=== PATIENT | male | born 1955 | race Caucasian/White ===

== ENCOUNTER → 2023-10-20 10:21 | Outpatient (REF) | payer MEDICARE, SELFPAY | LOC: SDSPAT 10:21 | PROVIDERS: ATTENDING PHYSICIAN Internal Medicine Cardiovascular Disease; FAMILY PHYSICIAN Student in an Organized Health Care Education/Training Program | DX: Z01.818 Encounter for other preprocedural examination (principal); I35.0 Nonrheumatic aortic (valve) stenosis; R06.02 Shortness of breath | CPT/HCPCS: 93005 ==

== ENCOUNTER 2023-10-23 07:01 | Day surgery (SDC) | payer MEDICARE, SELFPAY ==
[2023-10-20 10:45] VITALS: BMI 26.3
[2023-10-23] VITALS (18 sets, daily range): BP systolic 102–155; BP diastolic 59–101
[2023-10-23 08:00] LABS: Glucose - Point of Care 140 mg/dl (70-99)
[2023-10-23] MEDS: LOW STRENGTH ASPIRIN 81 MG PO (08:15)
[2023-10-23] MEDS: NSS 279 ML IV (08:16)
--- NOTE | 2023-10-23 09:54 | ITS.CL.CATH ---
Test Fixture Assembler - Catheterization
Cardiac Catheterization
Procedure Report:
CARDIAC CATHETERIZATION REPORT
Date of Procedure: 10/23/2023
Referring: Monique Daly MD
Indication: Symptomatic severe aortic stenosis
HEMODYNAMIC DATA
AO: 128/70
LV: 188/19
There is a mean gradient of 51 mmHg across the aortic valve
LEFT VENTRICULOGRAPHY: Normal left ventricular wall motion with EF 67%. There is trace mitral regurgitation
CORONARY ANGIOGRAPHY
Dominance: Right
Left Main: There is calcification of the left main without clear angiographic evidence of stenosis; however, there is ventricularization of the arterial waveform on engagement of the left main coronary artery suggestive of significant disease
LAD: 30% ostial stenosis with 60% mid stenosis distal to the takeoff of the first diagonal branch. There is some endomyocardial bridge component with 80% stenosis during systole; however, there is clearly some fixed stenosis as well
Circumflex: The circumflex gives rise to a twig like OM1 and a medium caliber large distribution OM 2 before continuing in the AV groove to supply collaterals to the RCA. There is 80% ostial OM2 stenosis
RCA: 30% ostial stenosis with 20-30% stenosis at the crux. The PDA has 60% mid stenosis. The AV groove branch gives rise to a small RPL 1 and a medium to large RPL 2. There are tandem 80% stenoses in the AV groove branch the first of which is
immediately distal to the takeoff of the RPL 1 and the second proximal to the takeoff of the terminal RPL 2
Closure Device: None-the procedure was performed via the right radial artery. The Demetri's test was normal prior to the procedure.
Radiation (mGy): 408
DAP (cm2.Gy): 39.9
Fluoroscopy time: 3.4 minutes
CONCLUSIONS
1: Severe aortic stenosis with mean gradient 51 mmHg
2: Normal left ventricular function with EF 67%
3. Severe multivessel CAD as described
4. Recommend AVR/CABG-full revascularization may be challenging but would include grafts to the LAD, OM2, RPDA, and distal RPL
5. The patient will be counseled to avoid any exercise/strenuous activity until treatment of his CAD has been accomplished
Copy to: Monique Daly MD, Reji Rodríguez MD
Reji Rodríguez MD, FACC, [facility]
== END 2023-10-23 13:27 | disposition home or self-care (01) ==
LOC: CATH 07:01
PROVIDERS: ATTENDING PHYSICIAN Internal Medicine Cardiovascular Disease; CONSULT PHYSICIAN Thoracic Surgery (Cardiothoracic Vascular Surgery); FAMILY PHYSICIAN Student in an Organized Health Care Education/Training Program
DX: I35.0 Nonrheumatic aortic (valve) stenosis (principal); I25.10 Atherosclerotic heart disease of native coronary artery without angina pectoris; I10 Essential (primary) hypertension; E78.5 Hyperlipidemia, unspecified; E11.9 Type 2 diabetes mellitus without complications; Z87.891 Personal history of nicotine dependence; Z86.73 Personal history of transient ischemic attack (TIA), and cerebral infarction without residual deficits; Z79.02 Long term (current) use of antithrombotics/antiplatelets; Z79.82 Long term (current) use of aspirin
CPT/HCPCS: 82962; 93458; C1894; Q9967

== ENCOUNTER → 2023-10-28 15:56 | Outpatient (REF) | payer MEDICARE, SELFPAY ==
[2023-10-31 16:33] LABS: FIT-Fecal Occult Blood Interp Negative
== END ==
LOC: REG 15:56
PROVIDERS: ATTENDING PHYSICIAN Student in an Organized Health Care Education/Training Program
DX: Z00.00 Encounter for general adult medical examination without abnormal findings (principal); Z12.11 Encounter for screening for malignant neoplasm of colon
CPT/HCPCS: 83520

== ENCOUNTER 2023-11-25 05:07 | Inpatient (IN) | payer MEDICARE, SELFPAY ==
[2023-11-03 08:20] VITALS: BMI 26.2
[2023-11-03 09:02] LABS: % Basophils 0.4 % (0-2); % Eosinophils 2.1 % (0-6); % Immature Granulocytes 0.2 % (0-0.5); % Lymphocytes 28.4 % (20.5-51.1); % Monocytes 11.2 % (1.7-9.3); % Neutrophils 57.7 % (42.2-75.2); Absolute Eosinophils 0.1 10^3/uL (0-0.7); Absolute Lymphocytes 1.5 10^3/uL (1.2-3.4); Absolute Monocytes 0.6 10^3/uL (0.1-0.6); Absolute Neutrophils 3.1 10^3/uL (1.4-6.5); Hematocrit 46.3 % (39.0-52.0); Hemoglobin 15.3 g/dL (13.0-18.0); Mean Corpuscular Hgb 29.8 pg (27.0-31.0); Mean Corpuscular Volume 90.3 fL (80.0-94.0); Mean Platelet Volume 10.8 fL (7.4-10.4); Nucleated Red Blood Cells % 0 % (-); Platelet Count 159 10^3/uL (130-400); Red Blood Cell Count 5.13 10^6/uL (4.70-6.10); Red Cell Dist. Width 13.2 % (11.5-14.5); White Blood Cell Count 5.3 10^3/uL (4.8-10.8)
[2023-11-03 09:05] LABS: INR 1.01; PT 13.1 Sec (11.4-14.6)
[2023-11-03 09:06] LABS: APTT 27.8 Sec (23.4-35.0)
[2023-11-03 09:39] LABS: ALT (SGPT) 38 U/L (0-50); AST (SGOT) 27 U/L (17-59); Albumin 4.6 g/dl (3.5-5.0); Alkaline Phosphatase 56 U/L (38-126); Blood Urea Nitrogen 15 mg/dl (9-20); Calcium 10.1 mg/dl (8.4-10.2); Carbon Dioxide 32 mmol/L (22-30); Chloride 99 mmol/L (98-107); Estimated Creatinine Clearance 100 ml/min; Glucose 135 mg/dl (70-99); Potassium 4.3 mmol/L (3.5-5.1); Sodium 138 mmol/L (135-145); Total Bilirubin 0.9 mg/dl (0.2-1.3); Total Protein 7.2 g/dl (6.3-8.2); eGFR > 60.00
--- NOTE | 2023-11-03 11:07 | CM ---
Met with Mr. Farris in [facility] He states prior to admission he resides alone in a two story townhouse without any steps to enter. He states he has a full flight of steps to get to bedroom/full bathroom. He states he has a powder room on the
first floor. He states prior to admission he was independent with ambulation and adls. He states he does not have any DME in the home. He states he does not have a prescription plan and uses [facility]. He states his ex-spouse maybe able to
check on him. He states his son will be here on the surgery day. The discharge plan is to return home with a home visit by the Cardiothoracic Transitional Care Nurse when medically stable.
We reviewed pre-op and post-op routines. We reviewed the shower instructions. He has the soap, written instructions and the Cardiothoracic Surgery Educational Booklet. We also reviewed restrictions including sternal precautions and driving
restrictions. We discussed a home visit by the Cardiothoracic Transitional Care Nurse. He is agreeable to home visit. The plan is for AVR/CABG on Wednesday, November 22.
[2023-11-03 12:43] LABS: Urine Albumin Negative (Neg - Trace); Urine Bilirubin Negative (Negative); Urine Character Clear (Clear); Urine Color Yellow; Urine Glucose Negative (Negative); Urine Ketone Negative (Negative); Urine Leukocyte Trace (Negative); Urine Nitrite Negative (Negative); Urine Occult Blood Negative (Negative); Urine Specific Gravity 1.005 (<1.030); Urine Urobilinogen Negative (Neg - 1+)
[2023-11-03 12:51] LABS: Urine Bacteria Few (Negative); Urine Red Blood Cell 0-2 /HPF (0-2); Urine Squamous Cell 0-2 /LPF (Few)
[2023-11-25] VITALS (22 sets, daily range): BP systolic 65–153; BP diastolic 47–86; BMI 25.9
[2023-11-25] MEDS: PROTONIX 40 MG PO (05:39)
[2023-11-25] MEDS: MAGNESIUM OXIDE 500 MG PO (05:39)
[2023-11-25] MEDS: LOPRESSOR 25 MG PO (05:39)
[2023-11-25] MEDS: BACTROBAN 2% OINTMENT 1 APPLIC NASAL ×2 (05:39→20:07)
--- NOTE | 2023-11-25 05:40 | DOWNTIME ---
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 Downtime documentation of patient's care, including medication administrations, has been reconciled in the electronic record per guidelines. Refer to the
patient's paper chart under the miscellaneous tab to see printed paper medication records and downtime forms.
[2023-11-25 07:30] LABS: ACT+ - POC 90 Seconds (82-134)
[2023-11-25 07:39] LABS: B.E. - POC -1.3 mmol/L; Glucose - POC 124 mg/dl (65-99); HCO3 - POC 25 mmol/L (21-29); Hematocrit - POC 38 % PCV (42-52); Hemodilution- POC No; Hemoglobin Calculated - POC 12.9; Ionized Calcium - POC 1.19 mmol/L (1.12-1.27); PCO2 - POC 44 mmHg (35-45); PO2 - POC 496 mmHg (80-100); Potassium - POC 3.9 mmol/L (3.6-5.0); Sodium - POC 143 mmol/L (135-145); pH - POC 7.35 (7.35-7.45)
[2023-11-25 07:56] LABS: Urine Albumin Negative (Neg - Trace); Urine Bilirubin Negative (Negative); Urine Character Clear (Clear); Urine Color Yellow; Urine Glucose Negative (Negative); Urine Ketone Negative (Negative); Urine Leukocyte Negative (Negative); Urine Nitrite Negative (Negative); Urine Occult Blood 2+ (Negative); Urine Specific Gravity 1.015 (<1.030); Urine Urobilinogen Negative (Neg - 1+)
[2023-11-25 08:27] LABS: Urine Mucus Moderate
[2023-11-25 08:30] LABS: Urine White Cell 0-2 /HPF (0-5)
[2023-11-25 08:33] LABS: Urine Hyaline Cast 0-2 /LPF (0-2)
[2023-11-25 09:55] LABS: ACT+ - POC 777 Seconds (82-134)
[2023-11-25 10:18] LABS: ACT+ - POC 508 Seconds (82-134)
[2023-11-25 10:50] LABS: Glucose - POC 158 mg/dl (65-99); HCO3 - POC 27 mmol/L (21-29); Hematocrit - POC 31 % PCV (42-52); Hemodilution- POC Yes; Hemoglobin Calculated - POC 10.5; Ionized Calcium - POC 1.05 mmol/L (1.12-1.27); PCO2 - POC 45 mmHg (35-45); PO2 - POC 436 mmHg (80-100); Sodium - POC 137 mmol/L (135-145)
[2023-11-25 10:51] LABS: ACT+ - POC 536 Seconds (82-134)
[2023-11-25 11:20] LABS: B.E. - POC 2.1 mmol/L; Glucose - POC 175 mg/dl (65-99); HCO3 - POC 27 mmol/L (21-29); Hematocrit - POC 31 % PCV (42-52); Hemodilution- POC Yes; Hemoglobin Calculated - POC 10.6; O2 Saturation %Calculated-POC 99.9 5 (92-96); PCO2 - POC 42 mmHg (35-45); PO2 - POC 278 mmHg (80-100); Potassium - POC 5.5 mmol/L (3.6-5.0); Sodium - POC 140 mmol/L (135-145); pH - POC 7.41 (7.35-7.45)
[2023-11-25 11:27] LABS: ACT+ - POC 469 Seconds (82-134)
[2023-11-25 12:13] LABS: B.E. - POC 2.4 mmol/L; Glucose - POC 189 mg/dl (65-99); HCO3 - POC 27 mmol/L (21-29); Hematocrit - POC 26 % PCV (42-52); Hemodilution- POC Yes; Hemoglobin Calculated - POC 8.9; Ionized Calcium - POC 1.08 mmol/L (1.12-1.27); O2 Saturation %Calculated-POC 99.9 5 (92-96); PCO2 - POC 38 mmHg (35-45); PO2 - POC 266 mmHg (80-100); Potassium - POC 4.9 mmol/L (3.6-5.0); Sodium - POC 139 mmol/L (135-145); pH - POC 7.45 (7.35-7.45)
[2023-11-25] MEDS: ANCEF 10 IV ×2 (12:17)
[2023-11-25 12:19] LABS: ACT+ - POC 651 Seconds (82-134)
--- NOTE | 2023-11-25 12:41 | CON.INTV ---
Consultation
Consultation Request
Date/Time Consultation Requested: 11-25-23
Date/Time Consultation Performed: 11-25-23
Requesting Provider: Dr Moyer
Performing Provider: Dr Hollis
Reason for Consultation: s/p CABG/AVR MV
Medical History
-
Chief Complaint: s/p CABG
History of Present Illness:
Mr Niall Farris is a 68/M adm 11-24 for scheduled CABG/AVR.
Known to Dr Moyer, seen at office for evaluation of MVD and severe , prepared for surgery
S/p CABGx3 and AVR 11-25-23
Postop L chest wall vein bleeding, proximal graft to OM bleeding: hemostasis achieved
Seen at CVICU, sedated, on SIMV
Past Medical History
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
Social History
Tobacco: Former Smoker
Alcohol: None
Drug: None
Employment: Retired
Family History
Family History: Reviewed & Not Pertinent
Allergies / Home Medications
Allergies
Allergy/AdvReac Type Severity Reaction Status Date / Time
bee pollen [Bee Pollen] Allergy Anaphylaxis Verified 10/29/23 09:37
Home Medications
�Medication �Instructions �Recorded �Confirmed �Last Taken �Type
atorvastatin 80 mg tablet 80 mg PO QPM 10/14/23 11/25/23 11/24/23 History
2100
clopidogrel 75 mg tablet 75 mg PO QPM 10/14/23 11/25/23 11/20/23 21:00 History
labetalol 100 mg tablet 200 mg PO BID 10/14/23 11/25/23 11/24/23 21:00 History
aspirin 81 mg tablet,delayed 81 mg PO DAILY #1 tab 10/23/23 11/25/23 11/24/23 21:00 Rx
release
epinephrine 0.3 mg/0.3 mL 0.3 mg IM PRN PRN bee stings 10/29/23 11/25/23 11/08/22 History
injection, auto-injector
ibuprofen 200 mg tablet 200 mg PO Q6H PRN pain 10/29/23 11/25/23 10/09/23 History
Review of Systems
-
Unable to Obtain full review of systems at this time due to: Patient Intubation
Vitals / Labs / Diagnostic Testing
Vital Signs
Temp Resp BP Pulse Ox
98.2 F 16 144/86 96
11/25/23 05:38 11/25/23 05:38 11/25/23 05:14 11/25/23 05:38
Lab Data
11/03/23 08:31
11/03/23 08:31
Diagnostic Testing:
Physical Exam
-
HEENT: Normocephalic and Moist Mucous Membranes
Cardiovascular: Regular Rhythm and Peripheral Edema (n)
Respiratory: Clear and Non-Labored Respirations
GI: Soft and Non Distended
Neurology: Other (sedated)
Skin: Warm
General: Respiratory Distress (n)
Assessment
-
Assessment:
Mr Niall Farris is a 68/M adm 11-24 for scheduled CABG/AVR. Known to Dr Moyer, seen at office for evaluation of MVD and severe , prepared for surgery
Impression:
S/p CABGx3 and AVR 11-25-23
Postop L chest wall vein bleeding, proximal graft to OM bleeding: hemostasis achieved
Conditions CORN POPPER:
HTN
HLD
Stroke, residual R hand neuropathy RLE paresia
CAD
MR
T2DM
L thumb amputation
BCC skin excision
Former smoker
Negative LDCT chest October 2022 and October 2023
Plan:
Ventilator settings reviewed: [id number] (POx 99%)
FiO2 will be weaned
Minute ventilation will be adjusted
Arterial blood gases will be monitored
Spontaneous breathing trial will be attempted with hopeful extubation after anesthesia/sedation wear off
Preop spirometry October 2023 normal
Postop CXR: portable, no gross infiltrates. ET. [facility] [place]. Sternotomy wiring. Chest/med tubes
Pulmonary artery catheter parameters will be followed
Pressors/antihypertensive/inotropes/diuretics will be provided as needed
Monitor chest tube output
Monitor hemoglobin
Monitor platelet count and coags
Transfuse blood product if needed
CT surgery following chest tubes
Monitor blood sugar
Insulin drip per protocol
Aspiration precautions
VAP prevention protocol
DVT prophylaxis
Early nutrition
Early mobilization
Critical care time: 35 min
[2023-11-25 12:52] LABS: B.E. - POC -2.3 mmol/L; Glucose - POC 132 mg/dl (65-99); HCO3 - POC 23 mmol/L (21-29); Hematocrit - POC 26 % PCV (42-52); Hemodilution- POC Yes; Ionized Calcium - POC 1.08 mmol/L (1.12-1.27); O2 Saturation %Calculated-POC 99.7 5 (92-96); PCO2 - POC 39 mmHg (35-45); PO2 - POC 199 mmHg (80-100); Potassium - POC 3.4 mmol/L (3.6-5.0); Sodium - POC 146 mmol/L (135-145); pH - POC 7.38 (7.35-7.45)
[2023-11-25 13:01] LABS: ACT+ - POC 920 Seconds (82-134)
[2023-11-25 13:56] LABS: ACT+ - POC 104 Seconds (82-134)
[2023-11-25] MEDS: NEURONTIN PO ×3 (14:00→20:07)
[2023-11-25] MEDS: NOVOLOG FLEXPEN SC ×2 (14:00→15:30)
[2023-11-25 14:01] LABS: Glucose - POC 79 mg/dl (65-99); HCO3 - POC 23 mmol/L (21-29); Hematocrit - POC 28 % PCV (42-52); Hemodilution- POC Yes; Hemoglobin Calculated - POC 9.6; Ionized Calcium - POC 1.33 mmol/L (1.12-1.27); O2 Saturation %Calculated-POC 99.4 5 (92-96); PCO2 - POC 48 mmHg (35-45); PO2 - POC 182 mmHg (80-100); Potassium - POC 3.2 mmol/L (3.6-5.0); Sodium - POC 146 mmol/L (135-145); pH - POC 7.28 (7.35-7.45)
[2023-11-25] MEDS: TYLENOL PO ×2 (14:01→22:43)
--- NOTE | 2023-11-25 14:05 | W.CVOR.SURPR ---
CVOR Surgeon Immed Pre Op
-
I have examined this patient prior to performance of the scheduled procedure.
The patient's condition is unchanged from the time of the dictated/written History and
Physical and the patient is able to undergo the scheduled procedure.
--- NOTE | 2023-11-25 14:05 | W.IMMPOSTOP ---
Addendum entered and electronically signed by João Mandel MD 11/25/23 17:29:
Initial intraoperative CT output was higher than expected. TEG obtained. Pt. transfused 1pk PLTs per TEG guidance. No significant decrease in CT output w/ dark/venous output. I therefore opted to reopen his incision. There was LEFT chest wall
vein that was bleeding which was easily addressed w/ electrocautery and topical agents. In addition, during our systematic assessment of surgical sights, the proximal graft to the OM, while not bleeding at rest, had a spot that bleed w/
manipulation. I therefore placed 1 additional 6-0 prolene suture at this site w/ good result. The sternum was closed w/ 7 interrupted sternal wires, a sternal 'X' plate w/ 8 - 16mm screws, and a sternal 'square' plate w/ 4 - 12mm screws. His
fascial, deep dermal, and sub-Q tissues were closed w/ absorbable suture.
Pt. tolerated this additional portion of the procedure well.
Addendum entered and electronically signed by João Mandel MD 11/25/23 15:19:
[id number]
Original Note:
Surgical Immed Post Op Note
-
CARDIAC SURGERY OPERATIVE NOTE:
Preoperative Dx:
Severe aortic stenosis (P/M: 75/43)
[id number] AI
Vvfq-[id number]-[id number] MR
Mdoq-fh-cpjtkphy TR
Multivessel CAD w/ extensive coronary calcifications
Mild elevation of L hemidiaphragm
Postoperative Dx:
Same
Procedures:
1) Median sternotomy
2) Takedown of MATY (narrow pedicle)
3) Endoscopic harvest/prep of RLE GSV
4) CABG x 3 (MATY to LAD, GSV to OM, GSV to PDA)
5) AVR (#25 Inspiris Resilia)
Surgeon:
João Mandel M.D.
Assistants:
Mary Hoffman P.A.-C.; endoscopic harvest/prep of RLE GSV, first crusher throughout, chest closure
Miguel Horton P.A.-C.; closure of RLE GSV incisions, chest closure
Anesthesia:
Brent Moralez M.D.
Arielle Pitts C.R.N.A. and Mary Schreiber C.R.N.AGiuliana
Perfusion:
Rupal Vázquez C.C.P.; XC: 160min, CPB: 180min
Findings:
The MATY was a beautiful conduit w/ extremely brisk blood flow. ELD 3.00mm.
The GSV was good conduit w/ slightly thin ruleas. ELD 3.50mm
The LAD was visible on the epicardial surface. Moderately dense, scattered calcifications. ELD 2.75mm at midpoint anastomosis.
The OM was visible on the epicardial surface as it exited the AV groove and then it took a shallow intramyocardial course. There were proximal calcifications, but the intramyocardial segment was free of calcifications. It was quite thin walled
and a fairly small target w/ ELD 1.25mm
The PDA was visible on the epicardial surface. Moderately dense, scattered calcifications. ELD 2.75mm at midpoint anastomosis
The R PLB was cleared, but was at the most a 1.00mm vessel; bypass was not performed
The AV was trileaflet w/ extensively calcified, fixed leaflets w/ annular extension of calcifications circumferentially.
Post GARCIA: LVEF 70% w/o RWMA, Normal RV. Mild MR. Mild TR. Well-seated AVR w/o PVL/AI, mean gradient 6mmHg
Implants:
[employer], INSPIRIS RESILIA, 25mm Model 90205E, SN [id number]
Epicardial V-wires x 2
CT x 4 (B/L pleural, inferior mediastinal, superior mediastinal)
Sternal wires
Specimens:
AV
Transfusions:
None
Complications:
None
Condition:
59 sinus w/ isoelectrics STs. 107/65. 53/33. CVP: 24. CO/CI: 4.7/2.16
GTTS: levophed 6, precedex 0.5
Stable/guarded to CVICU
[2023-11-25] MEDS: PACERONE PO (15:30)
--- NOTE | 2023-11-25 15:35 | CM ---
Patient in OR today for planned CT Surgery.
Reviewed initial assessment. Pt. resides alone in a 2 story town home without any LIBBY. Patient is functionally indep. w/ ADLs, mobility.
Anticipated DC plan is for home w/ CT Transitional Care RN.
CM to follow.
--- NOTE | 2023-11-25 15:35 | W.PN.CD ---
Today's Communication / Plan
-
Currently being re-explored/repaired.
Appears to be due to positional SVG to OM leak at the level of the aortotomy.
Anticipate routine post operative management.
Impression / Plan
-
Impression/Plan: 68 y/o male with HTN, HLD, hx of CVA, NIDDM and CAD with severe /moderate AI admitted for elective CABG/SAVR.
#CAD
-S/P 3V CABG (CORREA to LAD, SVG to OM, SVG to RPDA) by Dr. Mandel, 11/25/2023.
-Currently in re-exploration for bleeding - appears to be due to positional anastamotic leak from the SVG to OM.
-Anticipate routine postoperative management.
#Severe /Moderate AI
-S/P #25 Perry Inspiris Resilia SAVR by Dr. Mandel, 11/25/2023.
-Anticipate routine post operative management.
#HTN
-Chronic.
-Home meds on hold in the perioperative setting.
-Restart as indicated.
#HLD
-Chronic.
-Resume atorvastatin 80 mg daily when taking PO.
Critical Care Time = 32 minutes.
Subjective/Interval History:
The patient underwent surgery today.
Prior to leaving the OR, the patient was found to have excessive blood loss through the chest tubes.
The patient was re-opened and explored. This appeared to show leak around the proximal anastamosis to the OM graft. Dr. Mandel intends to repair this anastamosis.
DATA:
GARCIA, 11/25/2023:
CONCLUSIONS
Severe aortic stenosis, mild aortic regurgitation, valve annulus 25 mm.
Normal left ventricular size and systolic function, mild LVH, stage I diastolic
dysfunction.
The aorta has atheroma less than 5 mm and moderate calcifications in the arch.
Mild MR. Mild TR.
Dilated coronary sinus.
POST OPERATIVE FINDINGS
Status post aortic valve replacement with 25 mm bioprosthetic aortic valve, the
valve is well-seated, no perivalvular leak, leaflets are functioning well, mean
gradient is 6 mmHg.
Status post CABG x 3, the left ventricle is vigorously eva, EF 70 to
75%. No regional wall motion abnormalities seen.
Normal right ventricular size and function.
In the initial post pump separation phase there was a moderate MR, it resolved
to mild MR at the end of the case.
Mild TR.
The rest of the study is unchanged.
Cardiac Catheterization, 10/23/2023:
CORONARY ANGIOGRAPHY
Dominance: Right
Left Main: There is calcification of the left main without clear angiographic evidence of stenosis; however, there is ventricularization of the arterial waveform on engagement of the left main coronary artery suggestive of significant disease
LAD: 30% ostial stenosis with 60% mid stenosis distal to the takeoff of the first diagonal branch. There is some endomyocardial bridge component with 80% stenosis during systole; however, there is clearly some fixed stenosis as well
Circumflex: The circumflex gives rise to a twig like OM1 and a medium caliber large distribution OM 2 before continuing in the AV groove to supply collaterals to the RCA. There is 80% ostial OM2 stenosis
RCA: 30% ostial stenosis with 20-30% stenosis at the crux. The PDA has 60% mid stenosis. The AV groove branch gives rise to a small RPL 1 and a medium to large RPL 2. There are tandem 80% stenoses in the AV groove branch the first of which is
immediately distal to the takeoff of the RPL 1 and the second proximal to the takeoff of the terminal RPL 2
CONCLUSIONS
1: Severe aortic stenosis with mean gradient 51 mmHg
2: Normal left ventricular function with EF 67%
3. Severe multivessel CAD as described
4. Recommend AVR/CABG-full revascularization may be challenging but would include grafts to the LAD, OM2, RPDA, and distal RPL
5. The patient will be counseled to avoid any exercise/strenuous activity until treatment of his CAD has been accomplished
Physical Exam
Vital Signs/Labs
Vital Signs
Temp Resp BP Pulse Ox
36.8 C 16 144/86 96
11/25/23 05:38 11/25/23 05:38 11/25/23 05:14 11/25/23 05:38
11/24/23 11/25/23 11/26/23
11:59 11:59 11:59
Actual Weight 91.5 kg
PT 13.1 Sec (11.4-14.6) 11/03/23 08:31
INR 1.01 11/03/23 08:31
APTT 27.8 Sec (23.4-35.0) 11/03/23 08:31
Physical Exam
Patient seen in surgery/re-exploration and during discovery of positional leak of the Ao/SVG to OM anastomosis.
Exam deferred.
Data Reviewed
-
Date of Service: November 25, 2023
Medical Decision Making: Reviewed Test Results and Independent Historian Assessment
EKG: Tracing Personally Visualized and interpreted and Report Reviewed by me
Echo: Report Reviewed by me
X-Ray/CT/US/MRI/NUC/PET: Image Personally Visualized and interpreted and Report Reviewed by me
Medical Tests (PFT, Pathology etc): Report Reviewed by me
Labs: Labs Reviewed by me
Old Records: Reviewed
[2023-11-25 16:15] LABS: Hematocrit 25.9 % (39.0-52.0); Hemoglobin 8.5 g/dL (13.0-18.0); Mean Corp Hgb Conc. 32.8 g/dL (33.0-37.0); Mean Corpuscular Hgb 29.7 pg (27.0-31.0); Mean Corpuscular Volume 90.6 fL (80.0-94.0); Mean Platelet Volume 10.7 fL (7.4-10.4); Platelet Count 112 10^3/uL (130-400); Red Blood Cell Count 2.86 10^6/uL (4.70-6.10); Red Cell Dist. Width 13.1 % (11.5-14.5)
[2023-11-25 16:24] LABS: ACT+ - POC 112 Seconds (82-134)
[2023-11-25 16:26] LABS: Glucose - POC 133 mg/dl (65-99); HCO3 - POC 24 mmol/L (21-29); Hematocrit - POC 25 % PCV (42-52); Hemodilution- POC Yes; Hemoglobin Calculated - POC 8.6; Ionized Calcium - POC 1.16 mmol/L (1.12-1.27); O2 Saturation %Calculated-POC 99.2 5 (92-96); PCO2 - POC 44 mmHg (35-45); PO2 - POC 153 mmHg (80-100); Potassium - POC 4.4 mmol/L (3.6-5.0); Sodium - POC 143 mmol/L (135-145); pH - POC 7.34 (7.35-7.45)
[2023-11-25 16:29] LABS: INR 1.56; PT 18.8 Sec (11.4-14.6)
[2023-11-25 16:30] LABS: APTT 35.5 Sec (23.4-35.0)
[2023-11-25 17:51] LABS: Glucose - Point of Care 174 mg/dl (70-99)
[2023-11-25 17:54] LABS: B.E. 0 mmol/L; HCO3 25.4 mmol/L (21-28); Ionized Calcium 1.11 mMOL/L (1.15-1.33); PCO2 44 mmHg (35-48); PO2 85 mmHg (83-108); Potassium 4.6 mMOL/L (3.5-5.1); Sodium 141 mMOL/L (136-145); pH 7.37 (7.35-7.45)
[2023-11-25 17:55] LABS: Hematocrit 23.9 % (39.0-52.0); Hemoglobin 8.3 g/dL (13.0-18.0); Platelet Count 90 10^3/uL (130-400)
--- NOTE | 2023-11-25 17:55 | W.PN.UPDATE ---
Update Note
Progress Note Update
68-year-old male electively admitted 11/25/2023 for AVR and CABG with Dr. Mandel
IV fluids: 1550
U.O.:� 800
Blood:� 1 plt, 1PRBC, 2FFP
Wires:� 2 V-wires
Inotropes:� Dobutamine @ 2
Pressors:� none
Vasodilators: Cardene @ 5
Sedatives:� Precedex
VS: T 98.5F; HR 72; BP 101/47
�
NEURO: sedated on Precedex, pupils +2mm B/L
RESP: #8OT @24cm> 550/40%/23/12. Lungs clear B/L. 2 mediastinal (60cc on arrival) and R/L pleural (65cc on arrival) chest tubes to -20cm suction. Sanguineous drainage
CV: RRR +S1, S2, no S3, no�rub, no murmur. Dermabond to median sternotomy. RIJ w/Clinton locked @ 48cm. PA 36/; CVP 10; C.O 4.65/CI 2.13
ABD: round, soft, no BS
EXT: no edema, +2/4 DP pulses B/L, no femoral bruit, B/L LE FINN wrap intact; left radial A-line intact
: Vides with clear yellow urine
�
A/P: POD #0 s/p AVR # 25mm Inspiris, CABG x 3 CORREA-LAD; SVG-OM; SVG-PDA. Reopened in OR for hemostasis
GARCIA: EF�70-75%. AV mean 6mmHg, mild MR/TR
- wean and extubate
- will need instruction regarding antibiotic prophylaxis for dental and invasive procedures
- wean Cardene
# CAD
- will require ASA/Plavix, Beta-shannon and high intensity statin POD#1 when extubated, off inotropic support and plt>80k
�
# acute surgical blood loss anemia
- Hb 8.3>transfuse 1 PRBC
- trend CBC
# Acute post op Thrombocytopenia
- platelet count 90K
- coags stable
- trend CBC
�
# T2DM (A1C 6.7)
- insulin infusion x 48h, then transition to corrective SSI
- diabetes PRINCIPAL JAVA DEVELOPER consult for management as no prior meds
�
# Hx CVA 2020(<50% B/LICA stenosis)
- no residual
- monitor neuro status
[2023-11-25] MEDS: NSS 500 IV (18:00)
--- NOTE | 2023-11-25 18:00 | PTCARENOTE ---
Pt arrived to CVICU at 1740. Pt is sedated and intubated. Remains on 0.5mcg/kg/hr Precedex. Pt currently SR with HR 60's. BP 113/52 MAP 70, PA pressure 40/21, CVP 13, CO 4.65, CI 2.13. Initially on Cardene at 5mg/hr, now titrated off. MAPs remain
70's. Remains on Dobutamine at 2mcg/kg/min. Epicardial V wire in place to backup. Radial and pedal pulses easily palpable. #8 ET tube at 24cm right lip. Vent settings 50% FiO2, PEEP 5, RR 16, TV 550, pulse oximetry 99%. Mediastinal chest tubes x2
and left/right pleural chest tubes in place, draining red drainage, no sign of air leak or crepitus. Bowel sounds hypoactive. Remains on insulin gtt per glycemic protocol. Vides catheter in place draining yellow urine. Midsternal incision Aquacel
dressing CDI. Left leg with jason wrap overlay. Left groin puncture ADMINISTRATIVE LIBRARY ASSISTANT with surgical adhesive. Right IJ swan-malvin catheter at 45cm. Left radial Lottie intact. Post-op x-ray completed. Labs collected. Post-op EKG completed.
[2023-11-25 18:06] LABS: PT 16.2 Sec (11.4-14.6)
[2023-11-25 18:07] LABS: APTT 34.3 Sec (23.4-35.0)
[2023-11-25 18:11] LABS: Blood Urea Nitrogen 15 mg/dl (9-20); Estimated Creatinine Clearance 100 ml/min; Glucose 152 mg/dl (70-99); Magnesium 2.3 mg/dl (1.6-2.3)
[2023-11-25] MEDS: CALCIUM CHLORIDE 10% SYRINGE 50 MG IV (18:53)
[2023-11-25] MEDS: CALCIUM CHLORIDE 10% SYRINGE 50 ML IV (18:53)
--- NOTE | 2023-11-25 19:00 | PTCARENOTE ---
assumed care of patient @ 1900. recieved pt intubated, sedated on mechanical ventilation. Pupils equal and reactive. pt currently not responsive to verbal, will wean precedex. NSR on monitor with pvcs and 4 beat run of VT at shift chane, ctnp aware.
V wire set to backup 40, 5 , .8. PAPs 40s/20s, BP labile, Map between 60-80 currently. CI 1.94 ctnp aware. ET tube 24 @ R lip, 50 % fio2, 16 bpm, 550 TV with 5 peep. no spontaneious breaths yet. Belly hypoactive, soft. michaud with clear yellow
urine. Sternal aquacel CDI, L leg with jason wrap and R groin site CDI MARKETING SUPPORT COORDINATOR. RIJ cordis with swan at 45, PIV r hand and L arterial line, central lines flushed, zeroed. Recieved with insulin per protocol, dobut at 2 , precedex at .5, levo turned on to 2
at shift change. Pt recieved 1uprbc finished at shift change.
[2023-11-25 19:09] LABS: Glucose - Point of Care 147 mg/dl (70-99)
[2023-11-25] MEDS: LIPITOR PO (19:17)
--- NOTE | 2023-11-25 19:44 | PTCARENOTE ---
pt bradycardic with pacer box activating at 40 bpm, BP dropped maps 55 - BP stabilized once NSR resumed CTPA aware
[2023-11-25 20:00] LABS: Glucose - Point of Care 120 mg/dl (70-99)
[2023-11-25] MEDS: SENOKOT-S PO (20:06)
[2023-11-25 20:25] LABS: B.E. 0.5 mmol/L; HCO3 24.5 mmol/L (21-28); Ionized Calcium 1.26 mMOL/L (1.15-1.33); O2 Saturation % 99.7 % (94-98); PCO2 36 mmHg (35-48); PO2 139 mmHg (83-108); Potassium 4.1 mMOL/L (3.5-5.1); pH 7.44 (7.35-7.45)
[2023-11-25 20:26] LABS: Hematocrit 26.6 % (39.0-52.0); Hemoglobin 9.4 g/dL (13.0-18.0); Platelet Count 104 10^3/uL (130-400)
[2023-11-25 20:28] LABS: Mixed Venous O2 Saturation 99.9 %
[2023-11-25 20:35] LABS: INR 1.32; PT 16.4 Sec (11.4-14.6)
[2023-11-25 20:36] LABS: APTT 40.7 Sec (23.4-35.0)
[2023-11-25 20:58] LABS: Glucose - Point of Care 120 mg/dl (70-99)
[2023-11-25] MEDS: PRECEDEX 100 IV (21:14)
[2023-11-25 21:20] LABS: Mixed Venous O2 Saturation 41.4 %
[2023-11-25] MEDS: ALBUMIN 5% 250 IV (21:34)
--- NOTE | 2023-11-25 21:38 | PTCARENOTE ---
index and mv02 low ( 1.46 and 41). Dobut increased to 3 per CTPA . 1 albumin given
[2023-11-25 21:57] LABS: Glucose - Point of Care 111 mg/dl (70-99)
[2023-11-25] MEDS: ASPIRIN 300 MG RECTAL (22:33)
[2023-11-25] MEDS: VERSED 0.5 MG IV (22:34)
--- NOTE | 2023-11-25 22:38 | PTCARENOTE ---
Addendum entered by Milton Lunsford RN 11/25/23 22:41:
pt recovered with levo up to 6 mcg
Original Note:
pt awoke very agitated, thrashing, BP extremely high 220s/100s. Cardene up to 15 and Nitro up to 40 to bring SBP down. Afterwards, pt with vagal event - coughing with eyes rolling back- Pacer kicked on and pt hypotensive in the 60s/70s. Pacer
increased to 50 bpm afterwards. Midazolam given and Precedex put back to 0.5 during this event.
[2023-11-25 23:00] LABS: Glucose - Point of Care 135 mg/dl (70-99)
[2023-11-26] VITALS (64 sets, daily range): BP systolic 86–162; BP diastolic 45–798; PULSE 97; O2SAT 98; BMI 27.5
--- NOTE | 2023-11-26 00:20 | PTCARENOTE ---
pt continually trying to grab at ET tube - soft limb restraints ordered by CTPA
--- NOTE | 2023-11-26 00:35 | PTCARENOTE ---
pt awake, denies pain, seems very restless , CPAP trial initiated at 0035
[2023-11-26] MEDS: ANCEF 5 IV ×3 (00:59→16:44)
[2023-11-26 01:15] LABS: Mixed Venous O2 Saturation 50.3 %
[2023-11-26 01:17] LABS: B.E. 0.1 mmol/L; HCO3 24.7 mmol/L (21-28); Ionized Calcium 1.24 mMOL/L (1.15-1.33); O2 Saturation % 99.9 % (94-98); O2 Therapy CPAP; PCO2 39 mmHg (35-48); PO2 158 mmHg (83-108); Potassium 4.5 mMOL/L (3.5-5.1); pH 7.41 (7.35-7.45)
[2023-11-26 01:20] LABS: Glucose - Point of Care 123 mg/dl (70-99)
--- NOTE | 2023-11-26 01:20 | PTCARENOTE ---
pt agitated, got hold of A line and removed it. pressure held and dressing applied. CPAP gas good, extubated at 0125. pt AOX3, denies pain or discomfort. CTPA to try to put new A line in
[2023-11-26 01:30] LABS: Magnesium 2.3 mg/dl (1.6-2.3)
--- NOTE | 2023-11-26 02:00 | PTCARENOTE ---
new R radial arterial line placed by anesthesia
--- NOTE | 2023-11-26 03:00 | PTCARENOTE ---
labs drawn and sent, EKG completed, pt following commands however is still very restless, attempting to roll around in bed. denies pain or discomfort. IV tylenol given. Restraints taken off to assess readiness, pt very quickly attempted to remove
swan. restraints reapplied, education provided related to importance of IVs and chest tubes... pt verbalizes understanding.
[2023-11-26 03:18] LABS: Glucose - Point of Care 112 mg/dl (70-99)
[2023-11-26] MEDS: OFIRMEV 100 IV (03:31)
[2023-11-26 03:51] LABS: Hematocrit 24.1 % (39.0-52.0); Hemoglobin 8.5 g/dL (13.0-18.0); Mean Corp Hgb Conc. 35.3 g/dL (33.0-37.0); Mean Corpuscular Volume 85.2 fL (80.0-94.0); Mean Platelet Volume 11.7 fL (7.4-10.4); Platelet Count 103 10^3/uL (130-400); Red Blood Cell Count 2.83 10^6/uL (4.70-6.10); Red Cell Dist. Width 14.4 % (11.5-14.5); White Blood Cell Count 10.2 10^3/uL (4.8-10.8)
[2023-11-26 04:10] LABS: Glucose - Point of Care 104 mg/dl (70-99)
[2023-11-26 04:28] LABS: Blood Urea Nitrogen 20 mg/dl (9-20); Calcium 8.5 mg/dl (8.4-10.2); Carbon Dioxide 23 mmol/L (22-30); Chloride 110 mmol/L (98-107); Estimated Creatinine Clearance 100 ml/min; Glucose 101 mg/dl (70-99); Magnesium 2.3 mg/dl (1.6-2.3); Potassium 4.4 mmol/L (3.5-5.1); Sodium 142 mmol/L (135-145); eGFR > 60.00
[2023-11-26 05:15] LABS: Glucose - Point of Care 114 mg/dl (70-99)
[2023-11-26] MEDS: TYLENOL PO (05:47)
[2023-11-26 06:03] LABS: Glucose - Point of Care 109 mg/dl (70-99)
--- NOTE | 2023-11-26 06:27 | W.PN.CT ---
Today's Communication / Plan
-
-pod #1
-extubated without issues @ 1:25 am. A&O x3, moves all extremities, follows commands
-several vasovagal episodes while intubated with hypotension and bradycardia (paced @ 40)- recovered quickly with pacing and Levo
-impulsive, tried to pull out ETT, pulled out L a-line (replaced on R), picked at Cordis- restraints on and off, monitor. Currently, pt is calm, comfortable
-CI 2.21, CO 4.81. Drips: Dobut 2, Insulin, Levo was @2 and is currently off
-CT output: 2 meds 205/285, 2 pleur 255/375 in 12/24 hrs
-holding BB and Amio d/t abraham and Dobut
-holding Plavix d/t low platelets
-current meds (ASA, Lipitor, Protonix, Neurontin)
-maintain iv insulin
-consider continue Vides for critical I&O
-maintain pw (paced intermittently overnight)
-encourage IS, OOB
Assessment / Plan
-
- Severe /mv-CAD- s/p AVR (#25 Inspiris Sadiaa) and CABG x 3 (MATY to LAD, GSV to OM, GSV to PDA); reopen incision in OR with repair of L chest wall vein bleeding and 1 extra suture placement at prox graft to OM by Dr. Mandel on 11/25/23, pod #1
- Post GARCIA: LVEF 70% w/o RWMA, Normal RV. Mild MR. Mild TR. Well-seated AVR w/o PVL/AI, mean gradient 6mmHg
- Preop Severe /mild-mod AI, mild-mod MR, mild-mod TR
- HTN/HLD
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
- CVA in 2020 with no residual
- DM II
- Intracranial and carotid atherosclerosis
- PVCs
- Former smoker, quit 11 yrs ago
- Pulmonary HTN
- BCC
- ETOH - quit 3 yrs ago
- Acute postop blood loss anemia - s/p 2 pRBCs
- Acute postop thrombocytopenia/ coagulopathy - s/p 1 unit platelet and 2 FFPs
- Acute postop 3-5 beat PVCs
- Acute postop atelectasis
- Acute postop hypovolemia with subsequent hypervolemia
- Acute postop vasovagal rxn while intubated with hypotension 60s and bradycardia (paced intermittently VVI 40 bpm)- recovered quickly with Levo and pacing
Discussed patient care with: Nursing and Care Team
Subjective
Procedure
s/p AVR (#25 Inspiris Resilia) and CABG x 3 (MATY to LAD, GSV to OM, GSV to PDA); reopen incision in OR with repair of L chest wall vein bleeding and 1 extra suture placement at prox graft to OM by Dr. Mandel on 11/25/23
-
Date of Service: November 26, 2023
Objective Data
-
PT 16.4 Sec (11.4-14.6) H 11/25/23 20:18
INR 1.32 11/25/23 20:18
APTT 40.7 Sec (23.4-35.0) H 11/25/23 20:18
Vital Signs
Vital Signs
Temp Pulse Resp BP Pulse Ox
98.9 F 65 16 100/53 98
11/25/23 23:00 11/25/23 23:00 11/25/23 23:00 11/25/23 23:00 11/25/23 23:00
CT Intake/Output/Weight
11/25/23 11/25/23 11/26/23
06:59 18:59 06:59
Intake Total 40.9 / 514.3 473.4 / 514.3
Output Total 325 / 975 650 / 975
Balance -284.1 / -460.7 -176.6 / -460.7
SaO2: 98
Physical Exam
-
General: Awake
Cardiovascular: Regular rate & rhythm, No Murmurs and No Rub
Respiratory: Decreased Breath Sounds
Sternum: Stable
Incision: Clean, Dry and Dressing Intact
Extremities: No Edema (1+DP b/l)
Abdomen: soft, nondistended, nontender, very decreased bowel sounds
Data Reviewed
-
Lab Results: Results Reviewed
Medications: Active Meds Reviewed
Chest X-Ray: Report Reviewed and Image Reviewed
ECG: Report Reviewed and Image Reviewed
--- NOTE | 2023-11-26 07:12 | W.PN.INTV ---
Today's Communication / Plan
Recommendations
IS
Post CABG care
Reconsult prn
Assessment
-
Assessment:
Mr Niall Farris is a 68/M adm 11-24 for scheduled CABG/AVR. Known to Dr Moyer, seen at office for evaluation of MVD and severe , prepared for surgery
Impression:
S/p CABGx3 and AVR 11-25-23
Postop L chest wall vein bleeding, proximal graft to OM bleeding: hemostasis achieved
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
HTN
HLD
Stroke, residual R hand neuropathy RLE paresia
CAD
MR
T2DM
L thumb amputation
BCC skin excision
Former smoker
Negative LDCT chest October 2022 and October 2023
Plan:
Extubated earlier this morning
IS
Asp precs
Postop CXR: portable, no gross infiltrates. ET. [facility] [place]. Sternotomy wiring. Chest/med tubes
F/u CXR with interim extubation and no infitrates
Pulmonary artery catheter parameters will be followed
Pressors/antihypertensive/inotropes/diuretics will be provided as needed
Monitor chest tube output
Monitor hemoglobin
Monitor platelet count and coags
Transfuse blood product if needed
CT surgery following chest tubes
Monitor blood sugar
Insulin drip per protocol
DVT prophylaxis
Early nutrition
Early mobilization
Reconsult as needed
Subjective Dataa
Subjective Data
Date of Service:
Date of Service: November 26, 2023
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
Subjective:
Extubated with no issues earlier this morning
Vagal event reported earlier today, no consequences
Denies major complaints at time of visit
Review of Systems
General: Fever (n), Sweats (n) and Chills (n)
HEENT: Epistaxis (n) and Dysphagia (n)
Cardiopulmonary: Dyspnea (n), Cough (n) and Chest Pain (incisional)
GI: Abdominal Pain (n), Nausea (n) and Vomiting (n)
Neuro: Weakness
Objective Data
Data Reviewed
Vital Signs / I&O / Oxygen:
Vital Signs
Temp Pulse Resp BP Pulse Ox
98.9 F 91 18 133/61 98
11/26/23 07:00 11/26/23 07:05 11/26/23 07:05 11/26/23 02:22 11/26/23 07:05
Intake and Output
11/25/23 11/26/23 11/27/23
06:59 06:59 06:59
Intake Total 766.9 / 793.5 26.6 / 26.6
Output Total 1300 / 1345 45 / 45
Balance -533.1 / -551.5 -18.4 / -18.4
SaO2 [SIMV] 100
SaO2 98
Nasal Cannula flow liters per 4
minute
Physical Exam
General: Comfortable
HEENT: Normocephalic and Moist Mucous Membranes
Cardiovascular: Regular Rhythm and Peripheral Edema (n)
Respiratory: Clear, Non-Labored Respirations and Stridor (n)
GI: Soft, Non Distended and Non Tender
Neurology: Awake, AO x 3 and No Motor Deficits
Skin: Warm
Labs/Micro/Reports
Lab Data
11/26/23 03:17
11/26/23 03:17
Laboratory Results
11/25/23 11/25/23 11/25/23
15:45 17:49 20:18
PT 18.8 H 16.2 H 16.4 H
INR 1.56 1.30 1.32
APTT 35.5 H 34.3 40.7 H
pH 7.37 7.44
pCO2 44 36
pO2 85 139 H
HCO3 25.4 24.5
O2 Delivery Level
11/26/23
01:04
PT
INR
APTT
pH 7.41
pCO2 39
pO2 158 H
HCO3 24.7
O2 Delivery Level Cpap
[2023-11-26 07:18] LABS: Glucose - Point of Care 98 mg/dl (70-99)
[2023-11-26] MEDS: DILAUDID 0.25 MG IV (07:30)
--- NOTE | 2023-11-26 08:34 | PTCARENOTE ---
Assumed care of patient at 0700. Pt is awake, alert, calm and cooperative. Pt is oriented to person, place, and situation. Pt is forgetful and disoriented to time. Reviewed sternal precautions as well as being cautious not to accidently remove any
lines/tubes. Pt remains SR with HR 90's. BP 130/54 MAP 77, PA 48/18, CVP 12, CO 6.39, CI 2.93, SVR 726. V wire in place set to rate 50, output 5. Radial and pedal pulses easily palpable. Pulse oximetry 94% on 2L nasal cannula. Chest tubes x4 in
place no sign of air leak or crepitus, drainage serosanguineous. Bowel sounds hypoactive. Vides catheter in place draining yellow urine. Midsternal incision Aquacel dressing CDI. Left leg with jason wrap in place. Left groin puncture approximated,
ecchymotic, surgical adhesive in place. Right IJ swan-malvin catheter at 45cm. Right radial A line intact. Pt remains on insulin gtt per glycemic protocol. Pt remains on Dobutamine gtt at 2mcg/kg/min. Pt currently resting at this time with call mueller
within reach.
[2023-11-26] MEDS: NEURONTIN 100 MG PO ×3 (08:53→21:13)
[2023-11-26] MEDS: LIDOCAINE 4% PATCH 1 PATCH TOPICAL (08:54)
[2023-11-26] MEDS: SENOKOT-S 1 TABLET PO ×2 (08:54→21:12)
[2023-11-26] MEDS: PROTONIX 40 MG PO (08:54)
[2023-11-26] MEDS: MAGNESIUM OXIDE 500 MG PO ×2 (08:54→21:12)
[2023-11-26] MEDS: LOW STRENGTH ASPIRIN 81 MG PO (08:54)
[2023-11-26] MEDS: BACTROBAN 2% OINTMENT 1 APPLIC NASAL ×2 (08:55→21:14)
--- NOTE | 2023-11-26 08:58 | W.PN.CD ---
Today's Communication / Plan
-
Diurese.
Wean dobutamine.
Start metoprolol when off of dobutamine.
Incentive spirometry.
Ambulation when appropriate.
Chest tube/pain control per CT surgery.
Impression / Plan
-
Impression/Plan: 68 y/o male with HTN, HLD, hx of CVA, NIDDM and CAD with severe /moderate AI admitted for elective CABG/SAVR.
#CAD
-S/P 3V CABG (CORREA to LAD, SVG to OM, SVG to RPDA) by Dr. Mandel, 11/25/2023, complicated by positional anastamotic leak from the SVG to OM requiring re-exploration and repair (single stitch).
-Anticipate routine postoperative management.
-Continue aspirin.
-Wean dobutamine. Start metoprolol when off of dobutamine.
-Incentive spirometry, ambulation when appropriate.
-Chest tube/pain control per CT surgery.
-Start diuresis.
#Severe /Moderate AI
-S/P #25 Perry Inspiris Resilia SAVR by Dr. Mandel, 11/25/2023.
-Anticipate routine post operative management.
#HTN
-Chronic.
-Home meds on hold in the perioperative setting.
-Restart as indicated.
#HLD
-Chronic.
-Resume atorvastatin 80 mg daily when taking PO.
Critical Care Time = 33 minutes.
Subjective/Interval History:
Extubated very early this morning (01:25).
Weight is up 5.8 kg (97.2 <-- 91.5).
PA diastolic and RA pressures are rising.
CI 2.93 at 7:42 this morning.
SaO2 95% on 2LNC.
DATA:
GARCIA, 11/25/2023:
CONCLUSIONS
Severe aortic stenosis, mild aortic regurgitation, valve annulus 25 mm.
Normal left ventricular size and systolic function, mild LVH, stage I diastolic
dysfunction.
The aorta has atheroma less than 5 mm and moderate calcifications in the arch.
Mild MR. Mild TR.
Dilated coronary sinus.
POST OPERATIVE FINDINGS
Status post aortic valve replacement with 25 mm bioprosthetic aortic valve, the
valve is well-seated, no perivalvular leak, leaflets are functioning well, mean
gradient is 6 mmHg.
Status post CABG x 3, the left ventricle is vigorously eva, EF 70 to
75%. No regional wall motion abnormalities seen.
Normal right ventricular size and function.
In the initial post pump separation phase there was a moderate MR, it resolved
to mild MR at the end of the case.
Mild TR.
The rest of the study is unchanged.
Cardiac Catheterization, 10/23/2023:
CORONARY ANGIOGRAPHY
Dominance: Right
Left Main: There is calcification of the left main without clear angiographic evidence of stenosis; however, there is ventricularization of the arterial waveform on engagement of the left main coronary artery suggestive of significant disease
LAD: 30% ostial stenosis with 60% mid stenosis distal to the takeoff of the first diagonal branch. There is some endomyocardial bridge component with 80% stenosis during systole; however, there is clearly some fixed stenosis as well
Circumflex: The circumflex gives rise to a twig like OM1 and a medium caliber large distribution OM 2 before continuing in the AV groove to supply collaterals to the RCA. There is 80% ostial OM2 stenosis
RCA: 30% ostial stenosis with 20-30% stenosis at the crux. The PDA has 60% mid stenosis. The AV groove branch gives rise to a small RPL 1 and a medium to large RPL 2. There are tandem 80% stenoses in the AV groove branch the first of which is
immediately distal to the takeoff of the RPL 1 and the second proximal to the takeoff of the terminal RPL 2
CONCLUSIONS
1: Severe aortic stenosis with mean gradient 51 mmHg
2: Normal left ventricular function with EF 67%
3. Severe multivessel CAD as described
4. Recommend AVR/CABG-full revascularization may be challenging but would include grafts to the LAD, OM2, RPDA, and distal RPL
5. The patient will be counseled to avoid any exercise/strenuous activity until treatment of his CAD has been accomplished
Physical Exam
Vital Signs/Labs
Vital Signs
Temp Pulse Resp BP Pulse Ox
37.3 C 100 19 127/63 95
11/26/23 08:00 11/26/23 08:00 11/26/23 08:00 11/26/23 08:00 11/26/23 08:31
11/24/23 11/25/23 11/26/23
11:59 11:59 11:59
Actual Weight 91.5 kg 97.2 kg
11/26/23 03:17
11/26/23 03:17
PT 16.4 Sec (11.4-14.6) H 11/25/23 20:18
INR 1.32 11/25/23 20:18
APTT 40.7 Sec (23.4-35.0) H 11/25/23 20:18
Magnesium 2.3 mg/dl (1.6-2.3) 11/26/23 03:17
Physical Exam
Constitutional: No acute distress and Comfortable
EENT: Anicteric and Moist mucous membranes
Cardiovascular: Rhythm & rate is regular, Pedal edema is absent, JVD pressure is normal, S1S2 is normal and Murmur/rub/gallop absent
Respiratory: Respiratory effort normal and Other (Decreased throughout.)
GI: Soft, Distention absent, Flat, Non tender and Normal bowel sounds
Neuro/Psych: AO x 3
Data Reviewed
-
Date of Service: November 26, 2023
Medical Decision Making: Reviewed Test Results, Independent Historian Assessment and Test Interpretation
EKG: Tracing Personally Visualized and interpreted and Report Reviewed by me
Echo: Tracing Personally Visualized and interpreted and Report Reviewed by me
X-Ray/CT/US/MRI/NUC/PET: Image Personally Visualized and interpreted and Report Reviewed by me
Medical Tests (PFT, Pathology etc): Image Personally Visualized and interpreted and Report Reviewed by me
Labs: Labs Reviewed by me
[2023-11-26 09:00] LABS: Glucose - Point of Care 108 mg/dl (70-99)
--- NOTE | 2023-11-26 10:08 | W.PN.ANS.POP ---
Anesthesia Post Operative
- Anesthesia Post Op Note
Vital Signs Stable-See Nursing Note: Yes (remains on cardene gtts per orders. )
Airway Patent: Yes
Adequate Pain Control: Yes
Change in Mental Status: No
Current Postoperative Nausea & Vomiting: No
Anesthesia Complications: No
General Anesthetic Recall: No
Unplanned Admission: No
Post Op Hydration Adequate: Yes
--- NOTE | 2023-11-26 10:34 | PN.DE.MGMTRT ---
Insulin Management
- -
11/26/2023 Diabetes Management Consult
Patient admitted for OR 11/24, POD 1 s/p AVR, CABG x3. PMH HTN, HLD, CVA, aortic stenosis, intracranial arteriosclerosis,carotid atherosclerosis, type 2 diabetes. Prior to admission was taking no medication for diabetes. A1C on admission 6.7%, cr
.8, eGFR > 60.
Patient is in bed alert, oriented, able to discuss diabetes management. Patient states he has had diabetes approx 1 year and is followed by his primary doctor.
He is currently on the glycemic protocol requiring 1.1 to 4 units of insulin per hour, glucose range 98 to 123. Will continue glycemic protocol today and prepare to transition tomorrow. Discussed with patient benefit of SGLT 2, he is agreeable.
Will need glucose monitor, but he is quite drowsy during our conversation.
Spoke with nurse regarding plan for glycemic protocol
W
Diabetes History
- -
Type of Diabetes: 2
Pre-Admission Diabetes Regimen
11/25/23 11/26/23
17:49 03:17
Creatinine 0.8 0.8
Insulin Pump Settings
IP Diabetes Regimen
11/25/23 11/25/23 11/25/23
17:49 19:07 19:59
Glucose 152 H
POC Glucose 174 H 147 H 120 H
11/25/23 11/25/23 11/25/23
20:57 21:56 22:58
Glucose
POC Glucose 120 H 111 H 135 H
11/26/23 11/26/23 11/26/23
01:18 03:16 03:17
Glucose 101 H
POC Glucose 123 H 112 H
11/26/23 11/26/23 11/26/23
04:08 05:03 06:02
Glucose
POC Glucose 104 H 114 H 109 H
11/26/23 11/26/23
07:07 08:58
Glucose
POC Glucose 98 108 H
Patient Education
--- NOTE | 2023-11-26 11:20 | PTCARENOTE ---
Dobutamine weaned off per order. Briefly on Cardene, now titrated off. CO 5.79, CI 2.66, SVR 829. Pt de-lined per order. Cardiac rehab to bedside, assisted RN to assist pt to chair. BP while sitting on bed prior to ambulating 102/75 MAP 82. Pt
sitting in chair HR dropped and temporary pacing wire began pacing pt at a rate of 50. Pt with loss of consciousness. Diaphoretic. Legs elevated and head brought down. Pt regained consciousness. BP 150/61 MAP 79. After resting in chair and head
brought upright BP 103/56 MAP 70. Pt currently resting comfortably at this time in chair.
[2023-11-26 11:31] LABS: Glucose - Point of Care 119 mg/dl (70-99)
[2023-11-26] MEDS: NOVOLOG FLEXPEN 4 UNITS SC ×2 (12:16→14:20)
[2023-11-26 12:31] LABS: Hemoglobin 8.3 g/dL (13.0-18.0); Mean Corp Hgb Conc. 34.6 g/dL (33.0-37.0); Mean Corpuscular Hgb 30.1 pg (27.0-31.0); Mean Platelet Volume 11.8 fL (7.4-10.4); Platelet Count 103 10^3/uL (130-400); Red Blood Cell Count 2.76 10^6/uL (4.70-6.10); Red Cell Dist. Width 14.9 % (11.5-14.5); White Blood Cell Count 12.4 10^3/uL (4.8-10.8)
[2023-11-26] MEDS: ROXICODONE 5 MG PO (12:31)
[2023-11-26] MEDS: FLEXERIL 5 MG PO (12:31)
[2023-11-26] MEDS: NSS IV (12:53)
[2023-11-26 13:07] LABS: Glucose - Point of Care 83 mg/dl (70-99)
[2023-11-26] MEDS: TYLENOL 1000 MG PO ×2 (14:25→21:12)
--- NOTE | 2023-11-26 14:34 | CM ---
CM asked to assess cost of Farxiga and Jardiance.
Pt. has no prescription coverage.
TT to Diabetic VULCAN[employer]ER to update.
--- NOTE | 2023-11-26 14:36 | CM ---
CM following for DC planning needs.
Met w/ patient at bedside. He reports that he is feeling well.
Anticipated DC plan is for home w/ CT Transitional Care RN.
CM to follow.
--- NOTE | 2023-11-26 15:00 | PTCARENOTE ---
Noted tele monitor off. RN in to assess pt. Pt covered in blood. Pt pulled tubing off of Cordis line, which is unable to be reconnected. Cordis d/c'd. Pt remains oriented to person, place, and time. Pt washed and now moved closer to RN station into
room 2262.
[2023-11-26 15:10] LABS: Glucose - Point of Care 119 mg/dl (70-99)
[2023-11-26] MEDS: LASIX 20 MG IV (15:15)
--- NOTE | 2023-11-26 15:15 | PTCARENOTE ---
Pt received 1 unit PRBC per order. IV Lasix administered following.
[2023-11-26] MEDS: NOVOLIN R INSULIN INFUSION 100 IV (15:27)
[2023-11-26 17:11] LABS: Glucose - Point of Care 124 mg/dl (70-99)
[2023-11-26] MEDS: LIPITOR 80 MG PO (17:11)
[2023-11-26] MEDS: NOVOLOG FLEXPEN SC (17:11)
--- NOTE | 2023-11-26 19:00 | PTCARENOTE ---
assumed care of patient @ 1900. received pt laying in bed, AOX2 - disoriented to time, forgetful. Pt seems restless and fidgety, however denies pain or discomfort. Sinus tach HR 100-110 on monitor. V wire set to 50, 5, .8. + pulses, - edema. lungs
clear, diminished on room air satting low - mid 90s. IS around 1500. 4 chest tubes to wall suction, no air leak, tidaling or crepitus noted. Belly soft, hypoactive. Vides draining clear yellow urine. Sternal Aquacel , L groin, L leg sites CDI. R
wrist PIV with insulin per protocol. pt resting comfortably with call mueller within reach.
[2023-11-26 19:22] LABS: Glucose - Point of Care 105 mg/dl (70-99)
[2023-11-26 21:17] LABS: Glucose - Point of Care 94 mg/dl (70-99)
[2023-11-26] MEDS: NSS (PRESERVATIVE FREE) 0.25 ML IV (22:19)
[2023-11-26] MEDS: ATIVAN 0.5 MG IV (22:21)
--- NOTE | 2023-11-26 22:33 | PTCARENOTE ---
pt became agitated and pulled at chest tube dressing breaking V wire. pt AOX2, however very agitated, telling staff to get out. soft mitts applied, 0.5 ativan given. CTPA ordered dopamine and atropine for bedside as well as code cart outside of room
in case pacing needed. pt sleeping after ativan
[2023-11-27] VITALS (52 sets, daily range): BP systolic 86–160; BP diastolic 48–89; BMI 27.5
--- NOTE | 2023-11-27 | PTCARENOTE ---
pt awoke very agitated, quickly took off mits and trying to pull at michaud. CTPA ordered to remove michaud to prevent harm. Pt thrashing around in bed, grabbing at staff. pt still denying pain or discomfort. 0.5 ativan given per order and Precedex
started at 0.5. New IV placed in R hand # 22. labs drawn from it. Pt calm now, will try to titrate precedex down
[2023-11-27 00:30] LABS: Hematocrit 24.6 % (39.0-52.0); Hemoglobin 8.5 g/dL (13.0-18.0); Mean Corp Hgb Conc. 34.6 g/dL (33.0-37.0); Mean Corpuscular Hgb 29.7 pg (27.0-31.0); Red Blood Cell Count 2.86 10^6/uL (4.70-6.10); Red Cell Dist. Width 15.4 % (11.5-14.5); White Blood Cell Count 12.9 10^3/uL (4.8-10.8)
[2023-11-27] MEDS: ZOFRAN 4 MG IV (00:32)
[2023-11-27] MEDS: ATIVAN 0.5 MG IV (00:32)
[2023-11-27] MEDS: NSS (PRESERVATIVE FREE) 0.25 ML IV (00:33)
[2023-11-27 00:37] LABS: Glucose - Point of Care 102 mg/dl (70-99)
[2023-11-27 01:30] LABS: Mean Platelet Volume 12.2 fL (7.4-10.4); Platelet Count 68 10^3/uL (130-400)
[2023-11-27 03:05] LABS: Glucose - Point of Care 152 mg/dl (70-99)
[2023-11-27 03:42] LABS: Blood Urea Nitrogen 29 mg/dl (9-20); Calcium 8.7 mg/dl (8.4-10.2); Carbon Dioxide 29 mmol/L (22-30); Chloride 103 mmol/L (98-107); Estimated Creatinine Clearance 89 ml/min; Glucose 124 mg/dl (70-99); Magnesium 2.5 mg/dl (1.6-2.3); Potassium 4.6 mmol/L (3.5-5.1); Sodium 139 mmol/L (135-145); eGFR > 60.00
--- NOTE | 2023-11-27 04:00 | PTCARENOTE ---
pt went into afib hr 100-120 @ 0320 - new IV placed in R arm #22 and amio bolus and drip hung. full bed bath given, sheets changed, face washed and teeth swabbed. remains on precedex 0.1. calm currently
[2023-11-27] MEDS: CORDARONE 103 MG IV (04:45)
[2023-11-27] MEDS: CORDARONE 518 MG IV (05:09)
--- NOTE | 2023-11-27 05:42 | W.PN.CT ---
Addendum entered and electronically signed by João Mandel MD 11/27/23 06:35:
I saw and examined the patient.
The PA's note was reviewed and I agree with the note.
Comment:
POD#2 s/p AVR/CABG x 3
Minor initially self-limited agitation yesterday s/p narcotics; pt pulled cordis. Narcotics held. After this episode, patient became ACO x 4, pleasant, calm. Overnight pt. again became confused/anxious/agitated. Attempted to get OOB to 'go home'
Attempted to pull out his michaud and pulled/damaged pacing wire. Placed in restraints, given ativan x 2, precedex. Michaud removed secondary to concerns for trauma (UO good, creat normal). This AM pt. remains very sedate w/ limited responsiveness
to verbal stimuli, continues to [place] w/ equal strength, but presently is only ACO x 1 (person), unknown place, believes year to be 2021. Pt. also w/ AF in low 100s-120s at 3:20AM - given amiodarone protocol. Currently SBP in 90s. PLT also declined
from 103 to 68
- Check stat CT-H w/o contrast
- No narcotics (last yesterday afternoon)
- Closely follow neurologic exam
Pt. w/ Hx of EtOH - reportedly quit 3 years ago; also w/ Hx of prior CVAs (2009 & 2020) w/ intracranial and carotid atherosclerosis [<50% b/l w/ antegrade vert flow on U/S 11/03/23]
- Check echocardiogram
- Continue amiodarone protocol
- Hold ASA/plavix
- Restart levophed for SBP 120s, MAP > 70
- Bulb CTs
Original Note:
Today's Communication / Plan
-
-pod #2
-drips: Precedex 0.1, Amio 1, Insulin
-CT output: 2 meds 25/105, 2 pleur 25/245 in 12/24 hrs -consider d/c
-went into a-fib low 100s-120s @ 3:20am - placed new IV, tx with Amio bolus and drip
-pt was pleasant, A&O x4 initially last night, then got confused, anxious, wanted to get OOB to 'go home,' tried to pull out Michaud, damaged pacing wire- improved with Ativan x2 and Precedex. Dcd Michaud to avoid trauma
-avoid narcotics, continue Tylenol
-Atropine and Dopamine in the room in case gets bradycardic (postop was vagal with hypotension/bradycardia and required v-pacing)
-holding BB and po Amio- consider re-starting
-follow platelets - holding Plavix, on ASA
-s/p 1 pRBC with 20 mg Lasix on 11/25 (UO 1035)
-current meds (ASA, Lipitor, Protonix, Neurontin, Lidocaine patch)
-encourage IS, OOB
Assessment / Plan
-
- Severe /mv-CAD- s/p AVR (#25 Inspiris Resilia) and CABG x 3 (MATY to LAD, GSV to OM, GSV to PDA); reopen incision in OR with repair of L chest wall vein bleeding and 1 extra suture placement at prox graft to OM by Dr. Mandel on 11/25/23, pod #2
- Post GARCIA: LVEF 70% w/o RWMA, Normal RV. Mild MR. Mild TR. Well-seated AVR w/o PVL/AI, mean gradient 6mmHg
- Preop Severe /mild-mod AI, mild-mod MR, mild-mod TR
- HTN/HLD
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
- CVA in 2020 with no residual
- DM II
- Intracranial and carotid atherosclerosis
- PVCs
- Former smoker, quit 11 yrs ago
- Pulmonary HTN
- BCC
- ETOH - quit 3 yrs ago
- Acute postop blood loss anemia - s/p 3 pRBCs
- Acute postop thrombocytopenia/ coagulopathy - s/p 1 unit platelet and 2 FFPs
- Acute postop 3-5 beat PVCs
- Acute postop atelectasis
- Acute postop hypovolemia with subsequent hypervolemia
- Acute postop vasovagal rxn while intubated with hypotension 60s and bradycardia (paced intermittently VVI 40 bpm)- recovered quickly with Levo and pacing
- Acute postop confusion, agitation, pulling out lines- required restraints, Ativan and Precedex, avoiding narcotics
- Acute postop a-fib on 11/26 low 100-120s - tx with Amio bolus and drip
Discussed patient care with: Nursing and Care Team
Subjective
Procedure
s/p AVR (#25 Inspiris Resilia) and CABG x 3 (MATY to LAD, GSV to OM, GSV to PDA); reopen incision in OR with repair of L chest wall vein bleeding and 1 extra suture placement at prox graft to OM by Dr. Mandel on 11/25/23
-
Date of Service: November 27, 2023
Objective Data
-
Lab Results
11/27/23 00:26
PT 16.4 Sec (11.4-14.6) H 11/25/23 20:18
INR 1.32 11/25/23 20:18
APTT 40.7 Sec (23.4-35.0) H 11/25/23 20:18
Vital Signs
Vital Signs
Temp Pulse Resp BP Pulse Ox
98.1 F 96 16 110/55 98
11/26/23 19:00 11/27/23 00:37 11/27/23 00:00 11/27/23 00:37 11/27/23 00:03
CT Intake/Output/Weight
11/26/23 11/26/23 11/27/23
06:59 18:59 06:59
Intake Total 726.0 / 793.5 457.0 / 568.0 111.0 / 568.0
Output Total 975 / 1345 1335 / 1600 265 / 1600
Balance -249.0 / -551.5 -878.0 / -1032.0 -154.0 / -1032.0
SaO2: 98
Physical Exam
-
General: Awake and Other (was A&O x4 last night, then got confused)
Cardiovascular: Regular rate & rhythm, No Murmurs and Rub
Respiratory: Decreased Breath Sounds
Sternum: Stable
Incision: Clean, Dry and Dressing Intact
Extremities: No Edema
Abdomen: soft, nontender, nondistended, + bowel sounds
Data Reviewed
-
Lab Results: Results Reviewed
Medications: Active Meds Reviewed
Chest X-Ray: Report Reviewed and Image Reviewed
ECG: Report Reviewed and Image Reviewed
[2023-11-27 06:21] LABS: Glucose - Point of Care 102 mg/dl (70-99)
[2023-11-27] MEDS: LEVOPHED 250 IV (06:40)
--- NOTE | 2023-11-27 07:23 | PTCARENOTE ---
pt transported to and from CT w/o incident. Levo started to keep SBP >[address] Mandel. Report given to day shift RN
--- NOTE | 2023-11-27 07:30 | PTCARENOTE ---
RN assume care for outgoing RN for this patient, pt was transported to CT scan for scan of the head due to increased confusion. Pt in afib, not following commmands appropriately, bl mitts restraints, CT x4, 2Lnc, Levo for BP support SBP >120, DTV
michaud dced @ 0000, insulin gtt till 1800 this evening, no central lines.
0800, pt following commands appropriately, aaox4, slurred speech at baseline, ordered breakfast, will bulb all 4 CT, oob to chair with assistance, continue Levo for SBP>120 for vascular perfusion.
--- NOTE | 2023-11-27 07:36 | W.PN.CD ---
Today's Communication / Plan
-
Blood pressure support.
Start furosemide 40 mg IV while BP is supported.
Monitor for infection, GI symptoms.
Treat underlying delerium (follow up CT head, check UA).
Impression / Plan
-
Impression/Plan: 68 y/o male with HTN, HLD, hx of CVA, NIDDM and CAD with severe /moderate AI admitted for elective CABG/SAVR.
#CAD
-S/P 3V CABG (CORREA to LAD, SVG to OM, SVG to RPDA) by Dr. Mandel, 11/25/2023, complicated by positional anastamotic leak from the SVG to OM requiring re-exploration and repair (single stitch).
-Support BP as needed (norepinephrine).
-Continue aspirin.
-Incentive spirometry, ambulation when appropriate.
-Chest tube/pain control per CT surgery.
-Start furosemide 40 mg IV (with BP support).
#Severe /Moderate AI
-S/P #25 Perry Inspiris Resilia SAVR by Dr. Mandel, 11/25/2023.
-Post operative management as above.
#AMS/Delerium
-Acute.
-CT Head.
-Monitor for infection (UTI/PNA) or SBO.
#HTN
-Chronic.
-Home meds on hold in the perioperative setting.
-Restart as indicated.
#HLD
-Chronic.
-Resume atorvastatin 80 mg daily when taking PO.
Critical Care Time = 32 minutes.
Subjective/Interval History:
AMS/delerium overnight. Patient sedated. Feels better this morning.
CT head noncontrast ordered.
Transfused one unit PRBC's overnight with furosemide.
Patient lapsed into atrial fibrillation last night.
Borderline blood pressures.
Dilated loops of bowel on CXR this morning.
DATA:
GARCIA, 11/25/2023:
CONCLUSIONS
Severe aortic stenosis, mild aortic regurgitation, valve annulus 25 mm.
Normal left ventricular size and systolic function, mild LVH, stage I diastolic
dysfunction.
The aorta has atheroma less than 5 mm and moderate calcifications in the arch.
Mild MR. Mild TR.
Dilated coronary sinus.
POST OPERATIVE FINDINGS
Status post aortic valve replacement with 25 mm bioprosthetic aortic valve, the
valve is well-seated, no perivalvular leak, leaflets are functioning well, mean
gradient is 6 mmHg.
Status post CABG x 3, the left ventricle is vigorously eva, EF 70 to
75%. No regional wall motion abnormalities seen.
Normal right ventricular size and function.
In the initial post pump separation phase there was a moderate MR, it resolved
to mild MR at the end of the case.
Mild TR.
The rest of the study is unchanged.
Cardiac Catheterization, 10/23/2023:
CORONARY ANGIOGRAPHY
Dominance: Right
Left Main: There is calcification of the left main without clear angiographic evidence of stenosis; however, there is ventricularization of the arterial waveform on engagement of the left main coronary artery suggestive of significant disease
LAD: 30% ostial stenosis with 60% mid stenosis distal to the takeoff of the first diagonal branch. There is some endomyocardial bridge component with 80% stenosis during systole; however, there is clearly some fixed stenosis as well
Circumflex: The circumflex gives rise to a twig like OM1 and a medium caliber large distribution OM 2 before continuing in the AV groove to supply collaterals to the RCA. There is 80% ostial OM2 stenosis
RCA: 30% ostial stenosis with 20-30% stenosis at the crux. The PDA has 60% mid stenosis. The AV groove branch gives rise to a small RPL 1 and a medium to large RPL 2. There are tandem 80% stenoses in the AV groove branch the first of which is
immediately distal to the takeoff of the RPL 1 and the second proximal to the takeoff of the terminal RPL 2
CONCLUSIONS
1: Severe aortic stenosis with mean gradient 51 mmHg
2: Normal left ventricular function with EF 67%
3. Severe multivessel CAD as described
4. Recommend AVR/CABG-full revascularization may be challenging but would include grafts to the LAD, OM2, RPDA, and distal RPL
5. The patient will be counseled to avoid any exercise/strenuous activity until treatment of his CAD has been accomplished
Physical Exam
Vital Signs/Labs
Vital Signs
Temp Pulse Resp BP Pulse Ox
36.7 C 104 16 90/71 98
11/26/23 19:00 11/27/23 06:00 11/27/23 06:00 11/27/23 06:00 11/27/23 06:00
11/25/23 11/26/23 11/27/23
11:59 11:59 11:59
Actual Weight 91.5 kg 97.2 kg 97 kg
11/27/23 00:26
11/27/23 03:12
PT 16.4 Sec (11.4-14.6) H 11/25/23 20:18
INR 1.32 11/25/23 20:18
APTT 40.7 Sec (23.4-35.0) H 11/25/23 20:18
Magnesium 2.5 mg/dl (1.6-2.3) H 11/27/23 03:12
Physical Exam
Constitutional: No acute distress and Comfortable
EENT: Anicteric and Moist mucous membranes
Cardiovascular: Rhythm & rate is regular, Pedal edema is absent, JVD pressure is normal, S1S2 is normal and Murmur/rub/gallop absent
Respiratory: Respiratory effort normal, Lungs clear to auscul., Wheeze Absent, Crackles Absent and Rhonchi Absent
GI: Soft, Distention absent, Flat, Non tender and Normal bowel sounds
Neuro/Psych: AO x 3
Data Reviewed
-
Date of Service: November 27, 2023
Medical Decision Making: Reviewed Test Results, Independent Historian Assessment and Test Interpretation
EKG: Tracing Personally Visualized and interpreted and Report Reviewed by me
Echo: Report Reviewed by me
X-Ray/CT/US/MRI/NUC/PET: Image Personally Visualized and interpreted and Report Reviewed by me
Medical Tests (PFT, Pathology etc): Report Reviewed by me
Labs: Labs Reviewed by me
Old Records: Reviewed
--- NOTE | 2023-11-27 07:54 | PN.DE.MGMTRT ---
Insulin Management
- -
11/26/2023 Diabetes Management F/U:
Patient admitted for OR 11/24, POD #2 s/p AVR, CABG x3. PMH HTN, HLD, CVA, aortic stenosis, intracranial arteriosclerosis,carotid atherosclerosis, T2DM. Prior to admission was taking no medication for diabetes. A1C on admission 6.7%, Cr .8, eGFR >
60.
Patient seen this morning, Awake, alert, oriented, offers no complaints, able to discuss diabetes management.
He is currently on the glycemic protocol, was initiated on 11/24 @18:00 post-op. He is requiring 0.7 to 5 units of insulin per hour, glucose range 94 to 152.
Will continue glycemic protocol today and prepare to transition off at dinner time.
Will give 10 units Lantus @ 1700 and turn drip off at 1800.
Start Metformin 500mg BID and Jardiance 10mg daily, both 1st dose in AM.
Will need glucose monitor, but he is not quite ready to receive instructions at this time, will attempt again on Thursday.
Spoke with nurse regarding plan for glycemic protocol and orders to transition off later today.
Diabetes History
- -
Type of Diabetes: 2
Pre-Admission Diabetes Regimen
11/27/23 11/27/23
00:26 03:12
Creatinine Cancelled 0.9
Insulin Pump Settings
IP Diabetes Regimen
11/26/23 11/26/23 11/26/23
08:58 11:20 13:06
Glucose
POC Glucose 108 H 119 H 83
11/26/23 11/26/23 11/26/23
15:08 17:10 19:20
Glucose
POC Glucose 119 H 124 H 105 H
11/26/23 11/26/23 11/27/23
21:09 23:47 00:26
Glucose Cancelled
POC Glucose 94 102 H
11/27/23 11/27/23 11/27/23
03:04 03:12 06:07
Glucose 124 H
POC Glucose 152 H 102 H
Meal type: Dinner
Amount consumed: 0
Patient Education
[2023-11-27 07:58] LABS: Glucose - Point of Care 138 mg/dl (70-99)
[2023-11-27] MEDS: TYLENOL PO (07:58)
[2023-11-27] MEDS: NOVOLOG FLEXPEN SC ×3 (08:23→17:08)
[2023-11-27] MEDS: LIDOCAINE 4% PATCH TOPICAL (08:24)
[2023-11-27] MEDS: SENOKOT-S 1 TABLET PO ×2 (09:10→19:08)
[2023-11-27] MEDS: BACTROBAN 2% OINTMENT 1 APPLIC NASAL ×2 (09:10→19:08)
[2023-11-27] MEDS: PROTONIX 40 MG PO (09:10)
[2023-11-27] MEDS: NOVOLOG FLEXPEN 4 UNITS SC (09:12)
[2023-11-27 10:41] LABS: Glucose - Point of Care 117 mg/dl (70-99)
--- NOTE | 2023-11-27 10:43 | PTCARENOTE ---
all 4 CT to bulb.
--- NOTE | 2023-11-27 11:38 | PTCARENOTE ---
Pt bladder scanned, has not voided since michaud dced late last night. 0600 bs was 116, BS now @ 1130 was 196, COMPOSITION SIDING WORKER Ariadne notified.
--- NOTE | 2023-11-27 12:00 | PTCARENOTE ---
Pt reassessment remain unchanged, mental status remains clear, aaox4, following commands and appropriate. remain on levo, amio, insulin gtt, transfusing 1 unit PRBC.
[2023-11-27 13:07] LABS: Glucose - Point of Care 106 mg/dl (70-99)
[2023-11-27] MEDS: NSS IV (14:23)
--- NOTE | 2023-11-27 14:38 | CM ---
CM following for DC planning needs.
Met w/ patient at bedside. Patient sleepy, unable to engage in length conversation.
Per CONTRACT ADMINISTRATION MANAGER, patient may require rehab placement. Awaiting PT-OT evaluations.
Spoke w/ son, Sulaiman at bedside. Sulaiman confirms that patient resides alone. He has limited local support. We discussed SNF placement versus Acute Rehab. Reviewed options to include: [facility] @ ; SNF @ [facility], [facility], and [facility].
Referrals initiated to [facility] , [facility].
Requested PMR evaluations.
Awaiting PT-OT evaluations.
Will follow up on Thursday for appropriate discharge level of care.
Son will be in [place] and asked CM to keep him updated on plan.
Will cont. to follow.
Antic. SNF versus ARU.
No insurance authorization req'd.
[2023-11-27] MEDS: TYLENOL 1000 MG PO ×2 (14:50→21:02)
[2023-11-27 15:03] LABS: Glucose - Point of Care 95 mg/dl (70-99)
--- NOTE | 2023-11-27 15:11 | PTCARENOTE ---
pt reassessment unchanged from previous, remain oob in a chair, received 1 unit of PRBC, slowly weaning off levo to maintain SBP>120, 2Lnc, insulin gtt till 1800, no c/o pain, remains aaox4, following all commands, DTV continue to bladder scan.
--- NOTE | 2023-11-27 15:33 | PTCARENOTE ---
Kevin cut with Ariadne PEREZ
[2023-11-27 17:07] LABS: Glucose - Point of Care 130 mg/dl (70-99)
[2023-11-27] MEDS: LANTUS 0.100000000000000006 UNITS SC (17:08)
[2023-11-27] MEDS: LIPITOR 80 MG PO (17:23)
--- NOTE | 2023-11-27 17:58 | PTCARENOTE ---
lantus given as ordered. one hour later insulin gtt d/c'd. was inc of large amount of helen urine. washed up and oob into chair. continues with amio gtt @ 0.5mcg. converted to NSR. HR now 89
[2023-11-27] MEDS: MELATONIN 5 MG PO (21:02)
--- NOTE | 2023-11-27 21:13 | PTCARENOTE ---
Assumed care of patient at 1900. Patient found OOB in chair at time of assessment. Patient is AOx4, follows commands appropriately, moves all extremities. Noticeably confused and forgetful at times. Reported by previous RNs to be impulsive and
agitated overnight although not at this time. Assistx1-2 OOB. Lung sounds are diminished throughout, saO2 at 92% on RA, CTx4 to bulb: R mediastinal, L mediastinal, R pleural, L pleural with red sanguineous drainage. Heart sounds have a regular rate
and rhythm, patient is SR on the monitor, normal palpable pulses, and no edema noted. Active BS no post op BM reported. Patient reportedly incontinent prior to change of shift saturated bed with dark helen urine. Patient has a sternal incision with
aquacell dresssing that is CDI, a L groin puncture that is SECTION LEADER AND MACHINE SETTER, and LLE incision that is approx with surg adhesive SECTION LEADER AND MACHINE SETTER. Patient has a L hand PIV, L forearm PIV, and R arm PIV. Patient currently receiving amio gttat 0.5mcg via peripheral line will
discontinue per protocol following 24 hours. VSS. Patient has no complaints at this time.
[2023-11-27 22:51] LABS: Glucose - Point of Care 166 mg/dl (70-99)
[2023-11-28] VITALS (20 sets, daily range): BP systolic 116–160; BP diastolic 55–88; PULSE 73–93; O2SAT 94; BMI 27.4
--- NOTE | 2023-11-28 00:20 | PTCARENOTE ---
Patient reassessed. Nila SBP CT PA aware no new orders. Remains NSR on the monitor. Amio gtt maintained. Started on 1L O2 at HS for saO2 of 90%. Patient sleeping at this time. All other VSS.
[2023-11-28 03:38] LABS: Urine Albumin Trace (Neg - Trace); Urine Bilirubin Negative (Negative); Urine Character Slightly Cloudy (Clear); Urine Color Amber; Urine Glucose Negative (Negative); Urine Ketone 1+ (Negative); Urine Leukocyte 1+ (Negative); Urine Nitrite Negative (Negative); Urine Occult Blood 3+ (Negative); Urine Specific Gravity 1.025 (<1.030); Urine Urobilinogen Negative (Neg - 1+)
[2023-11-28 04:05] LABS: Urine Hyaline Cast >15 /LPF (0-2)
[2023-11-28 04:06] LABS: Urine Bacteria Moderate (Negative); Urine Mucus Moderate; Urine White Cell 30-40 /HPF (0-5)
[2023-11-28 04:07] LABS: Hematocrit 27.6 % (39.0-52.0); Hemoglobin 9.4 g/dL (13.0-18.0); Mean Corp Hgb Conc. 34.1 g/dL (33.0-37.0); Mean Corpuscular Hgb 29.8 pg (27.0-31.0); Mean Corpuscular Volume 87.6 fL (80.0-94.0); Platelet Count 101 10^3/uL (130-400); Red Blood Cell Count 3.15 10^6/uL (4.70-6.10); Red Cell Dist. Width 14.7 % (11.5-14.5); White Blood Cell Count 11.8 10^3/uL (4.8-10.8)
[2023-11-28 04:20] LABS: Ammonia < 9 umol/L (9-30)
[2023-11-28 04:41] LABS: Blood Urea Nitrogen 39 mg/dl (9-20); Calcium 8.7 mg/dl (8.4-10.2); Carbon Dioxide 25 mmol/L (22-30); Chloride 103 mmol/L (98-107); Estimated Creatinine Clearance 89 ml/min; Glucose 161 mg/dl (70-99); Magnesium 2.6 mg/dl (1.6-2.3); Potassium 4.6 mmol/L (3.5-5.1); Sodium 134 mmol/L (135-145); eGFR > 60.00
--- NOTE | 2023-11-28 05:09 | PTCARENOTE ---
Patient reassessed. VSS. Assisted patient to bathroom where they successfully voided dark cloudy helen urine. UA obtained. Patient assisted back to bed without incident. AM labs obtained. AM hygiene care provided. Patient remains NSR on the monitor.
Amio gtt discontinued per protocol. Patient is stable.
--- NOTE | 2023-11-28 05:45 | W.PN.CT ---
Addendum entered and electronically signed by João Mandel MD 11/28/23 09:04:
I saw and examined the patient.
The PA's note was reviewed and I agree with the note.
Comment:
POD#3 s/p AVR/CABG x 3
Improved mentation, remains confused to time, but significantly less impulsive. Converted to NSR at 6:30pm yesterday. AVSS. GTTS: none. CT: M(L): 05/29, M(R): , P(L): 40/63, P(R): 35/45. UO: spontaneous, adequate. Tolerating PO. Neuro:
as above, JOHNSTON. 11.8>9.4<101; 39/0.9. CXR: minor bibasilar atelectasis.
- Repeat UA
- D/C CTs
- OOB/IS/ambulate later
- ASA/plavix, BB, amio, statin
- PT
Original Note:
Today's Communication / Plan
-
-pod #3
-much better overnight - calm, more alert, cooperative, A&O x4
-head CT 11/26 without acute abnormality. Small chronic appearing lacunar infarcts bilaterally. Mild to moderate periventricular matter disease and mild cerebral atrophy.
-s/p Echo 11/26
-remained in NSR overnight on Amio drip, now off. Consider restarting po Amio and low-dose BB (? Toprol 12.5)
-pw dcd 11/26. Monitor for bradycardia (zoll pads on, Atropine at bedside)
-CT output: L med 05/29, R med , L pleur 40/60, R pleur 35/45 in 12/24 hrs
-s/p 1 pRBC 11/26 for hypotension. BP improved - was actually hypertensive overnight
-consider iv Lasix
-follow UA
-held ASA and Plavix for plat 68K- improving 101K today - resumed ASA
-current meds (ASA, Lipitor, Protonix, Jardiance, MFM, Melatonin)
-encourage IS, OOB
Assessment / Plan
-
- Severe /mv-CAD- s/p AVR (#25 Inspiris Resilia) and CABG x 3 (MATY to LAD, GSV to OM, GSV to PDA); reopen incision in OR with repair of L chest wall vein bleeding and 1 extra suture placement at prox graft to OM by Dr. Mandel on 11/25/23, pod #3
- Post GARCIA: LVEF 70% w/o RWMA, Normal RV. Mild MR. Mild TR. Well-seated AVR w/o PVL/AI, mean gradient 6mmHg
- Preop Severe /mild-mod AI, mild-mod MR, mild-mod TR
- HTN/HLD
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
- CVA in 2020 with no residual
- DM II
- Intracranial and carotid atherosclerosis
- PVCs
- Former smoker, quit 11 yrs ago
- Pulmonary HTN
- BCC
- ETOH - quit 3 yrs ago
- Acute postop blood loss anemia - s/p 4 pRBCs
- Acute postop thrombocytopenia/ coagulopathy - s/p 1 unit platelet and 2 FFPs
- Acute postop 3-5 beat PVCs
- Acute postop atelectasis
- Acute postop hypovolemia with subsequent hypervolemia
- Acute postop vasovagal rxn while intubated with hypotension 60s and bradycardia (paced intermittently VVI 40 bpm)- recovered quickly with Levo and pacing
- Acute postop confusion, agitation, pulling out lines- required restraints, Ativan and Precedex, avoiding narcotics
- Acute postop a-fib on 11/26 low 100-120s - tx with Amio bolus and drip
Discussed patient care with: Nursing and Care Team
Subjective
Procedure
s/p AVR (#25 Inspiris Resilia) and CABG x 3 (MATY to LAD, GSV to OM, GSV to PDA); reopen incision in OR with repair of L chest wall vein bleeding and 1 extra suture placement at prox graft to OM by Dr. Mandel on 11/25/23
-
Date of Service: November 28, 2023
Objective Data
-
PT 16.4 Sec (11.4-14.6) H 11/25/23 20:18
INR 1.32 11/25/23 20:18
APTT 40.7 Sec (23.4-35.0) H 11/25/23 20:18
Vital Signs
Vital Signs
Temp Pulse Resp BP Pulse Ox
98.3 F 78 18 160/85 90
11/27/23 23:03 11/28/23 02:00 11/27/23 23:03 11/28/23 02:00 11/27/23 23:03
CT Intake/Output/Weight
11/27/23 11/27/23 11/28/23
06:59 18:59 06:59
Intake Total 131.4 / 604.9 751.2 / 1481.2 730 / 1481.2
Output Total 295 / 1680 95 / 175 80 / 175
Balance -163.6 / -1075.1 656.2 / 1306.2 650 / 1306.2
SaO2: 90
Physical Exam
-
General: Awake and AOx3
Cardiovascular: Regular rate & rhythm, No Murmurs and Rub
Respiratory: Decreased Breath Sounds
Sternum: Stable
Incision: Clean, Dry and Intact
Extremities: Other (trace edema b/l)
Abdomen: soft, nontender, nd, decreased + bowel sounds
Data Reviewed
-
Lab Results: Results Reviewed
Medications: Active Meds Reviewed
Chest X-Ray: Report Reviewed and Image Reviewed
ECG: Report Reviewed and Image Reviewed
[2023-11-28] MEDS: TYLENOL 1000 MG PO ×3 (06:23→20:28)
[2023-11-28 07:13] LABS: Glucose - Point of Care 197 mg/dl (70-99)
--- NOTE | 2023-11-28 07:39 | W.PN.CD ---
Today's Communication / Plan
-
Echo yesterday with normal LVF and AVR functioing well
continue supportive tx
Impression / Plan
-
Impression/Plan: 68 y/o male with HTN, HLD, hx of CVA, NIDDM and CAD with severe /moderate AI admitted for elective CABG/SAVR.
#CAD
-S/P 3V CABG (CORREA to LAD, SVG to OM, SVG to RPDA) by Dr. Mandel, 11/25/2023, complicated by positional anastamotic leak from the SVG to OM requiring re-exploration and repair (single stitch).
-Continue aspirin.
-
/P #25 Perry Inspiris Resilia SAVR by Dr. Mandel, 11/25/2023.
-echo 11/26 shows DESMOND functioinng well
#AMS/Delerium
-Acute.
-CT Head.
-Monitor for infection (UTI/PNA) or SBO.
#HTN stable . monitor
#HLD
atorvastatin 80 mg daily
Subjective/Interval History:
AMS/delerium overnight. Patient sedated. Feels better this morning.
CT head noncontrast ordered.
Transfused one unit PRBC's overnight with furosemide.
Patient lapsed into atrial fibrillation last night.
Borderline blood pressures.
Dilated loops of bowel on CXR this morning.
DATA:
GARCIA, 11/25/2023:
CONCLUSIONS
Severe aortic stenosis, mild aortic regurgitation, valve annulus 25 mm.
Normal left ventricular size and systolic function, mild LVH, stage I diastolic
dysfunction.
The aorta has atheroma less than 5 mm and moderate calcifications in the arch.
Mild MR. Mild TR.
Dilated coronary sinus.
POST OPERATIVE FINDINGS
Status post aortic valve replacement with 25 mm bioprosthetic aortic valve, the
valve is well-seated, no perivalvular leak, leaflets are functioning well, mean
gradient is 6 mmHg.
Status post CABG x 3, the left ventricle is vigorously eva, EF 70 to
75%. No regional wall motion abnormalities seen.
Normal right ventricular size and function.
In the initial post pump separation phase there was a moderate MR, it resolved
to mild MR at the end of the case.
Mild TR.
The rest of the study is unchanged.
Cardiac Catheterization, 10/23/2023:
CORONARY ANGIOGRAPHY
Dominance: Right
Left Main: There is calcification of the left main without clear angiographic evidence of stenosis; however, there is ventricularization of the arterial waveform on engagement of the left main coronary artery suggestive of significant disease
LAD: 30% ostial stenosis with 60% mid stenosis distal to the takeoff of the first diagonal branch. There is some endomyocardial bridge component with 80% stenosis during systole; however, there is clearly some fixed stenosis as well
Circumflex: The circumflex gives rise to a twig like OM1 and a medium caliber large distribution OM 2 before continuing in the AV groove to supply collaterals to the RCA. There is 80% ostial OM2 stenosis
RCA: 30% ostial stenosis with 20-30% stenosis at the crux. The PDA has 60% mid stenosis. The AV groove branch gives rise to a small RPL 1 and a medium to large RPL 2. There are tandem 80% stenoses in the AV groove branch the first of which is
immediately distal to the takeoff of the RPL 1 and the second proximal to the takeoff of the terminal RPL 2
CONCLUSIONS
1: Severe aortic stenosis with mean gradient 51 mmHg
2: Normal left ventricular function with EF 67%
3. Severe multivessel CAD as described
4. Recommend AVR/CABG-full revascularization may be challenging but would include grafts to the LAD, OM2, RPDA, and distal RPL
5. The patient will be counseled to avoid any exercise/strenuous activity until treatment of his CAD has been accomplished
Physical Exam
Vital Signs/Labs
Vital Signs
Temp Pulse Resp BP Pulse Ox
98.2 F 75 20 150/77 96
11/28/23 03:00 11/28/23 07:00 11/28/23 03:00 11/28/23 07:00 11/28/23 06:33
11/27/23 11/28/23 11/29/23
06:59 06:59 06:59
Actual Weight 97 kg 96.6 kg
11/28/23 03:45
11/28/23 03:48
PT 16.4 Sec (11.4-14.6) H 11/25/23 20:18
INR 1.32 11/25/23 20:18
APTT 40.7 Sec (23.4-35.0) H 11/25/23 20:18
Magnesium 2.6 mg/dl (1.6-2.3) H 11/28/23 03:48
Physical Exam
Constitutional: No acute distress
EENT: Anicteric
Cardiovascular: Rhythm & rate is regular
Respiratory: Wheeze Absent and Rhonchi Absent
GI: Soft
Neuro/Psych: Alert
Data Reviewed
-
Date of Service: November 28, 2023
Echo: Report Reviewed by me
Medical Tests (PFT, Pathology etc): Report Reviewed by me
[2023-11-28] MEDS: LOPRESSOR 12.5 MG PO ×2 (07:54→20:27)
[2023-11-28] MEDS: PROTONIX 40 MG PO (07:55)
[2023-11-28] MEDS: SENOKOT-S 1 TABLET PO ×2 (07:55→20:28)
[2023-11-28] MEDS: BACTROBAN 2% OINTMENT 1 APPLIC NASAL ×2 (07:55→20:28)
[2023-11-28] MEDS: PACERONE 200 MG PO ×3 (07:56→20:27)
[2023-11-28] MEDS: GLUCOPHAGE 500 MG PO ×2 (07:56→18:18)
[2023-11-28] MEDS: JARDIANCE 10 MG PO (07:56)
[2023-11-28] MEDS: LIDOCAINE 4% PATCH 1 PATCH TOPICAL (07:56)
[2023-11-28] MEDS: LOW STRENGTH ASPIRIN 81 MG PO (07:56)
[2023-11-28] MEDS: NSS IV (08:09)
--- NOTE | 2023-11-28 08:14 | PTCARENOTE ---
Patient received from staffing specialist resting oob in chair, oriented to self, location, purpose, stated year as 2021. NSR via cm, SaO2 @ 93% on RA. Chest tubes x 4 to individual bulb evacuators, scant drainage noted. All procedural sites stable. Patient
updated to plan of care for the day, in agreement. See work list for full assessment and interventions performed.
[2023-11-28] MEDS: PLAVIX 75 MG PO (09:39)
[2023-11-28 11:15] LABS: Urine Albumin Trace (Neg - Trace); Urine Bilirubin Negative (Negative); Urine Character Clear (Clear); Urine Color Yellow; Urine Glucose 3+ (Negative); Urine Ketone Trace (Negative); Urine Leukocyte Negative (Negative); Urine Nitrite Negative (Negative); Urine Occult Blood 1+ (Negative); Urine Specific Gravity 1.015 (<1.030); Urine Urobilinogen Negative (Neg - 1+)
--- NOTE | 2023-11-28 11:58 | PTCARENOTE ---
VS obtained, assessment stable. Resting oob, lunch ordered.
[2023-11-28 12:12] LABS: Urine Squamous Cell 0-2 /LPF (Few)
[2023-11-28 12:13] LABS: Urine Bacteria Moderate (Negative); Urine Mucus Few; Urine White Cell 0-2 /HPF (0-5)
[2023-11-28 12:36] LABS: Glucose - Point of Care 158 mg/dl (70-99)
[2023-11-28] MEDS: LASIX 40 MG PO (13:06)
[2023-11-28] MEDS: KCL 40 MEQ PO (13:07)
--- NOTE | 2023-11-28 16:24 | PTCARENOTE ---
VS obtained, assessment unchanged. Patient resting oob in chair, denies pain.
[2023-11-28] MEDS: LIPITOR 80 MG PO (18:18)
[2023-11-28 18:19] LABS: Glucose - Point of Care 135 mg/dl (70-99)
[2023-11-28] MEDS: NOVOLOG FLEXPEN-MODERATE RESISTANCE SC (18:19)
--- NOTE | 2023-11-28 20:06 | PTCARENOTE ---
assumed care of patient @ 1900. received pt sitting in chair, AOX2, thinks year is 2021. Forgetful at times, otherwise neuro intact, calm, appropriate. NSR with long QT. Trace edema. Pacer pads on patient. good pulses. Lungs clear, diminished
satting 95 percent on room air. IS about 1500. + BS, - BM. voiding clear helen urine spontaneously . All surgical sites CDI. PIV x2 patent. pt resting comfortably in chair with chair alarm on, call mueller within reach.
[2023-11-28] MEDS: MELATONIN 5 MG PO (20:28)
[2023-11-28 20:37] LABS: Glucose - Point of Care 171 mg/dl (70-99)
[2023-11-28] MEDS: NOVOLOG FLEXPEN 1 UNITS SC (20:45)
--- NOTE | 2023-11-28 23:00 | PTCARENOTE ---
pt resting comfortably, no change in assessment
[2023-11-29] VITALS (8 sets, daily range): BP systolic 115–153; BP diastolic 66–78; PULSE 69; O2SAT 96; BMI 27.0
--- NOTE | 2023-11-29 00:55 | W.PN.CT ---
Addendum entered and electronically signed by João Mandel MD 11/29/23 09:29:
I saw and examined the patient.
The PA's note was reviewed and I agree with the note.
Comment:
POD#4 s/p AVR/CABG x 3
No major overnight events. Mental status continues to improve. AVSS. RA. GTTS: none. CT: none. UO: spontaneous, adequate. Tolerating PO. Neuro: minor time confusion; ACO x 3-4, JOHNSTON. 9.5>9.1<116; 36/0.7. Na 133. CXR: 2-view pending.
- F/U 2-view CXR
- ASA/plavix, BB, amio, lipitor
- Lasix 40mg IV x 1 today
- OOB/IS/ambulate
- PT recommending acute rehab (pt. lives alone)
Original Note:
Today's Communication / Plan
-
-pod #4
-no issues overnight, alert, appropriate, slightly confused about time of day. Some nausea this am
-wt is down 3 lbs in the past 24 hrs, but still 8 lbs up from preop. Continue diuresis.
-repleted Calcium
-Amio and BB started on 11/27 for paf. Monitor for bradycardia. in nsr 60s-70s overnight
-follow platelets- improving-116K today
-follow 2v-CXR
-current meds (ASA, Plavix, Lopressor, Amio, Lipitor, Protonix, Jardiance, MFM)
-continue PT/OT. Noted PT recommendation for acute rehab
-encourage IS ([id number] so far), OOB, ambulate
Assessment / Plan
-
- Severe /mv-CAD- s/p AVR (#25 Inspiris Resilia) and CABG x 3 (MATY to LAD, GSV to OM, GSV to PDA); reopen incision in OR with repair of L chest wall vein bleeding and 1 extra suture placement at prox graft to OM by Dr. Mandel on 11/25/23, pod #4
- Post GARCIA: LVEF 70% w/o RWMA, Normal RV. Mild MR. Mild TR. Well-seated AVR w/o PVL/AI, mean gradient 6mmHg
- Preop Severe /mild-mod AI, mild-mod MR, mild-mod TR
- HTN/HLD
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
- CVA in 2020 with no residual
- DM II
- Intracranial and carotid atherosclerosis
- PVCs
- Former smoker, quit 11 yrs ago
- Pulmonary HTN
- BCC
- ETOH - quit 3 yrs ago
- Acute postop blood loss anemia - s/p 4 pRBCs
- Acute postop thrombocytopenia/ coagulopathy - s/p 1 unit platelet and 2 FFPs
- Acute postop 3-5 beat PVCs
- Acute postop atelectasis
- Acute postop hypovolemia with subsequent hypervolemia
- Acute postop vasovagal rxn while intubated with hypotension 60s and bradycardia (paced intermittently VVI 40 bpm)- recovered quickly with Levo and pacing
- Acute postop confusion, agitation, pulling out lines- required restraints, Ativan and Precedex, avoiding narcotics
- Acute postop a-fib on 11/26 low 100-120s - tx with Amio bolus and drip
Discussed patient care with: Nursing and Care Team
Subjective
Procedure
s/p AVR (#25 Inspiris Resilia) and CABG x 3 (MATY to LAD, GSV to OM, GSV to PDA); reopen incision in OR with repair of L chest wall vein bleeding and 1 extra suture placement at prox graft to OM by Dr. Mandel on 11/25/23
-
Date of Service: November 29, 2023
Objective Data
-
PT 16.4 Sec (11.4-14.6) H 11/25/23 20:18
INR 1.32 11/25/23 20:18
APTT 40.7 Sec (23.4-35.0) H 11/25/23 20:18
Vital Signs
Vital Signs
Temp Pulse Resp BP Pulse Ox
97.7 F 76 16 142/71 95
11/28/23 19:55 11/28/23 19:55 11/28/23 19:55 11/28/23 16:18 11/28/23 19:55
CT Intake/Output/Weight
11/28/23 11/28/23 11/29/23
06:59 18:59 06:59
Intake Total 1377 / 2128.2 360 / 840 480 / 840
Output Total 105 / 200 350 / 650 300 / 650
Balance 1272 / 1928.2 10 / 190 180 / 190
SaO2: 95
Physical Exam
-
General: Awake and AOx3
Cardiovascular: Regular rate & rhythm, No Murmurs and +Rub
Respiratory: Decreased Breath Sounds,
Sternum: Stable
Incision: Clean, Dry and Intact
Abdomen: soft, nontender, nd,+ bowel sounds
Extremities: Other (trace edema b/l)
Data Reviewed
-
Lab Results: Results Reviewed
Medications: Active Meds Reviewed
Chest X-Ray: Report Reviewed and Image Reviewed
ECG: Report Reviewed and Image Reviewed
--- NOTE | 2023-11-29 03:00 | PTCARENOTE ---
labs drawn and sent, pt resting comfortably, no change in assessment
[2023-11-29 03:16] LABS: Hematocrit 26.4 % (39.0-52.0); Hemoglobin 9.1 g/dL (13.0-18.0); Mean Corp Hgb Conc. 34.5 g/dL (33.0-37.0); Mean Corpuscular Hgb 29.5 pg (27.0-31.0); Mean Corpuscular Volume 85.7 fL (80.0-94.0); Mean Platelet Volume 12.6 fL (7.4-10.4); Platelet Count 116 10^3/uL (130-400); Red Blood Cell Count 3.08 10^6/uL (4.70-6.10); Red Cell Dist. Width 14.3 % (11.5-14.5); White Blood Cell Count 9.5 10^3/uL (4.8-10.8)
[2023-11-29 03:40] LABS: Blood Urea Nitrogen 35 mg/dl (9-20); Carbon Dioxide 28 mmol/L (22-30); Chloride 104 mmol/L (98-107); Estimated Creatinine Clearance 114 ml/min; Glucose 110 mg/dl (70-99); Magnesium 2.4 mg/dl (1.6-2.3); Potassium 5.6 mmol/L (3.5-5.1); Sodium 133 mmol/L (135-145); eGFR > 60.00
[2023-11-29 05:15] LABS: Ionized Calcium 1.12 mMOL/L (1.15-1.33)
[2023-11-29] MEDS: CALCIUM GLUCONATE 130 MG IV (05:28)
[2023-11-29 05:33] LABS: Blood Urea Nitrogen 36 mg/dl (9-20); Calcium 8.6 mg/dl (8.4-10.2); Carbon Dioxide 27 mmol/L (22-30); Chloride 102 mmol/L (98-107); Estimated Creatinine Clearance 114 ml/min; Glucose 115 mg/dl (70-99); Potassium 4.6 mmol/L (3.5-5.1); Sodium 133 mmol/L (135-145); eGFR > 60.00
[2023-11-29 07:31] LABS: Glucose - Point of Care 103 mg/dl (70-99)
[2023-11-29] MEDS: TYLENOL 1000 MG PO ×3 (07:34→20:01)
[2023-11-29] MEDS: NOVOLOG FLEXPEN-MODERATE RESISTANCE SC ×3 (07:34→17:31)
[2023-11-29] MEDS: LOW STRENGTH ASPIRIN 81 MG PO (08:00)
[2023-11-29] MEDS: PLAVIX 75 MG PO (08:01)
[2023-11-29] MEDS: JARDIANCE 10 MG PO (08:03)
[2023-11-29] MEDS: GLUCOPHAGE 500 MG PO ×2 (08:03→17:30)
[2023-11-29] MEDS: LOPRESSOR 12.5 MG PO (08:04)
[2023-11-29] MEDS: SENOKOT-S 1 TABLET PO ×2 (08:04→20:01)
[2023-11-29] MEDS: PACERONE 200 MG PO ×3 (08:04→20:02)
[2023-11-29] MEDS: PROTONIX 40 MG PO (08:04)
[2023-11-29] MEDS: LASIX 40 MG IV (08:04)
[2023-11-29] MEDS: BACTROBAN 2% OINTMENT 1 APPLIC NASAL (08:05)
[2023-11-29] MEDS: LIDOCAINE 4% PATCH TOPICAL (08:13)
--- NOTE | 2023-11-29 08:14 | PTCARENOTE ---
Patient received from production supervisor off shift resting oob in chair, AAO X 3, denies pain. NSR via cm, SaO2 @ 96% on RA. R and L arm PIV, flushed and patent. All procedural sites stable. Patient updated to plan of care, in agreement. See work list for full
assessment and interventions performed.
[2023-11-29] MEDS: DULCOLAX 10 MG PO (08:26)
[2023-11-29] MEDS: NSS IV (08:35)
[2023-11-29 11:55] LABS: Glucose - Point of Care 122 mg/dl (70-99)
--- NOTE | 2023-11-29 16:30 | PTCARENOTE ---
VS obtained, assessment stable. Patient resting oob in chair watching tv, denies pain. Walked in walker w/rolling walker, tolerated well.
[2023-11-29] MEDS: LIPITOR 80 MG PO (17:29)
[2023-11-29 17:30] LABS: Glucose - Point of Care 87 mg/dl (70-99)
[2023-11-29] MEDS: MILK OF MAGNESIA 30 ML PO (17:30)
--- NOTE | 2023-11-29 20:00 | PTCARENOTE ---
resumed care of patient from previous RN. Walking rounds completed. min assist to get pt out of the bathroom and back into the chair. min assist with walker. did well. steady on feet. AAOx3. VSS. NSR HR 60-70s. 96% on RA. lungs diminished at bases.
IS done to 1250. no nausea reported. attempted to have BM unsuccessfully. feels as though it is imminent. voiding in toilet. All procedural sites stable. PIV patent. will continue to monitor.
[2023-11-29] MEDS: LOPRESSOR 25 MG PO (20:02)
[2023-11-29] MEDS: MELATONIN 5 MG PO (20:02)
[2023-11-30] VITALS (10 sets, daily range): BP systolic 102–166; BP diastolic 53–78; PULSE 66; O2SAT 97; BMI 27.0
--- NOTE | 2023-11-30 00:13 | PTCARENOTE ---
VSS. resting comfortably in bed. no changes in assessment. will continue to monitor.
--- NOTE | 2023-11-30 04:06 | W.PN.CT ---
Today's Communication / Plan
-
No issues overnight�
Improved delirium�
Plan to be evaluate by acute rehabilitation��
Continue ASA/Plavix/Amio/ Lipitor/Metoprolol increased to 25 mg BID on 11/28�
Diuresis on 11/28 with 40mg of Lasix�
OOB/IS/ambulate�
Assessment / Plan
-
- Severe /mv-CAD- s/p AVR (#25 Inspiris Resilia) and CABG x 3 (MATY to LAD, GSV to OM, GSV to PDA); reopen incision in OR with repair of L chest wall vein bleeding and 1 extra suture placement at prox graft to OM by Dr. Mandel on 11/25/23, pod #5
- Post GARCIA: LVEF 70% w/o RWMA, Normal RV. Mild MR. Mild TR. Well-seated AVR w/o PVL/AI, mean gradient 6mmHg
- Preop Severe /mild-mod AI, mild-mod MR, mild-mod TR
- HTN/HLD
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
- CVA in 2020 with no residual
- DM II
- Intracranial and carotid atherosclerosis
- PVCs
- Former smoker, quit 11 yrs ago
- Pulmonary HTN
- BCC
- ETOH - quit 3 yrs ago
- Acute postop blood loss anemia - s/p 4 pRBCs
- Acute postop thrombocytopenia/ coagulopathy - s/p 1 unit platelet and 2 FFPs
- Acute postop 3-5 beat PVCs
- Acute postop atelectasis
- Acute postop hypovolemia with subsequent hypervolemia
- Acute postop vasovagal rxn while intubated with hypotension 60s and bradycardia (paced intermittently VVI 40 bpm)- recovered quickly with Levo and pacing
- Acute postop confusion, agitation, pulling out lines- required restraints, Ativan and Precedex, avoiding narcotics
- Acute postop a-fib on 11/26 low 100-120s - tx with Amio bolus and drip
Subjective
Procedure
s/p AVR (#25 Inspiris Sadiaa) and CABG x 3 (MATY to LAD, GSV to OM, GSV to PDA); reopen incision in OR with repair of L chest wall vein bleeding and 1 extra suture placement at prox graft to OM by Dr. Mandel on 11/25/23
-
Date of Service: November 30, 2023
Objective Data
-
Lab Results
11/29/23 02:54
11/29/23 05:02
PT 16.4 Sec (11.4-14.6) H 11/25/23 20:18
INR 1.32 11/25/23 20:18
APTT 40.7 Sec (23.4-35.0) H 11/25/23 20:18
Vital Signs
Vital Signs
Temp Pulse Resp BP Pulse Ox
98.1 F 59 18 144/67 97
11/30/23 00:00 11/30/23 04:00 11/29/23 20:00 11/30/23 02:23 11/30/23 00:00
CT Intake/Output/Weight
11/29/23 11/29/23 11/30/23
06:59 18:59 06:59
Intake Total 480 / 840 480 / 480
Output Total 1150 / 1500
Balance -670 / -660 480 / 480
SaO2: 97
Physical Exam
-
General: Awake
Cardiovascular: Regular rate & rhythm
Respiratory: Clear
Sternum: Stable
Incision: Clean
Extremities: Edema +1
[2023-11-30] MEDS: TYLENOL PO (07:07)
[2023-11-30 07:24] LABS: Glucose - Point of Care 91 mg/dl (70-99)
[2023-11-30] MEDS: NOVOLOG FLEXPEN-MODERATE RESISTANCE SC ×2 (07:46→17:51)
[2023-11-30] MEDS: PACERONE 200 MG PO ×3 (08:15→21:25)
[2023-11-30] MEDS: MIRALAX 17 GRAMS PO (08:15)
[2023-11-30] MEDS: LIDOCAINE 4% PATCH 1 PATCH TOPICAL (08:15)
[2023-11-30] MEDS: LOPRESSOR 25 MG PO ×2 (08:16→20:25)
[2023-11-30] MEDS: SENOKOT-S 1 TABLET PO (08:16)
[2023-11-30] MEDS: PROTONIX 40 MG PO (08:16)
[2023-11-30] MEDS: JARDIANCE 10 MG PO (08:16)
[2023-11-30] MEDS: LASIX 40 MG PO (08:16)
[2023-11-30] MEDS: LOW STRENGTH ASPIRIN 81 MG PO (08:16)
[2023-11-30] MEDS: PLAVIX 75 MG PO (08:16)
[2023-11-30] MEDS: GLUCOPHAGE 500 MG PO ×2 (08:16→17:25)
--- NOTE | 2023-11-30 08:27 | PN.DE.MGMTRT ---
Insulin Management
- -
11/30/2023 Diabetes Management F/U:
Patient admitted for OR 11/24, POD #2 s/p AVR, CABG x3. PMH HTN, HLD, CVA, aortic stenosis, intracranial arteriosclerosis,carotid atherosclerosis, T2DM. Prior to admission was taking no medication for diabetes. A1C on admission 6.7%, Cr .8, eGFR >
60.
Patient seen this morning, Awake, alert, oriented, sitting up in chair, offers no complaints, able to discuss diabetes management.
He was weaned off the glycemic protocol Thursday evening to oral regimen.
Glucose has remained stable and in range throughout the weekend.
FBG, 91 this AM. Will make no changes to current regimen.
Cont Metformin 500mg BID and Jardiance 10mg daily now and at discharge.
Pt was offered glucose monitor but declined, stating that he would like a script for a CGM. Will provide pt with script for CGM, he is aware that it will not be covered by insurance since he has no prescription plan with medicare
Diabetes History
- -
Type of Diabetes: 2
Pre-Admission Diabetes Regimen
Insulin Pump Settings
IP Diabetes Regimen
11/29/23 11/29/23 11/30/23
11:53 17:28 07:23
POC Glucose 122 H 87 91
Meal type: Dinner
Meal type: Lunch
Meal type: Breakfast
Amount consumed: 90%
Amount consumed: 85%
Amount consumed: 90%
Patient Education
--- NOTE | 2023-11-30 08:30 | PTCARENOTE ---
Assumed care of patient at 0700. Pt is awake, alert, and oriented. Pt forgetful at times and requires reminders on appropriate ambulation and sternal precautions. Pt remains SR with HR 60's. BP 166/77 MAP 101 prior to morning medications. Pulse
oximetry 99% on room air. Pt achieving 1250 with IS, continued use encouraged. Pt tolerating PO diet and fluid restriction. Voiding in bathroom without difficulty. Midsternal incision Aquacel dressing CDI. Left leg incision with small dressing in
place. Pt currently resting OOB in chair with call mueller within reach and chair alarm activated.
--- NOTE | 2023-11-30 10:08 | W.PN.CD ---
Addendum entered and electronically signed by Jason Fischer MD 11/30/23 11:12:
I saw and examined the patient.
The RIPENING ROOM OPERATOR's note was reviewed and I agree with the note.
Comment: He is feeling much better, intermittent hiccups. His bp is elevated. He has an rrr no m/r/g. Lungs CTA. le edema is trace. He had been on labetolol and now on metoprolol. Will add lisinopril.
Original Note:
Today's Communication / Plan
-
Follow telemetry
Follow BP with initiation of Lisinopril
Impression / Plan
-
Impression/Plan: 68M with HTN, HLD, hx of CVA, NIDDM and CAD with severe /moderate AI admitted for elective CABG/SAVR.
[facility] Liaison And Special Staff: Dr. Rodríguez
#CAD S/P 3V CABG (CORREA to LAD, SVG to OM, SVG to RPDA) by Dr. Mandel, 11/25/2023
-Complicated by positional anastomotic leak from the SVG to OM requiring re-exploration and repair (single stitch).
-EKG with lateral T wave abnormality
-Continue aspirin.
-Telemetry stable
S/P #25 Perry Inspiris Resilia SAVR by Dr. Mandel, 11/25/2023.
-Echo 11/26 mean gradient 8mmHg
Atrial fibrillation with RVR, 11/27/23, received amiodarone
#AMS/Delirium, acute
-CT Head without acute findings
-Improving
#HTN, chronic, BP above goal, start Lisinopril 5mg
#HLD, atorvastatin 80 mg daily
Prior CVA
Prior ETOH
Type II DM, Hgba1c 6.7%
Former smoker
Subjective/Interval History:
Delirium improving.
DATA:
GARCIA, 11/25/2023:
CONCLUSIONS
Severe aortic stenosis, mild aortic regurgitation, valve annulus 25 mm.
Normal left ventricular size and systolic function, mild LVH, stage I diastolic
dysfunction.
The aorta has atheroma less than 5 mm and moderate calcifications in the arch.
Mild MR. Mild TR.
Dilated coronary sinus.
POST OPERATIVE FINDINGS
Status post aortic valve replacement with 25 mm bioprosthetic aortic valve, the
valve is well-seated, no perivalvular leak, leaflets are functioning well, mean
gradient is 6 mmHg.
Status post CABG x 3, the left ventricle is vigorously eva, EF 70 to
75%. No regional wall motion abnormalities seen.
Normal right ventricular size and function.
In the initial post pump separation phase there was a moderate MR, it resolved
to mild MR at the end of the case.
Mild TR.
The rest of the study is unchanged.
Cardiac Catheterization, 10/23/2023:
CORONARY ANGIOGRAPHY
Dominance: Right
Left Main: There is calcification of the left main without clear angiographic evidence of stenosis; however, there is ventricularization of the arterial waveform on engagement of the left main coronary artery suggestive of significant disease
LAD: 30% ostial stenosis with 60% mid stenosis distal to the takeoff of the first diagonal branch. There is some endomyocardial bridge component with 80% stenosis during systole; however, there is clearly some fixed stenosis as well
Circumflex: The circumflex gives rise to a twig like OM1 and a medium caliber large distribution OM 2 before continuing in the AV groove to supply collaterals to the RCA. There is 80% ostial OM2 stenosis
RCA: 30% ostial stenosis with 20-30% stenosis at the crux. The PDA has 60% mid stenosis. The AV groove branch gives rise to a small RPL 1 and a medium to large RPL 2. There are tandem 80% stenoses in the AV groove branch the first of which is
immediately distal to the takeoff of the RPL 1 and the second proximal to the takeoff of the terminal RPL 2
CONCLUSIONS
1: Severe aortic stenosis with mean gradient 51 mmHg
2: Normal left ventricular function with EF 67%
3. Severe multivessel CAD as described
4. Recommend AVR/CABG-full revascularization may be challenging but would include grafts to the LAD, OM2, RPDA, and distal RPL
5. The patient will be counseled to avoid any exercise/strenuous activity until treatment of his CAD has been accomplished
Physical Exam
Vital Signs/Labs
Vital Signs
Temp Pulse Resp BP Pulse Ox
97.8 F 62 18 166/77 99
11/30/23 07:47 11/30/23 09:00 11/30/23 07:47 11/30/23 07:44 11/30/23 09:36
11/29/23 11/30/23 12/01/23
06:59 06:59 06:59
Actual Weight 95.4 kg 95.2 kg
11/29/23 02:54
11/29/23 05:02
PT 16.4 Sec (11.4-14.6) H 11/25/23 20:18
INR 1.32 11/25/23 20:18
APTT 40.7 Sec (23.4-35.0) H 11/25/23 20:18
Magnesium 2.4 mg/dl (1.6-2.3) H 11/29/23 02:54
Physical Exam
Constitutional: No acute distress and Comfortable
EENT: Anicteric
Cardiovascular: Rhythm & rate is regular and S1S2 is normal
Respiratory: Respiratory effort normal and Lungs clear to auscul.
GI: Soft, Distention absent, Flat, Non tender and Normal bowel sounds
Neuro/Psych: AO x 3
Other: Skin (warm and dry)
Data Reviewed
-
Date of Service: November 30, 2023
--- NOTE | 2023-11-30 11:26 | CM ---
Reviewed chart. Met with Mr. Farris to review discharge plans. He states he is feeling better. We reviewed rehab. at [facility] at [place]. He is agreeable to the transfer. Telephone call to [facility] Liaison to check status of referral.
Awaiting call back to see if bed available and approved for admission. Medical work-up in progress. The discharge plan is to go to [facility]. at [place] if bed available and approved for admission.
[2023-11-30 11:49] LABS: Glucose - Point of Care 171 mg/dl (70-99)
[2023-11-30] MEDS: ZESTRIL 5 MG PO (11:49)
[2023-11-30] MEDS: NOVOLOG FLEXPEN-MODERATE RESISTANCE 1 UNITS SC (11:50)
[2023-11-30] MEDS: NSS IV (11:52)
--- NOTE | 2023-11-30 11:58 | PTCARENOTE ---
Pt ambulated with rehab with rolling walker. Requires reminder to utilize walker for stability and to ring for assistance. Pt with no complaints of pain. Remains SR with HR 60's. BP 158/67 MAP 90. Pulse oximetry 99% on room air.
[2023-11-30] MEDS: TYLENOL 1000 MG PO ×2 (13:30→21:25)
--- NOTE | 2023-11-30 14:36 | PN.CDI ---
CDI
- -
CDI:
Physician Documentation Request
Admit Date: 11/25/23 05:07
Dear Doctor Ministerio/RONNELL
Please review the following and provide your response in the progress notes.
Clinical Indicators:
Pt admitted with CAD/Severe s/p AVR/CABG x 3 on 11/24
Documented progress note 11/25,'impulsive, tried to pull out ETT, pulled out L a-line (replaced on R), picked at Cordis- restraints on and off, monitor....'
Cardiothoracic progress note 11/26, ' Minor initially self-limited agitation yesterday s/p narcotics; pt pulled cordis. Narcotics held... Overnight pt. again became confused/anxious/agitated. Attempted to get OOB to 'go home' Attempted to pull
out his michaud and pulled/damaged pacing wire. Placed in restraints, given ativan x 2, precedex... Acute postop confusion, agitation, pulling out lines- required restraints, Ativan and Precedex, avoiding narcotics...'
Patient care note 11/25 @2233 ,' pt became agitated and pulled at chest tube dressing breaking V wire. pt AOX2, however very agitated, telling staff to get out. soft mitts applied, 0.5 ativan given..'
Patient care note 11/26 @ 0000,' pt awoke very agitated, quickly took off mits and trying to pull at michaud. CTPA ordered to remove michaud to prevent harm. Pt thrashing around in bed, grabbing at staff. pt still denying pain or discomfort. 0.5 ativan
given per order and Precedex started at 0.5. New IV placed . ..'
Patient care note 11/26 @ 0730,' pt was transported to CT scan for scan of the head due to increased confusion. Pt in afib, not following commands appropriately, bl mitts restraints...'
Based on the above, could you clarify in the Progress Notes and Discharge Summary which, if any of the following, is the most likely etiology of the confusion/altered mental status.
Acute Toxic Metabolic Encephalopathy -Due to narcotics/anesthesia
Acute post op confusion only
Other (please specify)
Use of terms such as suspected, likely, concern for, or probable (associated with a specific diagnosis that is being evaluated, monitored, or treated as if it exists) are acceptable and can be coded in the inpatient setting, when documented at the
time of discharge.
Thank you,
Karishma Hernandez RN
CDI Specialist
[place] [facility]
Please use your independent medical judgment in providing your response.
--- NOTE | 2023-11-30 14:58 | PN.CDI ---
CDI
- -
CDI:
Physician Documentation Request
Admit Date: 11/25/23 05:07
Dear Doctor Ministerio/RONNELL ,
Please review the following and provide your response in the progress notes.
Clinical Indicators:
Pt admitted with CAD/Severe s/p AVR/CABG x 3 on 11/24
Sodium labs are as below / Pt did get IVFs/has had a few doses of IV lasix
Laboratory Tests
11/28/23 11/29/23 11/29/23
03:48 02:54 05:02
Sodium 134 L 133 L 133 L
Based on the above, could you clarify in the progress notes, the appropriate diagnosis, if significant, that supports the above abnormalities and additional evaluation, monitoring and/or treatment rendered:
Hyponatremia
Abnormal lab value only
Other
Use of terms such as suspected, likely, concern for, or probable (associated with a specific diagnosis that is being evaluated, monitored, or treated as if it exists) are acceptable and can be coded in the inpatient setting, when documented at the
time of discharge.
Thank you,
Karishma Hernandez RN
CDI Specialist
[place] [facility]
Please use your independent medical judgment in providing your response.
--- NOTE | 2023-11-30 15:03 | PN.CDI ---
CDI
- -
CDI:
Physician Documentation Request
Admit Date: 11/25/23 05:07
Dear Doctor Ministerio/RONNELL,
Please review the following and provide your response in the progress notes.
Current documentation includes a diagnosis of hypotension.
Clinical Indicators:
Pt admitted with CAD/Severe s/p AVR/CABG x 3 on 11/24
Immediate post op note,' Initial intraoperative CT output was higher than expected. TEG obtained. Pt. transfused 1pk PLTs per TEG guidance. No significant decrease in CT output w/ dark/venous output. I therefore opted to reopen his incision.
There was LEFT chest wall vein that was bleeding which was easily addressed w/ electrocautery and topical agents. '
Cardiology progress note 11/24, ' -Currently in re-exploration for bleeding - appears to be due to positional anastomotic leak from the SVG to OM.'
Documented throughout cardiothoracic notes starting 11/25, ' -several vasovagal episodes while intubated with hypotension and bradycardia (paced @ 40)- recovered quickly with pacing and Levo...- Acute postop hypovolemia ..Acute postop blood loss
anemia - s/p 2 pRBCs Acute postop thrombocytopenia/ coagulopathy - s/p 1 unit platelet and 2 FFPs.Acute postop vasovagal rxn while intubated with hypotension 60s and bradycardia (paced intermittently VVI 40 bpm)- recovered quickly with Levo and
pacing....'
Levo restarted on 11/26 also did get dopamine
11/25/23
18:09 11/25/23
22:20 11/25/23
22:50
Blood pressure 81/60
MAP (Y-Mczw-Nrrxcrk Monitor) 57 52
11/25/23
22:50 11/25/23
22:51 11/25/23
23:20
Blood pressure 65/51
MAP (S-Xiyf-Xwdemko Monitor) 49 54
11/25/23
23:30 11/26/23
00:40
Blood pressure 88/47 86/57
Please clarify which of the following is the most likely etiology of the above symptoms and treatment rendered:
Hypovolemic shock
Cardiogenic Shock
Other
Use of terms such as suspected, likely, concern for, or probable (associated with a specific diagnosis that is being evaluated, monitored, or treated as if it exists) are acceptable and can be coded in the inpatient setting, when documented at the
time of discharge.
Thank you,
Karishma Hernandez RN
CDI Specialist
[place] [facility]
Please use your independent medical judgment in providing your response.
[2023-11-30] MEDS: MILK OF MAGNESIA 30 ML PO (15:19)
--- NOTE | 2023-11-30 15:24 | PN.CDI ---
CDI
- -
CDI:
Physician Documentation Request
Admit Date: 11/25/23 05:07
Dear Doctor Ministerio /RONNELL,
Please review the following and provide your response in the progress notes.
Clinical Indicators:
Pt admitted with CAD/Severe s/p AVR/CABG x 3 on 11/24
Cardiothoracic progress note 11/25-11/29,' Acute postop hypovolemia with subsequent hypervolemia
ECHO 11/26, ' LV ejection fraction is 55-60% . '
Per MAR did get IV Lasix 20mg x 1 ,40 mg x1 on 11/25, 40 mg IV Lasix on 11-27-11-29
weights below
11/25/23
05:12
Actual Weight 201 lb 11.567
oz
11/26/23
06:00
Actual Weight 214 lb 4.629 oz
Please provide a diagnosis for the above findings /treatment of IV Lasix:
Acute Diastolic CHF
Hypervolemic volume overload only
Other ( please specify)
Use of terms such as suspected, likely, concern for, or probable (associated with a specific diagnosis that is being evaluated, monitored, or treated as if it exists) are acceptable and can be coded in the inpatient setting, when documented at the
time of discharge.
Thank you,
Karishma Hernandez RN
CDI Specialist
[place] [facility]
Please use your independent medical judgment in providing your response.
--- NOTE | 2023-11-30 15:34 | PTCARENOTE ---
Pt ambulated with RN assistance with rolling walker into hallway and back to room, pt fatigued with ambulation and unsteady at times. Pt remains SR with HR 60's-70's. BP 114/74 MAP 83. Pulse oximetry 97% on room air. No complaints of pain at this
time. Currently sitting OOB in chair with chair alarm active. Pt remains forgetful regarding physical limits.
--- NOTE | 2023-11-30 16:30 | PTCARENOTE ---
Received patient from prior shift.education initiated about ISB use, cough and deep breathing with the heart pillow, mobility, nutrition,
pain management, sternal precautions and rest periods. Pt asked to demonstrate ISB, and patient education completed to correct technique. Pt demonstrated understanding of education using the teach back method. Proper technique with the incentive
spirometer will be reinforced, and patient instructed to use the ISB ten times per hour (minimum). Medication education including medication side effects provided for all pm medications prior to administering. Pt sitting in the chair and resting
comfortably. Medication education will be reinforced throughout the day. IV sites flushed and patent. Chair pad alarm in place and pt instructed to call RN before getting up.
[2023-11-30 17:14] LABS: Glucose - Point of Care 99 mg/dl (70-99)
[2023-11-30] MEDS: LIPITOR 80 MG PO (17:25)
--- NOTE | 2023-11-30 20:00 | PTCARENOTE ---
assumed care of pt from previous RN. pt A&Ox4, w/ intermittent forgetfulness and impulsivity. pt easily reoriented. bed/chair alarm on. assist x1 w/ rolling walker. pt sitting in chair at time of assessment. SR on tele-monitor, HR 70s. palpable
peripheral pulses. +1 pitting edema in b/l LE. POX 96% on RA. abd s/n. +BS. pt voiding in the bathroom. surgical sites stable. PIV intact. plan of care discussed, pt in agreement. call mueller within reach. pt demonstrated use of call mueller
successfully. see worklist for complete nursing assessment, interventions, VS, and I&Os.
[2023-11-30] MEDS: SENOKOT-S PO (21:25)
[2023-11-30] MEDS: MELATONIN 5 MG PO (21:25)
[2023-11-30 22:11] LABS: Glucose - Point of Care 129 mg/dl (70-99)
[2023-12-01 00:11] VITALS: BP 147/65
--- NOTE | 2023-12-01 00:15 | PTCARENOTE ---
pt reassessed. VSS. NSR on tele-monitor, HR 60s. POX 95% on RA. no c/o pain at this time.
--- NOTE | 2023-12-01 02:18 | W.PN.CT ---
Today's Communication / Plan
-
-pod #6
-no issues overnight, A&O x4
-started on Lisinopril 11/29 for hypertension
-current meds (ASA, Plavix, Lopressor, Lisinopril, Amio, Lipitor, Protonix, Jardiance, MFM)
-await physiatry eval for possible Lr rehab
-encourage IS, OOB
-continue PT/OT
-appreciate everyone's input
Assessment / Plan
-
- Severe /mv-CAD- s/p AVR (#25 Inspiris Resilia) and CABG x 3 (MATY to LAD, GSV to OM, GSV to PDA); reopen incision in OR with repair of L chest wall vein bleeding and 1 extra suture placement at prox graft to OM by Dr. Mandel on 11/25/23, pod #6
- Post GARCIA: LVEF 70% w/o RWMA, Normal RV. Mild MR. Mild TR. Well-seated AVR w/o PVL/AI, mean gradient 6mmHg
- Preop Severe /mild-mod AI, mild-mod MR, mild-mod TR
- HTN/HLD
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
- CVA in 2020 with no residual
- DM II
- Intracranial and carotid atherosclerosis
- PVCs
- Former smoker, quit 11 yrs ago
- Pulmonary HTN
- BCC
- ETOH - quit 3 yrs ago
- Acute postop blood loss anemia - s/p 4 pRBCs
- Acute postop thrombocytopenia/ coagulopathy - s/p 1 unit platelet and 2 FFPs
- Acute postop 3-5 beat PVCs
- Acute postop atelectasis
- Acute postop hypovolemia with subsequent hypervolemia (Hypervolemic volume overload only)
- Acute postop vasovagal rxn while intubated with hypotension 60s and bradycardia (paced intermittently VVI 40 bpm)- recovered quickly with Levo and pacing
- Acute postop toxic metabolic encephalopathy, likely d/t anesthesia/narcotics
- Acute postop a-fib on 11/26 low 100-120s - tx with Amio bolus and drip
- Acute postop hyponatremia
Discussed patient care with: Nursing and Care Team
Subjective
Procedure
s/p AVR (#25 Inspiris Resilia) and CABG x 3 (MATY to LAD, GSV to OM, GSV to PDA); reopen incision in OR with repair of L chest wall vein bleeding and 1 extra suture placement at prox graft to OM by Dr. Mandel on 11/25/23
-
Date of Service: December 01, 2023
Objective Data
-
Lab Results
11/29/23 02:54
11/29/23 05:02
PT 16.4 Sec (11.4-14.6) H 11/25/23 20:18
INR 1.32 11/25/23 20:18
APTT 40.7 Sec (23.4-35.0) H 11/25/23 20:18
Vital Signs
Vital Signs
Temp Pulse Resp BP Pulse Ox
98.2 F 67 18 147/65 93
12/01/23 00:00 12/01/23 00:11 12/01/23 00:00 12/01/23 00:11 12/01/23 00:11
CT Intake/Output/Weight
11/30/23 11/30/23 12/01/23
06:59 18:59 06:59
Intake Total 890 / 890
Balance 890 / 890
SaO2: 93
Physical Exam
-
General: Awake and AOx3
Cardiovascular: Regular rate & rhythm, No Murmurs and +Rub
Respiratory: Decreased Breath Sounds
Sternum: Stable
Incision: Clean, Dry and Intact
Abdomen: soft, nontender, nd,+ bowel sounds
Extremities: no edema b/l
Data Reviewed
-
Lab Results: Results Reviewed
Medications: Active Meds Reviewed
Chest X-Ray: Report Reviewed and Image Reviewed
ECG: Report Reviewed and Image Reviewed
[2023-12-01 03:41] VITALS: BP 160/72
[2023-12-01 06:00] VITALS: BMI 26.8
[2023-12-01] MEDS: TYLENOL 1000 MG PO ×2 (07:05→13:03)
[2023-12-01 07:20] LABS: Glucose - Point of Care 111 mg/dl (70-99)
[2023-12-01] MEDS: NOVOLOG FLEXPEN-MODERATE RESISTANCE SC ×2 (07:28→11:49)
[2023-12-01] MEDS: LOPRESSOR 25 MG PO (07:58)
[2023-12-01] MEDS: LOW STRENGTH ASPIRIN 81 MG PO (07:58)
[2023-12-01] MEDS: SENOKOT-S 1 TABLET PO (07:58)
[2023-12-01] MEDS: PROTONIX 40 MG PO (07:59)
[2023-12-01] MEDS: ZESTRIL 5 MG PO (07:59)
[2023-12-01] MEDS: PACERONE 200 MG PO (07:59)
[2023-12-01] MEDS: MIRALAX 17 GRAMS PO (07:59)
[2023-12-01] MEDS: GLUCOPHAGE 500 MG PO (07:59)
[2023-12-01] MEDS: PLAVIX 75 MG PO (07:59)
[2023-12-01] MEDS: JARDIANCE 10 MG PO (07:59)
--- NOTE | 2023-12-01 08:00 | PTCARENOTE ---
pt received from previous RN, oriented, OOB in chair. SR on the monitor, HR 70s. SBP 140s. palpable pulses. trace/+1 LE edema. pt on RA, 99% POX. lungs diminished in bases. IS encouraged. pt abdomen s/n, denies n/v. diet tolerated. +BM. voids.
ambulates to bathroom w/ assist and RW. sternal incision c/d/i. L groin puncture PAINT STOCK CLERK, LLE incision PAINT STOCK CLERK, ecchymotic. PIV x2. see worklist for VS, I&O, and assessment.
[2023-12-01 08:01] VITALS: BP 149/72
[2023-12-01] MEDS: LIDOCAINE 4% PATCH TOPICAL (08:05)
--- NOTE | 2023-12-01 08:33 | PN.DE.MGMTRT ---
Insulin Management
- -
12/01/2023 Diabetes Management Follow up:
Patient admitted for OR 11/24, POD #6 s/p AVR, CABG x3. PMH HTN, HLD, CVA, aortic stenosis, intracranial arteriosclerosis,carotid atherosclerosis, T2DM. Prior to admission was taking no medication for diabetes. A1C on admission 6.7%, Cr .8, eGFR >
60.
Transitioned from glycemic protocol 11/26, glucose remained stable 99 to 129 with one elevation 171 pre lunch.
Patient is awake, alert and oriented, oob in chair able to discuss diabetes plan of care.
Will continue Metformin 500mg BID and Jardiance 10mg daily today and at discharge.
Pt was offered glucose monitor but declined, patient states his primary doctor had prescribed the Cr, which he has used and will continue with that.
Diabetes History
- -
Type of Diabetes: 2
Pre-Admission Diabetes Regimen
Insulin Pump Settings
IP Diabetes Regimen
11/30/23 11/30/23 11/30/23
11:47 17:12 22:09
POC Glucose 171 H 99 129 H
12/01/23
07:19
POC Glucose 111 H
Meal type: Breakfast
Meal type: Breakfast
Amount consumed: 100%
Amount consumed: 100%
Patient Education
--- NOTE | 2023-12-01 09:52 | CON.MD ---
Consultation - Medical
-
Referring Provider: Dr. João Mandel
Chief Complaint: CABG/AVR
History of Present Illness: 68-year-old male with PMH (as below) presented to [facility] on 11/25/23 for elective CABG x 3 and #25 Perry Inspiris Resilia SAVR. Postoperatively with acute bleeding status post 4 PRBCs and found with an
anastomotic leak from the SVG to OM requiring re-exploration and repair (single stitch). Had episode of vasovagal reaction while intubated with hypotension and bradycardia with quick recovery with Levophed and pacing. Also had A-fib with RVR and
treated with amiodarone. Had an altered mental status with acute delirium. CT of the head without acute concerns. Delirium is improving. Started on lisinopril for hypertension.
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
intracranial arterial sclerosis, carotid atherosclerosis bilaterally, PVCs, former tobacco use, pulmonary HTN, MVCAD
Procedure History: Left thumb amputation at age 1, skin cancer removal, cosmetic surgery left thumb
Family History: Mother with Alzheimer's disease
Social History:
Functional Level Premorbidly: Independent with all activities
Functional Level Currently:�� Min assist toilet transfer, min assist lower extremity self-care. Min assist sit to stand and ambulating 50 feet with rolling walker.
Tobacco: Former smoker 1 pack a day for 20 years
Alcohol: Former, quit 3 years ago
Drug use: Denies
Lives with: Alone
24-hour assistance available: No
Number of floors: 3
# steps to enter: 0
# steps to second floor: 2 flights to the bedroom
Potential First floor set up: Has half bath on first floor
Driving: Yes
Occupation: Retired
Allergies:
Allergy/AdvReac Type Severity Reaction Status Date / Time
bee pollen [Bee Pollen] Allergy Anaphylaxis Verified 10/29/23 09:37
Review of Systems:
Constitutional: (x) abNormal _ fatigue
Eye: (x) Normal _
Ear/Nose/Throat: (x) Normal _
Respiratory: (x) Normal _
Cardiovascular: (x) Normal _ No chest pain or SOB
Gastrointestinal: (x) Normal _
Genitourinary: (x) Normal _
Musculoskeletal: (x) Normal _
Integumentary: (x) Normal _
Neurologic: (x) abNormal _residual stroke effects
Psychiatric: (x) Normal _delirium resolved per patient and nursing.
Endocrine: (x) Normal _
Hematologic/Lymphatic: (x) Normal _
Allergic/Immunologic: (x) Normal _
Medications:
Active Current Visit Medication List
Category Date Time Status
0.9% Sodium Chloride 500 ml [Nss] 500 ml Med 11/25/23 13:51 Active
IV CORDIS
Acetaminophen [Tylenol] Med 11/25/23 14:00 Active
1,000 mg PO TID@0600,1400,2200
Acetaminophen [Tylenol] Med 11/25/23 13:51 Active
650 mg PO Q4HPRN PRN
Amiodarone [Pacerone] Med 11/25/23 16:00 Active
200 mg PO TID
Aspirin Chewable [Low Strength Aspirin] Med 11/26/23 08:00 Active
81 mg PO DAILY
Atorvastatin [Lipitor] Med 11/25/23 18:00 Active
80 mg PO QPM
Atropine Sulfate [Atropine 0.1 mg/ml Syringe] Med 11/26/23 22:35 Active
1 mg IV PRN PRN
Bisacodyl [Dulcolax] Med 11/25/23 13:51 Active
10 mg RECTAL DAILYPRN PRN
Clopidogrel Bisulfate [Plavix] Med 11/26/23 08:00 Active
75 mg PO DAILY
Dextrose 50%-Water [Dextrose 50% Syringe] Med 11/28/23 12:08 Active
12.5 grams IV [id number] PRN
Docusate W/Senna [Senokot-S] Med 11/25/23 20:00 Active
1 tablet PO Q12
Empagliflozin [Jardiance] Med 11/28/23 08:00 Active
10 mg PO DAILY
Flush (0.9% Sodium Chloride) [Flush (Nss)] Med 11/24/23 09:00 Active
See Dose Instructions IV PER PROTOCOL
Glucagon [GlucaGen] Med 11/28/23 12:08 Active
1 mg IM PRN PRN
Insulin Aspart Corrective Mod [Novolog Flexpen-Moderate Med 11/28/23 16:30 Active
Resistance]
See Protocol SC AC
Lidocaine [Lidocaine 4% Patch] Med 11/26/23 08:00 Active
See Dose Instructions TOPICAL DAILY
Lisinopril [Zestril] Med 12/01/23 09:51 Active
10 mg PO DAILY
METFORMIN HCl [Glucophage] Med 11/28/23 08:00 Active
500 mg PO BID@0800,1700
Magnesium Hydroxide [Milk of Magnesia] Med 11/25/23 13:51 Active
30 ml PO BIDPRN PRN
Magnesium Oxide Med 11/26/23 08:00 Hold
500 mg PO BID
Melatonin Med 11/27/23 22:00 Active
5 mg PO HS
Metoprolol [Lopressor] Med 11/29/23 20:00 Active
25 mg PO Q12
Pantoprazole [Protonix] Med 11/26/23 08:00 Active
40 mg PO DAILY
Polyethylene Glycol Powder [Miralax] Med 12/01/23 08:00 Active
17 grams PO DAILY
Remove Patch [Remove Lidocaine Patch] Med 11/26/23 20:00 Active
See Dose Instructions REMOVE DAILY@2000
Tramadol HCl [Ultram] Med 11/26/23 16:43 Hold
25 mg PO Q6HPRN PRN
Vitals:
Temp Pulse Resp BP Pulse Ox
98.2 F 59 18 149/72 99
12/01/23 04:43 12/01/23 10:00 12/01/23 08:00 12/01/23 08:01 12/01/23 09:51
Height 6 ft 2 in
Actual Weight 94.5 kg
Body Mass Index (BMI) 26.8
Physical Exam:
General Appearance/Observation: Well-developed, well-nourished male in no apparent distress.
Pain/Comfort Assessment: Denies
Mood/Affect: Appropriate
Integumentary/Operative Site: Sternal incision with drain sites healing. Left knee incision healing.
�� Pressure Ulcer Evaluation: absent over heels.
Eyes: Conjunctiva/Lids: normal ��� Pupils: pupils equal round and reactive to light and Accommodation
Ears/Nose/Throat: oral mucosa moist,� throat clear.������������ Lips/Teeth/Gums: normal
Neck: No muscle spasm or tenderness
Cardiovascular: Heart: regular, no murmur
Pulses: dorsalis pedis 2+ bilaterally
Respiratory: Respiratory Effort/Chest Expansion: normal ������ Auscultation: Clear to auscultation bilaterally
Gastrointestinal: abdomen not tender, no distension, normal abdominal bowel sounds
Genitourinary: No Vides
Extremities: Edema: None Cyanosis: None Trophic changes: None
Neurology Exam:
Orientation: Alert, Oriented to self, Time, Place
Memory: Intact for recent medical concerns.
Repetition: Intact
Comprehension: Intact
Two step command: Intact
Cranial Nerves:
�� CNII: Pupillary light reflex: Intact��� Visual Field: Intact
�� CN III, IV, : Extraocular muscles: Intact
�� CN V: Facial Sensation at Forehead: Intact, Maxilla: Intact, Mandible: Intact
�� CN VII: Facial movement: decreased on left
�� CN VIII: Hearing: Normal
�� CN IX/X: Speech & swallow: mild dysarthria, Position of Uvula: Midline
�� CN XI: Shoulder shrug: Symmetric
�� CN XII: Tongue protrusion: Midline
Sensory:
�� Light touch: Intact in bilateral upper and lower extremities, no extinction to double simultaneous stimulation
Reflexes:
�� Biceps: 2+ bilaterally
�� Brachioradialis: 2+ bilaterally
�� Triceps: 2+ bilaterally
�� Patellar: 2+ bilaterally
�� Achilles: 2+ bilaterally
�� Babinski: Down going bilaterally
�� Clonus: None
�� Sirena: Negative bilaterally
Cerebellar: Dysmetria/Ataxia: None
Musculoskeletal:Motor: (Manual muscle scale 0-5)
Muscle SA EF WE EE FF FA HF KE DF EHL PF
Right� >3 >3 5 >3 5 5 5 5 5 5 5
Left >3 >3 5 >3 5 5 5 5 5 5 5
Tone: Normal in all extremities
Range of Motion: Passively within normal limits in all extremities
Lab Results
Laboratory Data
11/29/23 02:54
11/29/23 05:02
PT 16.4 Sec (11.4-14.6) H 11/25/23 20:18
INR 1.32 11/25/23 20:18
APTT 40.7 Sec (23.4-35.0) H 11/25/23 20:18
Total Bilirubin 0.9 mg/dl (0.2-1.3) 11/03/23 08:31
Direct Bilirubin 0.0 mg/dl (0.0-0.4) 11/03/23 08:31
AST 27 U/L (17-59) 11/03/23 08:31
ALT 38 U/L (0-50) 11/03/23 08:31
Alkaline Phosphatase 56 U/L (38-126) 11/03/23 08:31
Total Protein 7.2 g/dl (6.3-8.2) 11/03/23 08:31
Albumin 4.6 g/dl (3.5-5.0) 11/03/23 08:31
Diagnostic Results: as per HPI
Assessment
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
intracranial arterial sclerosis, carotid atherosclerosis bilaterally, PVCs, former tobacco use, pulmonary HTN, MVCAD) s/p 11/25/23 elective CABG x 3 and #25 Perry Inspiris Resilia SAVR complicated by postoperative anastomotic leak from the SVG to
OM requiring re-exploration and repair (single stitch), blood transfusion, episode of vasovagal reaction while intubated with hypotension and bradycardia with quick recovery with Levophed and pacing, A-fib with RVR and treated with amiodarone and
acute delirium with ADL, ambulatory, and cognitive dysfunction.
Plan
PM&R PT/OT to increase independence with ADLs, improve balance, coordination, endurance, strength, mobility, community reintegration, decreased burden of care on others and family education.
Coronary artery disease S/P CABG x 4 and aortic valve repair: Sternal precautions.� Aspirin/Plavix, statin, beta-shannon, BP control.� Monitor incision, pain control.
HTN: Lisinopril, metoprolol. Monitor closely
HLD: Statin������
Postoperative atrial fibrillation:�Not on blood thinner, rate control with amiodarone��������������������������������� ���������
DM II: Accu-Cheks, insulin sliding scale, Jardiance, metformin
Postoperative anemia: Status post 4 units PRBCs.� Continue to monitor.
Thrombocytopenia: Continue to monitor. �If platelets less than 50,000 recommend keeping therapies to bedside. If platelets less than 20,000 will use further caution with activity levels and hold therapy for platelets less than 10,000.
Acute postoperative delirium: Resolved per nursing and patient denies any concerns, appropriate. CT of the head negative. Limit medications that may worsen delirium.
FEN: Cholesterol-lowering diet
Psych: Psychology consult.� Monitor mood, adjust medications as needed.
Skin: monitor for pressure sores/rashes/lesions.
Pain: acetaminophen as needed.
Bowel: Colace and Senna, PRN bisacodyl.
Bladder: Time void, PVRs, PRN straight cath.
GI Prophylaxis: Pantoprazole
DVT Prophylaxis: mechanical, chemoprophylaxis when ok per surgery.
Pulmonary: Incentive spirometry
Safety: Continue to reinforce assistance with all transfers.
Code Status:� Full code
Dispo (date/plan/equipment needs): Home with family care.
Functional and Medical Goals: Modified Independent with ADL�s, ambulation, transfers
Discharge Destination: Acute inpatient rehabilitation with functional needs at min assist and numerous medical concerns that require further monitoring. Reviewed with patient who agrees with acute rehab.
A total of 60 minutes were spent with the patient preparing for the evaluation, obtaining history, performing examination and evaluation, counseling, data review, case management, care coordination, order clerk, and EMR documentation.
Summary of recommendations:
- Discharge Destination: Acute inpatient rehabilitation
Coronary artery disease S/P CABG x 4 and aortic valve repair: Sternal precautions.� Aspirin/Plavix, statin, beta-shannon, BP control.� Monitor incision, pain control.
Postoperative atrial fibrillation:�Not on blood thinner, rate control with amiodarone��������������������������������� ���������
DM II: Accu-Cheks, insulin sliding scale, Jardiance, metformin
Postoperative anemia: Status post 4 units PRBCs.� Continue to monitor.
Thrombocytopenia: Continue to monitor. �If platelets less than 50,000 recommend keeping therapies to bedside. If platelets less than 20,000 will use further caution with activity levels and hold therapy for platelets less than 10,000.
Acute postoperative delirium: Resolved per nursing and patient denies any concerns, appropriate. CT of the head negative. Limit medications that may worsen delirium.
Bowel: Colace and Senna, PRN bisacodyl.
Bladder: Time void, PVRs, PRN straight cath.
GI Prophylaxis: Pantoprazole
DVT Prophylaxis: mechanical, chemoprophylaxis when ok per surgery.
Thank you for allowing me to care for your patient. Please contact me with any questions or concerns.
[2023-12-01] MEDS: NSS IV (11:30)
[2023-12-01 11:47] VITALS: BP 140/76
[2023-12-01 11:49] LABS: Glucose - Point of Care 99 mg/dl (70-99)
--- NOTE | 2023-12-01 12:30 | PTCARENOTE ---
pt VSS, no changes in assessment. ambulating in room w/ assist and RW. +BM. TOEING STOCKINGS cut CT sutures, aware of ecchymotic LLE.
--- NOTE | 2023-12-01 12:31 | CM ---
Reviewed chart. Telephone call to [facility] [place] Liaison to check on status of referral. PM&R saw patient and approved for admission. [facility] [place] can accept today around 2:00 p.m. Report number is ([phone]). Just need
to send discharge instructions. Medical work-up in progress. [facility] [place] [facility] medically [facility].
--- NOTE | 2023-12-01 12:49 | W.DCSUMMARY ---
Discharge Summary
Discharge Data
Date of Admission: 11/25/23
Date of Discharge: 12/01/23
-
Pending Results: No
Hospital Course
Primary care physician:Monique Daly
Outpatient global position system technician: Seferino Rodríguez
Inpatient consultants: [facility] Cardiology
Procedures:
1. Aortic valve replacement/coronary bypass
Primary Diagnosis:
1. �Severe aortic stenosis
Secondary Diagnoses:
1. Multivessel CAD w/ extensive coronary calcifications
2. Hypertension
3. Hyperlipidemia
4. History of CVA (2009 and 2020)
5. Type 2 diabetes (A1c 6.7)Acute postop blood loss anemia - s/p 4 pRBCs
6. Acute postop thrombocytopenia/ coagulopathy - s/p 1 unit platelet and 2 FFPs
7. Acute postop toxic metabolic encephalopathy, likely d/t anesthesia/narcotics
8. Acute postop a-fib on 11/26 low 100-120s - tx with Amio bolus and drip
9. Acute postop hyponatremia
HPI: 68-year-old male was electively admitted on 11/25/2023 for AVR/CABG.
Hospital course: Patient underwent AVR number 25 mm Inspiris, CABG x 3 with CORREA-LAD; SVG-OM; SVG-PDA. Patient was reopened in the operating room for hemostasis. Patient received 1 packed cell, 1 platelet, and 2 fresh frozen plasma
intraoperatively. Patient arrived to CVICU on Cardene, dobutamine, insulin, and Precedex. Patient was quickly weaned off Cardene due to low normal range blood pressure. 1 packed red blood cell was given for hemoglobin of 8.3. Patient had
intermittent confusion postoperative day 1. He had 1 vagal episode and required pacing. Pacing wires were cut on postoperative day 2 due to patient pulling) wires. Patient was weaned off Levophed and Precedex. Patient had brief atrial
fibrillation during the night and required amiodarone bolus and infusion. Patient returned to normal sinus rhythm approximately 6:30 PM. He was transitioned to amiodarone 200 mg twice daily and remained in sinus rhythm for the remainder of his
stay.��Remaining chest tubes were removed on postoperative day #3. Patient's mental status continued to improve and although impulsive, patient remained oriented x 3. On postoperative day #4, patient required Lasix. He also received Dulcolax for
constipation. Physiatry was consulted for potential acute rehab placement. Beta-shannon dose was increased for hypertension. On postoperative day #5 patient required MiraLAX and milk of magnesia as he remained constipated. Lisinopril 5 mg daily
was added for hypertension per cardiology. Postoperative day #6, blood pressure remained 140s over 60s with heart rate in the 60s (sinus rhythm). Lisinopril dose was increased to 10 mg daily. Patient ambulated with physical therapy, had a bowel
movement, and was accepted for discharge to [facility]. Labs from /21: Sodium level improved to 133, creatinine 0.7, platelets improved from 10 1-1 16 K, hemoglobin stable at 9.1.
Home medication changes:
Discharge Plan
-
Patient Disposition: Acute Rehab Facility
Discharge Diagnosis/Procedures: AVR/CABG
Condition: Fair
Diet: Low Cholesterol and Low Sodium
Activity: No strenuous activity
Driving Restrictions: Not until seen by your Dr
Bathing Restrictions: OK to Shower
Other Services: Cardiac Rehab
Specialty Instructions: Weigh Daily- Call MD for wt gain/loss 3 lbs overnight/5 lbs in 1 week
Activity Restrictions/Additional Instructions:
ACTIVITY:
-No strenuous activity: no heavy lifting, pushing, pulling anything over 15 pounds for one month
-continue to use stairs as tolerated
DRIVING RESTRICTIONS:
-No driving for one month or until approved by your surgeon
WOUND CARE:
-Shower daily. Use soap & water.
-No lotions, creams or powders on incision area.
DIET:
-continue a low fat/low cholesterol diet.
-IF you are diabetic, continue carb controlled diet.
CARDIAC REHAB:
-Please make appointment to start in 5-6 weeks with your local hospital program. (See Cardiac Rehabilitation Discharge Booklet).
SPECIALTY INSTRUCTIONS:
-Weigh yourself daily. Call your physician for any weight gain/loss of 3 lbs overnight or 5 lbs in one week.
-REPORT any clicking noise or uneven appearance of your sternum to your surgeon immediately.
-If you smoke, you are instructed to quit. The [facility] smoking hotline phone number is [phone]
Referrals:
CT Transitional Care Nurse [Outside] (The Cardiothoracic Transitional Care Nurse will call you to set up a visit in 1-2 days.)
Sumi Rodriguez PA-C [Specified Professional Personl] - 01/06/24 9:40 am
Monique Daly DO [Family Provider] -
João Mandel MD [Active] - 12/29/23 1:30 pm
Prescriptions:
New
amiodarone [Pacerone] 200 mg Tablet
200 mg PO BID Qty: 0 1RF
sennosides-docusate sodium [Stool Softener-Stimulant Laxat] 8.6-50 mg Tablet
1 tab PO Q12 Qty: 60 0RF
acetaminophen [Tylenol Extra Strength] 500 mg Tablet
1,000 mg PO TID@0600,1400,2200 PRN (Reason: Pain) Qty: 0 0RF
pantoprazole 40 mg Tablet,Delayed Release (Dr/Ec)
40 mg PO DAILY Qty: 0 0RF
Jardiance 10 mg Tablet
10 mg PO DAILY Qty: 0 0RF
metformin 500 mg Tablet
500 mg PO BID@0800,1700 Qty: 0 0RF
melatonin 5 mg Tablet
5 mg PO HS Qty: 0 0RF
metoprolol succinate [Toprol XL] 50 mg tablet extended release 24 hr
50 mg PO DAILY Qty: 1 0RF
lisinopril 5 mg Tablet
10 mg PO DAILY Qty: 0 0RF
polyethylene glycol 3350 [HealthyLax] 17 gram Powder In Packet
17 g PO DAILY Qty: 0 0RF
Continued
atorvastatin 80 mg Tablet
80 mg PO QPM
clopidogrel 75 mg Tablet
75 mg PO QPM
aspirin 81 mg tablet,delayed release (DR/EC)
81 mg PO DAILY Qty: 1 0RF
epinephrine 0.3 mg/0.3 mL Auto-Injector
0.3 mg IM PRN PRN (Reason: bee stings)
Patient Comments:
Has not used in 30 years
Discontinued
labetalol 100 mg Tablet
200 mg PO BID
ibuprofen 200 mg Tablet
200 mg PO Q6H PRN (Reason: pain)
Discharge Orders:
Discharge Patient (As Directed); Ordered 12/01/23
Ordered By: Trish Roa
Discharge Date and Time
Print Language: DOMINICAN
--- NOTE | 2023-12-01 14:45 | PTCARENOTE ---
pt report called to [facility] @~[phone], per Be will call back when bed clean.
--- NOTE | 2023-12-01 16:00 | PTCARENOTE ---
Nursing Roofing Machine Operator called, per supervisor cured meats, Be bed cleaned. Be called and made aware patient was coming to room. When RN went into pt room, pt gathering belongings stating 'I'm going home, you guys don't seem to have your stuff together'. pt
oriented x4. pt attempting to walk into hallway w/ belongings, unsteady on feet. AVIATION TECHNICIAN AIRCRAFT out with patient. pt agreeable if he left immediately by wheelchair, agreeable to go to [facility]. pt left w/ all belongings and chart.
--- NOTE | 2023-12-01 17:17 | PTCARENOTE ---
[facility] refusing to leave hallway and enter room. Pt requesting staff to take him to main entrance and call him a taxi. Explained to patient that he was not safe to go home. Pt said 'get out of
my way or get me to the exit'. Pts son called by staff but stated ' Im in [place] and I cannot do anything to make him stay.' Pt agitated and call 911, Pt told the officer he was being held against his will and would like a ride. Pt advised that
staff could not just let him leave without paperwork from a doctor stating he was leaving against medical advice. Nursing Photographic Printer called and alerted of the situation. Pt agreeable to go to the emergency department to sign AMA paperwork. Case
management called and met this RN and Patient there. Dr Rodríguez, pts floor layer tile, notified of situation and came to meet and speak with patient in the Emergency room lobby. property and supply officer arrived to speak with patient, pt asking him to take him
home, pt attempted to stand and very unsteady and almost fell. property and supply officer, states he is not willing to transport him home in his current condition since he will be alone at home. Pt willing to seek evaluation in Emergency room after speaking
with Dr Rodríguez and security police officer. Pt wheeled into EMergency room for bed assignment.
== END 2023-12-01 16:05 | DRG 219 ==
LOC: CVICU 05:07
PROVIDERS: Anesthesiology; Clinical Nurse Specialist Acute Care; Internal Medicine Cardiovascular Disease; Nurse Practitioner; Physician Assistant Medical; ADMITTING PHYSICIAN Thoracic Surgery (Cardiothoracic Vascular Surgery); CONSULT PHYSICIAN Physical Medicine & Rehabilitation; FAMILY PHYSICIAN Student in an Organized Health Care Education/Training Program; OTHER PHYSICIAN Internal Medicine Pulmonary Disease
PROC: 021109W Bypass Coronary Artery, Two Arteries from Aorta with Autologous Venous Tissue, Open Approach (ICD-10-PCS; 2023-11-25)
PROC: 30233K1 Transfusion of Nonautologous Frozen Plasma into Peripheral Vein, Percutaneous Approach (ICD-10-PCS; 2023-11-25)
PROC: 30233N1 Transfusion of Nonautologous Red Blood Cells into Peripheral Vein, Percutaneous Approach (ICD-10-PCS; 2023-11-25)
PROC: 30233R1 Transfusion of Nonautologous Platelets into Peripheral Vein, Percutaneous Approach (ICD-10-PCS; 2023-11-25)
PROC: 0W380ZZ Control Bleeding in Chest Wall, Open Approach (ICD-10-PCS; 2023-11-25)
PROC: B24BZZ4 Ultrasonography of Heart with Aorta, Transesophageal (ICD-10-PCS; 2023-11-25)
PROC: 02100ZC Bypass Coronary Artery, One Artery from Thoracic Artery, Open Approach (ICD-10-PCS; 2023-11-25)
PROC: 06BP4ZZ Excision of Right Saphenous Vein, Percutaneous Endoscopic Approach (ICD-10-PCS; 2023-11-25)
PROC: 5A1221Z Performance of Cardiac Output, Continuous (ICD-10-PCS; 2023-11-25)
PROC: 02RF08Z Replacement of Aortic Valve with Zooplastic Tissue, Open Approach (ICD-10-PCS; 2023-11-25)
DX: I25.10 Atherosclerotic heart disease of native coronary artery without angina pectoris (principal); G92.8 Other toxic encephalopathy; D62 Acute posthemorrhagic anemia; F05 Delirium due to known physiological condition; D68.9 Coagulation defect, unspecified; E87.1 Hypo-osmolality and hyponatremia; J98.11 Atelectasis; I97.611 Postprocedural hemorrhage of a circulatory system organ or structure following cardiac bypass; E11.9 Type 2 diabetes mellitus without complications; I08.3 Combined rheumatic disorders of mitral, aortic and tricuspid valves; D69.59 Other secondary thrombocytopenia; I27.20 Pulmonary hypertension, unspecified; R00.1 Bradycardia, unspecified; I48.91 Unspecified atrial fibrillation; I95.81 Postprocedural hypotension; T41.1X5A Adverse effect of intravenous anesthetics, initial encounter; T40.605A Adverse effect of unspecified narcotics, initial encounter; E78.00 Pure hypercholesterolemia, unspecified; K59.00 Constipation, unspecified; I65.23 Occlusion and stenosis of bilateral carotid arteries; Y83.2 Surgical operation with anastomosis, bypass or graft as the cause of abnormal reaction of the patient, or of later complication, without mention of misadventure at the time of the procedure; I10 Essential (primary) hypertension; I49.3 Ventricular premature depolarization; E86.1 Hypovolemia; E87.70 Fluid overload, unspecified; I69.341 Monoplegia of lower limb following cerebral infarction affecting right dominant side; G56.81 Other specified mononeuropathies of right upper limb; I69.398 Other sequelae of cerebral infarction; Z78.1 Physical restraint status; Z79.82 Long term (current) use of aspirin; Z79.899 Other long term (current) drug therapy; Z87.891 Personal history of nicotine dependence
CPT/HCPCS: 88305; 88311; 93308; 36415; 70450; 71045; 71046; 71271; 80048; 80053; 81003; 81015; 82140; 82248; 82330; 82565; 82805; 82810; 82947; 82962; 83735; 84132; 84302; 84520; 85014; 85018; 85025; 85027; 85049; 85347; 85384; 85576; 85610; 85730; 86850; 86900; 86901; 86920; 87070; 87086; 93005; 93312; 93320; 93325; 93880; 94002; 94003; 94010; 97116; 97129; 97163; 97167; 97535; C1713; P9016; P9045; P9059; P9073

== ENCOUNTER 2023-12-01 16:54 | Emergency (ER) | payer MEDICARE, SELFPAY ==
[2023-12-01 17:00] VITALS: BP 188/78
--- NOTE | 2023-12-01 17:39 | ED.GENMED ---
History of Present Illness
General
Chief Complaint: Psychiatric Problem
Source: patient, records and family (Son)
Exam Limitations: none
Time Seen by Provider: 12/01/23 17:33
Nursing documentation reviewed up to this point in time: agreed with
Travel History
Have you had any contact with someone who has COVID-19?: No
Do you have any symptoms of coronavirus? Fever > 100 degrees, chills, cough, shortness of breath, sore throat, loss of taste or smell, muscle aches, or headache?: No
History of Present Illness
History of Present Illness:
68-year-old male with a past medical history as documented who was brought to the emergency room for assessment after being discharged to rehab. Patient was admitted to this hospital 11/25/23 until 12/01/2023�he was admitted to the cardiology service
and underwent aortic valve replacement as well as a CABG. He did have some intermittent confusion postoperatively but ultimately returned to his baseline mental status. He was able to ambulate with PT here and was ultimately discharged with plan
to send to [facility] prior to discharge home. Unfortunately patient indicated that he was not interested in going to [facility] and refused transfer there. Requested discharge home instead. He was brought to the emergency room by his
dish washer for assessment of his mental state prior to discharge home. Patient says that he feels well. He says that he does not feel weak or deconditioned and that he wishes to go home and does not feel that he needs rehab. He says that he has
food at home and all the supplies he needs. He says that his neighbor will be driving him home and he is already called for a ride. He does not wish to stay for any further assessment and is requesting to be discharged home. He denies any drug or
alcohol use.
Review of Systems
Review of Systems
All Other Systems: ROS reviewed and negative except as documented in HPI and ROS
Phy Exam
Physical Exam
Physical Exam:
General: Awake, alert, oriented x3; no acute distress
Head: Normocephalic, atraumatic
Eyes: Conjunctiva normal, EOMI
Throat: Airway intact, handling secretions
Neck: Trachea midline
Lungs: Breathing comfortably not in distress
Heart: Regular rate
Neuro: Cranial nerves grossly intact, speech fluid, ambulatory
Extremities: Atraumatic, warm and well-perfused, weightbearing without difficult
Psych: 'Fine' mood, good insight and reasonable judgment
Scores
Heart Failure Risk
Heart Failure Risk Score: Not Applicable
Heart Score for Chest Pain Patients
STEMI patient?: Not applicable
Withdrawal Assessment of Alcohol
Withdrawal Assessment Completed?: Not applicable
Course
Vital Signs
Initial and Last Documented VS:
Initial Vital Signs
Temp Pulse Resp BP Pulse Ox
36.4 C 77 18 188/78 98
12/01/23 17:00 12/01/23 17:00 12/01/23 17:00 12/01/23 17:00 12/01/23 17:00
Last Documented Vital Signs
Temp Pulse Resp BP Pulse Ox
36.4 C 77 18 188/78 98
12/01/23 17:00 12/01/23 17:00 12/01/23 17:00 12/01/23 17:00 12/01/23 17:00
MDM/Problems Addressed
Differential Diagnosis Includes:
Medical screening exam
MDM/Problems Addressed:
68-year-old male who was just admitted for a week and had major cardiac surgery presents for assessment of his mental state after refusing to go to rehab. He was discharged with a recommendation to go to [facility] after his major surgery and
prolonged hospitalization. I had a long discussion with the patient he indicated that he does not wish to stay for further assessment here in the emergency room and is adamant that he does not want to go to rehab and he does not believe that he
needs rehab. He is able to explain to me quite clearly that he had no issues ambulating with PT and does not feel that he is deconditioned. He explained to me that he has all the supplies he needs at home and that he feels very comfortable going
home despite the fact that he will be alone. I explained to him our concerns including the risks of being alone after major heart surgery, the risks of major deconditioning after recent hospitalization including falls and serious injuries. He
indicated understanding of these risks but says that he does not feel inpatient rehab is warranted at this point and is willing to accept these risks and wishes to go home. He is awake and alert, oriented does not appear confused or impaired and
has good decision-making capacity and although I disagree with his judgment that rehab is unnecessary at this point I do not see any grounds for involuntary psychiatric commitment and have no grounds to hold him against his will at this point. I
did involve his family, spoke directly on the phone with his son and patient spoke with his son as well and unfortunately unable to convince him to go to rehab. He will be discharged in keeping with his wishes but I did encourage him to keep his
phone on him at all times and that if he changes his mind to return immediately and we can streamline transfer to rehab. Son was made aware of this as well. I encouraged son to check in on patient or have a neighbor check in frequently.
*Pulse Oximetry
Patient hypoxic: no
*Critical Care Note
Total Time (30-74mins, 75-104mins- exclusive of procedures): Not Applicable
Data Reviewed
Review of Other/Old Records Reveals: Labs and Discharge Summary
Source: patient, records and family (Son)
Patient Management
Escalation/DeEscalation of care consider admission/obs:
Recommended admission to rehab but unfortunately patient declined
ED Attending Note
-
Portions of this chart may have been created with voice recognition software.� Occasional wrong word or��sound alike� substitutions may have occurred due to the inherent limitations of voice recognition software.
Discharge Plan
Departure
Patient Disposition: Home (Routine Discharge)
Date of Disposition: 12/01/23
Time of Disposition: 17:51
Patient with high blood pressure during this ER visit?: Yes
Discharge Problem:
Encounter for medical screening examination, Hypertension
Prescriptions:
No Action
atorvastatin 80 mg Tablet
80 mg PO QPM
clopidogrel 75 mg Tablet
75 mg PO QPM
aspirin 81 mg tablet,delayed release (DR/EC)
81 mg PO DAILY Qty: 1 0RF
epinephrine 0.3 mg/0.3 mL Auto-Injector
0.3 mg IM PRN PRN (Reason: bee stings)
Patient Comments:
Has not used in 30 years
amiodarone [Pacerone] 200 mg Tablet
200 mg PO BID Qty: 0 1RF
sennosides-docusate sodium [Stool Softener-Stimulant Laxat] 8.6-50 mg Tablet
1 tab PO Q12 Qty: 60 0RF
acetaminophen [Tylenol Extra Strength] 500 mg Tablet
1,000 mg PO TID@0600,1400,2200 PRN (Reason: Pain) Qty: 0 0RF
pantoprazole 40 mg Tablet,Delayed Release (Dr/Ec)
40 mg PO DAILY Qty: 0 0RF
Jardiance 10 mg Tablet
10 mg PO DAILY Qty: 0 0RF
metformin 500 mg Tablet
500 mg PO BID@0800,1700 Qty: 0 0RF
melatonin 5 mg Tablet
5 mg PO HS Qty: 0 0RF
metoprolol succinate [Toprol XL] 50 mg tablet extended release 24 hr
50 mg PO DAILY Qty: 1 0RF
lisinopril 5 mg Tablet
10 mg PO DAILY Qty: 0 0RF
polyethylene glycol 3350 [HealthyLax] 17 gram Powder In Packet
17 g PO DAILY Qty: 0 0RF
Activity Restrictions/Additional Instructions:
WE RECOMMENDED THAT
Interventions
Interventions:
ED-Psychological Assessment Last Done: 12/01/23 17:44
Discharge Date and Time
Print Language: SERBIAN
== END 2023-12-01 18:06 | disposition home or self-care (01) ==
LOC: EMR 16:54
PROVIDERS: EMERGENCY PHYSICIAN Emergency Medicine; FAMILY PHYSICIAN Student in an Organized Health Care Education/Training Program
DX: Z00.00 Encounter for general adult medical examination without abnormal findings (principal); I10 Essential (primary) hypertension
CPT/HCPCS: 99281

== ENCOUNTER → 2023-12-02 15:00 | Outpatient (REF) | payer MEDICARE, SELFPAY | LOC: RCS 15:00 | PROVIDERS: ATTENDING PHYSICIAN Thoracic Surgery (Cardiothoracic Vascular Surgery); FAMILY PHYSICIAN Student in an Organized Health Care Education/Training Program | DX: Z98.890 Other specified postprocedural states (principal); R00.0 Tachycardia, unspecified | CPT/HCPCS: 93005 ==

== ENCOUNTER 2023-12-08 13:18 | Emergency (ER) | payer MEDICARE, SELFPAY ==
[2023-12-08 13:20] VITALS: BP 175/81
--- NOTE | 2023-12-08 14:00 | ED.GENMED ---
History of Present Illness
General
Chief Complaint: Skin Problem
Source: patient, records and spouse
Exam Limitations: none
Time Seen by Provider: 12/08/23 13:42
Nursing documentation reviewed up to this point in time: agreed with
Travel History
Have you had any contact with someone who has COVID-19?: No
Do you have any symptoms of coronavirus? Fever > 100 degrees, chills, cough, shortness of breath, sore throat, loss of taste or smell, muscle aches, or headache?: No
History of Present Illness
History of Present Illness:
68-year-old male with a past medical history of hypertension, hyperlipidemia, CAD, aortic stenosis, CVA, diabetes who presents to the emergency department from home for evaluation of postoperative bleeding. Patient had bypass surgery with
[facility] on 11/25/2023; he had a greater saphenous venous graft which was harvested from left lower extremity. He says he has had some oozing from the site since the surgery but over the past 24 hours it has seemed to be hemostatic. Today visiting
nurse came for dressing change and bleeding opened up once again and was slightly more brisk than it has been and so he was sent to the emergency room to be assessed. Fortunately bleeding seems to have stopped he is hemostatic now. He has no other
complaints or issues. He is currently on aspirin and Plavix.
Review of Systems
Review of Systems
All Other Systems: ROS reviewed and negative except as documented in HPI and ROS
Skin: Reports other (Postoperative bleeding as above)
Phy Exam
Physical Exam
Physical Exam:
General: Awake, alert, oriented x3; no acute distress
Head: Normocephalic, atraumatic
Eyes: Conjunctiva normal
Throat: Airway intact, handling secretions
Neck: Trachea midline
Lungs: Breathing comfortably no distress
Heart: Regular rate
Neuro: Cranial nerves grossly intact, speech fluid, ambulatory
Skin: Patient has harvest site on left medial lower leg just above the left knee which is currently hemostatic no active bleeding or dehiscence
Extremities: Patient has left lower extremity +1 edema compared to the right lower extremity; surgical incision left medial lower leg as above; he also has a minor skin tear/abrasion on the lower meyer which is hemostatic
Scores
Heart Failure Risk
Heart Failure Risk Score: Not Applicable
Heart Score for Chest Pain Patients
STEMI patient?: Not applicable
Withdrawal Assessment of Alcohol
Withdrawal Assessment Completed?: Not applicable
Course
Vital Signs
Initial and Last Documented VS:
Initial Vital Signs
Temp Pulse Resp BP Pulse Ox
37.1 C 83 18 175/81 99
12/08/23 13:20 12/08/23 13:20 12/08/23 13:20 12/08/23 13:20 12/08/23 13:20
Last Documented Vital Signs
Temp Pulse Resp BP Pulse Ox
37.1 C 83 18 175/81 99
12/08/23 13:20 12/08/23 13:20 12/08/23 13:20 12/08/23 13:20 12/08/23 13:20
MDM/Problems Addressed
Differential Diagnosis Includes:
Postoperative bleeding
MDM/Problems Addressed:
68-year-old male presents with postoperative bleeding as described above. He is currently hemostatic. Applied Surgifoam dressing and Naveen wrap to the area for the time being. Spoke with cardiothoracic surgery and they are coming to bedside to
assess the area but if remains hemostatic, likely discharge with clean dressing in place as above.
CT surgery evaluated the bedside recommended wrapping entire leg rather than just local dressing but otherwise can discharge and patient will be reassessed in the office. Patient comfortable with this plan.
*Pulse Oximetry
Patient hypoxic: no
*Critical Care Note
Total Time (30-74mins, 75-104mins- exclusive of procedures): Not Applicable
Data Reviewed
Review of Other/Old Records Reveals: Labs, Records, Operative Reports and Discharge Summary
Source: patient and spouse
Patient Management
Discussion with other providers: Tool Setter (Discussed with cardiothoracic surgeon)
ED Attending Note
-
Portions of this chart may have been created with voice recognition software.� Occasional wrong word or��sound alike� substitutions may have occurred due to the inherent limitations of voice recognition software.
Discharge Plan
Departure
Patient Disposition: Home (Routine Discharge)
Date of Disposition: 12/08/23
Time of Disposition: 15:03
Patient with high blood pressure during this ER visit?: Yes
Discharge Problem:
Postoperative bleeding from incision
Instructions: Wound Care (DC)
Prescriptions:
No Action
atorvastatin 80 mg Tablet
80 mg PO QPM
clopidogrel 75 mg Tablet
75 mg PO QPM
epinephrine 0.3 mg/0.3 mL Auto-Injector
0.3 mg IM PRN PRN (Reason: bee stings)
Patient Comments:
Has not used in 30 years
amiodarone [Pacerone] 200 mg Tablet
200 mg PO BID Qty: 0 1RF
sennosides-docusate sodium [Stool Softener-Stimulant Laxat] 8.6-50 mg Tablet
1 tab PO Q12 Qty: 60 0RF
acetaminophen [Tylenol Extra Strength] 500 mg Tablet
1,000 mg PO TID@0600,1400,2200 PRN (Reason: Pain) Qty: 0 0RF
pantoprazole 40 mg Tablet,Delayed Release (Dr/Ec)
40 mg PO DAILY Qty: 0 0RF
Jardiance 10 mg Tablet
10 mg PO DAILY Qty: 0 0RF
metformin 500 mg Tablet
500 mg PO BID@0800,1700 Qty: 0 0RF
melatonin 5 mg Tablet
5 mg PO HS Qty: 0 0RF
metoprolol succinate [Toprol XL] 50 mg tablet extended release 24 hr
50 mg PO DAILY Qty: 1 0RF
lisinopril 5 mg Tablet
10 mg PO DAILY Qty: 0 0RF
polyethylene glycol 3350 [HealthyLax] 17 gram Powder In Packet
17 g PO DAILY Qty: 0 0RF
aspirin 81 mg tablet,delayed release (DR/EC)
81 mg PO DAILY Qty: 1 0RF
Referrals:
Monique Daly DO [Family Provider] -
João Mandel MD [Active] - Keep scheduled appt
Activity Restrictions/Additional Instructions:
Thank you for visiting the Emergency Department at [facility].
1. Please schedule a follow up appointment as directed. Call first thing tomorrow morning to make an appointment.
2. If indicated, please take your medications as instructed and indicated on discharge paperwork.
3. If any of your symptoms do not improve, or persist, or become more severe within 6-12 hours, please return to the emergency department for further care.
4. Please return to the emergency department if you develop a headache, neck pain/stiffness, fever greater than 100.4F, chest pain, shortness of breath, persistent nausea, vomiting, slurred speech, difficulty walking, numbness/tingling, weakness,
signs of infection or any other symptoms that are worrisome to you.
Please call [phone] if you have any questions.
Interventions
Interventions:
*Risk Screen - Suicide Last Done: 12/08/23 13:20
*General Assessment Last Done: 12/08/23 14:00
*Neglect/Abuse Screening Last Done: 12/08/23 13:20
*ED COVID-19 Vaccine History Last Done: 12/08/23 13:20
Discharge Date and Time
Print Language: KITTITIAN
[2023-12-08 15:00] VITALS: BP 141/75; BMI 25.0
--- NOTE | 2023-12-08 15:04 | EDRN ---
Dr. Glass currently at the pts bedside speaking to the pt, per Dr. Mandle the entire leg is to be jason wrapped
== END 2023-12-08 15:15 | disposition home or self-care (01) ==
LOC: EMR 13:18
PROVIDERS: EMERGENCY PHYSICIAN Emergency Medicine; FAMILY PHYSICIAN Student in an Organized Health Care Education/Training Program
DX: L76.22 Postprocedural hemorrhage of skin and subcutaneous tissue following other procedure (principal); I10 Essential (primary) hypertension; Z79.02 Long term (current) use of antithrombotics/antiplatelets; Z79.82 Long term (current) use of aspirin
CPT/HCPCS: 99283

== ENCOUNTER 2023-12-12 15:05 | Inpatient (IN) | payer MEDICARE, SELFPAY ==
[2023-12-10] VITALS (12 sets, daily range): BP systolic 84–174; BP diastolic 59–85; BMI 25.7
--- NOTE | 2023-12-10 04:11 | ED.GENMED ---
History of Present Illness
General
Chief Complaint: Post Operative Problem(s)
Source: patient, child care associate (Friend who has been helping the patient postoperatively but does not reside with him and his unfortunately not reliable for daily ongoing care.) and previous hospital records (Hospitalization 11/24-11/30 for CABG/aortic
valve replacement. ED visit December 07 for similar left leg surgical wound check.)
Exam Limitations: none
Time Seen by Provider: 12/10/23 03:17
Travel History
Have you had any contact with someone who has COVID-19?: No
Do you have any symptoms of coronavirus? Fever > 100 degrees, chills, cough, shortness of breath, sore throat, loss of taste or smell, muscle aches, or headache?: No
History of Present Illness
History of Present Illness:
This is a 68-year-old gentleman who underwent CABG/aortic valve replacement November [address] Mandel. He was recommended to transition to [facility] but he refused at that time and was discharged to home November 30.
Since then he admits to moderate ongoing fatigue, inability to care for himself and he has been receiving limited sporadic help from a friend.
He is brought to the ED tonight by such friend after she discovered some dark brown blood soaking through left proximal thigh surgical site. Similar bleeding noted during ED visit December 07.
He does admit to moderate fatigue but has had no chest pain, no shortness of breath, no fever.
His friend is concerned as she noticed he had not gotten up and around today, has not eating anything today due to fatigue and she is not able to to stay with him due to her own daily responsibilities.
Past History
Past History
ED Past Medical History: CAD, HTN, Hypercholesterolemia, NIDDM and Valvular disease
ED Past Surgical History: Cardiac (CABG/aortic valve replacement November 25, 2023)
Social History
Tobacco: Non-smoker
Living: alone
Employment: Retired
Family History
Family History: Other (Noncontributory)
Phy Exam
Physical Exam
Physical Exam:
GENERAL: 68-year-old gentleman appears somewhat older than stated age, awake and alert, pleasant, appears in no acute distress.
EYE: anicteric
NECK: Supple, nontender, no meningismus, no significant adenopathy.
ENT: oral mucosa is moist. No rhinorrhea.
CARDIAC: Regular rate and rhythm. no murmur. Sternotomy incision dry and intact.
LUNGS: Clear breath sounds bilaterally, no acute respiratory distress, no wheezes/rales/rhonchi
ABDOMEN: Soft, nondistended, without focal tenderness, normoactive BS.
NEUROLOGICAL: Alert and oriented x3, no focal neuro deficits.
SKIN: Warm and dry, minimally pale in color, good turgor.
MUSCULOSKELETAL: There is no clubbing or cyanosis nor edema. Left medial thigh has a 4 cm incision that is mildly gapped at the superior aspect with intermittent drainage of scant dark brown blood only noted when wound is palpated. There is very
minimal surrounding erythema. No palpable tenderness. The left medial lower leg has a pinpoint intact surgical site with scant dried blood on dressing. There is moderate surrounding erythema about the left medial lower leg with mild palpable heat
but no palpable tenderness. Peripheral pulses are full and equal.
PSYCH: Mildly blunted affect.
Course
Orders/Labs/Results
Orders:
Orders
12/10/23 03:56
Complete Blood Count/With Diff Urgent
12/10/23 04:25
CeFAZolin 1 GRAM [Ancef] 1 gram in 5 ml IV NOW
Abnormal Lab Results
12/10/23
03:56
RBC 3.46 L 10^6/uL
(4.70-6.10)
Hgb 10.4 L g/dL
(13.0-18.0)
Hct 31.6 L %
(39.0-52.0)
MCHC 32.9 L g/dL
(33.0-37.0)
RDW 18.1 H %
(11.5-14.5)
Abs Immat Gran (auto) 0.1 H 10^3/uL
(0-0.05)
Absolute Neuts (auto) 6.6 H 10^3/uL
(1.4-6.5)
Absolute Lymphs (auto) 1.0 L 10^3/uL
(1.2-3.4)
Absolute Monos (auto) 1.0 H 10^3/uL
(0.1-0.6)
Immature Gran % 0.6 H %
(0-0.5)
Lymphocytes % 11.4 L %
(20.5-51.1)
Monocytes % 10.8 H %
(1.7-9.3)
12/10/23 03:56
Vital Signs
Initial and Last Documented VS:
Initial Vital Signs
Temp Pulse Resp BP Pulse Ox
98.0 F 61 16 168/83 97
12/10/23 03:05 12/10/23 03:05 12/10/23 03:05 12/10/23 03:05 12/10/23 03:05
Last Documented Vital Signs
Temp Pulse Resp BP Pulse Ox
98.0 F 58 16 140/69 96
12/10/23 03:05 12/10/23 05:17 12/10/23 05:17 12/10/23 05:17 12/10/23 05:17
MDM/Problems Addressed
Differential Diagnosis Includes:
Intermittent dark blood drainage from left leg vein harvest site that appears to be postop hematoma drainage. Nothing to suggest acute bright red blood.
There is however moderate erythema left medial lower leg concerning for cellulitis. According to friend at bedside, this redness was not apparent yesterday.
Our initial plan was to apply bacitracin, dressing and initiate Keflex and discharged the patient home but patient admits that he has been unable to care for himself and does not believe that he will be able to change his dressings independently.
He is at significant risk for further deterioration, clearly unsafe to go home thus will plan to admit to hospitalist service, initiate IV Ancef and plan to consult case management to evaluate for snf facility acceptance and transfer.
I have reached out to CT surgical PA who has evaluated the patient at bedside and agrees with this plan of care.
*Pulse Oximetry
Patient hypoxic: no
*Critical Care Note
Total Time (30-74mins, 75-104mins- exclusive of procedures): Not Applicable
Patient Management
Social determinants of health affecting care: Living situation and Poor social support
ED Attending Note
-
Portions of this chart may have been created with voice recognition software.� Occasional wrong word or��sound alike� substitutions may have occurred due to the inherent limitations of voice recognition software.
Discharge Plan
Departure
Patient Disposition: Admit
Date of Disposition: 12/10/23
Time of Disposition: 04:22
Admit to doctor: Sharon
Presentation/result/management discussed w/ accepting MD/DO: Hospitalist
Condition: Fair
Discharge Problem:
postoperative wound cellulitis LLE, POSTOPERATIVE HEMATOMA LEFT THIGH, inabilitiy to care for self
Prescriptions:
No Action
atorvastatin 80 mg Tablet
80 mg PO QPM
clopidogrel 75 mg Tablet
75 mg PO QPM
epinephrine 0.3 mg/0.3 mL Auto-Injector
0.3 mg IM PRN PRN (Reason: bee stings)
Patient Comments:
Has not used in 30 years
amiodarone [Pacerone] 200 mg Tablet
200 mg PO BID Qty: 0 1RF
sennosides-docusate sodium [Stool Softener-Stimulant Laxat] 8.6-50 mg Tablet
1 tab PO Q12 Qty: 60 0RF
acetaminophen [Tylenol Extra Strength] 500 mg Tablet
1,000 mg PO TID@0600,1400,2200 PRN (Reason: Pain) Qty: 0 0RF
pantoprazole 40 mg Tablet,Delayed Release (Dr/Ec)
40 mg PO DAILY Qty: 0 0RF
Jardiance 10 mg Tablet
10 mg PO DAILY Qty: 0 0RF
metformin 500 mg Tablet
500 mg PO BID@0800,1700 Qty: 0 0RF
melatonin 5 mg Tablet
5 mg PO HS Qty: 0 0RF
metoprolol succinate [Toprol XL] 50 mg tablet extended release 24 hr
50 mg PO DAILY Qty: 1 0RF
lisinopril 5 mg Tablet
10 mg PO DAILY Qty: 0 0RF
polyethylene glycol 3350 [HealthyLax] 17 gram Powder In Packet
17 g PO DAILY Qty: 0 0RF
aspirin 81 mg tablet,delayed release (DR/EC)
81 mg PO DAILY Qty: 1 0RF
Interventions
Interventions:
*Risk Screen - Suicide Last Done: 12/10/23 03:05
*Neglect/Abuse Screening Last Done: 12/10/23 03:05
ED- Fall Risk Assessment Last Done: 12/10/23 04:00
*ED COVID-19 Vaccine History Last Done: 12/10/23 03:05
ED-Skin Assessment Last Done: 12/10/23 04:00
Discharge Date and Time
Print Language: [id number]
[2023-12-10 04:18] LABS: % Basophils 0.5 % (0-2); % Eosinophils 1.9 % (0-6); % Immature Granulocytes 0.6 % (0-0.5); % Lymphocytes 11.4 % (20.5-51.1); % Monocytes 10.8 % (1.7-9.3); % Neutrophils 74.8 % (42.2-75.2); Absolute Eosinophils 0.2 10^3/uL (0-0.7); Absolute Immature Granulocytes 0.1 10^3/uL (0-0.05); Absolute Neutrophils 6.6 10^3/uL (1.4-6.5); Hematocrit 31.6 % (39.0-52.0); Hemoglobin 10.4 g/dL (13.0-18.0); Mean Corp Hgb Conc. 32.9 g/dL (33.0-37.0); Mean Corpuscular Hgb 30.1 pg (27.0-31.0); Mean Corpuscular Volume 91.3 fL (80.0-94.0); Mean Platelet Volume 9.8 fL (7.4-10.4); Nucleated Red Blood Cells % 0 % (-); Platelet Count 250 10^3/uL (130-400); Red Blood Cell Count 3.46 10^6/uL (4.70-6.10); Red Cell Dist. Width 18.1 % (11.5-14.5); White Blood Cell Count 8.9 10^3/uL (4.8-10.8)
[2023-12-10] MEDS: ANCEF 5 IV (04:48)
--- NOTE | 2023-12-10 05:52 | HPS.HSE ---
Family Physician
-
Family Physician: Annette Daly,
Chief Complaint
-
fatigue/difficulty caring for himself
History of Present Illness
Mr. Niall Farris is a 68 yo man with hx severe and multivessel CAD s/p aortic valve replacement/CABG 11/25/23, HTN, HLD, CVA, DM II, former smoker, former alcohol use (quit 3 years ago) presents to the ER with fatigue and redness at distal leg
harvest site. Patient was accepted to [facility] last admission but refused.
Patient was seen in the ER on 12/07 with oozing from graft harvesting site LLE. During this evaluation he was seen by CT surgery and they recommended wrapping leg.
Patient states that he hasn't been able to fully care for himself at home. His friend, Elizabeth, has been helping but it is too much for her. His leg is continuing to bleed. He can't answer when he first noticed redness more distal on leg. He also
reports a nodule right forearm that was just noticed today.
No fevers/chills. No chest pain. Surgical scar on chest is healing well. No abdominal pain. No nausea/vomiting/diarrhea. No rash.
Medical History
Past Medical History
Past Medical History: Reports Other ( severe and multivessel CAD s/p aortic valve replacement/CABG 11/25/23, HTN, HLD, CVA, DM II, former smoker, former alcohol use (quit 3 years ago) )
Past Surgical History: Reports Other (see above )
Social History
Tobacco: Former Smoker
Alcohol: Former
Family History
Family History: Not pertinent
Allergies / Home Medications
Allergies reflects when Allergies were last updated in [facility].
Home Medications with original date entered in [facility]
Allergy/Medication List:
Allergies
Allergy/AdvReac Type Severity Reaction Status Date / Time
bee venom protein (honey bee) Allergy Anaphylaxis Verified 12/10/23 03:05
Home Medications
atorvastatin 80 mg tablet 80 mg PO QPM High Cholesterol 10/14/23
clopidogrel 75 mg tablet 75 mg PO QPM Blood Clot Prevention/Tx 10/14/23
epinephrine 0.3 mg/0.3 mL injection, auto-injector 0.3 mg IM PRN PRN bee stings 10/29/23
acetaminophen 500 mg tablet (Tylenol Extra Strength) 1,000 mg (2 x 500 mg) PO TID@0600,1400,2200 PRN Pain #0 tabs 11/29/23
amiodarone 200 mg tablet (Pacerone) 200 mg PO BID Arrhythmia #0 tabs 11/29/23
empagliflozin 10 mg tablet (Jardiance) 10 mg PO DAILY Diabetes #0 tabs 11/29/23
melatonin 5 mg tablet 5 mg PO HS insomnia #0 tabs 11/29/23
metformin 500 mg tablet 500 mg PO BID@0800,1700 Diabetes #0 tabs 11/29/23
pantoprazole 40 mg tablet,delayed release 40 mg PO DAILY gi prophylaxis while on plavix #0 tabs 11/29/23
sennosides 8.6 mg-docusate sodium 50 mg tablet (Stool Softener-Stimulant Laxative) 1 tab PO Q12 Constipation #60 tabs 11/29/23
lisinopril 5 mg tablet 10 mg (2 x 5 mg) PO DAILY Blood clot prevention/tx #0 tabs 12/01/23
metoprolol succinate 50 mg tablet,extended release 24 hr (Toprol XL) 50 mg PO DAILY Heart disease/condition #1 tab 12/01/23
polyethylene glycol 3350 17 gram oral powder packet (HealthyLax) 17 g PO DAILY Constipation #0 ea 12/01/23
aspirin 81 mg tablet,delayed release 81 mg PO DAILY Blood clot prevention/tx #1 tab 12/02/23
Review of Systems
-
History Source: Patient
A 12 point ROS was completed and negative except as noted: Yes
Physical Exam
Vital Signs
Vital Signs
Temp Pulse Resp BP Pulse Ox
98.0 F 58 16 140/69 96
12/10/23 03:05 12/10/23 05:17 12/10/23 05:17 12/10/23 05:17 12/10/23 05:17
Physical Exam
General: No Apparent Distress and Conversant
HEENT: PERRLA
Respiratory: Clear; No Wheezes
Cardiac: S1/S2 and Regular Rhythm
GI: Soft and Non Tender
Musculoskeletal: Other (left inner medial leg with open wound/bleeding at site of vein graft; distal meyer with erythema and warmth. left upper forearm with area of induration, not signifcantly erythamtous, non-pulsating)
Skin: Warm and Dry; No Rash
Neuro: AO x 3
Psych: Calm
Laboratory Results
-
12/10/23 03:56
Data Reviewed
-
Diagnostic Radiology: Report Reviewed by me
Lab Data: Labs Reviewed by me
Impression/Plan
-
Mr. Niall Farris is a 68 yo man with hx severe and multivessel CAD s/p aortic valve replacement/CABG 11/25/23, HTN, HLD, CVA, DM II, former smoker, former alcohol use (quit 3 years ago) presents to the ER with fatigue and redness at distal leg
harvest site. Patient was accepted to [facility] last admission but refused.
Triage VS: T 98, P 61, RR 16, BP 168/83, SpO2 97%
LABS: WBC 8.9, Hg 10.4, PLT 250
Surgical site bleeding at site of vein harvest left lower extremity
-area is continuing to ooze, Hg stable
-Cardiothoracic surgery consulted this morning, will see patient
-wound care
-patient will need SNF for wound care as cannot care for himself at home
-PT/OT
Left leg cellulitis
-not septic
-continue IV Cefazolin and monitor; LLE elevation
Left upper forearm nodule/mass
-obtain ultrasound
*med rec not yet confirmed, patient denies changes to med from last hospitalization except from Jardiance - his friend to bring in list later today
Severe and MVD s/p AVR and CABG 11/25/23
-CTS consult as above
-continue EVENT SPECIALIST PRODUCT DEMONSTRATOR regimen: asa/plavix/statin
Atrial Fibrillation with RVR on 11/26
-EVENT SPECIALIST PRODUCT DEMONSTRATOR metoprolol
-continue amiodarone
-repeat EKG now
HTN
-EVENT SPECIALIST PRODUCT DEMONSTRATOR lisinopril
HLD
-EVENT SPECIALIST PRODUCT DEMONSTRATOR statin
Prior CVA
-EVENT SPECIALIST PRODUCT DEMONSTRATOR asa/statin
DM
-A1c 6.7%
-EVENT SPECIALIST PRODUCT DEMONSTRATOR Jardiance, Metformin
Former smoker
Former alcohol use
DVT PPx - SCD on RLE only (given cellulitis and oozing on left)
FULL CODE
[2023-12-10 06:42] LABS: Blood Urea Nitrogen 18 mg/dl (9-20); Calcium 9.2 mg/dl (8.4-10.2); Carbon Dioxide 23 mmol/L (22-30); Chloride 107 mmol/L (98-107); Glucose 128 mg/dl (70-99); Potassium 4.4 mmol/L (3.5-5.1); Sodium 136 mmol/L (135-145); eGFR > 60.00
--- NOTE | 2023-12-10 08:00 | PHANOTE ---
12/10/2023, med rec tech, I spoke to pt. to obtain their med. history; pt. states that his doctor told him to stop taking his Labetolol 100 mg (2 tablets BID) after his surgery. Pt. unsure if this med. is on hold or discontinued but he has not taken
it in roughly a week.
[2023-12-10 09:05] LABS: Glucose - Point of Care 136 mg/dl (70-99)
[2023-12-10] MEDS: ASPIR LOW (ENTERIC COATED) 81 MG PO (09:08)
[2023-12-10] MEDS: JARDIANCE 10 MG PO (09:08)
[2023-12-10] MEDS: PACERONE 200 MG PO ×2 (09:08→20:10)
[2023-12-10] MEDS: GLUCOPHAGE 500 MG PO ×2 (09:08→18:37)
[2023-12-10] MEDS: PROTONIX 40 MG PO (09:10)
[2023-12-10 09:15] LABS: Glycohemoglobin (HgbA1c) 5.9 % (4.0-5.6)
--- NOTE | 2023-12-10 10:27 | CONSULT.CT ---
Consultation
-
Date/Time Consultation Requested: 12/10/23
Date/Time Consultation Performed: 12/10/23 10:30
Requesting Provider: Dr. Arielle Herrera MD.
Performing Provider: Mary Hoffman PA-C on behalf of Dr. João Mandel MD.
Reason for Consultation: s/p AVR/CABG, L lower extremity cellulitis
Patient History
Physicians
Family Physician: Dr. Monique Daly MD.
Outpatient Preparole Counseling Aide: Dr. Reji Rodríguez MD.
Inpatient Preparole Counseling Aide: [facility] cardiology currently not consulted
History of Present Illness
Patient is a 68-year-old male very well-known to the cardiothoracic surgery service having previously undergone aortic valve replacement (#25 Perry biologic Inspiris), in addition to coronary artery bypass grafting x 3 with CORREA�LAD,
SVG�OM, and SVG�PDA by Dr. João aMndel MD. Patient's immediate postoperative course was noted for excessive chest tube output. Patient was reopened in the operating room. A combination of left chest wall bleeding, as well as site on the
proximal vein graft was addressed surgically and hemostasis was achieved.
Rest the patient's postoperative course was essentially uneventful. Please see full discharge summary for complete details. He had 1 episode of brief atrial fibrillation which she did not necessitate anticoagulation for. Patient was assessed by
physiatry and accepted into [facility] on postoperative day #6. Unfortunately, the patient declined invitation to [facility] and presented home.
Today, 12/10/2023 the patient presents to the emergency department at the request of visiting nurse. The patient is a difficult historian. It seems with the patient was residing at home he has been having difficulty caring for himself and taking
care of his activities of daily living. Patient reports needing help from his elderly neighbor as well as his ex-. There is also some question to help clean and habitable his living arrangements are.
Upon presentation to the emergency department the patient was found to have left lower extremity cellulitis at his vein graft harvest site. This area had 2+ pitting edema. Was warm to touch, and had an area at the incision that was open
superficially at the skin. This area was small roughly half of a centimeter. I did not express any drainage however the patient noted that he had soaked through the dressing previously saturated his bed. The patient also has an area on his left
upper arm, specifically on his forearm that is raised and very mildly erythemic.
Patient was seen by hospitalist physician and admitted to their service for further care. IV antibiotics have been ordered, and CT surgery was consulted.
Past Medical History
Past Medical History: Other
Severe aortic stenosis
Multivessel CAD w/ extensive coronary calcifications
Hypertension
Hyperlipidemia
History of CVA (2009 and 2020)
Type 2 diabetes (A1c 6.7)Acute postop blood loss anemia - s/p 4 pRBCs
Acute postop thrombocytopenia/ coagulopathy - s/p 1 unit platelet and 2 FFPs
Acute postop toxic metabolic encephalopathy, likely d/t anesthesia/narcotics
Acute postop a-fib on 11/26 low 100-120s - tx with Amio bolus and drip
Acute postop hyponatremia
Actinic keratosis
Bilateral cataracts
Intracranial arteriosclerosis
Bilateral carotid atherosclerosis
Former tobacco abuse, smoking, 41 pack years. Quit 2010
History of basal cell carcinoma
Pulmonary hypertension
Past Surgical History
Past Surgical History: Other
-Aortic valve replacement (#25 Perry biologic Inspiris), in addition to coronary artery bypass grafting x 3 with CORREA�LAD, SVG�OM, and SVG�PDA by Dr. João Mandel MD on 11/25/23
-Intraoperative mediastinal reexploration due to elevated chest tube output by Dr. João Mandel MD on 11/25/23
Dental History
Noncontributory
Family History
Mother: at Age and Cause of (Complication with Alzheimer's disease)
Father: at Age (Unknown)
Social History
Alcohol: None (Stop drinking 3 years ago)
Drug: None
Tobacco: Former Smoker (Quit in 2010,41 pack-year smoking history)
Personal:
Living: Alone
Employment: Retired (Formally worked at [employer] in the [employer])
Allergies
Allergy/AdvReac Type Severity Reaction Status Date / Time
bee venom protein (honey bee) Allergy Anaphylaxis Verified 12/10/23 03:05
Home Medications
�Medication �Instructions �Recorded �Confirmed �Type
atorvastatin 80 mg tablet 80 mg PO HS High Cholesterol 10/14/23 12/10/23 History
clopidogrel 75 mg tablet 75 mg PO HS Blood Clot 10/14/23 12/10/23 History
Prevention/Tx
amiodarone 200 mg tablet (Pacerone) 200 mg PO BID Arrhythmia #0 tabs 11/29/23 12/10/23 Rx
metformin 500 mg tablet 500 mg PO BID@0800,1700 Diabetes 11/29/23 12/10/23 Rx
#0 tabs
aspirin 81 mg chewable tablet 81 mg PO HS 12/10/23 12/10/23 History
empagliflozin 10 mg tablet 10 mg PO HS Diabetes 12/10/23 12/10/23 History
(Jardiance)
lisinopril 10 mg tablet 15 mg PO HS 12/10/23 12/10/23 History
metoprolol succinate 50 mg 50 mg PO HS Heart disease/condition 12/10/23 12/10/23 History
tablet,extended release 24 hr
(Toprol XL)
pantoprazole 40 mg tablet,delayed 40 mg PO HS gi prophylaxis while 12/10/23 12/10/23 History
release on plavix
Review of Systems
-
History Source: Patient
General: Reports Fatigue; Denies Fever, Weight Gain or Weight Loss
HEENT: Denies Visual Changes, Dysphagia, Hoarseness or Sore Throat
Respiratory: Reports SIM; Denies SOB, Cough, Asthma or PND
Cardiac: Reports CAD and Edema; Denies Chest Pain, Known Vascular Disease, Palpitations, Nausea, Vomiting or Diaphoresis
Abdomen/GI: Denies Abdominal Pain, Reflux, Indigestion, Nausea, Vomiting, Constipation or BRBPR
: Denies Dysuria, Frequency, Incontinence or Hematuria
Musculoskeletal: Reports Edema; Denies Myalgias, Arthralgias or Joint Pain
Skin: Denies Itching or Rash
Neurological: Denies CVA, TIA, Headaches, Syncope, Dizzy or Seizures
Vascular: Denies Claudication or PVD
Physical Exam
Vital Signs
Temp 98.0 F 12/10/23 03:05
Temp route: Oral 12/10/23 03:05
Pulse 60 12/10/23 09:08
Resp Rate 16 12/10/23 08:45
Blood pressure 160/84 12/10/23 09:08
Blood pressure extremity used: Right upper arm 12/10/23 03:05
Position: Lying 12/10/23 05:17
MAP (cuff-Jay Monitor) 97 12/10/23 08:00
SaO2 95 12/10/23 08:45
Oxygen Mode of Delivery Room air 12/10/23 05:17
Labs
12/10/23 03:56
12/10/23 06:06
Hemoglobin A1c 5.9 % (4.0-5.6) H 12/10/23 03:56
Exam
General: Well Developed, Well Nourished and No Apparent Distress
HEENT: Normocephalic, Moist Mucous Membranes, Atraumatic, PERRLA and EOMI
Neck: Trachea Midline
Respiratory: Clear; Negative Wheezes, Crackles, Rhonchi or Accessory Muscle Use
Cardiac: S1/S2 and Regular Rhythm; Negative Murmur, Rub or Gallop
GI: Soft, Non Tender, Non Distended and Normal Bowel Sounds
Rectal: Deferred by Provider
Skin: Warm, Dry and Other (Patient appears to have left lower extremity cellulitis. Warm to touch, with associated erythema. At the vein harvest incision site that is roughly 1/2 of a centimeter. There is also an area on his left upper extremity
that is mildly erythematous and looks like a previous IV site.); Negative Rash
Neuro: AO x 3, No Motor Deficits and CN X-XII Intact
Extremities: Lower Level Edema (+2 left lower extremity pitting edema); Negative Upper Level Edema, Upper Level Cyanosis, Lower Level Cyanosis, Upper Level Clubbing or Lower Level Clubbing
Psych: Calm
Assessment / Plan
-
Assessment:
5-year-old male with PMH of:
-Aortic valve replacement (#25 Perry biologic Inspiris), in addition to coronary artery bypass grafting x 3 with CORREA�LAD, SVG�OM, and SVG�PDA by Dr. João Mandel MD. on 11/25/23
-Intraoperative mediastinal reexploration due to elevated chest tube output by Dr. João Mandel MD on 11/25/23
-Severe aortic stenosis
-Multivessel CAD w/ extensive coronary calcifications
-Hypertension
-Hyperlipidemia
-History of CVA (2009 and 2020)
-Type 2 diabetes (A1c 6.7)Acute postop blood loss anemia - s/p 4 pRBCs
-Acute postop thrombocytopenia/ coagulopathy - s/p 1 unit platelet and 2 FFPs
-Acute postop toxic metabolic encephalopathy, likely d/t anesthesia/narcotics
-Acute postop a-fib on 11/26 low 100-120s - tx with Amio bolus and drip
-Acute postop hyponatremia
-Actinic keratosis
-Bilateral cataracts
-Intracranial arteriosclerosis
-Bilateral carotid atherosclerosis
-Former tobacco abuse, smoking, 41 pack years. Quit 2010
-History of basal cell carcinoma
-Pulmonary hypertension
Now found to have:
Left lower extremity cellulitis at the site of his endoscopic vein harvest
Area on his left upper extremity which is mildly erythemic likely the site of an old IV. All
Plan:
Patient will be admitted to the hospitalist service for further workup/management.
IV antibiotics have already been ordered via primary service.
Patient's case will be discussed with attending physician.
Patient's left vein harvest site should heal by secondary intention. Wound/ostomy consult placed. Appreciate recommendations and treatment options.
Continue IV antibiotics
Will need rehab placement
CT surgery will follow appropriately.
[2023-12-10] MEDS: ZESTRIL 15 MG PO (11:11)
--- NOTE | 2023-12-10 12:18 | WOUNDNOTE ---
LEFT UPPER EXTREMITY (VEIN GRAFT HARVEST SURGICAL SITE)
--- NOTE | 2023-12-10 12:22 | WOUNDNOTE ---
[facility] RN note: Patient admitted with LLE cellulitis at vein graft harvest site (surgery 11/24).
See H&P for complete history.
PMH: CVAx2, , CAD, HTN, diabetes. Patient visited in ER. He states he lives alone and has support from friend, Sofia.
Wound Location and type/assessment: Patient admitted with: LLE cellulitis at vein graft harvest site. Area of incision has small opening with small amount of non-odors sanguinous drainage. Patient also has scabbed areas on abdomen and chest, and
some new epithelized skin at surgical site. Patient reports pulling off bandages when he got home and this appears to have causes mechanical adhesive removal skin injury (MARSI). Patient ambulates with walker and demonstrates ability to turn in bed.
Appetite: Reports good appetite.
Plan: Incision site cleaned with normal saline and covered with Xeroform and silicone foam dressing. Recommend Aquaphor for newly healed and scabbed skin on abdomen and chest. Will confirm orders with hospitalist and update nurse. Updated care
plan and will follow as needed. Patient has room and will be transferred with 3rd floor. Will continue to follow as needed.
[2023-12-10 13:05] LABS: Glucose - Point of Care 92 mg/dl (70-99)
[2023-12-10] MEDS: ANCEF 10 IV ×2 (14:24→21:26)
--- NOTE | 2023-12-10 14:33 | VNURNOTE ---
Patient was to have [facility] start of care 12/09 but was admitted to .
Previous to that referral, [facility] had been recommended after CV surgery and discharge 11/24.
Patient refused [facility] 11/24 and went home with CV transitional nurse visit.
Patient will need new [facility] referral if plan is to go home with services.
[2023-12-10 14:58] LABS: Glucose - Point of Care 122 mg/dl (70-99)
--- NOTE | 2023-12-10 15:07 | CON.NEURO4 ---
Consultation - Neurology 4
-
CONSULTING PHYSICIAN: Allie Rubalcava
REFERRING PHYSICIAN: Hospitalist
DICTATED BY: Allie Rubalcava
DATE/TIME OF REQUEST: 12/10/23
DATE/TIME OF CONSULTATION: 12/10/23
Reason for Consultation: Stroke alert, dysarthria, mild left facial weakness
History of Present Illness:
Patient is a 68 year old man with history of CAD and recent CABG
On 11/24 had sternotomy and 3 vessel CABG with surgical aortic valve replacement, had post op course with anastomotic leak requiring re-exploration and repair, then discharged to on 11/30 to home, he declined going to acute rehabilitation after
discharge. He had brief atrial fibrillation post-operatively with no anticoagulation felt warranted for this. He presented to ED today with left leg erythema, generalized fatigue. had been some difficulty with overall function at home. he has
been started on antibiotics for suspected cellulitis. Stroke alert was called due to dysarthria and facial asymmetry which seemed new and starting after patient had arrived from ER. Blood glucose normal. No loss of consciousness seen. Patient
denies headache, vision change, or new limb weakness. He had been maintained on aspirin and clopidogrel. He had aspirin this morning and Plavix yesterday. SBP was 84 during stroke alert.
Had previous ischemic stroke in 2009 in the left thalamus and right globus pallidus. Another ischemic stroke on 2020 but not much details on this. Patient reports when he is tired his balance and speech can get abnormal. He has some chronic right
hand paresthesia from previous stroke, very minor right arm weakness as well.
Past Medical History: Previous ischemic stroke (2009 MRI with infarcts in left thalamus and right basal ganglia) and another ischemic stroke in 2020, hypertension, hyperlipidemia, intracranial atherosclerosis, carotid stenosis bilaterally,
pulmonary hypertension, aortic stenosis, coronary artery disease
Surgical History: Skin cancer removal, left thumb amputation, left thumb surgery, 3 vessel CABG and surgical aortic valve replacement with anastomotic leak requiring re-exploration and repair
Family History: Mother with Alzheimer's disease, no history of early ischemic stroke or AR
Social History: Lives on his own, retired, former smoking cigarettes quitting 10 years ago, 20 pack years, no alcohol use stopped altogether about 6 years ago, used to live in [place] as well as [place]. Speaks Prydeinig, Mandarin, Samoan, some
Martiniquais.
Allergies: Honey bee venom
Review of Symptoms:
Patient denies any fever, headache, chest pain, shortness of breath, GI or symptoms.
Physical Exam:
Middle elderly aged man, no acute distress, no head or neck trauma, oropharynx clear, eyes clear, neck no masses, heart rate regular, systolic murmur, breathing unlabored, abdomen soft non tender, right leg with meyer erythema
Neurologic Examination:
The patient is awake, alert and oriented x 3. He is able to follow commands and answer questions appropriately. On cranial nerve assessment, there is moderate dysarthria, pupils are 3 mm bilateral, round and reactive to light and accommodation.
Visual hall are full. Extraocular movements are intact. Facial sensations are intact and bilaterally symmetrical, very minor left facial asymmetry/weakness at rest, normal with smiling . Hearing is intact bilaterally to normal conversation
volume. Tongue palate and uvula are midline. Sternocleidomastoid strengths are full bilaterally. Motor strengths are 5/5 bilateral upper and lower extremities on medical research Jamieson scale. There is no drift or involuntary movement noted. Deep
tendon reflexes are 2+ bilateral upper and lower extremities and Babinski is absent bilaterally. No sensory neglect. There was no extinction noted on double simultaneous stimulation. Coordination is intact by finger to nose bilaterally.
Neuro Imaging: CT head with chronic infarcts on left basal ganglia, right basal ganglia, no hyperdense MCA sign, no acute ischemic seen, no hemorrhage, no masses
Impressions
New dysarthria, minor left facial weakness in patient with previous ischemic stroke, suspected left leg cellulitis and some hypotension noted during stroke alert. Suspect stroke recrudscence due to new metabolic abnormality, new ischemic stroke is
possible given previous strokes and significant risk factors for this. Not felt to be TNK candidate given minor deficits and recent bleeding and major surgery.
Patient has the following risk factors for their symptoms: History of stroke, acute illness, CAD, hypertension, carotid stenosis
IV Tenecteplase/IAT candidacy: Recent bleeding, cardiac surgery, along with minor symptoms makes thrombolytic risks greater than benefits, no signs of a large vessel occlusion with NIH of 2 not an IAT candidate
Recommendations:
1. Continue antibiotics suspected left leg cellulitis
2. Follow BP's, consider IV fluids for hypotension
3. Neurologic checks and NIH scales
4. Okay from my perspective to continue on aspirin and clopidogrel
5. Goal normotension, maximum SBP goal less than 180
6. MRI of the brain, MRA of the head and neck
7. Monitor on cardiac telemetry
8. Follow renal function, electrolytes
9. Continue Atorvastatin 80 mg daily
Will follow
Discussed patient care with: Patient, nursing, hospitalist
NIH Stroke Score
Subsequent NIH Scale
Date of Subsequent NIH Scale: 12/10/23
Time of Subsequent NIH Scale: 15:08
NIH Stroke Score
Level of Consciousness: 0 - Alert
LOC Questions: 0-Answers both correctly
LOC Commands: 0-Performs both correctly
Best Horizontal Gaze: 0-Normal
Visual Hall: 0=Normal, no visual loss
Facial Palsy: 1=Minor paralysis
Motor - Right Arm: 0=No drift 10 seconds
Motor - Left Arm: 0=No drift 10 seconds
Motor - Right Le-No drift 5 seconds
Motor - Left Le-No drift 5 seconds
Limb Ataxia: 0-Absent
Sensation: 0-Normal
Best Language: 0-No aphasia
Dysarthria: 1-Mild slurring
Extinction and Inattention: 0-No abnormality
Total Score:: 2
Alteplase Contraindication
Inclusion and Exclusion criteria reviewed: Yes
Reasons for NON-Tx with Thrombolytics ABSOLUTE Exclusions: Known bleeding disorders (Recent bleeding, minor stroke symptoms, risks of TNK outweigh benefits)
Home Medications
-
Home Medications
atorvastatin 80 mg tablet 80 mg PO HS High Cholesterol 10/14/23
clopidogrel 75 mg tablet 75 mg PO HS Blood Clot Prevention/Tx 10/14/23
amiodarone 200 mg tablet (Pacerone) 200 mg PO BID Arrhythmia #0 tabs 11/29/23
metformin 500 mg tablet 500 mg PO BID@0800,1700 Diabetes #0 tabs 11/29/23
aspirin 81 mg chewable tablet 81 mg PO HS Blood Clot Prevention/Tx 12/10/23
empagliflozin 10 mg tablet (Jardiance) 10 mg PO HS Diabetes 12/10/23
lisinopril 10 mg tablet 15 mg PO HS Blood Pressure 12/10/23
metoprolol succinate 50 mg tablet,extended release 24 hr (Toprol XL) 50 mg PO HS Heart disease/condition 12/10/23
pantoprazole 40 mg tablet,delayed release 40 mg PO HS gi prophylaxis while on plavix 12/10/23
Allergies
-
Allergies
Allergy/AdvReac Type Severity Reaction Status Date / Time
bee venom protein (honey bee) Allergy Anaphylaxis Verified 12/10/23 03:05
Vital Signs / Labs
-
Vital Signs and Labs:
Temp Pulse Resp BP Pulse Ox
97.3 F 63 16 84/59 97
12/10/23 13:10 12/10/23 13:10 12/10/23 13:10 12/10/23 15:07 12/10/23 13:10
12/10/23 03:56
12/10/23 06:06
12/10/23 12/10/23 12/10/23
03:56 06:06 09:03
RBC 3.46 L
Hgb 10.4 L
Hct 31.6 L
MCHC 32.9 L
RDW 18.1 H
Abs Immat Gran (auto) 0.1 H
Absolute Neuts (auto) 6.6 H
Absolute Lymphs (auto) 1.0 L
Absolute Monos (auto) 1.0 H
Immature Gran % 0.6 H
Lymphocytes % 11.4 L
Monocytes % 10.8 H
Glucose 128 H
Hemoglobin A1c 5.9 H
POC Glucose 136 H
12/10/23
14:57
RBC
Hgb
Hct
MCHC
RDW
Abs Immat Gran (auto)
Absolute Neuts (auto)
Absolute Lymphs (auto)
Absolute Monos (auto)
Immature Gran %
Lymphocytes %
Monocytes %
Glucose
Hemoglobin A1c
POC Glucose 122 H
--- NOTE | 2023-12-10 15:08 | W.PN.UPDATE ---
Update Note
Progress Note Update
stroke alert
Patient had a aortic valve replacement and CABG 11/25/2023. He came in yesterday because of feeling fatigue and redness of the distal left harvest site. He got admitted for possible cellulitis and started on Ancef.
This afternoon when the patient moved up to the floor from ER, tech noted left facial droop and garbled speech. Stroke alert was called.
On arrival stroke team including neurology present.
Subtle left facial asymmetry noted. Patient states that since his prior stroke he has got some thick speech. No motor deficit. No confusion. Unclear of stroke. Will send patient down to CT scan stat. Neurology holding on CT angiogram for now.
Pt BP systolic 84 during eval. Blood sugars were ok.
? sysmptomatic due to BP issues. Follow BP ;will keep hold parameters on his meds.
Patient did receive his aspirin for today. He takes Plavix in the evening which he had yesterday.
EKG sinus rhythm.
--- NOTE | 2023-12-10 15:30 | PTCARENOTE ---
Pt noted to have a slight L facial droop and slightly garbled speech approx 1 hr after arriving to floor from ED. Full NIH performed - 2 (1 point for L facial droop and 1 for dysarthria). Pt has history of CVA with residual of R sided paresthesias
and 'trouble pronouncing words that start with B'. Stroke alert called. Hospitalist and Neuro in room, pt sent for head CT.
[2023-12-10 16:41] LABS: Glucose - Point of Care 134 mg/dl (70-99)
[2023-12-10] MEDS: PLAVIX 75 MG PO (18:37)
[2023-12-10] MEDS: LIPITOR 80 MG PO (18:38)
[2023-12-10] MEDS: TOPROL XL 50 MG PO (21:25)
[2023-12-10 21:55] LABS: Glucose - Point of Care 132 mg/dl (70-99)
[2023-12-11] VITALS (7 sets, daily range): BP systolic 121–179; BP diastolic 52–86; PULSE 65; O2SAT 98
[2023-12-11] MEDS: ANCEF 10 IV ×3 (05:59→22:09)
--- NOTE | 2023-12-11 07:35 | W.PN.NEURO.1 ---
Addendum entered and electronically signed by Ezequiel Rubalcava MD 12/11/23 14:35:
Infarcts in the frontal lobe, right occipital lobe, bilateral cerebellum noted.
Etiology suspicious for proximal embolic source: Can't be from carotid or posterior circulation alone with anterior and posterior circulation and bilateral infarcts.
--- Aortic atheroma or thrombus, cardiac embolism (had brief post operative atrial fibrillation) or valvular pathology with the recent surgery.
Keep existing aspirin/clopidogrel
Monitor for atrial fibrillation
Repeat a transthoracic echocardiogram, consideration for further investigation with GARCIA non-urgently
Cardiology input warranted given embolic stroke, short post operative atrial fibrillation history and complex recent cardiology history
Patient improving on the whole
NIH and neurologic checks to continue
Original Note:
Today's Communication / Plan
-
-Continue current antithrombotic regimen and aspirin and clopidogrel
-Neurologic checks NIH scales
-Goal normotension
-Would still check MRI brain MRA head and neck given his history of previous stroke
-Continue treating cellulitis
Neuro Assessment/Plan
Assessment
68 year old man with recent CABG and surgical aortic valve replacement, transient afib post operatively, presents with generalized fatigue, left leg edema and erythema being treated for cellulitis.
Noted to have left facial symmetry and dysarthria yesterday triggering stroke alert. CT head non contrast no acute changes.
Feeling better AM of 5/3, dysarthria noted, minimal left facial asymmetry noted
Suspect this is cellulitis and history of previous strokes as responsible for observed symptoms
Subjective/Objective
Subjective Data
Date of Service: December 11, 2023
No acute events, feeling better, walking halls with walker, feels like his speech doesnt seem abnormal to him, no headache, no vision changes
Objective Data
Vital Signs
Temp Pulse Resp BP Pulse Ox
98 F 62 17 151/84 97
12/11/23 03:35 12/11/23 03:35 12/11/23 03:35 12/11/23 03:35 12/11/23 03:35
Lab Results
12/10/23 03:56
12/10/23 06:06
Sodium 136 mmol/L (135-145) 12/10/23 06:06
Potassium 4.4 mmol/L (3.5-5.1) 12/10/23 06:06
BUN 18 mg/dl (9-20) 12/10/23 06:06
Glucose 128 mg/dl (70-99) H 12/10/23 06:06
Calcium 9.2 mg/dl (8.4-10.2) 12/10/23 06:06
Patient Allergies
bee venom protein (honey bee) Allergy (Verified 12/10/23 03:05)
Anaphylaxis
Review of Systems
-
History Source: Patient
All other systems: Reviewed and negative
Constitutional: No Symptoms
EENT: No Symptoms Reported
Respiratory: No Symptoms
Cardiac: No Symptoms
Abdomen/GI: No Symptoms
Genitourinary: No Symptoms
Musculoskeletal: No Symptoms
Skin: No Symptoms
Neuro: Speech Problem; Negative Headache or Weakness
Endocrine: No Symptoms
Hematologic / Lymphatic: No Symptoms
Allergy / Immunology: No Symptoms
Physical Exam
-
General: Comfortable
Eyes: No Ptosis
HEENT: Normocephalic
Neck: No Bruits Bilaterally
Respiratory: Clear to Auscultation
Cardiac: Regular Rhythm
GI: Normal Bowel Sounds
Extremities: Other (Left leg edema and erythema)
Psych: Unremarkable
Extended Neurological Exam
Mood & Affect: Mood Unremarkable
Attention Span & Concentration: Awake, Alert and Interactive
Memory: Unremarkable
Tremor: Hand Tremor Absent
Involuntary Movement: None
Speech: Dysarthric; Negative Expressive Aphasia or Receptive Aphasia
Cranial Nerve II: Left Eye: Pupillary Reactivity Unremarkable and Pupillary Size Unremarkable
Cranial Nerve II: Right Eye: Pupillary Reactivity Unremarkable and Pupillary Size Unremarkable
Cranial Nerves III, IV, : Extraocular Movement: Extraocular Movement Full in all Directions
Cranial Nerve VII: Facial Symmetry: Other (Very subtle left facial drooping at rest, no weakness with smiling noted)
Muscle Strength, Overall: Full Throughout and Other (5/5 shoulder abduction arm flexion hip flexion bilaterally)
Muscle Bulk & Tone: Bulk Unremarkable
Pronator Drift: No Drift in Upper Extremities
Touch Sensation: Unremarkable
Coordination: [id number]-[id number] Testing Unremarkable
Data Reviewed
-
CT Head: Report Reviewed and Image Reviewed
MRI Head: Ordered and Pending
MRA Head: Ordered and Pending
MRA Neck: Ordered and Pending
[2023-12-11 07:39] LABS: Glucose - Point of Care 105 mg/dl (70-99)
[2023-12-11] MEDS: PROTONIX 40 MG PO (08:18)
[2023-12-11] MEDS: ASPIR LOW (ENTERIC COATED) 81 MG PO (08:18)
[2023-12-11] MEDS: GLUCOPHAGE 500 MG PO ×2 (08:18→17:39)
[2023-12-11] MEDS: PACERONE 200 MG PO ×2 (08:18→20:30)
[2023-12-11] MEDS: HYDROPHOR 1 APPLIC TOPICAL (08:19)
[2023-12-11] MEDS: JARDIANCE 10 MG PO (08:19)
[2023-12-11 11:53] LABS: Glucose - Point of Care 88 mg/dl (70-99)
--- NOTE | 2023-12-11 14:48 | CON.CAR ---
Addendum entered and electronically signed by Loki Shepherd MD 12/11/23 17:03:
Patient seen and examined in collaboration with CERTIFIED NURSING ASSISTANT; agree with below.
-68 year old male who underwent recent bioprosthetic AVR and CABG on 11/25/23 with transient postoperative atrial fibrillation presenting with a CVA.
-The patient has recurrent paroxysmal atrial fibrillation which is the most likely cause of his CVA.
-Recommend Eliquis 5 mg twice daily and aspirin 81 mg daily; start Eliquis when cleared from a neurologic standpoint.
-Continue other cardiac medications.
-Outpatient follow-up with Cardiology as scheduled.
Original Note:
Consultation
Consultation Request
Date/Time Consultation Requested: 12/11/23 2p
Date/Time Consultation Performed: 12/11/23 2:40p
Requesting Provider: Dr. Davidson
Performing Provider: FRIDA Mathur for Dr. Shepherd
Reason for Consultation: CVA
Medical History
-
Chief Complaint: left facial droop/slurred speech
History of Present Illness:
Mr. Farris is a 68 year old male with HTN, HLD, hx of CVA (2009, 2020), NIDDM, CAD with severe /moderate AI s/p CABG 3V CABG (CORREA to LAD, SVG to OM, SVG to RPDA) and S/P #25 Perry Inspiris Resilia SAVR by Dr. Mandel on 11/25/23, who presents
to the ER with c/o fatigue and redness to LLE vein graft harvest site. He was admitted to the hospitalist service and then he developed left facial droop and slurred speech, stroke alert called. Head CT showed no acute intracranial abnormality
noted, moderate periventricular small vessel ischemic disease, old bilateral lacunar infarcts. Brain MRI today shows small acute ischemic infarcts in the subcortical white matter of the right frontal lobe, periventricular right temporal lobe, and
both cerebellar hemispheres. We are consulted since he had post-op Afib on 11/27/23 and for recommendations of OAC. He had been on ASA and Plavix since CABG/SAVR, also had LLE cellulitis at vein graft site and was on antibiotics.
Past Medical History
Past Medical History: Other (as above)
Past Surgical History: Other (as above)
Social History
Tobacco: Former Smoker
Alcohol: Former
Personal:
Living: With Family
Employment: Retired
Family History
Family History: Reviewed & Not Pertinent
Allergies / Home Medications
Allergy/AdvReac Type Severity Reaction Status Date / Time
bee venom protein (honey bee) Allergy Anaphylaxis Verified 12/10/23 03:05
�Medication �Instructions �Recorded �Confirmed �Type
atorvastatin 80 mg tablet 80 mg PO HS High Cholesterol 10/14/23 12/10/23 History
clopidogrel 75 mg tablet 75 mg PO HS Blood Clot 10/14/23 12/10/23 History
Prevention/Tx
amiodarone 200 mg tablet (Pacerone) 200 mg PO BID Arrhythmia #0 tabs 11/29/23 12/10/23 Rx
metformin 500 mg tablet 500 mg PO BID@0800,1700 Diabetes 11/29/23 12/10/23 Rx
#0 tabs
aspirin 81 mg chewable tablet 81 mg PO HS Blood Clot 12/10/23 12/10/23 History
Prevention/Tx
empagliflozin 10 mg tablet 10 mg PO HS Diabetes 12/10/23 12/10/23 History
(Jardiance)
lisinopril 10 mg tablet 15 mg PO HS Blood Pressure 12/10/23 12/10/23 History
metoprolol succinate 50 mg 50 mg PO HS Heart disease/condition 12/10/23 12/10/23 History
tablet,extended release 24 hr
(Toprol XL)
pantoprazole 40 mg tablet,delayed 40 mg PO HS gi prophylaxis while 12/10/23 12/10/23 History
release on plavix
Review of Systems
-
History Source: Patient
All other systems: Negative unless noted
Physical Exam
Vital Signs
Temp Pulse Resp BP Pulse Ox
97.5 F 62 16 172/86 97
12/11/23 12:10 12/11/23 12:10 12/11/23 12:10 12/11/23 12:10 12/11/23 12:10
Lab Results
12/10/23 03:56
12/10/23 06:06
Physical Exam
General: Well Developed, Well Nourished and No Apparent Distress
HEENT: Normocephalic, Anicteric and Moist Mucous Membranes
Respiratory: Clear and Non Labored Respirations
Cardiac: S1/S2 and Regular Rhythm
Breast: Deferred by me
GI: Soft, Non Distended and Normal Bowel Sounds
Rectal: Deferred by Provider
Genito-urinary: No Costovertebral Tender
Musculoskeletal: No Clubbing, No Cyanosis and No Edema
Skin: Warm and Dry
Neuro: AO x 3
Hematologic/Lymphatic: No Lymphadenopathy
Psych: Calm
Impression / Plan
-
CVA - acute.
- brain MRI small acute ischemic infarcts in the subcortical white matter of the right frontal lobe, periventricular right temporal lobe, and both cerebellar hemispheres.
- neurology following.
- ASA and Plavix.
- TTE ordered per neurology today, report pending.
- no GARCIA needed, recommend OAC therapy Eliquis 5mg BID when OK with neurology.
CAD S/P 3V CABG (CORREA to LAD, SVG to OM, SVG to RPDA) by Dr. Mandel, 11/25/2023.
- stable, no angina.
- continue ASA.
S/P #25 Perry Inspiris Resilia SAVR by Dr. Mandel, 11/25/2023.
- post-op echo 11/27/23 mean gradient 8mmHg.
- TTE repeated per neurology today.
Atrial fibrillation with RVR - post op on 11/27/23.
- treated with IV amiodarone now on PO.
- no recurrence of Afib on tele.
- [id number] VASc score is 6 (age, DM, HTN, CAD, CVA), recommend Eliquis 5mg BID when OK with neurology.
HTN - stable.
- continue Lisinopril, Toprol.
HLD - stable on atorvastatin 80 mg daily, continue.
Prior CVA - 2009 and 2020.
Type II DM - Hgba1c 6.7%.
Former smoker/prior ETOH
Paving Stone Installer: Dr. Rodríguez
Data Reviewed
-
MRI: Report Reviewed by me (brain: SMALL ACUTE ISCHEMIC INFARCTS in the subcortical white matter of the right frontal lobe, periventricular right temporal lobe, and both cerebellar hemispheres.)
Labs: Labs Reviewed by me
Old Records: Reviewed
--- NOTE | 2023-12-11 15:53 | W.PN.HOSP.TC ---
Today's Communication/Plan
-
Continue DAPT
Consult cardiology. Repeat echo pending. Continue with telemetry.
Continue with antibiotics
Assessment / Plan
Assessment / Plan
Mr. Niall Farris is a 68 yo man with hx severe and multivessel CAD s/p aortic valve replacement/CABG 11/25/23, HTN, HLD, CVA, DM II, former smoker, former alcohol use (quit 3 years ago) presents to the ER with fatigue and redness at distal leg
harvest site. Patient was accepted to [facility] last admission but refused.
Surgical site bleeding at site of vein harvest left lower extremity
-area is continuing to ooze, Hg stable
-Cardiothoracic surgery reviewed the site
-cw wound care
-patient will need SNF for wound care as cannot care for himself at home
-cw PT/OT
Left leg cellulitis
-not septic
-continue IV Cefazolin and monitor; LLE elevation
acute cerebral and fibrillar ischemic infarct-patient yesterday had stroke alert due to left facial droop and slurred speech. MRI today shows right cerebral hemisphere and both cerebellar hemisphere acute ischemic infarcts and also chronic in
chronic infarcts noted. Patient has a history of prior strokes. Neurology following. Recommends to continue with DAPT for now. Continue with telemetry. Repeat echocardiogram. Cardiology consult because of history of A-fib.
Left upper forearm nodule/mass
- US shows cephalic vein thrombosis in forearm which is a superficial vein. No indication for AC.
Severe and MVD s/p AVR and CABG 11/25/23
-CTS consult as above
-continue SENIOR IT PROJECT MANAGER regimen: asa/plavix/statin
Atrial Fibrillation with RVR on 11/26
-SENIOR IT PROJECT MANAGER metoprolol
-continue amiodarone
- Cardiology consult due to new infarcts
HTN
-SENIOR IT PROJECT MANAGER lisinopril
HLD
-SENIOR IT PROJECT MANAGER statin
Prior CVA
-SENIOR IT PROJECT MANAGER asa/statin
DM
-A1c 6.7%
-SENIOR IT PROJECT MANAGER Jardiance, Metformin
Former smoker
Former alcohol use
DVT PPx - SCD on RLE only (given cellulitis and oozing on left)
FULL CODE
Discussed with neurology.
Consulted cardiology.
Discussed with RN.
Total time spent on today's encounter was 52 minutes which included time spent in counseling the patient regarding diagnosis and treatment plan as listed above, goals of care, and symptom management. Case was discussed with nursing staff,
specialists, and care coordinators/case management. All labs and imaging personally reviewed by me. Remainder the time spent in detailed review of previous records, lab data, imaging, and other medical provider documentation.
Anticipated Discharge: > 48 hours
Subjective/Interval History
-
Date of Service: December 11, 2023
Feels okay today.
No speech disturbance.
He states he walked up to the stairs and came back and did stairs as well with the PT and did them well.
Left lower thigh incision site bleeding a bit but no tenderness.
Objective Data
-
Vital Signs:
Vital Signs
Temp Pulse Resp BP Pulse Ox
98.3 F 62 16 159/79 98
12/11/23 15:18 12/11/23 15:18 12/11/23 15:18 12/11/23 15:18 12/11/23 15:18
I&O
12/10/23 12/11/23 12/12/23
06:59 06:59 06:59
Intake Total 330 / 330
Balance 330 / 330
Review of Systems
-
Constitutional: Denies Fever
Respiratory: Denies Trouble Breathing
Cardiac: Denies Chest Pain or Palpitations
Neuro: Denies Dizzy
Physical Exam
-
General: No Apparent Distress
HEENT: Moist Mucous Membranes
Respiratory: Clear to Auscultation
Cardiac: Regular Rhythm and S1/S2
GI: Soft
Neuro: AO x 3 and No Motor Deficits; Negative Slurred Speech or Facial Droop
Psych: Calm; Negative Confused
Data Reviewed
-
Labs: Labs Reviewed by me
--- NOTE | 2023-12-11 16:10 | CM ---
Met with pt at bedside
Pt reports he lives alone in a 2 story town home
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 Prepares meals, shops, maintains home on own
Has ride at d/c
DME includes rolling walker, rollator and grab bars
SNF - denies past hx
HH - current with [facility]
PCP - Dr Teena Daly
Pharm - [facility]
Will send DONALD in care port for [facility]
Plan - anticipate home with [facility] when medically stable
[2023-12-11 16:39] LABS: Glucose - Point of Care 92 mg/dl (70-99)
[2023-12-11] MEDS: PLAVIX 75 MG PO (17:39)
[2023-12-11] MEDS: LIPITOR 80 MG PO (17:39)
[2023-12-11 21:27] LABS: Glucose - Point of Care 107 mg/dl (70-99)
[2023-12-11] MEDS: ZESTRIL 15 MG PO (21:58)
[2023-12-11] MEDS: TOPROL XL 50 MG PO (22:03)
[2023-12-12 03:15] VITALS: BP 165/87
[2023-12-12] MEDS: ANCEF 10 IV ×3 (06:34→22:15)
[2023-12-12 07:00] VITALS: BP 148/71
[2023-12-12 07:16] LABS: Glucose - Point of Care 132 mg/dl (70-99)
[2023-12-12] MEDS: PROTONIX 40 MG PO (08:26)
[2023-12-12] MEDS: ASPIR LOW (ENTERIC COATED) 81 MG PO (08:26)
[2023-12-12] MEDS: PACERONE 200 MG PO ×2 (08:26→20:11)
[2023-12-12] MEDS: JARDIANCE 10 MG PO (08:26)
[2023-12-12] MEDS: HYDROPHOR 1 APPLIC TOPICAL (08:27)
[2023-12-12] MEDS: GLUCOPHAGE 500 MG PO ×2 (08:27→18:39)
[2023-12-12 09:37] VITALS: BP 155/70; PULSE 59; O2SAT 96
[2023-12-12 11:01] LABS: Glucose - Point of Care 114 mg/dl (70-99)
--- NOTE | 2023-12-12 15:14 | W.PN.HOSP.TC ---
Today's Communication/Plan
-
Start AC today
DC planning
Assessment / Plan
Assessment / Plan
Mr. Niall Farris is a 68 yo man with hx severe and multivessel CAD s/p aortic valve replacement/CABG 11/25/23, HTN, HLD, CVA, DM II, former smoker, former alcohol use (quit 3 years ago) presents to the ER with fatigue and redness at distal leg
harvest site. Patient was accepted to [place] [facility] last admission but refused.
Surgical site bleeding at site of vein harvest left lower extremity
-Resolving ooze, Hg stable
-Cardiothoracic surgery reviewed the site
-cw wound care
-patient will need SNF for wound care as cannot care for himself at home
-cw PT/OT
Left leg cellulitis
-not septic
-continue IV Cefazolin and monitor; LLE elevation
acute cerebral and fibrillar ischemic infarct-patient yesterday had stroke alert due to left facial droop and slurred speech. MRI today shows right cerebral hemisphere and both cerebellar hemisphere acute ischemic infarcts and also chronic in
chronic infarcts noted. Patient has a history of prior strokes. history of A-fib post op noted - cardiology recommends Eliquis for AC and ASA. Neuro Dr Rubalcava yesterday oked for AC to begin today. Will hold further plavix tx with AC initiation
Left upper forearm nodule/mass
- US shows cephalic vein thrombosis in forearm which is a superficial vein. No indication for AC.
Severe and MVD s/p AVR and CABG 11/25/23
-CTS consult as above
-continue DIRECTOR OF ENTERPRISE ARCHITECTURE regimen: asa/plavix/statin
Atrial Fibrillation with RVR on 11/26
-DIRECTOR OF ENTERPRISE ARCHITECTURE metoprolol
-continue amiodarone
- Cardiology consult due to new infarcts
HTN
-DIRECTOR OF ENTERPRISE ARCHITECTURE lisinopril
HLD
-DIRECTOR OF ENTERPRISE ARCHITECTURE statin
Prior CVA
-DIRECTOR OF ENTERPRISE ARCHITECTURE asa/statin
DM
-A1c 6.7%
-DIRECTOR OF ENTERPRISE ARCHITECTURE Jardiance, Metformin
Former smoker
Former alcohol use
DVT PPx - SCD on RLE only (given cellulitis and oozing on left)
FULL CODE
Anticipated Discharge: 24 - 48 hours
Subjective/Interval History
-
Date of Service: December 12, 2023
No further speech impairment. Voices no new specific complaints.
Left leg without any pain .No fever or chills.
Objective Data
-
Vital Signs:
Vital Signs
Temp Pulse Resp BP Pulse Ox
98.4 F 60 17 148/71 96
12/12/23 07:00 12/12/23 07:00 12/12/23 07:00 12/12/23 07:00 12/12/23 07:00
I&O
12/11/23 12/12/23 12/13/23
06:59 06:59 06:59
Intake Total 330 / 330 960 / 960
Balance 330 / 330 960 / 960
Review of Systems
-
Constitutional: Denies Fever
EENT: Denies Sore Throat
Respiratory: Denies Trouble Breathing
Cardiac: Denies Chest Pain
Abdomen/GI: Denies Nausea
Neuro: Denies Dizzy, Headache, Weakness, Numbness or Ataxia (walked 5 times to North elevators so far today)
Physical Exam
-
General: No Apparent Distress
HEENT: Moist Mucous Membranes
Respiratory: Clear to Auscultation
Cardiac: Regular Rhythm and S1/S2
Neuro: AO x 3 and No Motor Deficits; Negative Slurred Speech or Facial Droop
Psych: Calm; Negative Confused
[2023-12-12 15:29] VITALS: BP 150/80
[2023-12-12 16:54] LABS: Glucose - Point of Care 108 mg/dl (70-99)
[2023-12-12] MEDS: LIPITOR 80 MG PO (18:39)
[2023-12-12 19:51] VITALS: BP 144/66
[2023-12-12] MEDS: ELIQUIS 5 MG PO (20:11)
[2023-12-12 21:41] LABS: Glucose - Point of Care 111 mg/dl (70-99)
[2023-12-12] MEDS: ZESTRIL 15 MG PO (22:14)
[2023-12-12] MEDS: TOPROL XL 50 MG PO (22:14)
[2023-12-12 23:50] VITALS: BP 153/67
[2023-12-13] VITALS (7 sets, daily range): BP systolic 133–168; BP diastolic 58–72; PULSE 60
[2023-12-13] MEDS: ANCEF 10 IV ×3 (06:33→22:15)
[2023-12-13 07:27] LABS: Hematocrit 33.9 % (39.0-52.0); Mean Corp Hgb Conc. 32.4 g/dL (33.0-37.0); Mean Corpuscular Volume 92.4 fL (80.0-94.0); Mean Platelet Volume 9.9 fL (7.4-10.4); Platelet Count 277 10^3/uL (130-400); Red Blood Cell Count 3.67 10^6/uL (4.70-6.10); Red Cell Dist. Width 17.8 % (11.5-14.5); White Blood Cell Count 5.8 10^3/uL (4.8-10.8)
[2023-12-13 07:36] LABS: Glucose - Point of Care 110 mg/dl (70-99)
[2023-12-13] MEDS: PROTONIX 40 MG PO (07:54)
[2023-12-13] MEDS: PACERONE 200 MG PO ×2 (07:54→20:05)
[2023-12-13] MEDS: ASPIR LOW (ENTERIC COATED) 81 MG PO (07:54)
[2023-12-13] MEDS: ELIQUIS 5 MG PO ×2 (07:54→20:05)
[2023-12-13] MEDS: GLUCOPHAGE 500 MG PO ×2 (07:54→17:57)
[2023-12-13] MEDS: JARDIANCE 10 MG PO (07:55)
[2023-12-13] MEDS: HYDROPHOR 1 APPLIC TOPICAL (07:56)
[2023-12-13 11:30] LABS: Glucose - Point of Care 97 mg/dl (70-99)
--- NOTE | 2023-12-13 13:32 | W.PN.HOSP.TC ---
Today's Communication/Plan
-
If no neurological issues and tolerates anticoagulation, DC home with services tomorrow
Assessment / Plan
Assessment / Plan
Mr. Niall Farris is a 68 yo man with hx severe and multivessel CAD s/p aortic valve replacement/CABG 11/25/23, HTN, HLD, CVA, DM II, former smoker, former alcohol use (quit 3 years ago) presents to the ER with fatigue and redness at distal leg
harvest site. Patient was accepted to [place] [facility] last admission but refused.
Surgical site bleeding at site of vein harvest left lower extremity
-no active ooze now; Hg stable
-Cardiothoracic surgery reviewed the site
-cw wound care
-patient will need SNF for wound care as cannot care for himself at home
-cw PT/OT
Left leg cellulitis
-not septic
-continue IV Cefazolin and monitor; LLE elevation
acute cerebral and fibrillar ischemic infarct-patient yesterday had stroke alert due to left facial droop and slurred speech. MRI today shows right cerebral hemisphere and both cerebellar hemisphere acute ischemic infarcts and also chronic in
chronic infarcts noted. Patient has a history of prior strokes. history of A-fib post op noted - cardiology recommends Eliquis for AC and ASA. Neuro Dr Rubalcava 12/10 oked for AC to begin 12/11. Will hold further plavix so far no new neuro issues since
AC and if no issues further on today will dc home tomorrow.
Left upper forearm nodule/mass
- US shows cephalic vein thrombosis in forearm which is a superficial vein. No indication for AC.
Severe and MVD s/p AVR and CABG 11/25/23
-CTS consult as above
-continue TUBE WORKER regimen: asa/plavix/statin
Atrial Fibrillation with RVR on 11/26
-TUBE WORKER metoprolol
-continue amiodarone
- Cardiology consult due to new infarcts
HTN
-TUBE WORKER lisinopril
HLD
-TUBE WORKER statin
Prior CVA
-TUBE WORKER asa/statin
DM
-A1c 6.7%
-TUBE WORKER Jardiance, Metformin
Former smoker
Former alcohol use
DVT PPx - SCD on RLE only (given cellulitis and oozing on left)
FULL CODE
Anticipated Discharge: Within 24 hours
Subjective/Interval History
-
Date of Service: December 13, 2023
No recurrence of neurological symptoms. Speech is fluent.
Decreased left thigh surgical site bleeding.
Objective Data
-
Labs:
Laboratory Results
12/13/23
06:42
WBC 5.8
Hgb 11.0 L
Hct 33.9 L
Plt Count 277
Vital Signs:
Vital Signs
Temp Pulse Resp BP Pulse Ox
97.9 F 57 16 149/67 97
12/13/23 11:00 12/13/23 11:00 12/13/23 11:00 12/13/23 11:00 12/13/23 11:00
I&O
12/12/23 12/13/23 12/14/23
06:59 06:59 06:59
Intake Total 960 / 960 480 / 480
Balance 960 / 960 480 / 480
Review of Systems
-
Constitutional: Denies Fever
Respiratory: Denies Trouble Breathing
Cardiac: Denies Chest Pain
Abdomen/GI: Denies Nausea
Neuro: Denies Dizzy
Physical Exam
-
General: No Apparent Distress
HEENT: Moist Mucous Membranes
Respiratory: Clear to Auscultation
Cardiac: Regular Rhythm and S1/S2
Skin: Other (left thigh vein harvest site - no active bleeding.)
Neuro: AO x 3 and No Motor Deficits; Negative Slurred Speech or Facial Droop
Psych: Calm
[2023-12-13 16:38] LABS: Glucose - Point of Care 104 mg/dl (70-99)
[2023-12-13] MEDS: LIPITOR 80 MG PO (17:57)
[2023-12-13 21:53] LABS: Glucose - Point of Care 91 mg/dl (70-99)
[2023-12-13] MEDS: ZESTRIL 15 MG PO (22:12)
[2023-12-13] MEDS: TOPROL XL 50 MG PO (22:15)
[2023-12-14 03:49] VITALS: BP 146/77
[2023-12-14] MEDS: ANCEF 10 IV (05:58)
[2023-12-14 07:00] LABS: Glucose - Point of Care 103 mg/dl (70-99)
[2023-12-14 07:30] VITALS: BP 159/68
[2023-12-14] MEDS: ASPIR LOW (ENTERIC COATED) 81 MG PO (08:42)
[2023-12-14] MEDS: ELIQUIS 5 MG PO (08:42)
[2023-12-14] MEDS: GLUCOPHAGE 500 MG PO (08:43)
[2023-12-14] MEDS: HYDROPHOR 1 APPLIC TOPICAL (08:43)
[2023-12-14] MEDS: PACERONE 200 MG PO (08:43)
[2023-12-14] MEDS: JARDIANCE 10 MG PO (08:43)
[2023-12-14] MEDS: PROTONIX 40 MG PO (08:43)
--- NOTE | 2023-12-14 11:29 | CM ---
Addendum entered by Gaby Ro 12/14/23 12:02:
Pt for discharge today
Spoke with pt regarding Eliquis - pt reports he does not have Rx coverage
Given coupon for Eliquis - pt receptive to coupon
Pt reports he has a ride to home
Home care for RN/PT/OT with [facility]
Discussed IMM
Plan - home with [facility]
Original Note:
Case management following for d/c planning
Received consult for stanley checking for Eliquis 5mg BID
Called pts pharmacy - [facility],[phone]
Spoke with Osmani - mana to check stanley of med without written Rx
[2023-12-14 11:30] VITALS: BP 146/67
--- NOTE | 2023-12-14 11:32 | W.PN.HOSP.TC ---
Today's Communication/Plan
-
Monitor vital signs and see plan
Continue with aspirin, Eliquis
Change antibiotics to oral
Discharge today
Time of discharge 38 minutes
Assessment / Plan
Assessment / Plan
Mr. Niall Farris is a 68 yo man with hx severe and multivessel CAD s/p aortic valve replacement/CABG 11/25/23, HTN, HLD, CVA, DM II, former smoker, former alcohol use (quit 3 years ago) presents to the ER with fatigue and redness at distal leg
harvest site. Patient was accepted to [place] [facility] last admission but refused.
Surgical site bleeding at site of vein harvest left lower extremity
-no active ooze now; Hg stable
-Cardiothoracic surgery reviewed the site
-cw wound care
-cw PT/OT
Left leg cellulitis
-not septic
change to PO abx on dc
acute cerebral and fibrillar ischemic infarct-patient yesterday had stroke alert due to left facial droop and slurred speech. MRI today shows right cerebral hemisphere and both cerebellar hemisphere acute ischemic infarcts and also chronic in
chronic infarcts noted. Patient has a history of prior strokes. history of A-fib post op noted - cardiology recommends Eliquis for AC and ASA. Neuro Dr Rubalcava 12/10 oked for AC to begin 12/11. Will hold further plavix so far no new neuro issues since
AC
Left upper forearm nodule/mass
- US shows cephalic vein thrombosis in forearm which is a superficial vein. No indication for AC.
Severe and MVD s/p AVR and CABG 11/25/23
-CTS consult as above
-continue PRODUCTION SUPPORT DEVELOPER regimen: asa/statin
Atrial Fibrillation with RVR on 11/26
-PRODUCTION SUPPORT DEVELOPER metoprolol
-continue amiodarone
- Cardiology consult due to new infarcts
HTN
-PRODUCTION SUPPORT DEVELOPER lisinopril
HLD
-PRODUCTION SUPPORT DEVELOPER statin
Prior CVA
-PRODUCTION SUPPORT DEVELOPER asa/statin
DM
-A1c 6.7%
-PRODUCTION SUPPORT DEVELOPER Jardiance, Metformin
Former smoker
Former alcohol use
DVT PPx -eliquis on RLE only (given cellulitis and oozing on left)
FULL CODE
General: No Apparent Distress
HEENT: Moist Mucous Membranes
Respiratory: Clear to Auscultation
Cardiac: Regular Rhythm and S1/S2
Skin: Other (left thigh vein harvest site - no active bleeding.)
Neuro: AO x 3 and No Motor Deficits; Negative Slurred Speech or Facial Droop
Psych: Calm
Anticipated Discharge: Today
Subjective/Interval History
-
Date of Service: December 14, 2023
denies pain
Objective Data
-
Vital Signs:
Vital Signs
Temp Pulse Resp BP Pulse Ox
98.0 F 55 18 159/68 95
12/14/23 07:30 12/14/23 08:43 12/14/23 07:30 12/14/23 08:43 12/14/23 07:30
I&O
12/13/23 12/14/23 12/15/23
06:59 06:59 06:59
Intake Total 480 / 480 1080 / 1080
Balance 480 / 480 1080 / 1080
--- NOTE | 2023-12-14 11:42 | W.DCSUMMARY ---
Discharge Summary
Discharge Data
Date of Admission: 12/12/23
Date of Discharge: 12/14/23
-
Pending Results: No
Hospital Course
68-year-old male with past medical history of severe aortic stenosis, multivessel CAD status post aortic valve replacement, CABG, hypertension, hyperlipidemia, CVA, type 2 diabetes mellitus came to the hospital with surgical site bleeding from
recent vein harvest left lower extremity. Cardiothoracic surgery reviewed patient bleeding site and continue to monitor. Patient did not had any further oozing. Patient was also treated with left leg cellulitis initially with IV and oral. While
patient was in the hospital he started developing left-sided facial droop and slurred speech. MRI was consistent with new acute ischemic infarcts. Patient was seen by neurology throughout hospitalization. Patient was eventually started on Eliquis
along with aspirin. Plavix was then discontinued. Patient was also eval by physical therapy who recommended home health. Once patient symptoms were improving, he was then discharged home with instructions to follow-up with all the physicians
outpatient.
Discharge Plan
-
Patient Disposition: Home with Home Care
Discharge Diagnosis/Procedures: Surgical site bleeding at site of vein harvest left lower extremity
Left lower extremity cellulitis
Acute infarct
Cephalic vein thrombosis
Severe aortic stenosis
Paroxysmal atrial fibrillation
Diet: Diabetic, Carb Controlled
Activity: As tolerated
Driving Restrictions: As prior to admission
Bathing Restrictions: None
Activity Restrictions/Additional Instructions:
Wound Care Instructions Right upper leg surgical wound- Clean with normal saline or soap and water. Cover with Xeroform and silicone border foam dressing. Change Q 48 hours and PRN if loose or soiled.
Scabbed and newly epithelized skin on chest and abdomen- Apply Aquaphor daily and PRN.
F
Referrals:
Loki Shepherd MD [Active] -
Guanakito Watson MD [Active] - in three to four weeks
Monique Daly DO [Family Provider] - in less than 1 week
Prescriptions:
New
cefdinir 300 mg capsule
300 mg PO BID Qty: 14 0RF
Eliquis 5 mg Tablet
5 mg PO BID Qty: 60 0RF
white petrolatum [Hydrophor] 42 % Ointment
1 applic topical DAILY Qty: 454 0RF
Continued
atorvastatin 80 mg Tablet
80 mg PO HS
amiodarone [Pacerone] 200 mg Tablet
200 mg PO BID Qty: 0 1RF
metformin 500 mg Tablet
500 mg PO BID@0800,1700 Qty: 0 0RF
lisinopril 10 mg Tablet
15 mg PO HS
Patient Comments:
12/10/2023, dose changed yesterday (12/09/2023) from 10 mg to 15 mg daily per [facility] records and pt.
aspirin 81 mg Tablet,Chewable
81 mg PO HS
metoprolol succinate [Toprol XL] 50 mg tablet extended release 24 hr
50 mg PO HS
pantoprazole 40 mg tablet,delayed release (DR/EC)
40 mg PO HS
Jardiance 10 mg tablet
10 mg PO HS
Discontinued
clopidogrel 75 mg Tablet
75 mg PO HS
Discharge Orders:
Discharge Patient (As Directed); Ordered 12/14/23
Ordered By: James Moe
Discharge Date and Time
Discharge Date/Time: 12/14/23 12:41
Print Language: ROMANIAN
== END 2023-12-14 12:41 | disposition home health service (06) | DRG 862 ==
LOC: 3 WEST ACU 15:05
PROVIDERS: Internal Medicine; ADMITTING PHYSICIAN Student in an Organized Health Care Education/Training Program; ATTENDING PHYSICIAN Internal Medicine; CONSULT PHYSICIAN Internal Medicine; CONSULT PHYSICIAN Thoracic Surgery (Cardiothoracic Vascular Surgery); EMERGENCY PHYSICIAN Emergency Medicine; FAMILY PHYSICIAN Student in an Organized Health Care Education/Training Program; OTHER PHYSICIAN Student in an Organized Health Care Education/Training Program
DX: T81.41XA Infection following a procedure, superficial incisional surgical site, initial encounter (principal); I63.9 Cerebral infarction, unspecified; L03.116 Cellulitis of left lower limb; D69.59 Other secondary thrombocytopenia; Z87.891 Personal history of nicotine dependence; I48.0 Paroxysmal atrial fibrillation; I10 Essential (primary) hypertension; E78.00 Pure hypercholesterolemia, unspecified; E11.36 Type 2 diabetes mellitus with diabetic cataract; Z79.84 Long term (current) use of oral hypoglycemic drugs; I08.3 Combined rheumatic disorders of mitral, aortic and tricuspid valves; Y83.8 Other surgical procedures as the cause of abnormal reaction of the patient, or of later complication, without mention of misadventure at the time of the procedure
CPT/HCPCS: 70450; 70544; 70548; 70551; 71045; 76882; 80048; 82962; 83036; 83735; 85025; 85027; 93005; 93306; 96374; 97116; 97163; 97167; 97530; 99285; A9585

== ENCOUNTER → 2023-12-29 06:44 | Outpatient (REF) | payer MEDICARE, SELFPAY ==
[2023-12-29 07:35] LABS: % Basophils 0.8 % (0-2); % Eosinophils 2.9 % (0-6); % Immature Granulocytes 0.3 % (0-0.5); % Lymphocytes 24.7 % (20.5-51.1); % Monocytes 9.8 % (1.7-9.3); % Neutrophils 61.5 % (42.2-75.2); Absolute Basophils 0.1 10^3/uL (0-0.2); Absolute Eosinophils 0.2 10^3/uL (0-0.7); Absolute Lymphocytes 1.9 10^3/uL (1.2-3.4); Absolute Monocytes 0.8 10^3/uL (0.1-0.6); Absolute Neutrophils 4.7 10^3/uL (1.4-6.5); Hematocrit 45.1 % (39.0-52.0); Hemoglobin 14.3 g/dL (13.0-18.0); Mean Corp Hgb Conc. 31.7 g/dL (33.0-37.0); Mean Corpuscular Hgb 28.7 pg (27.0-31.0); Mean Corpuscular Volume 90.4 fL (80.0-94.0); Nucleated Red Blood Cells % 0 % (-); Platelet Count 249 10^3/uL (130-400); Red Blood Cell Count 4.99 10^6/uL (4.70-6.10); Red Cell Dist. Width 15.9 % (11.5-14.5); White Blood Cell Count 7.6 10^3/uL (4.8-10.8)
[2023-12-29 08:27] LABS: Blood Urea Nitrogen 14 mg/dl (9-20); Calcium 9.9 mg/dl (8.4-10.2); Carbon Dioxide 26 mmol/L (22-30); Chloride 104 mmol/L (98-107); Glucose 145 mg/dl (70-99); Potassium 4.8 mmol/L (3.5-5.1); Sodium 140 mmol/L (135-145); eGFR > 60.00
== END ==
LOC: REG 06:44
PROVIDERS: ATTENDING PHYSICIAN Student in an Organized Health Care Education/Training Program
DX: Z09 Encounter for follow-up examination after completed treatment for conditions other than malignant neoplasm (principal); D64.9 Anemia, unspecified; E87.1 Hypo-osmolality and hyponatremia; Z95.1 Presence of aortocoronary bypass graft; Z95.2 Presence of prosthetic heart valve
CPT/HCPCS: 36415; 80048; 85025

== ENCOUNTER 2024-01-25 14:54 | Emergency (ER) | payer MEDICARE, SELFPAY ==
[2024-01-25 14:55] VITALS: BP 187/94
[2024-01-25 15:46] LABS: % Basophils 0.5 % (0-2); % Eosinophils 0.7 % (0-6); % Immature Granulocytes 0.3 % (0-0.5); % Lymphocytes 23.4 % (20.5-51.1); % Monocytes 7.6 % (1.7-9.3); % Neutrophils 67.5 % (42.2-75.2); Absolute Eosinophils 0.1 10^3/uL (0-0.7); Absolute Lymphocytes 2.1 10^3/uL (1.2-3.4); Absolute Monocytes 0.7 10^3/uL (0.1-0.6); Absolute Neutrophils 5.9 10^3/uL (1.4-6.5); Hematocrit 47.3 % (39.0-52.0); Mean Corp Hgb Conc. 31.7 g/dL (33.0-37.0); Mean Corpuscular Hgb 28.7 pg (27.0-31.0); Mean Corpuscular Volume 90.6 fL (80.0-94.0); Mean Platelet Volume 10.9 fL (7.4-10.4); Nucleated Red Blood Cells % 0 % (-); Platelet Count 176 10^3/uL (130-400); Red Blood Cell Count 5.22 10^6/uL (4.70-6.10); Red Cell Dist. Width 14.7 % (11.5-14.5); White Blood Cell Count 8.8 10^3/uL (4.8-10.8)
[2024-01-25 16:03] LABS: ALT (SGPT) 27 U/L (0-50); AST (SGOT) 29 U/L (17-59); Albumin 4.7 g/dl (3.5-5.0); Alkaline Phosphatase 81 U/L (38-126); Blood Urea Nitrogen 20 mg/dl (9-20); Calcium 10.1 mg/dl (8.4-10.2); Carbon Dioxide 26 mmol/L (22-30); Chloride 106 mmol/L (98-107); Glucose 120 mg/dl (70-99); Potassium 4.7 mmol/L (3.5-5.1); Sodium 141 mmol/L (135-145); Total Bilirubin 0.6 mg/dl (0.2-1.3); Total Protein 7.9 g/dl (6.3-8.2); eGFR > 60.00
[2024-01-25 16:10] LABS: Troponin I < 0.012 ng/ml
--- NOTE | 2024-01-25 16:43 | ED.GENMED ---
Addendum entered and electronically signed by Parminder Brownlee DO 01/25/24 18:24:
Update prior to discharge patient states he feels well he is hungry, no abdominal pain, instructed to return to the ER for worsening symptoms
Original Note:
History of Present Illness
General
Chief Complaint: Abdominal Symptoms
Source: patient and records
Exam Limitations: none
Time Seen by Provider: 01/25/24 15:47
Nursing documentation reviewed up to this point in time: agreed with
Travel History
Have you had any contact with someone who has COVID-19?: No
Do you have any symptoms of coronavirus? Fever > 100 degrees, chills, cough, shortness of breath, sore throat, loss of taste or smell, muscle aches, or headache?: No
History of Present Illness
History of Present Illness:
68-year-old male history of CAD status post bypass surgery status post valvular repair presents with mid upper abdominal pain for like he was punched, last 15 to 20 minutes and got sweaty, saw his PCP referred to the ER for blood work due to
possible new T wave inversion denies any chest pain or shortness of breath now he tells me he feels fine, no dysuria no frequency no hematuria no dark or bloody stools,
Past History
Past History
ED Past Medical History: CAD, HTN, Hypercholesterolemia, NIDDM and Valvular disease
ED Past Surgical History: Cardiac (CABG/aortic valve replacement November 25, 2023)
Social History
Tobacco: Non-smoker
Alcohol: None
Drug: None
Personal:
Living: alone
Employment: Retired
Family History
Family History: Other (Noncontributory)
Review of Systems
Review of Systems
All Other Systems: Not applicable
Constitutional: Denies fever or fatigue
EENT: Reports no symptoms
Respiratory: Reports no symptoms; Denies cough or trouble breathing
Cardiac: Reports diaphoresis; Denies chest pain
ABD/GI: Reports abdominal pain; Denies vomiting, diarrhea, bloody stools, black stools or anorexia
: Reports no symptoms; Denies dysuria or bleeding
Musculoskeletal: Reports no symptoms
Skin: Reports no symptoms
Neurological: Reports no symptoms
Endocrine: Reports no symptoms
Phy Exam
Physical Exam
Physical Exam:
Physical Exam
General: no apparent distress, not acutely ill
Neck: No jaundice
Heart: s1/s2 regular rate and rhythm, no murmur. equal radial pulses.
Lungs: no acute respiratory distress. clear bilaterally
Abdomen: Soft nontender no guarding or
Neuro: alert and oriented. no focal neurological deficits
Skin: no rash
Psychiatric: well kept. interactive and cooperative
Extremities: no edema
Course
Orders/Labs/Results
Orders:
Orders
01/25/24 15:00
Electrocardiogram (*1) Urgent
Reason for Study: Abdominal Pain
EKG- Treatment ONCE
01/25/24 15:35
Complete Blood Count/With Diff Urgent
Comprehensive Metabolic Panel Urgent
Lipase Urgent
Comment: ADD ON
Troponin I Urgent
01/25/24 16:09
Add On- LAB Urgent
Tests Added?: lipase
US Abdomen Complete/Upper Urgent
Comment:
Reason For Exam: pain
01/25/24 16:10
Urinalysis Reflex To Culture Urgent
Abnormal Lab Results
01/25/24
15:35
MCHC 31.7 L g/dL
(33.0-37.0)
RDW 14.7 H %
(11.5-14.5)
MPV 10.9 H fL
(7.4-10.4)
Absolute Monos (auto) 0.7 H 10^3/uL
(0.1-0.6)
Glucose 120 H mg/dl
(70-99)
01/25/24 15:35
01/25/24 15:35
Vital Signs
Initial and Last Documented VS:
Initial Vital Signs
Temp Pulse Resp BP Pulse Ox
98.8 F 77 16 187/94 96
01/25/24 14:55 01/25/24 14:55 01/25/24 14:55 01/25/24 14:55 01/25/24 14:55
Last Documented Vital Signs
Temp Pulse Resp BP Pulse Ox
98.8 F 77 16 187/94 96
01/25/24 14:55 01/25/24 14:55 01/25/24 14:55 01/25/24 14:55 01/25/24 14:55
MDM/Problems Addressed
Differential Diagnosis Includes:
Nonspecific abdominal pain pancreatitis biliary colic passed renal stone, doubt ACS has been revascularized,
MDM/Problems Addressed:
Abdominal pain
Chronic conditions affecting care: CAD
Acute Exacerbation and/or Progression of Chronic Illness: CAD
*Radiology
Radiology exam reviewed: radiology read reviewed
*Pulse Oximetry
Patient hypoxic: no
*EKG
Interpreted by ED Provider?: Yes
Interpretation: abnormal
Comparison EKG: no changes
Rate: normal
Rhythm: sinus
Ischemia: non-specific ST changes
*Tower Climber Interpretation
Rate: normal
Interpretation: normal
Rhythm: sinus
*Critical Care Note
Total Time (30-74mins, 75-104mins- exclusive of procedures): Not Applicable
Data Reviewed
Review of Other/Old Records Reveals: Labs
Source: patient and records
Update Note
Update Note:
6:15 PM update troponin noted undetectable, ultrasound noted patient without symptoms here, resting comfortably
ED Attending Note
-
Portions of this chart may have been created with voice recognition software.� Occasional wrong word or��sound alike� substitutions may have occurred due to the inherent limitations of voice recognition software.
Discharge Plan
Departure
Patient Disposition: Home (Routine Discharge)
Date of Disposition: 01/25/24
Time of Disposition: 18:13
Patient with high blood pressure during this ER visit?: No
Condition: Good
Discharge Problem:
Abdominal pain
Instructions: Abdominal Pain
Prescriptions:
No Action
atorvastatin 80 mg Tablet
80 mg PO HS
amiodarone [Pacerone] 200 mg Tablet
200 mg PO BID Qty: 0 1RF
metformin 500 mg Tablet
500 mg PO BID@0800,1700 Qty: 0 0RF
lisinopril 10 mg Tablet
15 mg PO HS
Patient Comments:
12/10/2023, dose changed yesterday (12/09/2023) from 10 mg to 15 mg daily per [facility] records and pt.
aspirin 81 mg Tablet,Chewable
81 mg PO HS
metoprolol succinate [Toprol XL] 50 mg tablet extended release 24 hr
50 mg PO HS
pantoprazole 40 mg tablet,delayed release (DR/EC)
40 mg PO HS
Jardiance 10 mg tablet
10 mg PO HS
cefdinir 300 mg capsule
300 mg PO BID Qty: 14 0RF
Eliquis 5 mg Tablet
5 mg PO BID Qty: 60 0RF
white petrolatum [Hydrophor] 42 % Ointment
1 applic topical DAILY Qty: 454 0RF
Referrals:
Monique Daly DO [Family Provider] - Next open appointment
Activity Restrictions/Additional Instructions:
Monitor your symptoms at home if recurrent or worsening abdominal pain return to the ER for evaluation
Interventions
Interventions:
*Risk Screen - Suicide Last Done: 01/25/24 18:04
*General Assessment Last Done: 01/25/24 18:04
*Neglect/Abuse Screening Last Done: 01/25/24 18:04
*ED COVID-19 Vaccine History Last Done: 01/25/24 14:55
[id number] Assessment Last Done: 01/25/24 18:04
Discharge Date and Time
Print Language: FRENCH
[2024-01-25 16:52] LABS: Lipase 169 U/L (23-300)
== END 2024-01-25 18:39 | disposition home or self-care (01) ==
LOC: EMR 14:54
PROVIDERS: EMERGENCY PHYSICIAN Emergency Medicine; FAMILY PHYSICIAN Student in an Organized Health Care Education/Training Program
DX: R10.10 Upper abdominal pain, unspecified (principal); I25.10 Atherosclerotic heart disease of native coronary artery without angina pectoris; E78.00 Pure hypercholesterolemia, unspecified; E11.9 Type 2 diabetes mellitus without complications; I10 Essential (primary) hypertension; I69.351 Hemiplegia and hemiparesis following cerebral infarction affecting right dominant side; I35.0 Nonrheumatic aortic (valve) stenosis; Z79.01 Long term (current) use of anticoagulants; Z95.1 Presence of aortocoronary bypass graft; Z95.2 Presence of prosthetic heart valve; Z85.828 Personal history of other malignant neoplasm of skin; Z87.891 Personal history of nicotine dependence; Z91.030 Bee allergy status
CPT/HCPCS: 99284; 76700; 80053; 83690; 84484; 85025; 93005

== ENCOUNTER → 2024-02-01 10:47 | Outpatient (REF) | payer MEDICARE, SELFPAY ==
[2024-02-01 20:27] LABS: Hepatitis B Surface Antigen Negative (Negative)
[2024-02-01 20:45] LABS: Hepatitis B Core Ab, Total Negative (Negative); Hepatitis B Surface Antibody Positive; Hepatitis C Antibody Negative (Negative)
== END ==
LOC: CLAB 10:47
PROVIDERS: ATTENDING PHYSICIAN Student in an Organized Health Care Education/Training Program
DX: K76.0 Fatty (change of) liver, not elsewhere classified (principal)
CPT/HCPCS: 36415; 86704; 86706; 86803; 87340

== ENCOUNTER 2024-02-05 15:42 | Outpatient (RCR) | payer MEDICARE, SELFPAY ==
[2024-01-26 15:05] LABS: Glucose - Point of Care 97 mg/dl (70-99)
[2024-01-26 15:50] LABS: Glucose - Point of Care 91 mg/dl (70-99)
[2024-01-29 14:48] LABS: Glucose - Point of Care 102 mg/dl (70-99)
[2024-01-29 15:27] LABS: Glucose - Point of Care 92 mg/dl (70-99)
[2024-02-01 14:56] LABS: Glucose - Point of Care 163 mg/dl (70-99)
[2024-02-01 15:42] LABS: Glucose - Point of Care 141 mg/dl (70-99)
[2024-02-03 14:47] LABS: Glucose - Point of Care 95 mg/dl (70-99)
[2024-02-03 15:30] LABS: Glucose - Point of Care 102 mg/dl (70-99)
[2024-02-05 14:53] LABS: Glucose - Point of Care 141 mg/dl (70-99)
[2024-02-05 15:43] LABS: Glucose - Point of Care 101 mg/dl (70-99)
== END 2024-02-05 23:59 | disposition home or self-care (01) ==
LOC: CRHB 15:42
PROVIDERS: ATTENDING PHYSICIAN Internal Medicine Cardiovascular Disease
DX: I21.4 Non-ST elevation (NSTEMI) myocardial infarction (principal); Z95.5 Presence of coronary angioplasty implant and graft
CPT/HCPCS: 82962; G0422; G0423

== ENCOUNTER 2024-03-09 15:04 | Outpatient (RCR) | payer MEDICARE, SELFPAY ==
[2024-02-08 14:54] LABS: Glucose - Point of Care 114 mg/dl (70-99)
[2024-02-08 15:43] LABS: Glucose - Point of Care 91 mg/dl (70-99)
[2024-02-10 15:16] LABS: Glucose - Point of Care 102 mg/dl (70-99)
[2024-02-10 16:02] LABS: Glucose - Point of Care 89 mg/dl (70-99)
== END 2024-03-09 23:59 | disposition home or self-care (01) ==
LOC: CRHB 15:04
PROVIDERS: ATTENDING PHYSICIAN Internal Medicine Cardiovascular Disease
DX: Z95.1 Presence of aortocoronary bypass graft (principal); I25.2 Old myocardial infarction
CPT/HCPCS: 82962; G0422; G0423

== ENCOUNTER 2024-03-23 15:05 | Outpatient (RCR) | payer MEDICARE, SELFPAY | END 2024-03-23 23:59 | disposition home or self-care (01) | LOC: CRHB 15:05 | PROVIDERS: ATTENDING PHYSICIAN Internal Medicine Cardiovascular Disease | DX: I25.10 Atherosclerotic heart disease of native coronary artery without angina pectoris (principal); I25.2 Old myocardial infarction; Z95.5 Presence of coronary angioplasty implant and graft | CPT/HCPCS: G0422; G0423 ==

== ENCOUNTER 2024-04-08 00:14 | Emergency (ER) | payer MEDICARE, SELFPAY ==
[2024-04-08] VITALS (9 sets, daily range): BP systolic 139–171; BP diastolic 62–123; BMI 24.6
[2024-04-08 00:52] LABS: % Basophils 0.2 % (0-2); % Eosinophils 0.3 % (0-6); % Monocytes 4.7 % (1.7-9.3); % Neutrophils 81.8 % (42.2-75.2); Absolute Immature Granulocytes 0.2 10^3/uL (0-0.05); Absolute Lymphocytes 1.2 10^3/uL (1.2-3.4); Absolute Monocytes 0.5 10^3/uL (0.1-0.6); Hemoglobin 15.6 g/dL (13.0-18.0); Mean Corp Hgb Conc. 33.2 g/dL (33.0-37.0); Mean Corpuscular Hgb 28.9 pg (27.0-31.0); Mean Corpuscular Volume 87.2 fL (80.0-94.0); Mean Platelet Volume 11.7 fL (7.4-10.4); Nucleated Red Blood Cells % 0 % (-); Platelet Count 141 10^3/uL (130-400); Red Blood Cell Count 5.39 10^6/uL (4.70-6.10)
[2024-04-08 01:03] LABS: ALT (SGPT) 29 U/L (0-50); AST (SGOT) 29 U/L (17-59); Albumin 4.9 g/dl (3.5-5.0); Alkaline Phosphatase 75 U/L (38-126); Blood Urea Nitrogen 17 mg/dl (9-20); Calcium 10.2 mg/dl (8.4-10.2); Carbon Dioxide 24 mmol/L (22-30); Chloride 101 mmol/L (98-107); Estimated Creatinine Clearance 101 ml/min; Glucose 163 mg/dl (70-99); Lipase 204 U/L (23-300); Potassium 4.8 mmol/L (3.5-5.1); Sodium 141 mmol/L (135-145); Total Bilirubin 1.2 mg/dl (0.2-1.3); Total Protein 7.5 g/dl (6.3-8.2); eGFR > 60.00
[2024-04-08] MEDS: NSS 1000 IV (01:09)
[2024-04-08 01:14] LABS: Troponin I < 0.012 ng/ml
--- NOTE | 2024-04-08 01:37 | ED.GENMED ---
History of Present Illness
General
Chief Complaint: Abdominal Pain
Source: patient and family
Exam Limitations: none
Time Seen by Provider: 04/08/24 00:15
Nursing documentation reviewed up to this point in time: agreed with
History of Present Illness
History of Present Illness:
This a pleasant 69-year-old male who presents with epigastric pain that has been present since 9 AM this morning. Patient states that he took ibuprofen without relief. He did have some nausea this evening without vomiting. He came into the
emergency because he was having difficulty falling asleep. Denies fever or chills. Reports no chest pain or shortness of breath. Patient has past medical history significant for coronary artery disease status post bypass surgery. He had valvular
repair.
Past History
Past History
ED Past Medical History: CAD, HTN, Hypercholesterolemia, NIDDM and Valvular disease
ED Past Surgical History: Cardiac (CABG/aortic valve replacement November 25, 2023)
Social History
Tobacco: Non-smoker
Alcohol: None
Drug: None
Personal:
Living: alone
Employment: Retired
Family History
Family History: Other (Noncontributory)
Review of Systems
Review of Systems
Allergies reviewed?: Yes
All Other Systems: ROS reviewed and negative except as documented in HPI and ROS
Constitutional: Reports no symptoms
EENT: Reports no symptoms
Respiratory: Reports no symptoms
Cardiac: Denies chest pain or palpitations
ABD/GI: Reports abdominal pain and nausea; Denies vomiting
: Reports no symptoms
Musculoskeletal: Reports no symptoms
Skin: Reports no symptoms
Neurological: Reports no symptoms
Endocrine: Reports no symptoms
Hematologic/Lymphatic: Reports no symptoms
Psychiatric: Reports anxiety
Phy Exam
General Physical Exam
General Presentation: well appearing and no apparent distress
General Skin: warm and dry
General Habitus: normal
General Mental: alert
General Hydration: appears well hydrated
ENT Exam
ENT Exam: EOMI, pharynx normal, neck supple and normocephalic
Eye Exam
Eye Exam: PERRL, cornea clear and conjunctiva normal
Cardiovascular Exam
Cardiovascular Exam: regular rate/rhythm, no edema, no murmur and normal peripheral pulses
Pulmonary Exam
Pulmonary Exam: lungs clear, no respiratory distress, no rales, no crackles, no rhonchi, no stridor, no wheezing and no cough
Gastrointestinal Exam
Gastrointestinal Exam: normal bowel sounds, non tender, soft, no organomegaly, no pulsatile mass and non distended
Neurological Exam
Neurological Exam: alert, oriented x3, no motor deficits and speech normal
Musculoskeletal Exam
Musculoskeletal Exam: full ROM and no edema
Skin Exam
Skin Exam: normal color, warm/dry, no rash, no petechia and other (Single suture peeking through the skin in the epigastrium)
Psychiatric Exam
Psychiatric Exam: normal mood/affect
Course
Orders/Labs/Results
Orders:
Orders
04/08/24 00:16
Electrocardiogram (*1) Urgent
Reason for Study: Abdominal Pain
EKG- Treatment ONCE
IV Insert/Care/Rem.- Treatment PRN
Urinalysis Reflex To Culture Urgent
Date Specimen was Collected: 04/08/24
Time Specimen was Collected: 00:16
04/08/24 00:27
Complete Blood Count/With Diff Urgent
Comprehensive Metabolic Panel Urgent
Lipase Urgent
04/08/24 00:32
Troponin I Urgent
Comment: .
04/08/24 01:04
0.9% Sodium Chloride 1000 ml [Nss] 1,000 ml IV BOLUS
04/08/24 01:47
CT Abd/pelvis W Iv Cont Urgent
Comment:
Reason For Exam: epigastric pain
Abnormal Lab Results
04/08/24
00:27
WBC 11.0 H 10^3/uL
(4.8-10.8)
RDW 15.0 H %
(11.5-14.5)
MPV 11.7 H fL
(7.4-10.4)
Abs Immat Gran (auto) 0.2 H 10^3/uL
(0-0.05)
Absolute Neuts (auto) 9.0 H 10^3/uL
(1.4-6.5)
Immature Gran % 2.0 H %
(0-0.5)
Neutrophils % 81.8 H %
(42.2-75.2)
Lymphocytes % 11.0 L %
(20.5-51.1)
Glucose 163 H mg/dl
(70-99)
04/08/24 00:27
04/08/24 00:27
Vital Signs
Initial and Last Documented VS:
Initial Vital Signs
Temp Pulse Resp Pulse Ox
97.7 F 63 20 97
04/08/24 00:16 04/08/24 00:16 04/08/24 00:16 04/08/24 00:16
Last Documented Vital Signs
Temp Pulse Resp BP Pulse Ox
97.7 F 60 20 139/69 95
04/08/24 00:16 04/08/24 02:36 04/08/24 02:36 04/08/24 02:36 04/08/24 02:36
*Critical Care Note
Total Time (30-74mins, 75-104mins- exclusive of procedures): Not Applicable
Update Note
Update Note:
CT ABDOMEN AND PELVIS with IV contrast
Comparison: None.
IMPRESSION:
Dilated loops of proximal to mid small bowel measuring up to 3.1 cm. No discrete transition point however the distal small bowel is relatively decompressed. Findings concerning for a small bowel obstruction, however the differential includes an
enteritis or ileus.
Mild mesenteric edema and trace free fluid.
Right inguinal hernia containing fluid.
Moderate to severe atherosclerosis in the abdominal aorta. No AAA.
Coronary artery disease with prior bypass.
04/08/2024 0315 AM: Discussed CAT scan findings with patient. He states that he is feeling much better and wishes to be discharged home. He does understand that there is a possibility of an early bowel obstruction. He states that he will return to
the emergency department with any changing or worsening of symptoms.
ED Attending Note
-
Portions of this chart may have been created with voice recognition software.� Occasional wrong word or��sound alike� substitutions may have occurred due to the inherent limitations of voice recognition software.
Discharge Plan
Departure
Patient Disposition: Home (Routine Discharge)
Date of Disposition: 04/08/24
Time of Disposition: 03:21
Patient with high blood pressure during this ER visit?: Yes
Discharge Problem:
Abdominal pain
Instructions: Abdominal Pain, BLOOD PRESSURE
Prescriptions:
No Action
atorvastatin 80 mg Tablet
80 mg PO HS
amiodarone [Pacerone] 200 mg Tablet
200 mg PO BID Qty: 0 1RF
metformin 500 mg Tablet
500 mg PO BID@0800,1700 Qty: 0 0RF
lisinopril 10 mg Tablet
15 mg PO HS
Patient Comments:
12/10/2023, dose changed yesterday (12/09/2023) from 10 mg to 15 mg daily per [facility] records and pt.
aspirin 81 mg Tablet,Chewable
81 mg PO HS
metoprolol succinate [Toprol XL] 50 mg tablet extended release 24 hr
25 mg PO HS
Jardiance 10 mg tablet
10 mg PO HS
cefdinir 300 mg capsule
300 mg PO BID Qty: 14 0RF
Eliquis 5 mg Tablet
5 mg PO BID Qty: 60 0RF
Referrals:
Araseli,Albert J., DO [Family Provider] -
Activity Restrictions/Additional Instructions:
It was a pleasure meeting you and taking part in your care. We hope for your continued healing and wellness.
Please read discharge instructions in their entirety. However, they are for general education and may not describe your exact diagnosis at discharge. Information on your ER visit and medical conditions were discussed with you along with appropriate
follow up information...
If indicated, please take your medications as instructed and indicated on discharge paperwork.
Please schedule a follow up appointment as directed. Call to schedule an appointment
Please return to the emergency department with ANY change in, persisting, or worsening of symptoms. If any of your symptoms do not improve, or persist, or become more severe within 6-12 hours, please return to the emergency department for further
care.
Please return to the emergency department if you develop a headache, neck pain/stiffness, fever greater than 100.4F, chest pain, shortness of breath, persistent nausea, vomiting, slurred speech, difficulty walking, numbness/tingling, weakness, signs
of infection or any other symptoms that are worrisome to you.
If you have any questions or concerns please do not hesitate to call the Hospital at or E-mail me directly at [email or web address]
Interventions
Interventions:
*Risk Screen - Suicide Last Done: 04/08/24 00:16
*General Assessment Last Done: 04/08/24 00:16
*Neglect/Abuse Screening Last Done: 04/08/24 00:16
ED- Fall Risk Assessment Last Done: 04/08/24 00:16
*ED COVID-19 Vaccine History Last Done: 04/08/24 00:16
WX-Mpkcbk-Pmshgiozqm Assessment Last Done: 04/08/24 00:38
Discharge Date and Time
Print Language: ZIMBABWEAN
== END 2024-04-08 04:04 | disposition home or self-care (01) ==
LOC: EMR 00:14
PROVIDERS: EMERGENCY PHYSICIAN Student in an Organized Health Care Education/Training Program; FAMILY PHYSICIAN Family Medicine
DX: R10.13 Epigastric pain (principal); I10 Essential (primary) hypertension
CPT/HCPCS: 99285; 96360; 96361; 74177; 80053; 83690; 84484; 85025; 93005; Q9967

== ENCOUNTER → 2024-04-14 14:04 | Outpatient (REF) | payer MEDICARE, SELFPAY | LOC: RAD 14:04 | PROVIDERS: ATTENDING PHYSICIAN Family Medicine | DX: R10.13 Epigastric pain (principal) | CPT/HCPCS: 74018 ==

== ENCOUNTER 2024-04-19 13:40 | Outpatient (RCR) | payer MEDICARE, SELFPAY | END 2024-04-21 12:05 | disposition home or self-care (01) | LOC: CRHB 13:40 | PROVIDERS: ATTENDING PHYSICIAN Internal Medicine Cardiovascular Disease; FAMILY PHYSICIAN Family Medicine | DX: I25.10 Atherosclerotic heart disease of native coronary artery without angina pectoris (principal); Z95.5 Presence of coronary angioplasty implant and graft; I25.2 Old myocardial infarction | CPT/HCPCS: G0422 ==

== ENCOUNTER 2025-02-24 18:17 | Inpatient (IN) | payer MEDICARE, SELFPAY ==
[2025-02-23 16:03] VITALS: BP 127/97
[2025-02-23 16:04] VITALS: BP 127/97
[2025-02-23 16:14] VITALS: BMI 25.9
--- NOTE | 2025-02-23 16:15 | ED.CVA ---
History of Present Illness
General
Chief Complaint: CVA/TIA Symptoms
Source: patient and ambulance crew
Time Seen by Provider: 02/23/25 16:05
Onset of Stroke Symptoms
Onset of symptoms known: No
Time pt last seen normal is known: Yes
Date last time pt seen normal: 02/22/25
Time last time pt seen normal: 22:00
History of Present Illness
History of Present Illness:
69-year-old male presents to the emergency room for evaluation due to left facial droop, slurred speech and subjective right-sided weakness. Patient feels that his right foot seems to be weak. Patient states he woke up this morning feeling unloved
well and weak. Some difficulty getting out of bed. As the day progressed he felt like he right-sided weakness worsened. He noted that he had slurred speech around 11 AM. He had a trip and fall at 3 PM prompting his decision to come to the
emergency room. No headache. Patient has a distant history of a CVA. He is no longer taking Eliquis which was on his medication list. A neighbor gave him an aspirin to take today.
Past History
Past History
ED Past Medical History: CAD, HTN, Hypercholesterolemia, NIDDM and Valvular disease
ED Past Surgical History: Cardiac (CABG/aortic valve replacement November 25, 2023)
Social History
Tobacco: Non-smoker
Alcohol: None
Drug: None
Personal:
Living: alone
Employment: Retired
Family History
Family History: Other (Noncontributory)
Phy Exam
Physical Exam
Physical Exam:
General: Awake, Alert, Oriented X3. No acute distress.
Vitals: unremarkable
Head: Atraumatic
Eyes: Pupils equal, EOMI
Throat: Airway intact, no exudates
Neck: Trachea midline
Lungs: Clear and equal b/l
Heart: Regular rate, no murmurs
Abd: Soft, Nontender, No pulsatile mass
Rectal:
Neuro: Moderate left facial droop, moderate slurring of his speech, muscle strength 5 out of 5 bilaterally, [id number] intact,
Skin: Warm, dry, no rash
Extremities: pulses equal b/l, no edema
Scores
NIH Stroke Score
Level of Consciousness: 0 - Alert
LOC Questions: 0-Answers both correctly
LOC Commands: 0-Performs both correctly
Best Horizontal Gaze: 0-Normal
Visual Hall: 0=Normal, no visual loss
Facial Palsy: 2=Partial paralysis
Motor - Right Arm: 0=No drift 10 seconds
Motor - Left Arm: 0=No drift 10 seconds
Motor - Right Le-No drift 5 seconds
Motor - Left Le-No drift 5 seconds
Limb Ataxia: 0-Absent
Sensation: 0-Normal
Best Language: 0-No aphasia
Dysarthria: 1-Mild slurring
Extinction and Inattention: 0-No abnormality
NIH Total Score:: 3
Course
Orders/Labs/Results
Orders:
Orders
02/23/25 16:23
Electrocardiogram (*1) Stat
Reason for Study: Other
Other Reason for Exam: neuro symptoms
CT Head & Neck Angio W/wo IV Urgent
Comment:
Reason For Exam: left facial droop, slurred speech
Bedside Glucose- Treatment ONCE
Cardiac Monitoring- Treatment ONCE
EKG- Treatment ONCE
02/23/25 16:28
NEUROLOGY CONSULT Urgent
Consulting Provider: Guanakito Watson
Was physician already notified: Yes
Reason for consult: cva
02/23/25 16:51
Basic Metabolic Panel Urgent
Complete Blood Count/With Diff Urgent
02/23/25 18:24
Aspirin 300 mg RECTAL NOW STA
02/23/25 19:23
Admit/Transfer Patient As Directed
Co-Sign Provider:
Level of Care: Observation services
Assign to:: Telemetry
Physician / Group: Gaston
Diagnosis: CVA
Reason for Telemetry: CVA/TIA
Date to Stop Telemetry: 02/26/25
Time to Stop Telemetry: 11:00
Code Status As Directed
Resuscitation Status: Full Code
PRN Pain Medication Management As Directed
May give lesser potent ordered pain med per pt: Yes
preference::
Protocol:: Medication orders for pain may be administered in a
manner that supports deferring to patient preference
when the pt is:
- Requesting an ordered lesser potent pain medication.
Least to most potent pain medications are defined
as: acetaminophen < NSAID < tramadol < opioids
(morphine, oxycodone, hydromorphone).
- Requesting a lesser dose of the same medication IF
ORDERED.
- Requesting a less intrusive route of administration
if both routes are prescribed by the provider (PO <
IV).
02/23/25 21:18
Acetaminophen [Tylenol/Feverall] 650 mg RECTAL Q4HPRN PRN
Acetaminophen [Tylenol] 650 mg PO Q4HPRN PRN
Lactated Ringers [Lr] 1,000 ml IV 75 mls/hr
02/23/25 21:18
Echo 2D MMode Color/Doppler Routine
Reason for Study: stroke/TIA
Case Management Consult ONCE
Case Management Consult: Discharge Planning
Comment: stroke/tia
DIETARY IP CONSULT Routine
Reason for Consult: stroke/TIA
[employer] Urgent
MR Brain Without Contrast Routine
Comment:
Reason For Exam: stroke/TIA
Recent pill cam endoscopy?: No
Activity As Directed
Activity Level: With Assistance
Bedside Glucose Monitoring As Directed
Frequency: Q6H
NIH Stroke Scale As Directed
Directions: Per protocol
Comment: every shift and with any change in condition or mental status
Neurological Checks As Directed
Frequency: q4h
Additional Instructions:: q4h x 24h upon admission to the floor, then qshift & with any change in condition
and mental status
Patient Education As Directed
Type: Stroke education packet
Comment: provide to patient and family
Pneumatic Compression Sleeves As Directed
Type: Knee high
Swallow Screening CVA/TIA ONLY As Directed
Comment: NPO until swallowing screening completed
If patient FAILS swallow screening:: NPO, Speech Therapy consult, Aspiration Precautions
If patient PASSES swallow screening, diet:: 1999 CHO Diabetic
Above diet order entered?: Yes- passed screening
Vital Signs As Directed
Frequency: Per unit guidelines
Ot Eval And Treat Routine
Pt Eval And Treat Routine
Activity Level: With Assistance
Speech Therapy Eval & Treat Routine
DX Deep Vein Thrombosis Video Routine
02/23/25 22:00
Aspirin Chewable [Low Strength Aspirin] 81 mg PO HS
Lisinopril [Zestril] 15 mg PO HS
02/24/25 00:00
Insulin Aspart Corrective Low [Novolog Flexpen-Low Resistance] See Protocol SC Q6H
02/24/25 06:00
Basic Metabolic Panel IN AM
Cardiovascular Evaluation IN AM
Glycohemoglobin (HgbA1c) IN AM
Magnesium IN AM
02/24/25 08:00
Clopidogrel Bisulfate [Plavix] 75 mg PO DAILY
02/24/25 18:00
Atorvastatin [Lipitor] 80 mg PO QPM
Enoxaparin Sodium [Lovenox] 40 mg SC QPM
02/26/25 11:00
DC Protocol for Telemetry ONCE
Abnormal Lab Results
02/23/25
16:51
MPV 11.8 H fL
(7.4-10.4)
Absolute Monos (auto) 0.7 H 10^3/uL
(0.1-0.6)
Glucose 123 H mg/dl
(70-99)
02/23/25 16:51
02/23/25 16:51
Vital Signs
Initial and Last Documented VS:
Initial Vital Signs
BP
127/97
02/23/25 16:03
Last Documented Vital Signs
Temp Pulse Resp BP Pulse Ox
98.2 F 78 20 186/103 94
02/23/25 22:05 02/23/25 22:10 02/23/25 22:05 02/23/25 22:10 02/23/25 22:05
MDM/Problems Addressed
Differential Diagnosis Includes:
CVA, intracranial mass, electrolyte abnormality
MDM/Problems Addressed:
Patient presents with what appears to be a subacute ischemic event. Symptoms began as likely sometime during the night. He had symptoms when he awoke this morning. CT and CTA are unremarkable. Patient is not a candidate for TNK as he presented
outside the window. He is not a candidate for IAT as there is no large vessel occlusion. Patient will be hospitalized for further neurologic evaluation
Chronic conditions affecting care: HTN
*Radiology
Radiology exam reviewed: radiology read reviewed
*Pulse Oximetry
SaO2: 94
Oxygen Mode of Delivery: Room air
Patient hypoxic: no
*Critical Care Note
Total Time (30-74mins, 75-104mins- exclusive of procedures): 34 min
comment:
Critical care statement: A total of 34 minutes of critical care time was provided for this patient. This includes management of unstable vital signs, evaluation of the patient at bedside, reviewing the patient's pertinent medical records, discussion
with consultants, review of old EKGs and review of pertinent medical records. This time with separate from time utilized to perform the aforementioned documented procedures
ED Attending Note
-
Portions of this chart may have been created with voice recognition software.� Occasional wrong word or��sound alike� substitutions may have occurred due to the inherent limitations of voice recognition software.
Discharge Plan
Departure
Patient Disposition: Admit
Date of Disposition: 02/23/25
Time of Disposition: 19:37
Admit to: IMU
Presentation/result/management discussed w/ accepting MD/DO: Hospitalist
Condition: Fair
Discharge Problem:
Acute CVA (cerebrovascular accident)
Interventions
Interventions:
*Risk Screen - Suicide Last Done: 02/23/25 21:37
*General Assessment Last Done: 02/23/25 17:14
*Neglect/Abuse Screening Last Done: 02/23/25 16:11
*ED COVID-19 Vaccine History Last Done: 02/23/25 21:37
*Nursing Disposition Last Done: 02/23/25 21:44
ED- Pulmonary Assessment Last Done: 02/23/25 16:20
ED- Neurological Assessment Last Done: 02/23/25 16:10
ED Swallowing Screen Last Done: 02/23/25 16:19
Discharge Date and Time
Discharge Date/Time: 02/23/25 21:45
[2025-02-23 16:57] LABS: Hematocrit 47.0 % (39.0-52.0); Hemoglobin 16.0 g/dL (13.0-18.0); Mean Corp Hgb Conc. 34.0 g/dL (33.0-37.0); Mean Corpuscular Volume 88.8 fL (80.0-94.0); Nucleated Red Blood Cells % 0 % (-); Platelet Count 164 10^3/uL (130-400); Red Cell Dist. Width 12.3 % (11.5-14.5)
[2025-02-23 17:00] VITALS: BP 168/79
[2025-02-23 17:17] LABS: Blood Urea Nitrogen 14 mg/dl (9-20); Calcium 9.7 mg/dl (8.4-10.2); Carbon Dioxide 27 mmol/L (22-30); Chloride 104 mmol/L (98-107); Estimated Creatinine Clearance 116 ml/min; Glucose 123 mg/dl (70-99); Potassium 4.6 mmol/L (3.5-5.1); Sodium 137 mmol/L (135-145); eGFR > 60.00
[2025-02-23 17:59] LABS: Glucose - Point of Care 98 mg/dl (70-99)
[2025-02-23] MEDS: ASPIRIN 300 MG RECTAL (18:56)
[2025-02-23 19:00] VITALS: BP 171/94
--- NOTE | 2025-02-23 19:12 | HPS.HSE ---
Family Physician
-
Family Physician: Ryan Sen,
Chief Complaint
-
Stroke-like symptoms
History of Present Illness
This is a 69-year-old with past medical history significant for CAD, s/p AVR, diet controlled diabetes, hypertension, carotid artery disease, hyperlipidemia, prior stroke who presents to the emergency department after waking up with facial droop,
slurred speech and right-sided weakness.
He did have a trip and fall at 3 PM prompting his decision to come to the emergency department. He said when he arose this morning he has subjective right foot weakness. He has some difficulty getting out of bed. The weakness appeared to
progressed throughout the day. By 11 AM he started noticing slurred speech. Around 4 PM he stumbled and fell. He called a friend will get him up and brought him to the emergency department.
He reports he takes a baby aspirin daily. He had a prior unclear diagnosis of atrial fibrillation. Patient said he was never diagnosed by telemetry or EKG but by subjective sense according to his notes. He says he was only on Eliquis for about 1
month and it was discontinued. He is not currently on any statin. He denies any reactions to statins.
On arrival in the emergency department patient was afebrile, blood pressure was 127/90 with a pulse of 79 and was satting 98% on room air.
ECG showed a sinus rhythm at a rate of 74.
CBC was completely unremarkable, electrolytes BUN/creatinine were all within normal range. Glucose was 123.
CT Brain: No acute intracranial process. Specifically, no evidence of acute hemorrhage. There is mild atrophy with sequelae of severe chronic small vessel ischemic disease.
CTA Head: There is atherosclerotic calcifications of the bilateral cavernous/paraclinoid ICAs with resultant mild stenosis, more pronounced on the left.. No aneurysm.
CTA Neck: Mixed density atherosclerotic plaque of the right carotid bifurcation/proximal ICA with resultant 75% stenosis by NASA criteria. Codominant vertebral arteries with atherosclerotic calcifications of the bilateral V4 segments of the
vertebral arteries with resultant focal moderate stenosis of the right vertebral artery.
Medical History
Past Medical History
Past Medical History: Reports Arrhythmia (Atrial fibrillation), CAD (Status post CABG), CVA, HTN, Hypercholesterolemia, NIDDM and Valvular Disease (Mitral regurgitation, nonrheumatic aortic stenosis s/p AVR)
Past Surgical History: Reports Cardiac (s/p aortic valve replacement/CABG 11/25/23)
Social History
Tobacco: Former Smoker
Alcohol: None
Drug: None
Personal: Single
Living: Alone
Employment: Retired
Family History
Family History: Not pertinent
Allergies / Home Medications
Allergies reflects when Allergies were last updated in [employer]
Home Medications with original date entered in [employer]
Allergy/Medication List:
Allergies
Allergy/AdvReac Type Severity Reaction Status Date / Time
bee venom protein (honey bee) Allergy Anaphylaxis Verified 02/23/25 16:16
Home Medications
aspirin 81 mg chewable tablet 81 mg PO HS Blood Clot Prevention/Tx 12/10/23
lisinopril 10 mg tablet 15 mg PO HS Blood Pressure 12/10/23
Review of Systems
-
Constitutional: Reports No Symptoms
EENT: Reports No Symptoms
Respiratory: Reports No Symptoms
Cardiac: Reports No Symptoms
Abdomen/GI: Reports No Symptoms
: Reports No Symptoms
Musculoskeletal: Reports No Symptoms
Skin: Reports No Symptoms
Neurological: Reports No Symptoms
Endocrine: Reports No Symptoms
Hematologic/Lymphatic: Reports No Symptoms
Psych: Reports No Symptoms
Physical Exam
Vital Signs
Vital Signs
Pulse Resp BP Pulse Ox
79 14 127/97 95
02/23/25 16:45 02/23/25 16:30 02/23/25 16:04 02/23/25 16:45
Physical Exam
General: No Apparent Distress and Conversant
HEENT: PERRLA
Respiratory: Clear; No Wheezes
Cardiac: S1/S2 and Regular Rhythm
GI: Soft and Non Tender
Musculoskeletal: Other (left inner medial leg with open wound/bleeding at site of vein graft; distal meyer with erythema and warmth. left upper forearm with area of induration, not signifcantly erythamtous, non-pulsating)
Skin: Warm and Dry; No Rash
Neuro: AO x 3 and Facial Droop (NIHSS: Facial Palsy: 2=Partial paralysis Motor - Right Arm: 0=No drift 10 seconds Motor - Left Arm: 0=No drift 10 seconds Motor - Right Le-No drift 5 seconds Motor - Left Le-No drift 5 seconds Limb Ataxia:
0-Absent Sensation: 0-Normal Best Language: 0-No aphasia Dysarthria: 1-Mild slurring)
Psych: Calm
Laboratory Results
-
02/23/25 16:51
02/23/25 16:51
Data Reviewed
-
CT Scan: Report Reviewed by me
Medical Tests (Nuc Med, Echo, EKG etc): Image Personally Visualized and interpreted
Lab Data: Labs Reviewed by me
Old Records: Reviewed
Impression/Plan
-
IMPRESSION:
69-year-old with acute to subacute onset of facial droop, right-sided weakness and slurred speech starting at around 10 PM last night. Currently NIHSS equals 3 with left facial droop and slurred speech. CT head, no acute interval changes. CT angio
appears to show chronic right carotid artery atherosclerotic disease with 75% stenosis. No dissection, aneurysm, bleed, critical stenosis.
PLAN:
CVA -history of proximal atrial fibrillation not currently on anticoagulation presenting with subacute/acute stroke, minimal to moderate symptoms with NIHSS of close 3
- admit to telemetry
- start asa and plavix
- start statin
- given duration of symptoms, allow normal bp control
- check lipid panel, a1c
- neurochecks q 6
- MRI in am
- monitor on tele, no definitive diagnosis of AFIB in the past, will hold off on AC unless found on tele. DAPT for now
- PTOT
- swallow eval, if passed, then start diabetic diet.
- neuro consult
DVT PPX - lovenox sq for now
Code status - Full Code
[2025-02-23 22:05] VITALS: BP 161/78
[2025-02-23] MEDS: LR 1000 IV (22:09)
[2025-02-23] MEDS: ZESTRIL 15 MG PO (22:10)
[2025-02-23] MEDS: LOW STRENGTH ASPIRIN 81 MG PO (22:13)
[2025-02-23 22:29] LABS: Glucose - Point of Care 114 mg/dl (70-99)
[2025-02-23 22:39] VITALS: BMI 26.0
[2025-02-24] VITALS (8 sets, daily range): BP systolic 138–180; BP diastolic 61–99; PULSE 82; O2SAT 96
[2025-02-24 00:09] LABS: Glucose - Point of Care 116 mg/dl (70-99)
[2025-02-24 05:40] LABS: Glucose - Point of Care 131 mg/dl (70-99)
[2025-02-24 06:27] LABS: Blood Urea Nitrogen 12 mg/dl (9-20); Calcium 9.8 mg/dl (8.4-10.2); Carbon Dioxide 27 mmol/L (22-30); Chloride 108 mmol/L (98-107); Estimated Creatinine Clearance 116 ml/min; Glucose 133 mg/dl (70-99); HDL Cholesterol 48 mg/dl; LDL Cholesterol, Calculated 165 mg/dl; Magnesium 2.2 mg/dl (1.6-2.3); Potassium 4.2 mmol/L (3.5-5.1); Sodium 139 mmol/L (135-145); Very Low Density Lipoprotein 33 mg/dl (0-30); eGFR > 60.00
[2025-02-24 06:43] LABS: VerifyNow Aspirin 405 ARU
[2025-02-24 08:21] LABS: Glucose - Point of Care 126 mg/dl (70-99)
[2025-02-24] MEDS: NOVOLOG FLEXPEN-LOW RESISTANCE SC ×3 (08:52→17:06)
[2025-02-24] MEDS: PLAVIX 75 MG PO (09:32)
[2025-02-24 11:26] LABS: Glycohemoglobin (HgbA1c) 6.9 % (4.0-5.6)
--- NOTE | 2025-02-24 11:31 | CARDSERVLU ---
Echocardiogram with [facility]ason completed after protocol screening completed. Allergies verified.
Patent IV site: RAC (existing IV)
IV site flushed with 0.9% NaCl pre and post administration.
Diluted bolus method utilized to enhance visualization of ventricular ruelas.
Total volume given: 2.5 mL
Patient tolerated all procedures well without complications.
IV flushes easily with good blood return.
[2025-02-24 11:48] LABS: Glucose - Point of Care 112 mg/dl (70-99)
--- NOTE | 2025-02-24 12:24 | PTOTSP ---
Dysphagia Evaluation
Oral/pharyngeal swallow suspected to be grossly within functional limits though risk elevated given concern for acute CVA (with left lingual, labial, velar weakness) and history of prior CVA.
Recommend:
1. IDDSI 7 Regular, Thin Liquids
2. Medications as best tolerated
3. Strategies: upright to 90 degrees, small single sips/bites, slow rate
4. Speech/language/cognitive evaluation
[2025-02-24] MEDS: LR 1000 IV (12:27)
--- NOTE | 2025-02-24 13:34 | CM ---
Met with patient to obtain information for assessment. Patient stated that he lives alone in a two story home with two steps to enter. He described himself as independent with his ADls, personal care, dressing and bathing. 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 He was able to drive and was transporting to appointments and doing all of his own laundry. He relayed that he was avidly walking and cycling recently. He has a cane and a walker. He sometimes uses a cane. He does not
use his walker. He has not had VN. He has not been to a SNF.
Patient has a prescription plan and uses, [facility] in [place] for all of his medications.
Patient's PCP is, Ryan Sen.
Reviewed [facility] letter. It is signed and on chart.
Plan: Case management will continue to follow and assist with discharge planning. Will discuss options for after discharge once there are indications on behalf of medical staff.
--- NOTE | 2025-02-24 15:11 | W.PN.HOSP.TC ---
Today's Communication/Plan
-
see outlined plan below
Assessment / Plan
Assessment / Plan
Assessment:
Suspected acute CVA
- CT head: negative
- CTA head: Atherosclerotic calcifications of the bilateral cavernous/paraclinoid ICAs with resultant mild stenosis, more pronounced on the left.. No aneurysm.
- CTA neck: Mixed density atherosclerotic plaque of the right carotid bifurcation/proximal ICA with resultant 75% stenosis by NASA criteria. Codominant vertebral arteries with atherosclerotic calcifications of the bilateral V4 segments of the
vertebral arteries with resultant focal moderate stenosis of the right vertebral artery.
- await MRI
- continue ASA/Plavix/Statin
- LDL: 165
- A1c is 6.9%
- continue neuro-checks
- PT/OT - PMR evaluation for acute rehab
- Neuro following
- May need vascular eval pending MRI
- may need Cards eval pending MRI, prior records suggest A. Fib but patient states no objective evidence was ever found. Was prescribed Eliquis but he decided to stop taking it after 1 month.
Essential HTN
- continue FINN
DVT ppx: Lovenox
Code: Full
Anticipated Discharge: > 48 hours
Subjective/Interval History
-
Date of Service: February 24, 2025
reports weakness, also having slurred speech
reports being on Eliquis only 1 month
Objective Data
-
Labs:
Laboratory Results
02/24/25
05:49
Sodium 139
Potassium 4.2
Chloride 108 H
Carbon Dioxide 27
BUN 12
Creatinine 0.7
Glucose 133 H
Calcium 9.8
Vital Signs:
Vital Signs
Temp Pulse Resp BP Pulse Ox
97.9 F 80 18 180/99 96
02/24/25 11:00 02/24/25 11:00 02/24/25 11:00 02/24/25 11:00 02/24/25 11:00
I&O
02/23/25 02/24/25 02/25/25
06:59 06:59 06:59
Output Total 500 / 500
Balance -500 / -500
Physical Exam
-
General: No Apparent Distress
HEENT: Normocephalic and Atraumatic
Respiratory: Negative Wheezes
Cardiac: Regular Rhythm and S1/S2
Neuro: AO x 3 and Other (IHSS: Facial Palsy: 2=Partial paralysis Motor - Right Arm: 0=No drift 10 seconds Motor - Left Arm: 0=No drift 10 seconds Motor - Right Le-No drift 5 seconds Motor - Left Le-No drift 5 seconds Limb Ataxia: 0-Absent
Sensation: 0-Normal Best Language: 0-No aphasia Dysarthria: 1-Mild slurring)
Psych: Calm
Data Reviewed
-
Total Time Spent with Patient (in minutes): 45
Labs: Labs Reviewed by me
[2025-02-24 17:05] LABS: Glucose - Point of Care 126 mg/dl (70-99)
[2025-02-24] MEDS: LOVENOX 40 MG SC (18:19)
[2025-02-24] MEDS: LIPITOR 80 MG PO (18:19)
--- NOTE | 2025-02-24 20:22 | CON.NEURO ---
Neuro Assessment/Plan
Assessment
Brain MRI imgs reviewed with patient and family showing acute stroke to the right stearns radiata. additionally there are multiple chronic lacunar infarcts.
CTA imgs with patient and family i pointed out the right carotid with partially calcified plaque, measured by radiology as 75% stenosis
Believe the etiology of stroke to most likely be symptomatic carotid, and recommending vascular surgery consult for CEA, with benefits greatly outweighing the risks; I quoted him a stroke risk of ~17%/year for severe stenosis with medical
management; and a perioperative stroke risk ~6% with surgical management from [facility]
ASA 81, Plavix 75, and Lipitor 80 for now
Consultation
Order
Date of Consultation: 02/24/25
Requesting Provider: Choco Feldman
Reason for Consult: stroke
Subjective/Objective
Subjective Data
Date of Service: February 24, 2025
from h&p:
This is a 69-year-old with past medical history significant for CAD, s/p AVR, diet controlled diabetes, hypertension, carotid artery disease, hyperlipidemia, prior stroke who presents to the emergency department after waking up with facial droop,
slurred speech and right-sided weakness.
He did have a trip and fall at 3 PM prompting his decision to come to the emergency department. He said when he arose this morning he has subjective right foot weakness. He has some difficulty getting out of bed. The weakness appeared to
progressed throughout the day. By 11 AM he started noticing slurred speech. Around 4 PM he stumbled and fell. He called a friend will get him up and brought him to the emergency department.
He reports he takes a baby aspirin daily. He had a prior unclear diagnosis of atrial fibrillation. Patient said he was never diagnosed by telemetry or EKG but by subjective sense according to his notes. He says he was only on Eliquis for about 1
month and it was discontinued. He is not currently on any statin. He denies any reactions to statins.
today patient reports persisting weakness. Patient told me bilaterally worse on the right; family and exam showing left sided weakness.
Objective Data
Vital Signs
Temp Pulse Resp BP Pulse Ox
36.6 C 85 18 138/65 95
02/24/25 19:55 02/24/25 19:55 02/24/25 19:55 02/24/25 19:55 02/24/25 19:55
Lab Results
02/23/25 16:51
02/24/25 05:49
Sodium 139 mmol/L (135-145) 02/24/25 05:49
Potassium 4.2 mmol/L (3.5-5.1) 02/24/25 05:49
BUN 12 mg/dl (9-20) 02/24/25 05:49
Glucose 133 mg/dl (70-99) H 02/24/25 05:49
Calcium 9.8 mg/dl (8.4-10.2) 02/24/25 05:49
LDL Cholesterol, Calc 165 mg/dl 02/24/25 05:49
Patient Allergies
bee venom protein (honey bee) Allergy (Verified 02/23/25 16:16)
Anaphylaxis
Physical Exam
-
AAOx3, mildly dysarthric, language intact
VFF, EOMI, left NL flattening
LUE 5-/5, LLE hip flexors 4/5, remainder 5-/5; right side full strength
sensation intact to touch/temperature
Medications
-
Active Medications
Generic Name Dose Route Start Last Admin
Trade Name Freq PRN Reason Stop Dose Admin
Acetaminophen 650 mg 02/23/25 21:18
Acetaminophen 650 Mg Rectal Suppository RECTAL 03/23/25 21:17
Q4HPRN PRN
MAGDALENO, mild pain, or temp >100.4F
Acetaminophen 650 mg 02/23/25 21:18
Acetaminophen 325 Mg Tablet PO 03/23/25 21:17
Q4HPRN PRN
MAGDALENO, mild pain, or temp >100.4F
Aspirin 81 mg 02/23/25 22:00 02/23/25 22:13
Aspirin 81 Mg Chewable Tablet PO 03/23/25 21:59 81 mg
HS XIOMARA Administration
Atorvastatin Calcium 80 mg 02/24/25 18:00 02/24/25 18:19
Atorvastatin (Lipitor) 80 Mg Tablet PO 03/24/25 17:59 80 mg
QPM XIOMARA Administration
Clopidogrel Bisulfate 75 mg 02/24/25 08:00 02/24/25 09:32
Clopidogrel 75 Mg Tablet PO 03/24/25 07:59 75 mg
DAILY XIOMARA Administration
Dextrose 12.5 grams 02/23/25 22:00
Dextrose 50% (0.5 Grams/Ml) 50 Ml Syringe IV 03/23/25 21:59
[id number] PRN
hypoglycemia
Protocol
Enoxaparin Sodium 40 mg 02/24/25 18:00 02/24/25 18:19
Enoxaparin Sodium 40 Mg/0.4 Ml Syringe SC 03/24/25 17:59 40 mg
QPM XIOMARA Administration
Glucagon 1 mg 02/23/25 22:00
Glucagon 1 Mg Vial IM 03/23/25 21:59
PRN PRN
hypoglycemia - no IV access
Protocol
Hydralazine HCl 5 mg 02/23/25 21:18
Hydralazine 20 Mg/Ml Vial IV 03/23/25 21:17
Q4HPRN PRN
for SBP > 180
Insulin Aspart 0 units 02/24/25 07:45 02/24/25 17:06
Insulin Aspart Low Resistance 300 Units/3 Ml Pen.Injctr SC 03/24/25 07:44 Not Given
AC XIOMARA
Protocol
Lisinopril 15 mg 02/23/25 22:00 02/23/25 22:10
Lisinopril 10 Mg Tablet PO 03/23/25 21:59 15 mg
HS XIOMARA Administration
Sodium Chloride 0 flush 02/23/25 22:00
Sodium Chloride 0.9% (Flush) Syringe IV 03/23/25 21:59
PER PROTOCOL XIOMARA
Home Medications
�Medication �Instructions �Recorded
lisinopril 10 mg tablet 15 mg PO HS Blood Pressure 12/10/23
aspirin 81 mg tablet,delayed 81 mg PO HS 02/23/25
release
[2025-02-24] MEDS: ZESTRIL 15 MG PO (20:24)
[2025-02-24] MEDS: LOW STRENGTH ASPIRIN 81 MG PO (20:26)
[2025-02-24 21:46] LABS: Glucose - Point of Care 108 mg/dl (70-99)
[2025-02-25] VITALS (8 sets, daily range): BP systolic 149–202; BP diastolic 80–103
[2025-02-25 07:21] LABS: Hematocrit 46.2 % (39.0-52.0); Hemoglobin 15.5 g/dL (13.0-18.0); Mean Corp Hgb Conc. 33.5 g/dL (33.0-37.0); Mean Corpuscular Volume 89.9 fL (80.0-94.0); Platelet Count 144 10^3/uL (130-400); Red Cell Dist. Width 12.4 % (11.5-14.5)
[2025-02-25 07:23] LABS: Blood Urea Nitrogen 14 mg/dl (9-20); Calcium 9.6 mg/dl (8.4-10.2); Carbon Dioxide 29 mmol/L (22-30); Chloride 106 mmol/L (98-107); Estimated Creatinine Clearance 101 ml/min; Glucose 140 mg/dl (70-99); Potassium 4.4 mmol/L (3.5-5.1); Sodium 140 mmol/L (135-145); eGFR > 60.00
[2025-02-25] MEDS: PLAVIX 75 MG PO (08:34)
[2025-02-25 08:51] LABS: Glucose - Point of Care 128 mg/dl (70-99)
[2025-02-25] MEDS: NOVOLOG FLEXPEN-LOW RESISTANCE SC ×3 (08:59→17:00)
--- NOTE | 2025-02-25 09:00 | PTCARENOTE ---
Pt. NIH found to be increased from pervious shift upon AM assessment. Dr. Hurtado and Dr. Arevalo made aware, rapid response and stroke alert called at 0845. Dr. Arevalo and Dr. Hurtado at at bedside with rapid response team. Pt. sent to head CT. Pt. ex
Elizabeth at bedside and Dr. Arevalo updated her with plan.
--- NOTE | 2025-02-25 09:03 | W.PN.HOSP.TC ---
Today's Communication/Plan
-
CVA alert and stat CT now
appreciate Neuro recs
Vascular consult
Assessment / Plan
Assessment / Plan
Assessment:
Acute CVA
- CT head: negative
- CTA head: Atherosclerotic calcifications of the bilateral cavernous/paraclinoid ICAs with resultant mild stenosis, more pronounced on the left. No aneurysm.
- CTA neck: Mixed density atherosclerotic plaque of the right carotid bifurcation/proximal ICA with resultant 75% stenosis by NASA criteria. Codominant vertebral arteries with atherosclerotic calcifications of the bilateral V4 segments of the
vertebral arteries with resultant focal moderate stenosis of the right vertebral artery.
- MRI: Acute infarct in the right periventricular stearns radiata.
- continue ASA/Plavix/Statin
- LDL: 165
- A1c is 6.9%
- continue neuro-checks
- PT/OT - PMR evaluation for acute rehab
- Neuro following
- CVA alert 02/25 AM for increasing NIH score and worsening L sided weakness; CT head pending
- Vascular consulted for carotid intervention
- may need Cards eval as prior records suggest A. Fib but patient states no objective evidence was ever found. Was prescribed Eliquis but he decided to stop taking it after 1 month.
Essential HTN
- continue FINN HS; may need additional control
- Prn Hydralazine with parameters
DVT ppx: Lovenox
Code: Full
Total Critical Care Time 41 minutes. I was immediately available to the patient and staff. I personally examined, reviewed labs, diagnostic images/reports, interpretations, treatment plans, discussed patient care with other providers and family
or caregivers (if patient is unable to make decisions), entered orders as appropriate and documented the medical record.
Anticipated Discharge: > 48 hours
Subjective/Interval History
-
Date of Service: February 25, 2025
acute CVA alert called for worsening NIH score to 9 with increased left sided weakness
Objective Data
-
Labs:
Laboratory Results
02/25/25
06:14
WBC 7.7
Hgb 15.5
Hct 46.2
Plt Count 144
Sodium 140
Potassium 4.4
Chloride 106
Carbon Dioxide 29
BUN 14
Creatinine 0.8
Glucose 140 H
Calcium 9.6
Vital Signs:
Vital Signs
Temp Pulse Resp BP Pulse Ox
98.3 F 84 16 202/103 96
02/25/25 07:00 02/25/25 08:58 02/25/25 07:00 02/25/25 08:58 02/25/25 07:00
I&O
02/24/25 02/25/25 02/26/25
06:59 06:59 06:59
Intake Total 1440 / 1440
Output Total 500 / 500 800 / 800
Balance -500 / -500 640 / 640
Physical Exam
-
General: No Apparent Distress
HEENT: Normocephalic and Atraumatic
Respiratory: Clear to Auscultation; Negative Wheezes
Cardiac: Regular Rhythm and S1/S2
GI: Soft
Neuro: AO x 3, Slurred Speech and Other (worsening LUE AND LLE weakness today)
Psych: Calm
Data Reviewed
-
Critical Care Time (in minutes): 41
Labs: Labs Reviewed by me
--- NOTE | 2025-02-25 09:29 | CON.VAS ---
Addendum entered and electronically signed by Miguel Vides III, MD 02/27/25 19:48:
This patient was seen and examined in collaboration with FRIDA Real. I agree with the history and physical exam as well as the assessment and plan. I have the following additions:
Seen and examined today 02/27/2025
Patient was seen over the weekend by the on-call team
History reviewed as detailed in the note
Right hemispheric stroke
High-grade carotid stenosis on the right
CT angiogram personally reviewed and three-dimensional reconstructions performed. High-grade right proximal internal carotid artery stenosis identified.
MRI demonstrates acute infarct in the right periventricular stearns radiata
On exam he has alert and interactive
No acute distress
Speech disturbance
Significant deficit on the left peripheral
Neck is soft
Discussed case with neurology today. Recommending right carotid endarterectomy. The technical aspects of this procedure were discussed with him and his partner in detail. The benefits and rationale for this approach were discussed with both of
them in detail. Operative risks were discussed with them in detail including but not limited to stroke, bleeding, infection, wound healing complications, heart attack and cranial nerve injury. He expressed a clear understanding of our conversation
and agrees to proceed with surgery as detailed above.
Signed:
Miguel Vides III, MD
Vascular Surgery
[facility]
Original Note:
Consultation
Consultation Request
Date/Time Consultation Performed: 02/25/2025 0800
Requesting Provider: Hospitalist
Performing Provider: Shyanne Cazares NP-C for Dr. Gregg
Reason for Consultation: Right symptomatic carotid stenosis
Medical History
-
Chief Complaint: Right symptomatic right stenosis
History of Present Illness:
This is a 69-year-old male with significant past medical history for CAD, AAS status post AVR, diabetes, hypertension, carotid artery disease, hyperlipidemia, and prior stroke who presented to [place] ED on 02/23/2025 with left-sided facial droop,
slurred speech, and reports per chart review of subjective right-sided weakness. Currently patient endorses continued slurred speech with his sensation of bilateral weakness, however left upper extremity weakness greater than right on physical
exam. Neck CTA demonstrates right ICA stenosis of 75% and MRI confirms acute infarct in the right periventricular stearns radiata. Vascular consulted for symptomatic carotid stenosis of right ICA.
Past Medical History
Past Medical History: Arrhythmias (Atrial fibrillation), CAD, CVA, HTN, Hypercholesterolemia, NIDDM and Valvular Disease (Mitral regurgitation, aortic stenosis with aortic valve replacement)
Past Surgical History: Cardiac (aortic valve replacement/CABG 11/25/23)
Social History
Tobacco: Former Smoker
Alcohol: None
Drug: None
Personal: Single
Living: Alone
Employment: Retired
Allergies / Home Medications
Allergy/AdvReac Type Severity Reaction Status Date / Time
bee venom protein (honey bee) Allergy Anaphylaxis Verified 02/23/25 16:16
�Medication �Instructions �Recorded �Confirmed �Type
lisinopril 10 mg tablet 15 mg PO HS Blood Pressure 12/10/23 02/23/25 History
aspirin 81 mg tablet,delayed 81 mg PO HS 02/23/25 02/23/25 History
release
Review of Systems
-
History Source: Patient
Constitutional: Reports No Symptoms
EENT: Reports No Symptoms
Respiratory: Reports No Symptoms
Cardiac: Reports No Symptoms
Abdomen/GI: Reports No Symptoms
: Reports No Symptoms
Skin: Reports No Symptoms
Neurological: Reports Weakness (Patient endorses generalized weakness, side greater than right, left-sided facial droop, slurred speech)
Physical Exam
Vital Signs
Temp Pulse Resp BP Pulse Ox
98.3 F 84 16 202/103 96
02/25/25 07:00 02/25/25 08:58 02/25/25 07:00 02/25/25 08:58 02/25/25 07:00
Lab Results
02/25/25 06:14
02/25/25 06:14
Physical Exam
General: No Apparent Distress
HEENT: Normocephalic, Anicteric, Atraumatic and Other (Left-sided facial droop)
Respiratory: Non Labored Respirations
Cardiac: Negative JVD
GI: Soft, Non Tender and Non Distended
Musculoskeletal: No Edema
Skin: Warm
Neuro: Awake, Alert and Other (Left upper extremity and lower extremity weakness, left-sided facial droop, dysarthria)
Assessment / Plan
-
Assessment: 69-year-old male with acute stroke and symptomatic right carotid stenosis
Plan:
Plan for right carotid endarterectomy 02/28/2025, patient is agreeable to plan
N.p.o. at midnight on 02/28
Patient seen and examined at bedside with attending Dr. Gregg, below plan reviewed with attending.
[2025-02-25] MEDS: ZESTRIL 10 MG PO (10:07)
[2025-02-25 11:40] LABS: Glucose - Point of Care 131 mg/dl (70-99)
--- NOTE | 2025-02-25 14:44 | CM ---
Patient seen at bedside on . Patient asking to go to [facility] when appropriate. Patient with new stroke alert today. CM will continue to follow for discharge planning needs.
Plan; [facility] referral when medically appropriate.
[2025-02-25 16:49] LABS: Glucose - Point of Care 136 mg/dl (70-99)
[2025-02-25] MEDS: LOVENOX 40 MG SC (17:01)
[2025-02-25] MEDS: LIPITOR 80 MG PO (17:01)
[2025-02-25] MEDS: ZESTRIL 20 MG PO (21:20)
[2025-02-25] MEDS: LOW STRENGTH ASPIRIN 81 MG PO (21:20)
[2025-02-25 21:44] LABS: Glucose - Point of Care 140 mg/dl (70-99)
[2025-02-26 03:54] VITALS: BP 158/94
[2025-02-26 07:00] VITALS: BP 157/88
[2025-02-26 07:10] LABS: Glucose - Point of Care 134 mg/dl (70-99)
[2025-02-26 08:01] LABS: Hematocrit 46.2 % (39.0-52.0); Hemoglobin 16.3 g/dL (13.0-18.0); Mean Corp Hgb Conc. 35.3 g/dL (33.0-37.0); Mean Corpuscular Volume 89.2 fL (80.0-94.0); Platelet Count 154 10^3/uL (130-400); Red Cell Dist. Width 12.1 % (11.5-14.5)
[2025-02-26] MEDS: PLAVIX 75 MG PO (08:15)
[2025-02-26 09:02] LABS: Blood Urea Nitrogen 15 mg/dl (9-20); Calcium 9.9 mg/dl (8.4-10.2); Carbon Dioxide 22 mmol/L (22-30); Chloride 108 mmol/L (98-107); Estimated Creatinine Clearance 116 ml/min; Glucose 146 mg/dl (70-99); Potassium 4.2 mmol/L (3.5-5.1); Sodium 138 mmol/L (135-145); eGFR > 60.00
[2025-02-26] MEDS: NOVOLOG FLEXPEN-LOW RESISTANCE SC ×3 (09:06→17:03)
--- NOTE | 2025-02-26 09:25 | W.PN.HOSP.TC ---
Today's Communication/Plan
-
follow Neuro recs
continue DAPT/Statin
CEA 02/28
follow BP
Assessment / Plan
Assessment / Plan
Assessment:
Acute CVA
- CT head: negative
- CTA head: Atherosclerotic calcifications of the bilateral cavernous/paraclinoid ICAs with resultant mild stenosis, more pronounced on the left. No aneurysm.
- CTA neck: Mixed density atherosclerotic plaque of the right carotid bifurcation/proximal ICA with resultant 75% stenosis by NASA criteria. Codominant vertebral arteries with atherosclerotic calcifications of the bilateral V4 segments of the
vertebral arteries with resultant focal moderate stenosis of the right vertebral artery.
- MRI: Acute infarct in the right periventricular stearns radiata.
- continue ASA/Plavix/Statin
- LDL: 165
- A1c is 6.9%
- continue neuro-checks
- PT/OT - PMR evaluation for acute rehab
- Neuro following
- CVA alert 02/25 AM for increasing NIH score and worsening L sided weakness; CT head negative for bleed. Worsening symptoms could represent blossoming infarct
- Vascular consulted for carotid intervention planned 02/28
- may need Cards eval outpatient for heart monitor as prior records suggest A. Fib but patient states no objective evidence was ever found. Was prescribed Eliquis but he decided to stop taking it after 1 month.
Essential HTN
- continue FINN HS; titrated to 20mg HS
- Prn Hydralazine with parameters
DVT ppx: Lovenox
Code: Full
Anticipated Discharge: > 48 hours
Subjective/Interval History
-
Date of Service: February 26, 2025
reports weaker L side today
Objective Data
-
Labs:
Laboratory Results
02/26/25
06:50
WBC 7.2
Hgb 16.3
Hct 46.2
Plt Count 154
Sodium 138
Potassium 4.2
Chloride 108 H
Carbon Dioxide 22
BUN 15
Creatinine 0.7
Glucose 146 H
Calcium 9.9
Vital Signs:
Vital Signs
Temp Pulse Resp BP Pulse Ox
97.8 F 71 16 157/88 95
02/26/25 07:00 02/26/25 07:00 02/26/25 07:00 02/26/25 07:00 02/26/25 07:00
I&O
02/25/25 02/26/25 02/27/25
06:59 06:59 06:59
Intake Total 1440 / 1440 1200 / 1200
Output Total 800 / 800 650 / 650
Balance 640 / 640 550 / 550
Physical Exam
-
General: No Apparent Distress
HEENT: Normocephalic and Atraumatic
Respiratory: Negative Wheezes
Cardiac: Regular Rhythm and S1/S2
GI: Soft and Nontender
Neuro: AO x 3, Slurred Speech and Other (LUE and LLE weakness)
Psych: Calm
Data Reviewed
-
Total Time Spent with Patient (in minutes): 45
Labs: Labs Reviewed by me
[2025-02-26 11:00] VITALS: BP 159/86
[2025-02-26 11:24] LABS: Glucose - Point of Care 125 mg/dl (70-99)
--- NOTE | 2025-02-26 14:57 | CM ---
Referral sent to [facility] for assessment. Patient plan is for acute rehab. CM will continue to follow for discharge planning needs.
Plan; [facility]; pending acceptance
[2025-02-26 15:00] VITALS: BP 165/87
[2025-02-26 16:57] LABS: Glucose - Point of Care 113 mg/dl (70-99)
[2025-02-26] MEDS: LOVENOX 40 MG SC (17:04)
[2025-02-26] MEDS: LIPITOR 80 MG PO (17:04)
[2025-02-26 19:55] VITALS: BP 143/86
[2025-02-26 21:09] LABS: Glucose - Point of Care 110 mg/dl (70-99)
[2025-02-26] MEDS: ZESTRIL 20 MG PO (21:09)
[2025-02-26] MEDS: LOW STRENGTH ASPIRIN 81 MG PO (21:09)
--- NOTE | 2025-02-26 21:11 | W.PN.NEURO.1 ---
Today's Communication / Plan
-
unfortunately, his symptoms progressed gradually over days and it appears that he has completed the stroke. this is a less common presentation and usually by the time they present for evaluation or the deficits are severe enough to warrant TNK, they
are out of the window.
present deficits are much worse than what would be expected for the size of the lesion, and with his good prior level of function I'm still hopeful for a good neuro recovery after rehab. would proceed with right CEA on Thursday.
Neuro Assessment/Plan
Assessment
Brain MRI imgs reviewed with patient and family showing acute stroke to the right stearns radiata. additionally there are multiple chronic lacunar infarcts.
CTA imgs with patient and family i pointed out the right carotid with partially calcified plaque, measured by radiology as 75% stenosis
Believe the etiology of stroke to most likely be symptomatic carotid, and recommending vascular surgery consult for CEA, with benefits greatly outweighing the risks; I quoted him a stroke risk of ~17%/year for severe stenosis with medical
management; and a perioperative stroke risk ~6% with surgical management from [facility]
ASA 81, Plavix 75, and Lipitor 80 for now
unfortunately, his symptoms progressed gradually over days and it appears that he has completed the stroke. this is a less common presentation and usually by the time they present for evaluation or the deficits are severe enough to warrant TNK, they
are out of the window.
present deficits are much worse than what would be expected for the size of the lesion, and with his good prior level of function I'm still hopeful for a good neuro recovery after rehab. would proceed with right CEA on Thursday.
Subjective/Objective
Subjective Data
Date of Service: February 26, 2025
Since his initial symptom onset 3 days ago, his left sided deficits continued to gradually get worse. I obtained another CT scan showing stoke evolving as expected; no new lesions.
Seen this evening, no movement left side, appears that he has completed the stroke
Objective Data
Vital Signs
Temp Pulse Resp BP Pulse Ox
36.8 C 83 20 143/86 96
02/26/25 19:55 02/26/25 19:55 02/26/25 19:55 02/26/25 19:55 02/26/25 19:55
Lab Results
02/26/25 06:50
02/26/25 06:50
Sodium 138 mmol/L (135-145) 02/26/25 06:50
Potassium 4.2 mmol/L (3.5-5.1) 02/26/25 06:50
BUN 15 mg/dl (9-20) 02/26/25 06:50
Glucose 146 mg/dl (70-99) H 02/26/25 06:50
Calcium 9.9 mg/dl (8.4-10.2) 02/26/25 06:50
LDL Cholesterol, Calc 165 mg/dl 02/24/25 05:49
Patient Allergies
bee venom protein (honey bee) Allergy (Verified 02/23/25 16:16)
Anaphylaxis
Physical Exam
-
L facial droop
LUE/LE no movement
[2025-02-26 23:26] VITALS: BP 156/96
[2025-02-27] VITALS (7 sets, daily range): BP systolic 141–160; BP diastolic 61–93; PULSE 86; O2SAT 93–94
[2025-02-27 07:26] LABS: Hematocrit 47.0 % (39.0-52.0); Hemoglobin 16.0 g/dL (13.0-18.0); Mean Corp Hgb Conc. 34.0 g/dL (33.0-37.0); Mean Corpuscular Volume 89.2 fL (80.0-94.0); Platelet Count 151 10^3/uL (130-400); Red Cell Dist. Width 12.2 % (11.5-14.5)
[2025-02-27 07:54] LABS: Blood Urea Nitrogen 16 mg/dl (9-20); Calcium 9.6 mg/dl (8.4-10.2); Carbon Dioxide 26 mmol/L (22-30); Chloride 107 mmol/L (98-107); Estimated Creatinine Clearance > 125 ml/min; Glucose 142 mg/dl (70-99); Potassium 4.3 mmol/L (3.5-5.1); Sodium 138 mmol/L (135-145); eGFR > 60.00
[2025-02-27 08:19] LABS: Glucose - Point of Care 132 mg/dl (70-99)
[2025-02-27] MEDS: NOVOLOG FLEXPEN-LOW RESISTANCE SC ×2 (08:35→16:48)
[2025-02-27] MEDS: PLAVIX 75 MG PO (08:42)
--- NOTE | 2025-02-27 11:01 | W.PN.HOSP.TC ---
Today's Communication/Plan
-
Await vascular surgery input
Assessment / Plan
Assessment / Plan
Gen-AAOx3, NAD
HEENT-NC, AT, anicteric, clear oral mm
Neck-supple
CV-reg, no M, +S1/S2
Lungs-clear B/L
Abd-soft, NT, ND
Ext-no edema
Musculoskeletal-no cyanosis, clubbing
Skin-warm and dry
Neuro-dense left hemiplegia, left facial droop
Psych-calm, cooperative
Acute right hemispheric stroke -dense left hemiplegia. Left facial droop. Speech therapy cleared for regular solids and thin liquids. Aspiration precautions.
- CTA head: Atherosclerotic calcifications of the bilateral cavernous/paraclinoid ICAs with resultant mild stenosis, more pronounced on the left. No aneurysm.
- CTA neck: Mixed density atherosclerotic plaque of the right carotid bifurcation/proximal ICA with resultant 75% stenosis by NASA criteria. Codominant vertebral arteries with atherosclerotic calcifications of the bilateral V4 segments of the
vertebral arteries with resultant focal moderate stenosis of the right vertebral artery.
- MRI: Acute infarct in the right periventricular stearns radiata.
- continue ASA/Plavix/Statin
- LDL: 165
- A1c is 6.9%
- continue neuro-checks
- PT/OT - PMR evaluation for acute rehab
- Neuro following
- CVA alert 02/25 AM for increasing NIH score and worsening L sided weakness; CT head negative for bleed. Worsening symptoms could represent blossoming infarct
- Vascular consulted for carotid intervention planned 02/28
- may need Cards eval outpatient for heart monitor as prior records suggest A. Fib but patient states no objective evidence was ever found. Was prescribed Eliquis but he decided to stop taking it after 1 month.
Essential HTN
- continue FINN HS; titrated to 20mg HS
- Prn Hydralazine with parameters
DM2 with hyperglycemia -unclear if patient aware of diagnosis of diabetes. Not on diabetes meds prior to admission. Currently on NovoLog low resistance scale. Glucose 142 this morning.
DVT ppx: Lovenox
Code: Full
Anticipated Discharge: > 48 hours
Subjective/Interval History
-
Date of Service: February 27, 2025
Patient seen and examined. No complaints.
Objective Data
-
Labs:
Laboratory Results
02/27/25
06:44
WBC 7.0
Hgb 16.0
Hct 47.0
Plt Count 151
Sodium 138
Potassium 4.3
Chloride 107
Carbon Dioxide 26
BUN 16
Creatinine 0.6 L
Glucose 142 H
Calcium 9.6
Vital Signs:
Vital Signs
Temp Pulse Resp BP Pulse Ox
97.5 F 79 16 154/92 94
02/27/25 07:00 02/27/25 07:00 02/27/25 07:00 02/27/25 07:00 02/27/25 07:00
I&O
02/26/25 02/27/25 02/28/25
06:59 06:59 06:59
Intake Total 1200 / 1200
Output Total 650 / 650
Balance 550 / 550
Review of Systems
-
History Source: Patient
All other systems: Reviewed and negative
[2025-02-27 11:30] LABS: Glucose - Point of Care 173 mg/dl (70-99)
--- NOTE | 2025-02-27 11:37 | W.PN.VS ---
Addendum entered and electronically signed by Miguel Vides III, MD 02/27/25 19:51:
This patient was seen and examined in collaboration with FRIDA Real. I agree with the history and physical exam as well as the assessment and plan. I have the following additions:
Seen and examined today 02/27/2025
Patient was seen over the weekend by the on-call team
History reviewed as detailed in the note
Right hemispheric stroke
High-grade carotid stenosis on the right
CT angiogram personally reviewed and three-dimensional reconstructions performed. High-grade right proximal internal carotid artery stenosis identified.
MRI demonstrates acute infarct in the right periventricular stearns radiata
On exam he has alert and interactive
No acute distress
Speech disturbance
Significant deficit on the left peripheral
Neck is soft
Discussed case with neurology today. Recommending right carotid endarterectomy. The technical aspects of this procedure were discussed with him and his partner in detail. The benefits and rationale for this approach were discussed with both of
them in detail. Operative risks were discussed with them in detail including but not limited to stroke, bleeding, infection, wound healing complications, heart attack and cranial nerve injury. He expressed a clear understanding of our conversation
and agrees to proceed with surgery as detailed above. Also discussed with his son Dale via telephone who agrees with this plan.
Signed:
Miguel Vides III, MD
Vascular Surgery
[facility]
Original Note:
Today's Communication / Plan
-
Plan reviewed with on-call attending Dr. Miguel Vides III, who agrees with plan.
Assessment/Plan
-
Assessment: 69-year-old male presented to ED on 02/23/2025 with reports of generalized weakness and dysarthria concerning for stroke, evidence of right ICA stenosis at 75% by CT angio of head and neck, underwent MRI on 02/24/2025 which confirmed acute
infarct in the right periventricular stearns radiata, patient had progression of left-sided weakness acutely after assessed by our team on 02/25/2025 , now with left-sided hemiplegia.
Plan:
Given acute change and worsening signs and symptoms will obtain CT angio head and neck to reevaluate right carotid stenosis
Will review with neurology and primary team as to when to time right carotid endarterectomy given his worsening in symptomatology
Final plan for vascular intervention per attending
Subjective Data
-
Date of Service: February 27, 2025
Patient seen and examined at bedside, patient with worsening dysarthria that occurred over the weekend making it difficult to obtain subjective data.
Objective Data
-
Vital Signs
Temp Pulse Resp BP Pulse Ox
97.5 F 79 16 154/92 94
02/27/25 07:00 02/27/25 07:00 02/27/25 07:00 02/27/25 07:00 02/27/25 07:00
Intake and Output
02/26/25 02/27/25 02/28/25
06:59 06:59 06:59
Intake Total 1200 / 1200
Output Total 650 / 650
Balance 550 / 550
Intake:
Oral fluids 1200 / 1200
Output:
Urine, Voided 650 / 650
Other:
How many times incontinent 4
SATURATED amount urine
Lab Results
02/27/25 06:44
02/27/25 06:44
Calcium 9.6 mg/dl (8.4-10.2) 02/27/25 06:44
Magnesium 2.2 mg/dl (1.6-2.3) 02/24/25 05:49
Physical Exam
-
No apparent distress, resting comfortably in bed
Left sided facial droop, dysarthric
Left-sided hemiplegia
--- NOTE | 2025-02-27 12:38 | W.PN.NEURO.1 ---
Today's Communication / Plan
-
Appreciate vascular surgery consult for CEA
ASA 81, Plavix 75, and Lipitor 80 milligrams
Neuro Assessment/Plan
Assessment
Brain MRI acute ischemic stroke to the right stearns radiata. additionally there are multiple chronic lacunar infarcts.
CTA right carotid 75% stenosis
Believe the etiology of stroke to most likely be symptomatic carotid
unfortunately, his symptoms progressed gradually over days and it appears that he has completed the stroke.
Plan
Appreciate vascular surgery consult for CEA
ASA 81, Plavix 75, and Lipitor 80 milligrams
Will follow as needed
Subjective/Objective
Subjective Data
Date of Service: February 27, 2025
Objective Data
Vital Signs
Temp Pulse Resp BP Pulse Ox
36.3 C 85 18 152/72 93
02/27/25 11:00 02/27/25 11:00 02/27/25 11:00 02/27/25 11:00 02/27/25 11:00
Lab Results
02/27/25 06:44
02/27/25 06:44
Sodium 138 mmol/L (135-145) 02/27/25 06:44
Potassium 4.3 mmol/L (3.5-5.1) 02/27/25 06:44
BUN 16 mg/dl (9-20) 02/27/25 06:44
Glucose 142 mg/dl (70-99) H 02/27/25 06:44
Calcium 9.6 mg/dl (8.4-10.2) 02/27/25 06:44
LDL Cholesterol, Calc 165 mg/dl 02/24/25 05:49
Patient Allergies
bee venom protein (honey bee) Allergy (Verified 02/23/25 16:16)
Anaphylaxis
Past History
Past History
ED Past Medical History: CAD, CVA (Right MCA February 2025), HTN, Hypercholesterolemia, NIDDM and Valvular disease
ED Past Surgical History: Cardiac (CABG/aortic valve replacement November 25, 2023)
Social History
Tobacco: Non-smoker
Alcohol: None
Drug: None
Personal:
Living: alone
Employment: Retired
Family History
Family History: Other (Noncontributory)
Medications
-
Medications:
Generic Name Dose Route Start Last Admin
Trade Name Freq PRN Reason Stop Dose Admin
Acetaminophen 650 mg 02/23/25 21:18
Acetaminophen 650 Mg Rectal Suppository RECTAL 03/23/25 21:17
Q4HPRN PRN
MAGDALENO, mild pain, or temp >100.4F
Acetaminophen 650 mg 02/23/25 21:18
Acetaminophen 325 Mg Tablet PO 03/23/25 21:17
Q4HPRN PRN
MAGDALENO, mild pain, or temp >100.4F
Aspirin 81 mg 02/23/25 22:00 02/26/25 21:09
Aspirin 81 Mg Chewable Tablet PO 03/23/25 21:59 81 mg
HS XIOMARA Administration
Atorvastatin Calcium 80 mg 02/24/25 18:00 02/26/25 17:04
Atorvastatin (Lipitor) 80 Mg Tablet PO 03/24/25 17:59 80 mg
QPM XIOMARA Administration
Clopidogrel Bisulfate 75 mg 02/24/25 08:00 02/27/25 08:42
Clopidogrel 75 Mg Tablet PO 03/24/25 07:59 75 mg
DAILY XIOMARA Administration
Dextrose 12.5 grams 02/23/25 22:00
Dextrose 50% (0.5 Grams/Ml) 50 Ml Syringe IV 03/23/25 21:59
[id number] PRN
hypoglycemia
Protocol
Enoxaparin Sodium 40 mg 02/24/25 18:00 02/26/25 17:04
Enoxaparin Sodium 40 Mg/0.4 Ml Syringe SC 03/24/25 17:59 40 mg
QPM XIOMARA Administration
Glucagon 1 mg 02/23/25 22:00
Glucagon 1 Mg Vial IM 03/23/25 21:59
PRN PRN
hypoglycemia - no IV access
Protocol
Hydralazine HCl 5 mg 02/23/25 21:18
Hydralazine 20 Mg/Ml Vial IV 03/23/25 21:17
Q4HPRN PRN
for SBP > 180
Insulin Aspart 0 units 02/24/25 07:45 02/27/25 08:35
Insulin Aspart Low Resistance 300 Units/3 Ml Pen.Injctr SC 03/24/25 07:44 Not Given
AC XIOMARA
Protocol
Lisinopril 20 mg 02/25/25 22:00 02/26/25 21:09
Lisinopril 20 Mg Tablet PO 03/25/25 21:59 20 mg
HS XIOMARA Administration
Sodium Chloride 0 flush 02/23/25 22:00
Sodium Chloride 0.9% (Flush) Syringe IV 03/23/25 21:59
PER PROTOCOL XIOMARA
[2025-02-27] MEDS: NOVOLOG FLEXPEN-LOW RESISTANCE 1 UNITS SC (13:43)
--- NOTE | 2025-02-27 16:14 | CM ---
Be updated referral placed in care port as per Mindy Lr rep request.
Spoke with pt in room . He said he would like to go to [facility] at [facility].
PLAN Possible Dc to [facility]
[2025-02-27 16:23] LABS: Glucose - Point of Care 118 mg/dl (70-99)
[2025-02-27] MEDS: LIPITOR 80 MG PO (17:23)
[2025-02-27] MEDS: LOVENOX 40 MG SC (17:23)
[2025-02-27 21:41] LABS: Glucose - Point of Care 125 mg/dl (70-99)
[2025-02-27] MEDS: LOW STRENGTH ASPIRIN 81 MG PO (22:16)
[2025-02-27] MEDS: ZESTRIL 20 MG PO (22:16)
[2025-02-28] VITALS (9 sets, daily range): BP systolic 130–166; BP diastolic 62–85
--- NOTE | 2025-02-28 03:00 | DOWNTIME ---
There was a [employer] Client [employer] Downtime on 02/28/2025 from 0100 to 02/28/2025 at 0220. Downtime documentation of patient's care, including medication administrations, has been reconciled in the electronic record per guidelines. Refer to the
patient's paper chart under the miscellaneous tab to see printed paper medication records and downtime forms.
[2025-02-28 05:05] LABS: Glucose - Point of Care 145 mg/dl (70-99)
[2025-02-28] MEDS: BACTROBAN 2% OINTMENT 1 APPLIC NASAL (05:09)
[2025-02-28] MEDS: NOVOLOG FLEXPEN-LOW RESISTANCE SC ×3 (05:09→23:58)
[2025-02-28] MEDS: PERIDEX 0.12% ORAL RINSE 15 ML PO ×2 (05:10→19:36)
[2025-02-28 05:16] LABS: Hematocrit 47.1 % (39.0-52.0); Hemoglobin 16.1 g/dL (13.0-18.0); Mean Corp Hgb Conc. 34.2 g/dL (33.0-37.0); Mean Corpuscular Volume 89.0 fL (80.0-94.0); Platelet Count 141 10^3/uL (130-400); Red Cell Dist. Width 12.2 % (11.5-14.5)
[2025-02-28 05:31] LABS: INR 0.97; PT 13.2 Sec (11.4-14.6)
[2025-02-28 05:40] LABS: Blood Urea Nitrogen 20 mg/dl (9-20); Calcium 9.5 mg/dl (8.4-10.2); Carbon Dioxide 25 mmol/L (22-30); Chloride 110 mmol/L (98-107); Estimated Creatinine Clearance > 125 ml/min; Glucose 151 mg/dl (70-99); Potassium 4.3 mmol/L (3.5-5.1); Sodium 142 mmol/L (135-145); eGFR > 60.00
--- NOTE | 2025-02-28 06:50 | PTCARENOTE ---
Patient report received from bedside RN, patient transferred to Cath recovery bay 6. Patient attached to monitoring devices, paperwork obtained. Per bedside RN, wipes, nasal ointment, and mouth wash completed. Patient denies needing to void.
Awaiting MD to bedside for consent prior to procedure.
--- NOTE | 2025-02-28 07:35 | W.SUR.PREOP ---
Pre-Operative Surgical Note
-
I have examined this patient prior to the performance of the scheduled procedure.
The patient's condition is unchanged from the time of the current History and
Physical and the patient is able to undergo the scheduled procedure.
[2025-02-28] MEDS: PLAVIX PO (08:00)
[2025-02-28 08:56] LABS: ACT-LR - POC 316 Seconds (116-155)
[2025-02-28 09:44] LABS: ACT-LR - POC 219 Seconds (116-155)
--- NOTE | 2025-02-28 10:26 | W.SUR.POST ---
Surgical Immediate Post Op
Note
Pre Op Diagnosis: Carotid stenosis
Post Op Diagnosis: Carotid stenosis
Procedure Performed: Right carotid endarterectomy
Primary Surgeon:Miguel Vides III, MD
Secondary Surgeons: Chris Dale MD
Anesthesia: see anesthesia report
Estimated Blood Loss: 20 cc
Fluids: see anesthesia report
Drains/Shunts: none
Specimens/Cultures: none
Doppler/Duplex/Angio (Y/N): none
Complications: none
Operative Findings: right ICA stenosis with mixed consistency calcified/soft plaque, extending from CCA to ICA.
--- NOTE | 2025-02-28 10:41 | CON.INTV ---
Consultation
Consultation Request
Date/Time Consultation Requested: 02/28/2025 - 1012
Date/Time Consultation Performed: 02/28/2025 - 8
Requesting Provider: FRIDA Ritter
Performing Provider: Dr. Raygoza
Reason for Consultation: s/p R-CEA
Medical History
-
Chief Complaint: Slurred speech and left-sided weakness
History of Present Illness:
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
CABG x3 (11/2023), DM2, B/L cataracts, intracranial arteriosclerosis, carotid atherosclerosis, PVCs, hx BCC, pulmonary HTN, pAF previously on Eliquis and fatty liver disease who p/w slurred speech and L-sided weakness. 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 He
called a friend who brought him to the ER here at . He takes a baby ASA daily. CTA head/neck on 02/23/[address] head showed no acute intracranial pathology, with sequelae of severe chronic small vessel ischemic disease, with 75% of
right proximal ICA/carotid bifurcation. He was admitted to telemetry for further care with Neurology consulted.
Plavix added to regimen on 02/24, and brain MRI performed on 02/24/2025 showed an acute ischemic infarct in the right periventricular stearns radiata. Etiology suspected to be from his right-sided ICA disease. Vascular surgery consulted. Surgical
revasculation recommended, and the pt agreed to this intervention. Today, he underwent a right-sided carotid endarterectomy. EBL was 20cc. He was TRX to ICU post-operatively for further care, and Casket Coverer services consulted for further
recommendations/management.
When he was in ICU, he developed hemoptysis that was mild. I had reached out to anesthesia and post-operatively there was blood in oropharynx that was suctioned with clots. He had been heparinized during the CEA procedure, and as stated above has
been on DAPT with ASA and plavix. BP via A-line currently is 146/59, BP via NIBP 166/82, HR 98, SpO2 95% on 2L/min nasal cannula. When he had been coughing up blood, his SBP mehreen to the 200s-210s. Cardene gtt started and is currently at 7.5mg/hr.
He currently denies SOB, chest pain, MAGDALENO, abd pain, N/V/f/c. Denies nose bleed, and denies a Hx of coughing up blood.
PMHx: HTN, HLD, Hx of multiple CVA (2009, 2020 and 2023) with residual R Hand Neuropathy & RLE weakness (after 2009 CVA), actinic keratosis, mod-severe s/p bioprosthetic AVR, mild MR, DM2, B/L cataracts, Intracranial arteriosclerosis, Carotid
atherosclerosis, PVCs, former smoker (41pk years - quit 2012), hx BCC, MVCAD s/p CABG x4, pulmonary HTN, pAF previously on Eliquis, fatty liver disease
PSHx: L Thumb amputated at 1 years old, skin CA removal, L Thumb cosmetic sx, cardiac cath, 25mm Inspiris Resilia AVR, CABG x3, w/ repair L Chest Wall Vein bleeding (1 extra suture placed # prox graft to OM)
Past Medical History
Past Medical History: Other (Above as per HPI)
Past Surgical History: Other (Above as per HPI)
Social History
Tobacco: Former Smoker (78-ecpg-uwbh Hx - quit 2012)
Alcohol: None
Drug: None
Personal: (x2)
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
Family History
Family History: CAD (Brother) and Other (Father: Alzheimer's dementia)
Allergies / Home Medications
Allergies
Allergy/AdvReac Type Severity Reaction Status Date / Time
bee venom protein (honey bee) Allergy Anaphylaxis Verified 02/23/25 16:16
Home Medications
�Medication �Instructions �Recorded �Confirmed �Last Taken �Type
lisinopril 10 mg tablet 15 mg PO HS Blood Pressure 12/10/23 02/23/25 02/22/25 History
aspirin 81 mg tablet,delayed 81 mg PO HS 02/23/25 02/23/25 02/22/25 History
release
Review of Systems
-
History Source: Patient
All other systems: Negative unless noted
Vitals / Labs / Diagnostic Testing
Vital Signs
Temp Pulse Resp BP Pulse Ox
98.4 F 84 16 166/82 94
02/28/25 12:19 02/28/25 14:00 02/28/25 14:00 02/28/25 12:55 02/28/25 14:00
Lab Data
02/28/25 10:40
02/28/25 10:40
Laboratory Results
02/28/25
05:06
PT 13.2
INR 0.97
Diagnostic Testing:
Physical Exam
-
HEENT: Normocephalic and Anicteric
Cardiovascular: S1/S2 and Peripheral Edema (negative)
Respiratory: Clear, Wheeze (negative), Rales (negative), Rhonchi (negative) and Non-Labored Respirations
GI: Soft, Non Distended, Non Tender and Normal Bowel Sounds
Neurology: Awake, Alert, Tremors (negative), Other (left-sided hemiparesis (LUE>LLE) with left-sided facial droop + slurred speech) and Other (Pupils 3mm bilaterally and brisk)
Skin: Warm and Dry
General: Respiratory Distress (negative), Comfortable, Fever (negative) and Chills (negative)
Assessment
-
Assessment: 69-year-old M former tobacco smoker (05-caof-lkjc Hx, quit 2012) with PMHx of HTN, HLD, Hx of multiple CVA (2009, 2020 and 2023) with residual R Hand Neuropathy & RLE weakness (after 2010 CVA), Hx of severe s/p bioprosthetic AVR
(11/2023), CAD s/p CABG x3 (11/2023), DM2, B/L cataracts, intracranial arteriosclerosis, carotid atherosclerosis, PVCs, hx BCC, pulmonary HTN, pAF previously on Eliquis and fatty liver disease who p/w slurred speech and L-sided weakness. He also had
a fall [employer]. He called a friend who brought him to the ER here at . He takes a baby ASA daily. CTA head/neck on 02/23/[address] head showed no acute intracranial pathology, with sequelae of severe chronic small vessel ischemic
disease, with 75% of right proximal ICA/carotid bifurcation. He was admitted to telemetry for further care with Neurology consulted.
Plavix added to regimen on 02/24, and brain MRI performed on 02/24/2025 showed an acute ischemic infarct in the right periventricular stearns radiata. Etiology suspected to be from his right-sided ICA disease. Vascular surgery consulted. Surgical
revasculation recommended, and the pt agreed to this intervention. On 02/28/2025, he underwent a right-sided carotid endarterectomy. EBL was 20cc. He was TRX to ICU post-operatively for further care, and Casket Coverer services consulted for further
recommendations/management.
Chronic conditions ELECT EQUIP MAINT ENG: HTN, HLD, Hx of multiple CVA (2009, 2020 and 2023) with residual R Hand Neuropathy & RLE weakness (after 2010 CVA), actinic keratosis, mod-severe s/p bioprosthetic AVR, mild MR, DM2, B/L cataracts, Intracranial
arteriosclerosis, Carotid atherosclerosis, PVCs, former smoker (41pk years - quit 2012), hx BCC, MVCAD s/p CABG x4, Hx of pulmonary HTN, pAF previously on Eliquis, fatty liver disease
Impression:
#Symptomatic right carotid artery stenosis with right sided ischemic CVA s/p right carotid artery endarterectomy with patch angioplasty using bovine pericardium (POD #0)
#Acute ischemic stroke of right stearns radiata likely due to thromboembolism from right sided carotid artery disease/stenosis
#Post-operative hemoptysis (non-life threatening) likely due to oropharyngeal irritation due to difficult intubation in setting of heparinization + DAPT
#Leukocytosis - likely reactive
#Hx of multiple chronic lacunar infarcts
#Hx of severe s/p SAVR (#25 Inspiris Resilia) - 11/25/2023
#CAD s/p CABG x3 - 11/25/2023
#Hx of left hemidiaphragm elevation
#Hx of pA-fib, no longer on Eliquis (follows with Cardiology as outpatient via Dr. Larsen - last visit 08/22/2024)
#Former tobacco smoker with 04-vhop-fkvw Hx, quit 2012
Plan:
Postoperative surgical intensive care unit monitoring
Continue supplemental oxygen and wean down as tolerating while keeping SpO2 >90-94%
prn nebulized bronchodilators - not currently bronchospastic
Incentive spirometry encouraged 10x per hour for at least 4 hrs a day
Aspiration precautions
Pain control
Pt is having non-life threatening hemoptysis
I discussed the case with anesthesia who managed him during the OR case today (02/28), and he was a difficult intubation despite him having first pass success with glidescope
I suspect there was some minor trauma to oropharynx during intubation, as post-operatively there was blood suctioned from oropharynx with clots
Bleeding was likely exacerbated by heparinization during the case in setting of DAPT with ASA + plavix
Continue to closely monitor quantity of hemoptysis - if worsens, then would start nebulized TXA, and check stat CBC; transfuse as needed to keep Hb>7-8g/dL, plt>50k; given his recent acute ischemic CVA, would continue DAPT for now and only hold if
hemoptysis becomes more moderate-severe
If hemoptysis persists then would offer bronchoscopy for airway inspection
Continue cardene gtt and keep SBP<180mmHg, MAP<100mmHg
Neuro and vascular checks per protocol
Maintain MAP>65
Replete electrolytes with K>4, Mg>2
Maintain euglycemia with goal BG 140-180; Hb A1C: 6.9 on 02/24/2025
Although WBC is elevated, pt is non-toxic appearing and afebrile
Observe off ABx for now
Trend WBC and monitor temperature curve
Vascular surgery following-correspondence and operative notes reviewed
Transfuse blood products as needed to keep Hb>7g/dL, and plt>50k (given post-operative status)
Given his significant tobacco smoking Hx, and quitting within the last 15 years, he does qualify for LDCT Chest imaging. This can be discussed further as an outpatient
- Most recent LDCT Chest on 11/03/2023 did not show any evidence of a lung nodule; despite his smoking Hx, there was also no significant emphysema either or evidence of bronchiolitis/bronchial wall thickening
DVT prophylaxis: LMWH
Early nutrition
Early mobilization
(Patient was seen and evaluated on 02/28/2025) Critical care statement: A total of 44 minutes of critical care time was provided for this patient today. This includes management of unstable vital signs, evaluation of the patient at bedside,
reviewing the patient's pertinent medical records including radiographs, microbiology, laboratory evaluations, and discussion with primary team, consultants, pharmacy, nutrition, physical therapy, case management, charge nurse, critical care
nursing, and respiratory therapy.
[2025-02-28 10:58] LABS: Hematocrit 44.4 % (39.0-52.0); Hemoglobin 14.7 g/dL (13.0-18.0); Mean Corp Hgb Conc. 33.1 g/dL (33.0-37.0); Mean Corpuscular Volume 90.4 fL (80.0-94.0); Platelet Count 137 10^3/uL (130-400); Red Cell Dist. Width 12.5 % (11.5-14.5)
[2025-02-28 11:05] LABS: Glucose - Point of Care 148 mg/dl (70-99)
--- NOTE | 2025-02-28 11:12 | OR.RPT ---
Operative Report
Operative Report
Date of Operation: 02/28/2025
Pre Op Diagnosis: Symptomatic right carotid artery stenosis
Post Op Diagnosis: Symptomatic right carotid artery stenosis
Procedure: RIGHT carotid artery endarterectomy with patch angioplasty using bovine pericardium
Surgeon: Miguel Vides III, MD
Reel Stripper: Chris Dale MD PGY-6
Anesthesia: General
Complications: None
History and Indications for Procedure: 69-year-old male with symptomatic right carotid artery stenosis.
Procedure in Detail: Niall Farris was correctly identified and placed supine on the operating table. After adequate induction of anesthesia the right neck was positioned, prepped and draped in the usual sterile fashion. Preoperative antibiotics
were administered. A timeout procedure was performed with the nursing and anesthesia staff confirming the patients identity as well as the nature and laterality of the procedure.
The carotid bifurcation was marked with ultrasound at the beginning of the case. The incision was planned accordingly. An incision was made along the anterior border of the right silk sternocleidomastoid muscle. Electrocautery was used to divide the
subcutaneous tissue and platysma. The carotid sheath was entered with sharp dissection. The internal jugular vein was retracted laterally. The vagus nerve was identified and protected throughout the case. The common carotid artery was identified at
the base of this incision and carefully encircled with a vessel loop. The patient was systemically heparinized. The dissection was continued distally towards the carotid bifurcation. The facial vein was skeletonized, ligated and divided between ties
and clips. The proximal external carotid artery was encircled with a vessel loop. The distal internal carotid artery was encircled with a vessel loop at a soft spot on the artery beyond the plaque. The hypoglossal nerve was identified and protected.
The internal vessel loop was secured followed by the common and external. An arteriotomy was made on the distal common carotid artery with an 11-blade. This was extended proximally and distally with Correa scissors. The arteriotomy was extended
distally through the plaque to an area of normal appearing internal carotid artery. The distal vessel loop was replaced with a short tip hockey-stick type vascular clamp. An endarterectomy was performed with a [place] elevator in the standard
fashion. The proximal extent of the plaque was transected with scissors. The distal end of the plaque in the internal carotid artery was feathered. A slight distal intimal flap was tacked down along the posterior wall with a single interrupted 7-0
Prolene suture. The plaque extending into the external carotid artery was everted. Once the plaque was fully removed the endarterectomy plane was irrigated with heparinized saline and any loose fronds of tissue were removed. A pre-cut piece of
bovine pericardium was sewn in place using a running 6-0 Prolene suture. Prior to the completion of the patch the common carotid was allowed to forward bleed and the external was allowed to back bleed. The area under the patch was irrigated with
heparinized saline to remove any potential thrombus or debris. The anastomosis was completed.
The external vessel loop was released first, followed by the common and then the internal. There was an excellent pulse in the distal internal carotid artery. An excellent quality Doppler signal in the distal internal carotid artery was also
confirmed. The patch suture line was closely inspected for hemostasis and was achieved. Protamine was administered. Hemostasis was achieved in the wound bed. The wound was irrigated with saline solution.
The wound was then closed in layers. Sterile skin glue was applied. The patient awoke from anesthesia with no immediate neuro deficits and was taken to the PACU in stable condition.
Attestation: I was present and responsible for the entire procedure
Signed:
Miguel Vides III, MD
Vascular Surgery
[facility]
[2025-02-28 11:20] LABS: Blood Urea Nitrogen 18 mg/dl (9-20); Calcium 8.1 mg/dl (8.4-10.2); Carbon Dioxide 26 mmol/L (22-30); Chloride 109 mmol/L (98-107); Estimated Creatinine Clearance 116 ml/min; Glucose 176 mg/dl (70-99); Potassium 4.5 mmol/L (3.5-5.1); Sodium 140 mmol/L (135-145); eGFR > 60.00
--- NOTE | 2025-02-28 11:36 | PTOTSP ---
Speech Language Pathology
Pt NPO for CEA today. Will need new speech orders to continue to follow post anesthesia.
[2025-02-28 11:49] LABS: Glucose - Point of Care 158 mg/dl (70-99)
[2025-02-28] MEDS: NSS 1000 IV ×2 (11:56→21:29)
--- NOTE | 2025-02-28 12:37 | W.PN.HOSP.TC ---
Today's Communication/Plan
-
continue current care
Assessment / Plan
Assessment / Plan
Gen-AAOx3, NAD
HEENT-NC, AT, anicteric, clear oral mm
Neck-supple
CV-reg, no M, +S1/S2
Lungs-clear B/L
Abd-soft, NT, ND
Ext-no edema
Musculoskeletal-no cyanosis, clubbing
Skin-warm and dry
Neuro-dense left hemiplegia, left facial droop
Psych-calm, cooperative
Acute right hemispheric stroke -dense left hemiplegia. Left facial droop. Dysarthria. Speech therapy cleared for regular solids and thin liquids. Aspiration precautions.
- CTA head: Atherosclerotic calcifications of the bilateral cavernous/paraclinoid ICAs with resultant mild stenosis, more pronounced on the left. No aneurysm.
- CTA neck: Mixed density atherosclerotic plaque of the right carotid bifurcation/proximal ICA with resultant 75% stenosis. Codominant vertebral arteries with atherosclerotic calcifications of the bilateral V4 segments of the vertebral arteries with
resultant focal moderate stenosis of the right vertebral artery.
- MRI: Acute infarct in the right periventricular stearns radiata.
- continue ASA/Plavix/Statin
- LDL: 165
- continue neuro-checks
- PT/OT - PMR evaluation for acute rehab
- Neuro following
- CVA alert 02/25 AM for increasing NIH score and worsening Left sided weakness; CT head negative for bleed. Worsening symptoms could represent blossoming infarct
- Underwent successful right carotid endarterectomy 02/28.
- may need Cards eval outpatient for heart monitor as prior records suggest A. Fib but patient states no objective evidence was ever found. Was prescribed Eliquis but he decided to stop taking it after 1 month.
Essential HTN
- continue FINN HS; titrated to 20mg HS
- Prn Hydralazine with parameters
DM2 with hyperglycemia -unclear if patient aware of diagnosis of diabetes. Hemoglobin A1c 6.9%. Not on diabetes meds prior to admission. Currently on NovoLog low resistance scale. Glucose 151 this morning.
DVT ppx: Lovenox
Code: Full
PT/OT when cleared by vascular.
Anticipated Discharge: > 48 hours
Subjective/Interval History
-
Date of Service: February 28, 2025
Patient seen and examined, currently in ICU. No complaints. Able to converse, interactive. Speech remains dysarthric.
Objective Data
-
Labs:
Laboratory Results
02/28/25 02/28/25
05:06 10:40
WBC 6.6 15.3 H
Hgb 16.1 14.7
Hct 47.1 44.4
Plt Count 141 137
PT 13.2
INR 0.97
Sodium 142 140
Potassium 4.3 4.5
Chloride 110 H 109 H
Carbon Dioxide 25 26
BUN 20 18
Creatinine 0.6 L 0.7
Glucose 151 H 176 H
Calcium 9.5 8.1 L
Vital Signs:
Vital Signs
Temp Pulse Resp BP Pulse Ox
98.4 F 79 11 136/70 97
02/28/25 12:19 02/28/25 12:15 02/28/25 12:15 02/28/25 12:15 02/28/25 12:15
I&O
02/27/25 02/28/25 03/01/25
06:59 06:59 06:59
Intake Total 600 / 600 100 / 100
Output Total 900 / 900
Balance -300 / -300 100 / 100
Review of Systems
-
History Source: Patient
All other systems: Reviewed and negative
[2025-02-28] MEDS: CARDENE 200 IV ×2 (12:44→18:04)
--- NOTE | 2025-02-28 14:07 | PTCARENOTE ---
Received pt from PACU s/p R CEA. Neuro check complete and NIH 11 with no change from prior NIH in record. Slurred slow speech. trace movement L U/LE. Gaze preference to Right. R neck approximated with small ecchymosis and no drainage or edema, open
to air. Within an hour of ICU admission, after visit by hospitalist, BP noted to be increasing. Cardene started and quickly increased. SBP max 200 noted by RN. During this interval, pt began coughing/attempting to clear his throat. Multiple
episodes of mod amount bright red blood expectorated and suctioned from oropharynx. Vascular team and Hoisting Engineer Pile Driving notified. Hoisting Engineer Pile Driving contacted Anesthesia for possible traumatic intubation during surgery. Anesthesia states oropharyngeal blood
noted with extubation. Pt to notify RN with continues bloody expectorant.
--- NOTE | 2025-02-28 15:47 | PTCARENOTE ---
No further blood noted with cough. Pt incontinent of urine, CHG bath performed, linen changed and #25 short condom cath applied. Discussed PT plan for tomorrow.
--- NOTE | 2025-02-28 15:56 | PTOTSP ---
Dysphagia Therapy
Impression: Patient is at an elevated risk for dysphagia due to acute ischemic stroke (right stearns radiata) and difficult intubation for R CEA 02/28. Patient with worsened signs of dysphagia when compared to initial evaluation including oral stasis
on left side of oral cavity with puree/solids and throat clearing/inconsistent coughing concerning for possible penetration/aspiration events.
Recommend:
1. Temporary NPO
2. Medications: essential medications in puree, use suction afterwards to ensure oral cavity clear
3. Aspiration Risk Hydration Protocol - unlimited water after oral care with supervision
4. FEES to objectively assess swallowing function, r/o aspiration, further develop tx plan
5. Motor speech therapy
[2025-02-28] MEDS: NOVOLOG FLEXPEN-LOW RESISTANCE 1 UNITS SC (16:54)
[2025-02-28] MEDS: LOVENOX 40 MG SC (16:54)
[2025-02-28] MEDS: LIPITOR 80 MG PO (16:55)
[2025-02-28 17:04] LABS: Glucose - Point of Care 180 mg/dl (70-99)
--- NOTE | 2025-02-28 20:00 | PTCARENOTE ---
on assessment pt AAOx3, denies pain and SOB, ST/SR on the monitor, BP 140s/60s with Cardene infusing per orders, NIH and neuro checks completed see flow sheet, R neck incision with demabond GLOBAL CLINICAL LEADER, no drainage noted but site is swollen but soft to
touch, 95% on 2L, NPO with small sips for meds, condom cath in place, call mueller in reach
[2025-02-28] MEDS: ZOFRAN 4 MG IV (20:23)
[2025-02-28] MEDS: ZESTRIL 20 MG PO (21:29)
[2025-02-28] MEDS: LOW STRENGTH ASPIRIN 81 MG PO (21:29)
[2025-02-28] MEDS: COMPAZINE 10 MG IV (21:29)
--- NOTE | 2025-02-28 22:13 | PTCARENOTE ---
pt became nauseous and dry heaving, no vomiting noted, PRN meds given see MAR, respiratory at bedside, R neck incision noted to have increased swelling to site, no drainage, and remains soft. SHOE REPAIRER APPRENTICE and paged and made aware, EKG and labs
ordered, neuro checks remain unchanged.
[2025-02-28 22:19] LABS: Hematocrit 42.2 % (39.0-52.0); Hemoglobin 14.6 g/dL (13.0-18.0); Mean Corp Hgb Conc. 34.6 g/dL (33.0-37.0); Mean Corpuscular Volume 88.3 fL (80.0-94.0); Platelet Count 145 10^3/uL (130-400); Red Cell Dist. Width 12.3 % (11.5-14.5)
[2025-02-28 22:37] LABS: Blood Urea Nitrogen 18 mg/dl (9-20); Calcium 8.8 mg/dl (8.4-10.2); Carbon Dioxide 25 mmol/L (22-30); Chloride 108 mmol/L (98-107); Estimated Creatinine Clearance > 125 ml/min; Glucose 164 mg/dl (70-99); Potassium 4.0 mmol/L (3.5-5.1); Sodium 137 mmol/L (135-145); eGFR > 60.00
[2025-02-28 22:42] LABS: Glucose - Point of Care 155 mg/dl (70-99)
--- NOTE | 2025-02-28 23:53 | PTCARENOTE ---
pt NIH went from a 10-13. L hand was able to squeeze very lightly and L leg was able to quickly move off the bed at change of shift and now pt is unable to move whole L side, TOPOLOGY PROFESSOR made aware and at bedside, CT ordered, pt AAOx3, pupils 3 PERRLA, R
neck with increased edema noted and slightly firm to touch, Dr. michaud paged and made aware, no new orders at this time.
[2025-03-01] VITALS (14 sets, daily range): BP systolic 141–161; BP diastolic 64–93; PULSE 84–85; O2SAT 94; BMI 26.6
[2025-03-01 04:13] LABS: Hematocrit 41.9 % (39.0-52.0); Hemoglobin 14.3 g/dL (13.0-18.0); Mean Corp Hgb Conc. 34.1 g/dL (33.0-37.0); Mean Corpuscular Volume 89.0 fL (80.0-94.0); Platelet Count 151 10^3/uL (130-400); Red Cell Dist. Width 12.3 % (11.5-14.5)
[2025-03-01 04:21] LABS: APTT 27.8 Sec (23.4-35.0); INR 1.03; PT 13.8 Sec (11.4-14.6)
[2025-03-01 04:34] LABS: Blood Urea Nitrogen 16 mg/dl (9-20); Calcium 8.8 mg/dl (8.4-10.2); Carbon Dioxide 25 mmol/L (22-30); Chloride 108 mmol/L (98-107); Estimated Creatinine Clearance > 125 ml/min; Glucose 155 mg/dl (70-99); Potassium 4.2 mmol/L (3.5-5.1); Sodium 139 mmol/L (135-145); eGFR > 60.00
[2025-03-01] MEDS: NOVOLOG FLEXPEN-LOW RESISTANCE SC ×3 (06:01→23:19)
[2025-03-01 06:12] LABS: Glucose - Point of Care 143 mg/dl (70-99)
--- NOTE | 2025-03-01 07:32 | W.PN.VS ---
Addendum entered and electronically signed by Miguel Vides III, MD 03/01/25 12:49:
This patient was seen and examined in collaboration with FRIDA Real. I agree with the history and physical exam as well as the assessment and plan. I have the following additions:
Events overnight noted
patient largely at baseline this morning
Soft right-sided neck hematoma under the incision
Will plan for CTA to better assess and rule out extravasation (low suspicion)
Signed:
Miguel Vides III, MD
Vascular Surgery
[facility]
Original Note:
Today's Communication / Plan
-
Plan reviewed with attending Dr. Miguel Vides III
Assessment/Plan
-
Assessment: 69-year-old male presented to ED on 02/23/2025 with reports of generalized weakness and dysarthria concerning for stroke, evidence of right ICA stenosis at 75% by CT angio of head and neck, underwent MRI on 02/24/2025 which confirmed acute
infarct in the right periventricular stearns radiata, patient had progression of left-sided weakness acutely after assessed by our team on 02/25/2025 , now with left-sided hemiplegia. POD #1 right carotid endarterectomy
Plan:
Discontinue IV fluids
Can discontinue arterial line once weaned off of Cardene infusion
Continue ice to right neck intermittently
Continue PT/OT evaluation
Will defer to primary/neuroteam as far as advancing diet given stroke symptoms and high risk for aspiration
Encourage incentive spirometry
Subjective Data
-
Date of Service: March 01, 2025
Patient seen and examined at bedside, reports episode of emesis and nausea overnight. Reports adequate postoperative pain management. Does endorse intermittent fluctuations in left hand grasp strength and movement of left leg. Speech remains
slurred and challenging at times to understand.
Objective Data
-
Vital Signs
Temp Pulse Resp BP Pulse Ox
98.1 F 72 12 142/54 97
03/01/25 03:10 03/01/25 06:15 03/01/25 06:15 02/28/25 21:29 03/01/25 06:15
Intake and Output
02/28/25 03/01/25 03/02/25
06:59 06:59 06:59
Intake Total 600 / 600 1777.5 / 1777.5
Output Total 900 / 900 550 / 550
Balance -300 / -300 1227.5 / 1227.5
Intake:
Oral fluids 600 / 600
IV fluids (Total) 1777.5 / 1777.5
Normosol 1540 / 1540
cardene 237.5 / 237.5
Output:
Urine, Voided 550 / 550
Straight cath output 900 / 900
Other:
How many times incontinent 1
SATURATED amount urine
Lab Results
03/01/25 03:39
03/01/25 03:39
Calcium 8.8 mg/dl (8.4-10.2) 03/01/25 03:39
Magnesium 2.2 mg/dl (1.6-2.3) 02/24/25 05:49
Physical Exam
-
No apparent distress, resting comfortably in bed
Right neck surgical incision clean, dry, and intact, mild area of edema/hematoma, remains soft, suture line well intact, Exofin intact
No tachycardia
Left sided facial droop, dysarthric
Left-sided hemiplegia
--- NOTE | 2025-03-01 07:39 | W.PN.HOSP.TC ---
Today's Communication/Plan
-
FEES
Assessment / Plan
Assessment / Plan
Gen-AAOx3, NAD
HEENT-NC, AT, anicteric, clear oral mm
Neck-supple, right neck surgical wound intact
CV-reg, no M, +S1/S2
Lungs-clear B/L
Abd-soft, NT, ND
Ext-no edema
Musculoskeletal-no cyanosis, clubbing
Skin-warm and dry
Neuro-dense left hemiplegia, left facial droop
Psych-calm, cooperative
Acute right hemispheric stroke -dense left hemiplegia. Left facial droop. Dysarthria. Speech therapy cleared for regular solids and thin liquids. Aspiration precautions.
- CTA head: Atherosclerotic calcifications of the bilateral cavernous/paraclinoid ICAs with resultant mild stenosis, more pronounced on the left. No aneurysm.
- CTA neck: Mixed density atherosclerotic plaque of the right carotid bifurcation/proximal ICA with resultant 75% stenosis. Codominant vertebral arteries with atherosclerotic calcifications of the bilateral V4 segments of the vertebral arteries with
resultant focal moderate stenosis of the right vertebral artery.
- MRI: Acute infarct in the right periventricular stearns radiata.
- continue ASA/Plavix/Statin
- LDL: 165
- continue neuro-checks
- PT/OT - PMR evaluation for acute rehab
- Neuro following
- CVA alert 02/25 AM for increasing NIH score and worsening Left sided weakness; CT head negative for bleed. Worsening symptoms could represent blossoming infarct
- may need Cards eval outpatient for heart monitor as prior records suggest A. Fib but patient states no objective evidence was ever found. Was prescribed Eliquis but he decided to stop taking it after 1 month.
Right carotid stenosis -greater than 70% stenosis of right proximal ICA on CTA. Underwent successful right carotid endarterectomy 02/28.
Dysphagia -currently n.p.o., awaiting FEES by speech therapy.
Essential HTN
- continue lisinopril 20 mg at bedtime
DM2 with hyperglycemia -patient aware of diagnosis of diabetes, was managing with diet alone prior to admission. Hemoglobin A1c 6.9%. Not on diabetes meds prior to admission. Currently on NovoLog low resistance scale. Glucose 155 this morning.
DVT ppx: Lovenox
Code: Full
PT/OT when cleared by vascular.
Anticipated Discharge: > 48 hours
Subjective/Interval History
-
Date of Service: March 01, 2025
Patient seen and examined. No complaints. Denies pain.
Objective Data
-
Labs:
Laboratory Results
02/28/25 03/01/25
22:04 03:39
WBC 11.8 H 12.0 H
Hgb 14.6 14.3
Hct 42.2 41.9
Plt Count 145 151
PT 13.8
INR 1.03
APTT 27.8
Sodium 137 139
Potassium 4.0 4.2
Chloride 108 H 108 H
Carbon Dioxide 25 25
BUN 18 16
Creatinine 0.6 L 0.6 L
Glucose 164 H 155 H
Calcium 8.8 8.8
Vital Signs:
Vital Signs
Temp Pulse Resp BP Pulse Ox
97.8 F 72 12 142/54 97
03/01/25 07:33 03/01/25 06:15 03/01/25 06:15 02/28/25 21:29 03/01/25 06:15
I&O
02/28/25 03/01/25 03/02/25
06:59 06:59 06:59
Intake Total 600 / 600 1777.5 / 1777.5
Output Total 900 / 900 550 / 550
Balance -300 / -300 1227.5 / 1227.5
Review of Systems
-
History Source: Patient
All other systems: Reviewed and negative
--- NOTE | 2025-03-01 08:00 | PTCARENOTE ---
recd pt handoff bedside, NIHSS completed as documented. Pt in no distress, in good spirits and humorous at times. R neck softly swollen, measured 17 inches around widest point though measurement line is not marked, took am pills in applesauce
after coughing following sip water - oral care done first.
[2025-03-01] MEDS: PERIDEX 0.12% ORAL RINSE 15 ML PO ×2 (08:05→20:17)
[2025-03-01] MEDS: PLAVIX 75 MG PO (08:05)
--- NOTE | 2025-03-01 08:23 | W.PN.INTV ---
Today's Communication / Plan
Recommendations
Postoperative management as per vascular surgery
Continued DAPT
Diet as per AMUSEMENT MACHINE MECHANIC
Ice pack to right sided neck due to swelling; follow-up CTA head + neck with/without contrast to evaluate for active bleeding versus hematoma
Pain control
Up OOB as tolerated
Maintain MAP 70-100 mmHg
Defer disposition regarding transfer out of ICU to vascular surgery; photocopying equipment mechanic services will continue to follow along for now
Assessment
-
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
(11/2023), CAD s/p CABG x3 (11/2023), DM2, B/L cataracts, intracranial arteriosclerosis, carotid atherosclerosis, PVCs, hx BCC, pulmonary HTN, pAF previously on Eliquis and fatty liver disease who p/w slurred speech and L-sided weakness. He also had
a fall BIOINFORMATICS ENGINEER. He called a friend who brought him to the ER here at . He takes a baby ASA daily. CTA head/neck on 02/23/[address] head showed no acute intracranial pathology, with sequelae of severe chronic small vessel ischemic
disease, with 75% of right proximal ICA/carotid bifurcation. He was admitted to telemetry for further care with Neurology consulted.
Plavix added to regimen on 02/24, and brain MRI performed on 02/24/2025 showed an acute ischemic infarct in the right periventricular stearns radiata. Etiology suspected to be from his right-sided ICA disease. Vascular surgery consulted. Surgical
revasculation recommended, and the pt agreed to this intervention. On 02/28/2025, he underwent a right-sided carotid endarterectomy. EBL was 20cc. He was TRX to ICU post-operatively for further care, and Sales Associate Cashier services consulted for further
recommendations/management.
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
arteriosclerosis, Carotid atherosclerosis, PVCs, former smoker (41pk years - quit 2012), hx BCC, MVCAD s/p CABG x4, Hx of pulmonary HTN, pAF previously on Eliquis, fatty liver disease
Impression:
#Symptomatic right carotid artery stenosis with right sided ischemic CVA s/p right carotid artery endarterectomy with patch angioplasty using bovine pericardium (POD #1)
#Acute ischemic stroke of right stearns radiata likely due to thromboembolism from right sided carotid artery disease/stenosis
#Post-operative hemoptysis (non-life threatening) likely due to oropharyngeal irritation due to difficult intubation in setting of heparinization + DAPT - hemoptysis now resolved as of 03/01
#Leukocytosis - likely reactive
#Hx of multiple chronic lacunar infarcts
#Hx of severe s/p SAVR (#25 Inspiris Resilia) - 11/25/2023
#CAD s/p CABG x3 - 11/25/2023
#Hx of left hemidiaphragm elevation
#Hx of pA-fib, no longer on Eliquis (follows with Cardiology as outpatient via Dr. Larsen - last visit 08/22/2024)
#Former tobacco smoker with 41-necq-evii Hx, quit 2012
Plan:
Postoperative surgical intensive care unit monitoring
Maintain SpO2 >90-94% using supplemental O2 if needed
prn nebulized bronchodilators - not currently bronchospastic
Incentive spirometry encouraged 10x per hour for at least 4 hrs a day
Aspiration precautions
Pain control
After patient was transferred to ICU s/p OR, he was having non-life threatening hemoptysis likely due to oropharyngeal trauma during intubation in the setting of heparinization + DAPT
- Hemoptysis now resolved
- Continue to monitor
- I had previously discussed the case with anesthesia who managed him during the OR case on 02/28, and he was a difficult intubation despite him having first pass success with glidescope
- I suspect there was some minor trauma to oropharynx during intubation, as post-operatively there was blood suctioned from oropharynx with clots
- Bleeding was likely exacerbated by heparinization during the case in setting of DAPT with ASA + plavix
- Continue to closely monitor quantity of hemoptysis - if worsens, then would start nebulized TXA, and check stat CBC; transfuse as needed to keep Hb>7-8g/dL, plt>50k; given his recent acute ischemic CVA, would continue DAPT for now and only hold
if hemoptysis becomes more moderate-severe
- If hemoptysis recurs/becomes severe then would offer bronchoscopy for airway inspection
- Keep SBP<180mmHg, MAP<100mmHg
Neuro and vascular checks per protocol
Maintain MAP>65
Replete electrolytes with K>4, Mg>2
Maintain euglycemia with goal BG 140-180; Hb A1C: 6.9 on 02/24/2025
Given patient's worsening right-sided neck swelling at the recent operative site, CTA head + neck with/without IV contrast is being performed to evaluate for active bleeding vs hematoma
Although WBC is elevated, pt is non-toxic appearing and afebrile
Observe off ABx for now
Trend WBC and monitor temperature curve
Vascular surgery following-correspondence and operative notes reviewed
Transfuse blood products as needed to keep Hb>7g/dL, and plt>50k (given post-operative status)
Given his significant tobacco smoking Hx, and quitting within the last 15 years, he does qualify for LDCT Chest imaging. This can be discussed further as an outpatient
- Most recent LDCT Chest on 11/03/2023 did not show any evidence of a lung nodule; despite his smoking Hx, there was also no significant emphysema either or evidence of bronchiolitis/bronchial wall thickening
DVT prophylaxis: LMWH
Early nutrition
Early mobilization
Disposition regarding transferring patient out of ICU defer to vascular surgery. Sales Associate Cashier services will continue to follow along.
Total time spent today was 58 minutes for this encounter. Time includes reviewing laboratory test/imaging results, reviewing pertinent medical records, obtaining and reviewing medical history, performing an appropriate exam, ordering medications,
tests and procedures. Time also includes documentation of this encounter, coordinating patient care and communicating with other healthcare professionals. Total time does not include separately billed tests performed on this date of service.
Subjective Dataa
Subjective Data
Date of Service:
Date of Service: March 01, 2025
Chief Complaint: Sales Associate Cashier Follow Up
Subjective:
Patient seen and evaluated this morning. He is doing well although his right neck is swelling. Heart rate is 79, saturating 95% on room air, and BP 161/60. Failed AMUSEMENT MACHINE MECHANIC today. He had worsening left-sided weakness overnight, and CT head showed
evolving infarct involving the right stearns radiata.
Review of Systems
General: Other (Negative unless mentioned above)
Objective Data
Data Reviewed
Vital Signs / I&O / Oxygen:
Vital Signs
Temp Pulse Resp BP Pulse Ox
97.8 F 77 18 160/75 97
03/01/25 07:33 03/01/25 09:30 03/01/25 09:30 03/01/25 07:59 03/01/25 09:30
Intake and Output
02/28/25 03/01/25 03/02/25
06:59 06:59 06:59
Intake Total 600 / 600 1777.5 / 1857.5 290 / 290
Output Total 900 / 900 550 / 550
Balance -300 / -300 1227.5 / 1307.5 290 / 290
SaO2 97
Nasal Cannula flow liters per 2
minute
Physical Exam
General: Respiratory Distress (negative), Comfortable, Chills (negative) and Sweats (negative)
HEENT: Normocephalic, Anicteric and Other (Swelling seen on right lateral neck with vertical incision which appears clean with no purulence or exsanguination seen)
Cardiovascular: S1-S2, Rub (negative) and Peripheral Edema (negative)
Respiratory: Wheeze (negative), Crackles (negative), Rhonchi (negative), Non-Labored Respirations and Stridor (negative)
GI: Soft, Non Distended, Non Tender and Normal Bowel Sounds
Neurology: Awake, Alert, Tremors (negative), Other (Left arm weakness is significant (strength: 0/5); left leg weakness: Dorsiflexion: 3/5, plantarflexion: 2/5) and Other (Intact sensation to light touch along legs, arms and face; left-sided facial
droop; pupils +3 bilaterally and brisk)
Skin: Warm, Dry, Cyanosis (negative) and Jaundice (negative)
Labs/Micro/Reports
Lab Data
03/01/25 03:39
03/01/25 03:39
Laboratory Results
03/01/25
03:39
PT 13.8
INR 1.03
APTT 27.8
--- NOTE | 2025-03-01 09:01 | PTOTSP ---
Reviewed chart and noted pt went to OR 02/28 for right CEA then to ICU post-op. Needs new orders for PT and OT when stable to begin activity.
--- NOTE | 2025-03-01 09:10 | CON.MD ---
Documented by User: Keely Curran PA-C 03/01/25 16:25
Consultation - Medical
-
Referring Provider:�Myron Tellez
Chief Complaint:�CVA
�
History of Present Illness:�This is a 69-year-old with PMH for ( CAD, s/p AVR, diet controlled diabetes, hypertension, carotid artery disease, hyperlipidemia, prior strokes (2009,2020,2023 with residual right hand numbness in the fingertips,who
presented to [facility] emergency department after waking up with facial droop, progressive slurred speech, right-sided weakness and fall. He reported taking a baby aspirin daily and Eliquis for only 1 month before it was discontinued for a prior unclear
diagnosis of atrial fibrillation never diagnosed by telemetry or EKG but by subjective sense according to his notes. He is not currently on any statin.
In the ED, ECG showed a sinus rhythm at rate of 74.
CT Brain: No acute intracranial process. No evidence of acute hemorrhage. Mild atrophy, severe chronic small vessel ischemic disease.
CTA Head: Atherosclerotic calcifications of bilateral cavernous/paraclinoid ICAs with resultant mild stenosis, more pronounced on the left.No aneurysm.
MRI brain�02/24/2025 -1.8 cm region of restricted diffusion in the right periventricular stearns radiata compatible with a small acute infarct (series 302, image 136).
Moderate age-related parenchymal atrophy. T2/FLAIR hyperintense signal in the white matter of the bilateral cerebral hemispheres, most compatible with moderate to severe chronic microangiopathic ischemia. Chronic lacunar infarcts in the bilateral
stearns radiata, bilateral basal ganglia, left thalamus, nolan, and bilateral cerebellar hemispheres. No mass effect, midline shift, or extra axial collection. No abnormal signal intensity on diffusion-weighted images.
CTA Neck: Mixed density atherosclerotic plaque of the right carotid bifurcation/proximal ICA with resultant 75% stenosis by NASA criteria. Codominant vertebral arteries with atherosclerotic calcifications of the bilateral V4 segments of the
vertebral arteries with resultant focal moderate stenosis of the right vertebral artery.
Seen by neurology with recommendation of Plavix and aspirin. Vascular consulted for carotid stenosis-recommending surgery.
On 02/25, patient with worsening Left sided weakness; CT head negative for bleed. Worsening symptoms could represent blossoming infarct.
On 02/28 underwent successful right carotid endarterectomy by Dr. Miguel Vides. Per chart- May need Cardiology evaluation outpatient for heart monitor as prior records suggest A. Fib but patient states no objective evidence was ever found. Was
prescribed Eliquis but he decided to stop taking it after 1 month.
03/01- seen by speech this morning- had feeding test and had aspiration for all consistencies
Past Medical History:�CAD s/p CABG, valvular disease s/p aortic valve replacement, Hyperlipidemia,
Procedure History:�Aortic valve replacement, CABG, RIGHT carotid artery endarterectomy with patch angioplast-02/28
Family History:�Dad-Alzheimer Alzheimer, Mom- unknown-, sister-unknown cause of - on Morning
�
Social History:�
Functional Level Premorbidly:�Independent with all activities�
Functional Level Currently:�Bed mobility- max assist,
�
Tobacco:�Former smoker�history of 41 pack/years�quit 2012
Alcohol:�Denies�
Drug use:�Denies�
�
Lives with:�Alone
24-hour assistance available:�
Number of floors:�2
# steps to enter:�2
# steps to second floor: 13 steps
Potential First floor set up:�
Driving:�yes
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
�
�
Allergies:�
Allergy/AdvReac Type Severity Reaction Status Date / Time
bee venom protein (honey bee) Allergy Anaphylaxis Verified 02/23/25 16:16
�
Review of Systems:�
Constitutional: (x) Normal _
Eye: (x) Normal _
Ear/Nose/Throat: (x) Normal _
Respiratory: (x) Normal _
Cardiovascular: (x) Normal _
Gastrointestinal: (x) abNormal _dysphagia
Genitourinary: (x) Normal _
Musculoskeletal: (x) abNormal _left hemiplegia
Integumentary: (x) Normal _
Neurologic: (x) abNormal _ cva, dysarthria
Psychiatric: (x) Normal _
Endocrine: (x) Normal _
Hematologic/Lymphatic: (x) Normal _
Allergic/Immunologic: (x) Normal _
�
Medications:�
Active Current Visit Medication List
Category Date Time Status
0.9% Sodium Chloride 1000 ml [Nss] 1,000 ml Med 02/28/25 10:30 Active
IV 80 mls/hr
Acetaminophen [Tylenol/Feverall] Med 02/23/25 21:18 Active
650 mg RECTAL Q4HPRN PRN
Acetaminophen [Tylenol] Med 02/23/25 21:18 Active
650 mg PO Q4HPRN PRN
Aspirin Chewable [Low Strength Aspirin] Med 02/23/25 22:00 Active
81 mg PO HS
Atorvastatin [Lipitor] Med 02/24/25 18:00 Active
80 mg PO QPM
Chlorhexidine Oral Rinse 0.12% [Peridex 0.12% Oral Med 02/28/25 05:00 Active
Rinse]
15 ml PO BID
Clopidogrel Bisulfate [Plavix] Med 02/24/25 08:00 Active
75 mg PO DAILY
Dextrose 50%-Water [Dextrose 50% Syringe] Med 02/23/25 22:00 Active
12.5 grams IV [id number] PRN
Enoxaparin Sodium [Lovenox] Med 02/24/25 18:00 Active
40 mg SC QPM
Fentanyl Citrate/Pf [Sublimaze] Med 02/28/25 06:56 Active
25 mcg IV [id number] PRN
Flush (0.9% Sodium Chloride) [Flush (Nss)] Med 02/23/25 22:00 Active
See Dose Instructions IV PER PROTOCOL
Glucagon [GlucaGen] Med 02/23/25 22:00 Active
1 mg IM PRN PRN
HYDROmorphone [Dilaudid] Med 02/28/25 06:56 Active
0.25 mg IV [id number] PRN
HydrALAZINE [Apresoline] Med 02/23/25 21:18 Active
5 mg IV Q4HPRN PRN
Insulin Aspart Corrective Low [Novolog Flexpen-Low Med 02/28/25 06:00 Active
Resistance]
See Protocol SC Q6
Lisinopril [Zestril] Med 02/25/25 22:00 Active
20 mg PO HS
Morphine Sulfate Med 02/28/25 06:56 Active
1 mg IV PACU-[id number] PRN
Nicardipine 40 mg/200 ml [Cardene] Med 02/28/25 10:30 Active
40 mg in 200 ml IV PER PROTOCOL
Ondansetron Injectable [Zofran] Med 02/28/25 06:56 Active
4 mg IV PACU-ONCEPRN PRN
Ondansetron Injectable [Zofran] Med 02/28/25 20:20 Active
4 mg IV Q6HPRN PRN
PHENYLephrine 50 MG/250 ML NSS [J Carlos-Synephrine] Med 02/28/25 10:30 Active
50 mg in 250 ml IV PER PROTOCOL
Prochlorperazine [Compazine] Med 02/28/25 06:56 Active
5 mg IV PACU-ONCEPRN PRN
�
Vitals:�
Temp Pulse Resp BP Pulse Ox
98.1 F 74 13 142/54 97
03/01/25 03:10 03/01/25 04:45 03/01/25 04:45 02/28/25 21:29 03/01/25 04:45
Height 6 ft 3 in
Actual Weight 96.6 kg
Body Mass Index (BMI) 26.6
�
Physical Exam:�
General Appearance/Observation: Well-developed, well-nourished individual in no apparent distress.�
Pain/Comfort Assessment: Denies�
Mood/Affect: Appropriate, pleasant�
Integumentary/Operative Site:�engorgement on right side of neck post endarterectomy
�� Pressure Ulcer Evaluation: absent over heels.�
��
�� Other Type of Wound: absent�
��
�
Eyes: Conjunctiva/Lids: normal���� Pupils: pupils equal round and reactive to light and Accommodation�
Ears/Nose/Throat: oral mucosa moist,� throat- not well visualized-tongue blue from swallowing test.������������ Lips/Teeth/Gums: normal�
Neck: No muscle spasm or tenderness�
Cardiovascular: Heart: regular, no murmur�
Pulses: dorsalis pedis 2+ bilaterally�
Respiratory: Respiratory Effort/Chest Expansion: normal������� Auscultation: Clear to auscultation bilaterally�
Gastrointestinal: abdomen not tender, no distension, normal abdominal bowel sounds
Genitourinary: No Vides�
Extremities:�Edema: None�Cyanosis: None�Trophic�changes: None
�
Neurology Exam:
Orientation: Alert, Oriented to self, Time, Place�
Memory: Intact for immediate medical concerns
Repetition: Intact
Comprehension: Intact
Two step command: Intact
Naming: Intact, gave the right timing on the analogue clock on the wall after correcting self, able to count backward from 20 by 3
Cranial Nerves:
�� CNII:�Pupillary light reflex: Intact����Visual Field: left neglect
�� CN III, IV, : Extraocular muscles: Intact�
�� CN V:�Facial Sensation�at�Forehead: Intact,�Maxilla: Intact,�Mandible: Intact
�� CN VII:�Facial movement: significant drooping left
�� CN VIII:�Hearing: Normal
�� CN IX/X:�Speech & swallow: dysarthric, hypophonia, can understand most words�Position of Uvula: Midline
�� CN XI:�Shoulder shrug: weakness on left
�� CN XII:�Tongue protrusion: deviated to left
Sensory:
�� Light touch: Intact in right upper and lower extremities, diminished on left Upper and lower extremities
��
�
Reflexes:
�� Biceps: 2+ bilaterally
�� Brachioradialis: 2+ bilaterally
�� Triceps: 2+ bilaterally
�� Patellar: 2+ bilaterally
�� Achilles: absent bilaterally
�� Babinski: Down going on right, upward on left
�� Clonus: NT
�� Sirena: Negative bilaterally�
Cerebellar: Dysmetria/Ataxia: intact on right, unable to perform on left due to weakness
Musculoskeletal:
Motor: (Manual muscle scale 0-5)�
Muscle SA EF WE EE FF FA HF KE DF EHL PF
Right� NT 5 5 5 5 5 5 5 5 5 5
Left 0 0 0 0 0 0 0 0 0 0 0
left hand in fist position and unable to open hand
Tone: Normal in all extremities�
Range of Motion: Passively within normal limits in all extremities�
�
Labs
WBC 12.0 10^3/uL (4.8-10.8) H 03/01/25 03:39
RBC 4.71 10^6/uL (4.70-6.10) 03/01/25 03:39
Hgb 14.3 g/dL (13.0-18.0) 03/01/25 03:39
Hct 41.9 % (39.0-52.0) 03/01/25 03:39
MCV 89.0 fL (80.0-94.0) 03/01/25 03:39
MCH 30.4 pg (27.0-31.0) 03/01/25 03:39
MCHC 34.1 g/dL (33.0-37.0) 03/01/25 03:39
RDW 12.3 % (11.5-14.5) 03/01/25 03:39
Plt Count 151 10^3/uL (130-400) 03/01/25 03:39
MPV 11.5 fL (7.4-10.4) H 03/01/25 03:39
Abs Immat Gran (auto) 0.0 10^3/uL (0-0.05) 02/23/25 16:51
Absolute Neuts (auto) 5.3 10^3/uL (1.4-6.5) 02/23/25 16:51
Absolute Lymphs (auto) 1.6 10^3/uL (1.2-3.4) 02/23/25 16:51
Absolute Monos (auto) 0.7 10^3/uL (0.1-0.6) H 02/23/25 16:51
Absolute Eos (auto) 0.1 10^3/uL (0-0.7) 02/23/25 16:51
Absolute Basos (auto) 0.0 10^3/uL (0-0.2) 02/23/25 16:51
Immature Gran % 0.1 % (0-0.5) 02/23/25 16:51
Neutrophils % 69.2 % (42.2-75.2) 02/23/25 16:51
Lymphocytes % 20.6 % (20.5-51.1) 02/23/25 16:51
Monocytes % 8.5 % (1.7-9.3) 02/23/25 16:51
Eosinophils % 1.2 % (0-6) 02/23/25 16:51
Basophils % 0.4 % (0-2) 02/23/25 16:51
Nucleated RBC % 0 % (-) 02/23/25 16:51
PT 13.8 Sec (11.4-14.6) 03/01/25 03:39
INR 1.03 03/01/25 03:39
APTT 27.8 Sec (23.4-35.0) 03/01/25 03:39
Plt Function - Aspirin 405 ARU 02/24/25 05:49
Sodium 139 mmol/L (135-145) 03/01/25 03:39
Potassium 4.2 mmol/L (3.5-5.1) 03/01/25 03:39
Chloride 108 mmol/L (98-107) H 03/01/25 03:39
Carbon Dioxide 25 mmol/L (22-30) 03/01/25 03:39
BUN 16 mg/dl (9-20) 03/01/25 03:39
Creatinine 0.6 mg/dL (0.7-1.3) L 03/01/25 03:39
Estimated Creat Clear > 125 ml/min 03/01/25 03:39
eGFR > 60.00 03/01/25 03:39
Glucose 155 mg/dl (70-99) H 03/01/25 03:39
Hemoglobin A1c 6.9 % (4.0-5.6) H 02/24/25 05:49
Lactic Acid 0.9 mmol/L (0.7-2.0) 02/28/25 22:04
Calcium 8.8 mg/dl (8.4-10.2) 03/01/25 03:39
Magnesium 2.2 mg/dl (1.6-2.3) 02/24/25 05:49
Triglycerides 169 mg/dl (10-149) H 02/24/25 05:49
Total Cholesterol 246 mg/dl (50-199) H 02/24/25 05:49
LDL Cholesterol, Calc 165 mg/dl 02/24/25 05:49
VLDL Cholesterol, Calc 33 mg/dl (0-30) H 02/24/25 05:49
HDL Cholesterol 48 mg/dl 02/24/25 05:49
POC Glucose 155 mg/dl (70-99) H 02/28/25 22:30
POC ACT Low Range 219 Seconds (116-155) H 02/28/25 09:39
�
Diagnostic Results:�as per HPI�
CT head and neck angio gram with and without contrast-02/26/2025
�There is mild decreased attenuation about the lateral ventricles consistent with periventricular small vessel ischemic disease. There are bilateral old lacunar infarcts of the basal ganglia. There is no evidence of acute intracranial hemorrhage or
pathology. There is mild ventricle sulcal prominence consistent atrophy.
Head and neck:
There is no M1 nor M2 occlusion. There is a greater than 70% stenosis of the right proximal internal carotid artery due to calcified and noncalcified plaque. There is less than 50% stenosis of the origin of the right vertebral artery due to
calcified plaque. This is stable. There is 50-69% stenosis of the right V4 vertebral artery seen best on image 327 series 502. This is stable.
There is no carotid dissection. The posterior circulation is intact.
The enhanced brain parenchyma is unremarkable. Salivary glands are within normal limits. There is no significant lymphadenopathy in neck. The airway is unremarkable. The thyroid gland is within normal limits. The imaged lungs are clear..
There is moderate disc space narrowing at C5/C6 and C6/C7.
IMPRESSION: No acute intracranial pathology.
Moderate periventricular small vessel seen disease. Stable.
Old lacunar infarcts. Stable. Mild atrophy. Stable No acute vascular pathology. Greater than 70% stenosis of the right proximal internal carotid artery. 50-69% right vertebral artery stenosis. Stable
Multilevel degenerative disc disease. Mild atrophy. Stable
Chest x-ray�02/28/2025
Lines and tubes: None.
Lungs: Low lung volumes are noted without significant focal parenchymal opacification. Pulmonary vascularity is at least top normal. No pleural effusion or pneumothorax.
Heart: Cardiac and mediastinal contours are grossly stable.
Osseous structures: Sternal metallic hardware is again seen.
IMPRESSION:
Low lung volumes with no focal parenchymal consolidation. No pneumothorax.
Pulmonary vascularity at least top normal
CT head stroke alert without contrast�02/25/2025
There is no intracranial hemorrhage.
There are no abnormal extra-axial fluid collections.
There is a new vague focus of slight decreased attenuation in the right stearns radiata correlating with the recent infarct seen on MRI February 24, 2025.
There is again seen diffuse cortical atrophy as evidenced by prominence of the CSF spaces.
Additionally, there are again noted punctate and patchy areas of low density in the periventricular and subcortical white matter bilaterally. These white matter changes are nonspecific but given the patient's age are most likely ischemic or
degenerative in origin. Such white matter changes are often seen in older individuals and typically do not correlate clinically.
IMPRESSION:
Small focus of evolving nonhemorrhagic infarction in the right stearns radiata.
No acute intracranial hemorrhage or other significant change.
MRI brain�02/24/2025
1.8 cm region of restricted diffusion in the right periventricular tsearns radiata compatible with a small acute infarct (series 302, image 136).
Moderate age-related parenchymal atrophy. T2/FLAIR hyperintense signal in the white matter of the bilateral cerebral hemispheres, most compatible with moderate to severe chronic microangiopathic ischemia. Chronic lacunar infarcts in the bilateral
stearns radiata, bilateral basal ganglia, left thalamus, nolan, and bilateral cerebellar hemispheres. No mass effect, midline shift, or extra axial collection. No abnormal signal intensity on diffusion-weighted images.
The vascular flow voids at the skull base are unremarkable, as far as visualized.
The paranasal sinuses and mastoids are clear.
IMPRESSION:
Acute infarct in the right periventricular stearns radiata.
Chronic senescent changes and a large number of chronic lacunar infarcts, as detailed above.
Assessment:: 69-year-old male with multiple prior CVAs presented with facial droop, slurred speech and left-sided weakness found to have acute infarct of the right stearns radiata associated with left neglect, dense left hemiplegia, dysphagia,
ambulatory and ADL dysfunction.
�
Plan�
PM&R�PT/OT to increase independence with ADLs, improve balance, coordination, endurance, strength, mobility, community reintegration, decreased burden of care on others and family education.�
�
CVA: Secondary prophylaxis with aspirin and Plavix , statin, and blood pressure control (SBP less than 180 and diastolic less than 100 to participate with therapy for ischemic stroke). Continue to monitor neurologic status.�
Left nondominant hemiparesis: High risk for falls and sliding out of chair/bed. Safety reinforced.�Recommending multi podus boot for LLE
- Avoid using affected arm to help lift or pull patient as this will cause trauma to the shoulder.
Left Neglect: makes patient at increased risk for falls.� Will need therapy to work on scanning of environment for safe navigation.�
Carotid stenosis: s/p Right carotid artery endarterectomy with patch angioplasty by Dr. Miguel Vides on 02/28/2025
Dysphagia: speech evaluation, oral care protocol, aspiration precautions.�Had flexible endoscopic evaluation of swallowing by speech this morning and aspirated with all consistencies.
Dysarthria: speech evaluation��
HTN: continue medications, monitor closely�
HLD: Atorvastatin 80mg HS
Coronary artery disease/s/p CABG�: Aspirin, statin, beta-shannon�
Atrial fibrillation:�? Need OP work up. Was on Eliquis previously for unclear diagnosis of Afib.�������������������������������������������
DM II: hgbA1c- 6.Not on home med. Accu-Cheks, insulin sliding scale,
Anemia: Likely multifactorial.� Continue to monitor.�
Psych: Psychology consult.� Monitor mood, adjust medications as needed.�
Skin: monitor for pressure sores/rashes/lesions.�
Pain: acetaminophen or oxycodone as needed.�
Bowel: Colace and Senna, PRN bisacodyl.�
Bladder: Time void, PVRs, PRN straight cath.�
GI Prophylaxis: Pantoprazole�
DVT Prophylaxis: Mechanical and Lovenox
Pulmonary: Incentive spirometry�
Safety: Continue to reinforce assistance with all transfers.�
Code Status:� Full code
Dispo�(date/plan/equipment needs): Home with family care.� Social history reviewed.�
�
Functional and Medical Goals:�Modified Independent with ADL�s, ambulation, transfers�
Discharge Destination: Acute inpatient rehabilitation
�
�
SUMMARY Recommendations
Left nondominant hemiparesis: High risk for falls and sliding out of chair/bed. Safety reinforced.�Recommending multi podus boot for LLE
- Avoid using affected arm to help lift or pull patient as this will cause trauma to the shoulder.
Left Neglect: makes patient at increased risk for falls.� Will need therapy to work on scanning of environment for safe navigation.�
Carotid stenosis: s/p Right carotid artery endarterectomy with patch angioplasty by Dr. Miguel Vides on 02/28/2025
Dysphagia: speech evaluation, oral care protocol, aspiration precautions.�Had flexible endoscopic evaluation of swallowing by speech this morning and aspirated with all consistencies. Evaluation for a dornhoff or peg feed tube needed prior to
discharge
Pain: Patient must be stable on oral pain medications prior to discharge.
HTN: Blood pressure must be less than 180 systolic and 100 diastolic for 24 hours before being stable for transfer to acute rehab
Thank you for allowing me to care for your patient. Please contact me with any questions or concerns.

Documented by User: Adria Flowers MD 03/01/25 19:44
Consultation - Medical
-
Referring Provider:�Myron Tellez
Chief Complaint:�CVA
�
History of Present Illness:�This is a 69-year-old with PMH for ( CAD, s/p AVR, diet controlled diabetes, hypertension, carotid artery disease, hyperlipidemia, prior strokes (2009,2020,2023 with residual right hand numbness in the fingertips,who
presented to [facility] emergency department after waking up with facial droop, progressive slurred speech, right-sided weakness and fall. He reported taking a baby aspirin daily and Eliquis for only 1 month before it was discontinued for a prior unclear
diagnosis of atrial fibrillation never diagnosed by telemetry or EKG but by subjective sense according to his notes. He is not currently on any statin.
In the ED, ECG showed a sinus rhythm at rate of 74.
CT Brain: No acute intracranial process. No evidence of acute hemorrhage. Mild atrophy, severe chronic small vessel ischemic disease.
CTA Head: Atherosclerotic calcifications of bilateral cavernous/paraclinoid ICAs with resultant mild stenosis, more pronounced on the left.No aneurysm.
MRI brain�02/24/2025 -1.8 cm region of restricted diffusion in the right periventricular stearns radiata compatible with a small acute infarct (series 302, image 136).
Moderate age-related parenchymal atrophy. T2/FLAIR hyperintense signal in the white matter of the bilateral cerebral hemispheres, most compatible with moderate to severe chronic microangiopathic ischemia. Chronic lacunar infarcts in the bilateral
stearns radiata, bilateral basal ganglia, left thalamus, nolan, and bilateral cerebellar hemispheres. No mass effect, midline shift, or extra axial collection. No abnormal signal intensity on diffusion-weighted images.
CTA Neck: Mixed density atherosclerotic plaque of the right carotid bifurcation/proximal ICA with resultant 75% stenosis by NASA criteria. Codominant vertebral arteries with atherosclerotic calcifications of the bilateral V4 segments of the
vertebral arteries with resultant focal moderate stenosis of the right vertebral artery.
Seen by neurology with recommendation of Plavix and aspirin. Vascular consulted for carotid stenosis-recommending surgery.
On 02/25, patient with worsening Left sided weakness; CT head negative for bleed. Worsening symptoms could represent blossoming infarct.
On 02/28 underwent successful right carotid endarterectomy by Dr. Miguel Vides. Per chart- May need Cardiology evaluation outpatient for heart monitor as prior records suggest A. Fib but patient states no objective evidence was ever found. Was
prescribed Eliquis but he decided to stop taking it after 1 month.
03/01- seen by speech this morning- had feeding test and had aspiration for all consistencies
Past Medical History:�CAD s/p CABG, valvular disease s/p aortic valve replacement, Hyperlipidemia,
Procedure History:�Aortic valve replacement, CABG, RIGHT carotid artery endarterectomy with patch angioplast-02/28
Family History:�Dad-Alzheimer Alzheimer, Mom- unknown-, sister-unknown cause of - on
�
Social History:�
Functional Level Premorbidly:�Independent with all activities�
Functional Level Currently:�Bed mobility- max assist,
�
Tobacco:�Former smoker�history of 41 pack/years�quit 2012
Alcohol:�Denies�
Drug use:�Denies�
�
Lives with:�Alone
24-hour assistance available:�Yes from his friend
Number of floors:�2
# steps to enter:�2
# steps to second floor: 13 steps
Potential First floor set up:�Yes status ability to have first-floor with powder room access
Driving:�yes
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
�
�
Allergies:�
Allergy/AdvReac Type Severity Reaction Status Date / Time
bee venom protein (honey bee) Allergy Anaphylaxis Verified 02/23/25 16:16
�
Review of Systems:�
Constitutional: (x) abNormal _tired
Eye: (x) Normal _
Ear/Nose/Throat: (x) Normal _
Respiratory: (x) Normal _
Cardiovascular: (x) Normal _
Gastrointestinal: (x) abNormal _dysphagia
Genitourinary: (x) Normal _
Musculoskeletal: (x) abNormal _left hemiplegia
Integumentary: (x) abNormal _right neck surgery
Neurologic: (x) abNormal _ cva, dysarthria, left-sided weakness
Psychiatric: (x) Normal _
Endocrine: (x) Normal _
Hematologic/Lymphatic: (x) Normal _
Allergic/Immunologic: (x) Normal _
�
Medications:�
Active Current Visit Medication List
Category Date Time Status
0.9% Sodium Chloride 1000 ml [Nss] 1,000 ml Med 02/28/25 10:30 Active
IV 80 mls/hr
Acetaminophen [Tylenol/Feverall] Med 02/23/25 21:18 Active
650 mg RECTAL Q4HPRN PRN
Acetaminophen [Tylenol] Med 02/23/25 21:18 Active
650 mg PO Q4HPRN PRN
Aspirin Chewable [Low Strength Aspirin] Med 02/23/25 22:00 Active
81 mg PO HS
Atorvastatin [Lipitor] Med 02/24/25 18:00 Active
80 mg PO QPM
Chlorhexidine Oral Rinse 0.12% [Peridex 0.12% Oral Med 02/28/25 05:00 Active
Rinse]
15 ml PO BID
Clopidogrel Bisulfate [Plavix] Med 02/24/25 08:00 Active
75 mg PO DAILY
Dextrose 50%-Water [Dextrose 50% Syringe] Med 02/23/25 22:00 Active
12.5 grams IV [id number] PRN
Enoxaparin Sodium [Lovenox] Med 02/24/25 18:00 Active
40 mg SC QPM
Fentanyl Citrate/Pf [Sublimaze] Med 02/28/25 06:56 Active
25 mcg IV [id number] PRN
Flush (0.9% Sodium Chloride) [Flush (Nss)] Med 02/23/25 22:00 Active
See Dose Instructions IV PER PROTOCOL
Glucagon [GlucaGen] Med 02/23/25 22:00 Active
1 mg IM PRN PRN
HYDROmorphone [Dilaudid] Med 02/28/25 06:56 Active
0.25 mg IV [id number] PRN
HydrALAZINE [Apresoline] Med 02/23/25 21:18 Active
5 mg IV Q4HPRN PRN
Insulin Aspart Corrective Low [Novolog Flexpen-Low Med 02/28/25 06:00 Active
Resistance]
See Protocol SC Q6
Lisinopril [Zestril] Med 02/25/25 22:00 Active
20 mg PO HS
Morphine Sulfate Med 02/28/25 06:56 Active
1 mg IV PACU-Q5MPRN PRN
Nicardipine 40 mg/200 ml [Cardene] Med 02/28/25 10:30 Active
40 mg in 200 ml IV PER PROTOCOL
Ondansetron Injectable [Zofran] Med 02/28/25 06:56 Active
4 mg IV PACU-ONCEPRN PRN
Ondansetron Injectable [Zofran] Med 02/28/25 20:20 Active
4 mg IV Q6HPRN PRN
PHENYLephrine 50 MG/250 ML NSS [J Carlos-Synephrine] Med 02/28/25 10:30 Active
50 mg in 250 ml IV PER PROTOCOL
Prochlorperazine [Compazine] Med 02/28/25 06:56 Active
5 mg IV PACU-ONCEPRN PRN
�
Vitals:�
Temp Pulse Resp BP Pulse Ox
98.1 F 74 13 142/54 97
03/01/25 03:10 03/01/25 04:45 03/01/25 04:45 02/28/25 21:29 03/01/25 04:45
Height 6 ft 3 in
Actual Weight 96.6 kg
Body Mass Index (BMI) 26.6
�
Physical Exam:�
General Appearance/Observation: Well-developed, well-nourished male in no apparent distress.�
Pain/Comfort Assessment: Denies�
Mood/Affect: Appropriate, pleasant�
Integumentary/Operative Site:�Swelling of neck on right side with healing endarterectomy incision
�� Pressure Ulcer Evaluation: absent over heels.���
�
Eyes: Conjunctiva/Lids: normal���� Pupils: pupils equal round and reactive to light and Accommodation�
Ears/Nose/Throat: oral mucosa moist,� throat- not well visualized-tongue blue from swallowing test.������������ Lips/Teeth/Gums: normal�
Neck: Right neck swelling
Cardiovascular: Heart: regular, no murmur�
Pulses: dorsalis pedis 2+ bilaterally�
Respiratory: Respiratory Effort/Chest Expansion: normal������� Auscultation: Clear to auscultation bilaterally�
Gastrointestinal: abdomen not tender, no distension, normal abdominal bowel sounds
Genitourinary: No Vides�
Extremities:�Edema: None�Cyanosis: None�Trophic�changes: None
�
Neurology Exam:
Orientation: Alert, Oriented to self, Time, Place�
Memory: Intact for immediate medical concerns
Repetition: Intact
Comprehension: Intact
Two step command: Intact
Naming: Intact, gave the right timing on the analogue clock on the wall after correcting self, able to count backward from 20 by 3
Cranial Nerves:
�� CNII:�Pupillary light reflex: Intact����Visual Field: left homonymous hemianopsia versus inattention
�� CN III, IV, : Extraocular muscles: Intact�
�� CN V:�Facial Sensation�at�Forehead: Intact,�Maxilla: Intact,�Mandible: Intact
�� CN VII:�Facial movement: significant drooping left
�� CN VIII:�Hearing: Normal
�� CN IX/X:�Speech & swallow: dysarthric, hypophonia, can understand most words�Position of Uvula: Midline
�� CN XI:�Shoulder shrug: weakness on left
�� CN XII:�Tongue protrusion: deviated to left
Sensory:
�� Light touch: Intact in bilateral upper and lower extremities, no extinction to double simultaneous stimulation
��
�
Reflexes:
�� Biceps: 2+ bilaterally
�� Brachioradialis: 2+ bilaterally
�� Triceps: 2+ bilaterally
�� Patellar: 2+ bilaterally
�� Achilles: absent bilaterally
�� Babinski: Down going on right, upward on left
�� Clonus: NT
�� Sirena: Negative bilaterally�
Cerebellar: Dysmetria/Ataxia: intact on right, unable to perform on left due to weakness
Musculoskeletal: Motor: (Manual muscle scale 0-5)�
Muscle SA EF WE EE FF FA HF KE DF EHL PF
Right� NT 5 5 5 5 5 5 5 5 5 5
Left 0 0 0 0 0 0 0 1 0 0 1
Tone: Normal in all extremities�except for decreased in left upper extremity
Range of Motion: Passively within normal limits in all extremities�
�
Labs
WBC 12.0 10^3/uL (4.8-10.8) H 03/01/25 03:39
RBC 4.71 10^6/uL (4.70-6.10) 03/01/25 03:39
Hgb 14.3 g/dL (13.0-18.0) 03/01/25 03:39
Hct 41.9 % (39.0-52.0) 03/01/25 03:39
MCV 89.0 fL (80.0-94.0) 03/01/25 03:39
MCH 30.4 pg (27.0-31.0) 03/01/25 03:39
MCHC 34.1 g/dL (33.0-37.0) 03/01/25 03:39
RDW 12.3 % (11.5-14.5) 03/01/25 03:39
Plt Count 151 10^3/uL (130-400) 03/01/25 03:39
MPV 11.5 fL (7.4-10.4) H 03/01/25 03:39
Abs Immat Gran (auto) 0.0 10^3/uL (0-0.05) 02/23/25 16:51
Absolute Neuts (auto) 5.3 10^3/uL (1.4-6.5) 02/23/25 16:51
Absolute Lymphs (auto) 1.6 10^3/uL (1.2-3.4) 02/23/25 16:51
Absolute Monos (auto) 0.7 10^3/uL (0.1-0.6) H 02/23/25 16:51
Absolute Eos (auto) 0.1 10^3/uL (0-0.7) 02/23/25 16:51
Absolute Basos (auto) 0.0 10^3/uL (0-0.2) 02/23/25 16:51
Immature Gran % 0.1 % (0-0.5) 02/23/25 16:51
Neutrophils % 69.2 % (42.2-75.2) 02/23/25 16:51
Lymphocytes % 20.6 % (20.5-51.1) 02/23/25 16:51
Monocytes % 8.5 % (1.7-9.3) 02/23/25 16:51
Eosinophils % 1.2 % (0-6) 02/23/25 16:51
Basophils % 0.4 % (0-2) 02/23/25 16:51
Nucleated RBC % 0 % (-) 02/23/25 16:51
PT 13.8 Sec (11.4-14.6) 03/01/25 03:39
INR 1.03 03/01/25 03:39
APTT 27.8 Sec (23.4-35.0) 03/01/25 03:39
Plt Function - Aspirin 405 ARU 02/24/25 05:49
Sodium 139 mmol/L (135-145) 03/01/25 03:39
Potassium 4.2 mmol/L (3.5-5.1) 03/01/25 03:39
Chloride 108 mmol/L (98-107) H 03/01/25 03:39
Carbon Dioxide 25 mmol/L (22-30) 03/01/25 03:39
BUN 16 mg/dl (9-20) 03/01/25 03:39
Creatinine 0.6 mg/dL (0.7-1.3) L 03/01/25 03:39
Estimated Creat Clear > 125 ml/min 03/01/25 03:39
eGFR > 60.00 03/01/25 03:39
Glucose 155 mg/dl (70-99) H 03/01/25 03:39
Hemoglobin A1c 6.9 % (4.0-5.6) H 02/24/25 05:49
Lactic Acid 0.9 mmol/L (0.7-2.0) 02/28/25 22:04
Calcium 8.8 mg/dl (8.4-10.2) 03/01/25 03:39
Magnesium 2.2 mg/dl (1.6-2.3) 02/24/25 05:49
Triglycerides 169 mg/dl (10-149) H 02/24/25 05:49
Total Cholesterol 246 mg/dl (50-199) H 02/24/25 05:49
LDL Cholesterol, Calc 165 mg/dl 02/24/25 05:49
VLDL Cholesterol, Calc 33 mg/dl (0-30) H 02/24/25 05:49
HDL Cholesterol 48 mg/dl 02/24/25 05:49
POC Glucose 155 mg/dl (70-99) H 02/28/25 22:30
POC ACT Low Range 219 Seconds (116-155) H 02/28/25 09:39
�
Diagnostic Results:�as per HPI�
CT head and neck angio gram with and without contrast-02/26/2025
�There is mild decreased attenuation about the lateral ventricles consistent with periventricular small vessel ischemic disease. There are bilateral old lacunar infarcts of the basal ganglia. There is no evidence of acute intracranial hemorrhage or
pathology. There is mild ventricle sulcal prominence consistent atrophy.
Head and neck:
There is no M1 nor M2 occlusion. There is a greater than 70% stenosis of the right proximal internal carotid artery due to calcified and noncalcified plaque. There is less than 50% stenosis of the origin of the right vertebral artery due to
calcified plaque. This is stable. There is 50-69% stenosis of the right V4 vertebral artery seen best on image 327 series 502. This is stable.
There is no carotid dissection. The posterior circulation is intact.
The enhanced brain parenchyma is unremarkable. Salivary glands are within normal limits. There is no significant lymphadenopathy in neck. The airway is unremarkable. The thyroid gland is within normal limits. The imaged lungs are clear..
There is moderate disc space narrowing at C5/C6 and C6/C7.
IMPRESSION: No acute intracranial pathology.
Moderate periventricular small vessel seen disease. Stable.
Old lacunar infarcts. Stable. Mild atrophy. Stable No acute vascular pathology. Greater than 70% stenosis of the right proximal internal carotid artery. 50-69% right vertebral artery stenosis. Stable
Multilevel degenerative disc disease. Mild atrophy. Stable
Chest x-ray�02/28/2025
Lines and tubes: None.
Lungs: Low lung volumes are noted without significant focal parenchymal opacification. Pulmonary vascularity is at least top normal. No pleural effusion or pneumothorax.
Heart: Cardiac and mediastinal contours are grossly stable.
Osseous structures: Sternal metallic hardware is again seen.
IMPRESSION:
Low lung volumes with no focal parenchymal consolidation. No pneumothorax.
Pulmonary vascularity at least top normal
CT head stroke alert without contrast�02/25/2025
There is no intracranial hemorrhage.
There are no abnormal extra-axial fluid collections.
There is a new vague focus of slight decreased attenuation in the right stearns radiata correlating with the recent infarct seen on MRI February 24, 2025.
There is again seen diffuse cortical atrophy as evidenced by prominence of the CSF spaces.
Additionally, there are again noted punctate and patchy areas of low density in the periventricular and subcortical white matter bilaterally. These white matter changes are nonspecific but given the patient's age are most likely ischemic or
degenerative in origin. Such white matter changes are often seen in older individuals and typically do not correlate clinically.
IMPRESSION:
Small focus of evolving nonhemorrhagic infarction in the right stearns radiata.
No acute intracranial hemorrhage or other significant change.
MRI brain�02/24/2025
1.8 cm region of restricted diffusion in the right periventricular stearns radiata compatible with a small acute infarct (series 302, image 136).
Moderate age-related parenchymal atrophy. T2/FLAIR hyperintense signal in the white matter of the bilateral cerebral hemispheres, most compatible with moderate to severe chronic microangiopathic ischemia. Chronic lacunar infarcts in the bilateral
stearns radiata, bilateral basal ganglia, left thalamus, nolan, and bilateral cerebellar hemispheres. No mass effect, midline shift, or extra axial collection. No abnormal signal intensity on diffusion-weighted images.
The vascular flow voids at the skull base are unremarkable, as far as visualized.
The paranasal sinuses and mastoids are clear.
IMPRESSION:
Acute infarct in the right periventricular stearns radiata.
Chronic senescent changes and a large number of chronic lacunar infarcts, as detailed above.
Assessment:
69-year-old male with multiple prior CVAs presented with facial droop, slurred speech and left-sided weakness found to have acute infarct of the right stearns radiata associated with left neglect, dense left hemiplegia, dysphagia, ambulatory and ADL
dysfunction.
�
Plan�
PM&R�PT/OT to increase independence with ADLs, improve balance, coordination, endurance, strength, mobility, community reintegration, decreased burden of care on others and family education.�
�
CVA: Secondary prophylaxis with aspirin and Plavix , statin, and blood pressure control (SBP less than 180 and diastolic less than 100 to participate with therapy for ischemic stroke). Continue to monitor neurologic status.�
Left nondominant hemiparesis: High risk for falls and sliding out of chair/bed. Safety reinforced.�Recommending multi podus boot for LLE
- Avoid using affected arm to help lift or pull patient as this will cause trauma to the shoulder.
Left Neglect: makes patient at increased risk for falls.� Will need therapy to work on scanning of environment for safe navigation.�
Carotid stenosis: s/p Right carotid artery endarterectomy with patch angioplasty by Dr. Miguel Vides on 02/28/2025
Dysphagia: speech, oral care protocol, aspiration precautions.�Had flexible endoscopic evaluation of swallowing by speech this morning and aspirated with all consistencies. Currently NPO. Has NG tube placed. Will need to ensure there is
consistent oral nutrition and hydration prior to discharge. Continue to monitor with speech. If needs PEG tube that should be completed prior to transitioning to rehab. Discussed this with patient
Dysarthria: speech ��
HTN: Lisinopril 20 mg at night, monitor closely�
HLD: Atorvastatin 80mg HS
Coronary artery disease/s/p CABG�: Aspirin, statin, beta-shannon�
Atrial fibrillation:�? Need OP work up. Was on Eliquis previously for unclear diagnosis of Afib.�������������������������������������������
DM II: hgbA1c- 6.Not on home med. Accu-Cheks, insulin sliding scale,
Anemia: Likely multifactorial.� Continue to monitor.�
Psych: Psychology consult.� Monitor mood, adjust medications as needed.�
Skin: monitor for pressure sores/rashes/lesions.�
Pain: acetaminophen as needed.�
Bowel: Colace and Senna, PRN bisacodyl.�
Bladder: Time void, PVRs, PRN straight cath.�
DVT Prophylaxis: Mechanical and Lovenox
Pulmonary: Incentive spirometry�
Safety: Continue to reinforce assistance with all transfers.�
Code Status:� Full code
Dispo�(date/plan/equipment needs): Home with family care.� Social history reviewed.�
Functional and Medical Goals:�Modified Independent with ADL�s, ambulation, transfers�
Discharge Destination: Acute inpatient rehabilitation once medically stable. Should continue to monitor right neck for now. Does consistent mechanism for hydration and nutrition.
�
�
SUMMARY Recommendations
Discharge Destination: Acute inpatient rehabilitation
Left nondominant hemiparesis: High risk for falls and sliding out of chair/bed. Safety reinforced.�Recommending multi podus boot for LLE
- Avoid using affected arm to help lift or pull patient as this will cause trauma to the shoulder.
Left inattention: makes patient at increased risk for falls.� Will need therapy to work on scanning of environment for safe navigation.�
Carotid stenosis: s/p Right carotid artery endarterectomy with patch angioplasty by Dr. Miguel Vides on 02/28/2025
Dysphagia: speech evaluation, oral care protocol, aspiration precautions.�Had flexible endoscopic evaluation of swallowing by speech this morning and aspirated with all consistencies. Currently NPO. Has NG tube placed. Will need to ensure there is
consistent oral nutrition and hydration prior to discharge. Continue to monitor with speech. If needs PEG tube that should be completed prior to transitioning to rehab.
HTN: Blood pressure must be less than 180 systolic and 100 diastolic for 24 hours before being stable for transfer to acute rehab
Attending Statement:
I saw and examined the patient today. Reviewed care plan with patient, therapy, nursing, and physician radiology practitioner assistant. I agree with the above subjective and physical exam, and plan as documented by MAGDALEEN Curran with adjustments made as necessary.
Overall patient is a great candidate for acute inpatient rehabilitation. Has dense left hemiparesis, dysphagia, dysarthria and would benefit from acute inpatient rehabilitation this and maximize his opportunity to return home. A total of 60
minutes were spent with the patient preparing for the evaluation, obtaining history, performing examination and evaluation, counseling, data review, case management, care coordination, order administrator, and EMR documentation.
Thank you for allowing me to care for your patient. Please contact me with any questions or concerns.
--- NOTE | 2025-03-01 11:25 | PTCARENOTE ---
small bore feeding tube placed, pt tolerated well, abdomen xray obtained and pending results. pt resting, family visiting, updated son via phone and then pt spoke with son. Contact made with vascular team re: pt/ot and art line, orders expected.
Neuro exams unchanged.
[2025-03-01 11:57] LABS: Glucose - Point of Care 124 mg/dl (70-99)
--- NOTE | 2025-03-01 12:05 | W.PN.UPDATE ---
Update Note
Progress Note Update
Independence text by bedside nurse with concern of worsening swelling at right neck surgical site, immediately responded to bedside to assess. Patient neurologically unchanged with left hemiaplasia and left facial droop, personally feel as though edema
has not worsened but can palpate clear hematoma. No pulsatility or clear pulsatile mass. Surgical incision clean dry and intact, and well-approximated suture line is not under any tension. Vital signs stable, no evidence of dyspnea or difficulty
breathing. Patient is resting comfortably. Dobbhoff tube recently placed present in nare. To rule out active extravasation or pseudoaneurysm will obtain CT angio head and neck. Reviewed plan with on-call attending Dr. Miguel Vides who agrees.
Relayed plan to nursing.
--- NOTE | 2025-03-01 13:09 | PTCARENOTE ---
approx noon noted R neck with slight increase in puffiness, slight increase in border of hematoma noted, PA from vascular notified, here to eval, initially carotid ultrasound ordered, taken instead to CT for CTA carotids, tolerated, test completed,
back to ICU. Bladder scanned and straight cathed as noted, tolerated. PT/OT here to see pt. speech remains slurred, understandable with effort. Neuro exam unchanged.
[2025-03-01] MEDS: NSS 1000 IV (13:46)
--- NOTE | 2025-03-01 15:36 | CM ---
Dobhoff in place, swelling R neck surgical site, F/U CT scan. Discharge POC: Acute rehab. Referral out to [facility].
--- NOTE | 2025-03-01 15:47 | PTCARENOTE ---
tube feed initiated. Son Dale phoned again, updated.
--- NOTE | 2025-03-01 17:35 | W.CON.OTO ---
Otolaryngology Consult
Consult
Date/Time Consultation Requested: 03/01/2025
Date/Time Consultation Performed: 03/01/2025
Reason for Consultation: Dysphagia
History of Present Illness
Patient is a 69-year-old male who presented to [facility] on February 23 with a left facial droop, slurred speech and right-sided weakness. The patient was diagnosed with a CVA. He was subsequently found to have a 75% stenosis of the right
ICA. He underwent right CEA yesterday. Apparently the patient did have a difficult intubation. Has had some difficulty swallowing since the surgery. He was felt to be aspirating. That was confirmed on a swallowing study earlier today. It was
felt that the patient may have a weakness of his right arytenoid. Therefore I was asked to evaluate the patient.
The patient does admit to difficulty swallowing. He is now on tube feeds. He does have a previous history of stroke a few years ago but denies any previous history of dysphagia. The patient does have some mild weakness of his voice. He is
experiencing some phlegm in his throat. He denies any shortness of breath. There is no reported coughing.
Medical History
Additional Past Medical History:
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
atherosclerosis, PVCs, former smoker (41pk years - quit 2012), hx BCC, MVCAD s/p CABG x4, pulmonary HTN, pAF previously on Eliquis, fatty liver disease
Additional Past Surgical History:
Right CEA February 28, 2025, L Thumb amputated at 1 years old, skin CA removal, L Thumb cosmetic sx, cardiac cath, 25mm Inspiris Resilia AVR, CABG x3, w/ repair L Chest Wall Vein bleeding (1 extra suture placed # prox graft to OM)
Patient Allergies:
Allergies
Allergy/AdvReac Type Severity Reaction Status Date / Time
bee venom protein (honey bee) Allergy Anaphylaxis Verified 02/23/25 16:16
Home Medications / Current Medications:
�Medication �Instructions �Recorded
aspirin 81 mg tablet,delayed 81 mg PO HS Blood Clot 02/23/25
release Prevention/Tx
Physical Exam
Vitals / Labs:
Vital Signs
Temp 98.2 F 03/01/25 15:09
Temp route: Oral 03/01/25 15:09
Pulse 79 03/01/25 17:15
Rhythm: Normal sinus rhythm 03/01/25 08:00
With- PVC's Monomorphic, Sinus tachycardia 02/28/25 20:02
Resp Rate 19 03/01/25 17:15
Blood pressure 141/68 03/01/25 17:00
Blood pressure extremity used: Right upper arm 02/28/25 10:34
Position: Lying 02/28/25 10:34
MAP (cuff-Jay Monitor) 88 03/01/25 17:00
SaO2 92 03/01/25 17:15
Nasal Cannula flow liters per minute 2 03/01/25 02:24
Oxygen Mode of Delivery Room air 03/01/25 14:02
Oxygen Mode of Delivery: Nasal cannula 02/28/25 11:30
Flow liters per minute # 6 02/28/25 10:49
Pulse Ox at Rest 94 03/01/25 14:02
Can the patient verbally communicate their pain? Yes 02/28/25 20:00
Pain scale ratin 02/28/25 11:30
Arterial Systolic Pressure 155 03/01/25 11:15
Arterial Diastolic Pressure 58 03/01/25 11:15
MAP (A-Wcgr-Survdft Monitor) 88 03/01/25 11:15
MAP A-Line 84 02/28/25 10:34
Actual Weight 96.6 kg 03/01/25 05:16
Body Mass Index (BMI) 26.6 03/01/25 05:16
Supine- Blood Pressure 155/83 03/01/25 14:02
Supine- Pulse 84 03/01/25 14:02
Lab Results
03/01/25 03:39
03/01/25 03:39
PT 13.8 Sec (11.4-14.6) 03/01/25 03:39
INR 1.03 03/01/25 03:39
Exam:
Patient is awake and alert, answered questions appropriately.
Some slurred speech noted along with left-sided facial and extremity weakness.
Ears clear bilaterally.
Nasal cavity with Dobbhoff feeding tube in place on right side, moderate mucus present on left side, deviated nasal septum to the left side noted.
Oral cavity and oropharynx unremarkable, normal tongue movement, no mass or neoplasm noted.
Right neck with significant edema due to postoperative swelling, mildly tender, no masses palpable bilaterally.
A flexible fiberoptic laryngoscopy was performed at the bedside. The scope was easily passed to the right side of the patient's nasal cavity over the Dobbhoff feeding tube. The nasopharynx is unremarkable. The oropharynx was clear as well.
Examination of the base of tongue and epiglottis were unremarkable. The right aryepiglottic fold was edematous along with some moderate edema of the right arytenoid. The left aryepiglottic fold and arytenoid were clear. There was some mild edema
within the right piriform sinus as well. The left piriform sinus was clear. The true and false vocal folds were relatively unremarkable. There was movement of both vocal folds with phonation. Subglottis was clear and the airway was widely
patent. The Dobbhoff feeding tube was noted in the post arytenoid space entering the esophagus.
Assessment / Plan
Patient is a 69-year-old male with a recent CVA, status post right CEA yesterday with significant neck swelling, dysphagia with aspiration.
No mass or neoplasms are noted in the upper aerodigestive tract. The patient does have some mild to moderate swelling at the right aryepiglottic fold and arytenoid from his recent neck surgery. This is to be expected. Given the patient's numerous
insults, including his recent CVA, recent intubation for surgery, and neck edema from surgery, it is not surprising that he has dysphagia with aspiration. Grossly his larynx appears normal. I agree with the continuing tube feeding and keeping
the patient n.p.o. for now. Hopefully his surgical swelling will improve and his swallowing may improve down the line. Repeat swallowing testing as indicated by speech therapy. If he does not improve in the short-term consideration of a PEG can
be given. Patient can follow-up in the office as needed for reevaluation of his larynx.
Data Reviewed
Radiology: Image Personally Visualized and interpreted
CT Scan: Image Personally Visualized and interpreted
Lab Data: Labs Reviewed by me
[2025-03-01] MEDS: NOVOLOG FLEXPEN-LOW RESISTANCE 1 UNITS SC (17:40)
[2025-03-01] MEDS: LIPITOR 80 MG TUBE (17:41)
[2025-03-01] MEDS: LOVENOX 40 MG SC (17:41)
[2025-03-01 17:48] LABS: Glucose - Point of Care 153 mg/dl (70-99)
--- NOTE | 2025-03-01 18:16 | PTCARENOTE ---
no change, resting unless disturbed. tolerating tube feeds. positioned for comfort. Bladder scanned, no abd distention.
--- NOTE | 2025-03-01 20:00 | PTCARENOTE ---
Resumed care of pt this evening. NIHSS performed w/ day shift RN. NIH of 12 was scored.
[2025-03-01] MEDS: LOW STRENGTH ASPIRIN 81 MG TUBE (22:15)
[2025-03-01] MEDS: ZESTRIL 20 MG TUBE (22:16)
--- NOTE | 2025-03-01 23:00 | PTCARENOTE ---
Pt bladder scanned for 645 mL of urine. Vides cath placed per order by this RN.
[2025-03-01 23:29] LABS: Glucose - Point of Care 142 mg/dl (70-99)
[2025-03-02] VITALS (21 sets, daily range): BP systolic 124–168; BP diastolic 54–91; PULSE 80; O2SAT 95; BMI 25.8
[2025-03-02] MEDS: NSS 1000 IV (01:39)
--- NOTE | 2025-03-02 04:00 | PTCARENOTE ---
Upon reassessment pt is resting comfortably.
[2025-03-02 04:08] LABS: Hematocrit 41.7 % (39.0-52.0); Hemoglobin 14.0 g/dL (13.0-18.0); Mean Corp Hgb Conc. 33.6 g/dL (33.0-37.0); Mean Corpuscular Volume 90.1 fL (80.0-94.0); Platelet Count 134 10^3/uL (130-400); Red Cell Dist. Width 12.4 % (11.5-14.5)
[2025-03-02 04:29] LABS: Blood Urea Nitrogen 15 mg/dl (9-20); Calcium 8.8 mg/dl (8.4-10.2); Carbon Dioxide 27 mmol/L (22-30); Chloride 108 mmol/L (98-107); Estimated Creatinine Clearance > 125 ml/min; Glucose 182 mg/dl (70-99); Magnesium 2.0 mg/dl (1.6-2.3); Potassium 4.2 mmol/L (3.5-5.1); Sodium 138 mmol/L (135-145); eGFR > 60.00
[2025-03-02] MEDS: NOVOLOG FLEXPEN-LOW RESISTANCE 1 UNITS SC ×3 (05:26→17:23)
[2025-03-02 05:36] LABS: Glucose - Point of Care 184 mg/dl (70-99)
--- NOTE | 2025-03-02 08:12 | W.PN.VS ---
Today's Communication / Plan
-
Seen and assessed with Dr Vides
Assessment/Plan
-
Assessment: 69-year-old male presented to ED on 02/23/2025 with reports of generalized weakness and dysarthria concerning for stroke, evidence of right ICA stenosis at 75% by CT angio of head and neck, underwent MRI on 02/24/2025 which confirmed acute
infarct in the right periventricular stearns radiata, patient had progression of left-sided weakness acutely after assessed by our team on 02/25/2025 , now with left-sided hemiplegia. POD #2 right carotid endarterectomy
Plan:
Continue ice to right neck intermittently, neck is stable
Continue PT/OT
Will defer to primary/neuroteam as far as advancing diet given stroke symptoms and high risk for aspiration
Encourage incentive spirometry
Subjective Data
-
Date of Service: March 02, 2025
Pt seen at bedside this am with Dr Vides. Pt offers no complaints at this time. Resting comfortably in bed, no events overnight.
Objective Data
-
Vital Signs
Temp Pulse Resp BP Pulse Ox
98.9 F 79 17 136/61 93
03/02/25 05:21 03/02/25 06:00 03/02/25 06:00 03/02/25 05:00 03/02/25 06:00
Intake and Output
03/01/25 03/02/25 03/03/25
06:59 06:59 06:59
Intake Total 1777.5 / 1857.5 2740 / 2740
Output Total 550 / 550 2745 / 2745
Balance 1227.5 / 1307.5 -5 / -5
Intake:
Oral fluids 50 / 50
IV fluids (Total) 1777.5 / 1857.5 1919
Normosol 1540 / 1540
Nss 1,000 ml @ 80 mls/hr IV . 1919
[id number] XIOMARA Rx#:[id number]
cardene 237.5 / 237.5 0 / 0
Tube feeding 420 / 420
Feeding tube flush amount 350 / 350
Output:
Urine, Vides 1445 / 1445
Urine, Voided 550 / 550
Straight cath output 1300 / 1300
Other:
How many times incontinent 1
SATURATED amount urine
Lab Results
03/02/25 03:56
03/02/25 03:56
Calcium 8.8 mg/dl (8.4-10.2) 03/02/25 03:56
Magnesium 2.0 mg/dl (1.6-2.3) 03/02/25 03:56
Physical Exam
-
No apparent distress, resting comfortably in bed
Right neck surgical incision clean, dry, and intact, moderate area of edema/hematoma, remains soft, suture line well intact, Exofin intact
No tachycardia
Left sided facial droop, speech clearer today
Left-sided hemiplegia
[2025-03-02] MEDS: PERIDEX 0.12% ORAL RINSE 15 ML PO ×2 (08:15→20:41)
[2025-03-02] MEDS: PLAVIX 75 MG TUBE (08:15)
--- NOTE | 2025-03-02 08:25 | W.PN.INTV ---
Today's Communication / Plan
Recommendations
Postoperative management as per vascular surgery
Continued DAPT
Diet as per RN EXAMINER
Ice pack to right sided neck due to swelling; CTA head + neck showed no evidence for active bleeding or hematoma
Pain control
Up OOB as tolerated
Maintain MAP 70-100 mmHg
Patient is stable for downgrade out of ICU to telemetry. This was confirmed to be appropriate disposition with vascular surgery, and primary hospitalist updated. No additional recommendations at this time. Barrel Drainer/Pulmonary service will now
sign off. Please reconsult if there are any additional questions/concerns, or if patient's respiratory status deteriorates.
Assessment
-
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
(11/2023), CAD s/p CABG x3 (11/2023), DM2, B/L cataracts, intracranial arteriosclerosis, carotid atherosclerosis, PVCs, hx BCC, pulmonary HTN, pAF previously on Eliquis and fatty liver disease who p/w slurred speech and L-sided weakness. He also had
a fall MANAGER DELIVERY. He called a friend who brought him to the ER here at . He takes a baby ASA daily. CTA head/neck on 02/23/[address] head showed no acute intracranial pathology, with sequelae of severe chronic small vessel ischemic
disease, with 75% of right proximal ICA/carotid bifurcation. He was admitted to telemetry for further care with Neurology consulted.
Plavix added to regimen on 02/24, and brain MRI performed on 02/24/2025 showed an acute ischemic infarct in the right periventricular stearns radiata. Etiology suspected to be from his right-sided ICA disease. Vascular surgery consulted. Surgical
revasculation recommended, and the pt agreed to this intervention. On 02/28/2025, he underwent a right-sided carotid endarterectomy. EBL was 20cc. He was TRX to ICU post-operatively for further care, and Barrel Drainer services consulted for further
recommendations/management.
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
arteriosclerosis, Carotid atherosclerosis, PVCs, former smoker (41pk years - quit 2012), hx BCC, MVCAD s/p CABG x4, Hx of pulmonary HTN, pAF previously on Eliquis, fatty liver disease
Impression:
#Symptomatic right carotid artery stenosis with right sided ischemic CVA s/p right carotid artery endarterectomy with patch angioplasty using bovine pericardium (POD #2)
#Acute ischemic stroke of right stearns radiata likely due to thromboembolism from right sided carotid artery disease/stenosis
#Post-operative hemoptysis (non-life threatening) likely due to oropharyngeal irritation due to difficult intubation in setting of heparinization + DAPT - hemoptysis now resolved as of 03/01
#Leukocytosis - now resolved
#Hx of multiple chronic lacunar infarcts
#Hx of severe s/p SAVR (#25 Inspiris Resilia) - 11/25/2023
#CAD s/p CABG x3 - 11/25/2023
#Hx of left hemidiaphragm elevation
#Hx of pA-fib, no longer on Eliquis (follows with Cardiology as outpatient via Dr. Larsen - last visit 08/22/2024)
#Former tobacco smoker with 63-[id number] Hx, quit 2012
Plan:
Postoperative surgical intensive care unit monitoring
Maintain SpO2 >90-94% using supplemental O2 if needed
prn nebulized bronchodilators - not currently bronchospastic
Incentive spirometry encouraged 10x per hour for at least 4 hrs a day
Aspiration precautions
Pain control
After patient was transferred to ICU s/p OR, he was having non-life threatening hemoptysis likely due to oropharyngeal trauma during intubation in the setting of heparinization + DAPT
- Hemoptysis now resolved
- Continue to monitor
- I had previously discussed the case with anesthesia who managed him during the OR case on 02/28, and he was a difficult intubation despite him having first pass success with glidescope
- I suspect there was some minor trauma to oropharynx during intubation, as post-operatively there was blood suctioned from oropharynx with clots
- Bleeding was likely exacerbated by heparinization during the case in setting of DAPT with ASA + plavix
- Continue to closely monitor quantity of hemoptysis - if worsens, then would start nebulized TXA, and check stat CBC; transfuse as needed to keep Hb>7-8g/dL, plt>50k; given his recent acute ischemic CVA, would continue DAPT for now and only hold
if hemoptysis becomes more moderate-severe
- If hemoptysis recurs/becomes severe then would offer bronchoscopy for airway inspection
- Keep SBP<180mmHg, MAP<100mmHg
Neuro and vascular checks per protocol
Maintain MAP>65
Replete electrolytes with K>4, Mg>2
Maintain euglycemia with goal BG 140-180; Hb A1C: 6.9 on 02/24/2025
Given patient's worsening right-sided neck swelling at the recent operative site, CTA head + neck with/without IV contrast was performed yesterday, which did not show active bleeding or a hematoma
Although WBC was elevated, pt is non-toxic appearing and afebrile; WBC is now normal
Observe off ABx for now
Trend WBC and monitor temperature curve
Vascular surgery following-correspondence and operative notes reviewed
Transfuse blood products as needed to keep Hb>7g/dL, and plt>50k (given post-operative status)
Given his significant tobacco smoking Hx, and quitting within the last 15 years, he does qualify for LDCT Chest imaging. This can be discussed further as an outpatient
- Most recent LDCT Chest on 11/03/2023 did not show any evidence of a lung nodule; despite his smoking Hx, there was also no significant emphysema either or evidence of bronchiolitis/bronchial wall thickening
DVT prophylaxis: LMWH
Early nutrition
Early mobilization
Patient is stable for downgrade out of ICU to telemetry. This was confirmed to be appropriate disposition with vascular surgery, and primary hospitalist updated. No additional recommendations at this time. Barrel Drainer/Pulmonary service will now
sign off. Thank you for allowing us to be involved in the care of this patient. Please reconsult if there are any additional questions/concerns, or if patient's respiratory status deteriorates.
Total time spent today was 36 minutes for this encounter. Time includes reviewing laboratory test/imaging results, reviewing pertinent medical records, obtaining and reviewing medical history, performing an appropriate exam, ordering medications,
tests and procedures. Time also includes documentation of this encounter, coordinating patient care and communicating with other healthcare professionals. Total time does not include separately billed tests performed on this date of service.
Data:
CT head and neck angio with/without IV contrast 03/01/2025:
Postsurgical change of the right neck. No evidence of active bleeding. New
Multilevel degenerative disease of the cervical spine. Stable
Too small to characterize hypodense left thyroid lesion likely a benign nodule. Stable
Subjective Dataa
Subjective Data
Date of Service:
Date of Service: March 02, 2025
Chief Complaint: Barrel Drainer Follow Up
Subjective:
Patient seen and evaluated this morning. Sitting in chair no acute distress. Heart rate 79, saturating 95% and BP 151/62. No hemoptysis. Currently breathing comfortably on room air, saturating 95%.
Review of Systems
General: Other (Negative unless mentioned above)
Objective Data
Data Reviewed
Vital Signs / I&O / Oxygen:
Vital Signs
Temp Pulse Resp BP Pulse Ox
99.3 F 88 16 158/70 96
03/02/25 08:16 03/02/25 09:00 03/02/25 09:00 03/02/25 08:00 03/02/25 09:00
Intake and Output
03/01/25 03/02/25 03/03/25
06:59 06:59 06:59
Intake Total 1777.5 / 1857.5 2740 / 2885 395 / 395
Output Total 550 / 550 2745 / 2745 290 / 290
Balance 1227.5 / 1307.5 -5 / 140 105 / 105
SaO2 96
Nasal Cannula flow liters per 2
minute
Physical Exam
General: Respiratory Distress (negative), Comfortable, Chills (negative) and Sweats (negative)
HEENT: Normocephalic, Anicteric and Other (Swelling (improved) seen on right lateral neck with vertical incision which appears clean with no purulence or exsanguination seen)
Cardiovascular: S1-S2, Rub (negative) and Peripheral Edema (negative)
Respiratory: Wheeze (negative), Crackles (negative), Rhonchi (negative), Non-Labored Respirations and Stridor (negative)
GI: Soft, Non Distended, Non Tender and Normal Bowel Sounds
Neurology: Awake, Alert, Tremors (negative), Other (Left arm weakness is significant (strength: 0/5); left leg weakness: Dorsiflexion: 3/5, plantarflexion: 2/5) and Other (Intact sensation to light touch along legs, arms and face; left-sided facial
droop; pupils +3 bilaterally and brisk)
Skin: Warm, Dry, Cyanosis (negative) and Jaundice (negative)
Labs/Micro/Reports
Lab Data
03/02/25 03:56
03/02/25 03:56
--- NOTE | 2025-03-02 08:30 | PTCARENOTE ---
recd pt 0715 handoff and NIHSS completed per protocol. in good spirits. c/o hungry. mouth care performed, weaker gag, occas thick white minimal secretions. OOB to recliner chair, mod/max assist 2, sling placed L arm. rest of exam as documented.
tube feeds increased, tolerating. no nausea. Presently denies urge to move bowels. R neck remains puffy less so than yesterday, firmer ridge beneath jaw less firm.
[2025-03-02 11:39] LABS: Glucose - Point of Care 167 mg/dl (70-99)
--- NOTE | 2025-03-02 11:46 | W.PN.HOSP.TC ---
Today's Communication/Plan
-
Transfer to telemetry
Assessment / Plan
Assessment / Plan
Gen-AAOx3, NAD, dysarthric
HEENT-NC, AT, anicteric, clear oral mm
Neck-supple, right neck surgical wound intact, right-sided neck swelling noted
CV-reg, no M, +S1/S2
Lungs-clear B/L
Abd-soft, NT, ND
Ext-no edema
Musculoskeletal-no cyanosis, clubbing
Skin-warm and dry
Neuro-dense left hemiplegia, left facial droop
Psych-calm, cooperative
Acute right hemispheric stroke -dense left hemiplegia. Left facial droop. Dysarthria. Significant postoperative dysphagia.
- CTA head: Atherosclerotic calcifications of the bilateral cavernous/paraclinoid ICAs with resultant mild stenosis, more pronounced on the left. No aneurysm.
- CTA neck: Mixed density atherosclerotic plaque of the right carotid bifurcation/proximal ICA with resultant 75% stenosis. Codominant vertebral arteries with atherosclerotic calcifications of the bilateral V4 segments of the vertebral arteries with
resultant focal moderate stenosis of the right vertebral artery.
- MRI: Acute infarct in the right periventricular setarns radiata.
- continue ASA/Plavix/Statin
- LDL: 165
- continue neuro-checks
- PT/OT - PMR recommends acute rehab.
- Neuro following
- CVA alert 02/25 AM for increasing NIH score and worsening Left sided weakness; CT head negative for bleed. Worsening symptoms could represent blossoming infarct
- may need Cards eval outpatient for heart monitor as prior records suggest A. Fib but patient states no objective evidence was ever found. Was prescribed Eliquis but he decided to stop taking it after 1 month.
Right carotid stenosis -greater than 70% stenosis of right proximal ICA on CTA. Underwent successful right carotid endarterectomy 02/28.
Acute dysphagia -continue tube feeds via Dobbhoff tube. Etiology of dysphagia is multifactorial including acute stroke, neck swelling related to CEA, intubation, etc.
Appreciate ENT input. Larynx appears grossly normal per ENT.
Patient states right sided neck swelling is improving compared to yesterday.
Essential HTN
- continue lisinopril 20 mg at bedtime
DM2 with hyperglycemia -patient aware of diagnosis of diabetes, was managing with diet alone prior to admission. Hemoglobin A1c 6.9%. Not on diabetes meds prior to admission. Currently on NovoLog low resistance scale. Glucose 184 this morning.
Daytime glucoses are less than 200.
DVT ppx: Lovenox
Full code
Dispo -eventual discharge to acute rehab when medically stable.
Anticipated Discharge: > 48 hours
Subjective/Interval History
-
Date of Service: March 02, 2025
Patient seen and examined. No complaints.
Objective Data
-
Labs:
Laboratory Results
03/02/25
03:56
WBC 9.8
Hgb 14.0
Hct 41.7
Plt Count 134
Sodium 138
Potassium 4.2
Chloride 108 H
Carbon Dioxide 27
BUN 15
Creatinine 0.5 L
Glucose 182 H
Calcium 8.8
Vital Signs:
Vital Signs
Temp Pulse Resp BP Pulse Ox
99.3 F 78 19 155/74 95
03/02/25 08:16 03/02/25 11:00 03/02/25 11:00 03/02/25 11:00 03/02/25 11:00
I&O
03/01/25 03/02/25 03/03/25
06:59 06:59 06:59
Intake Total 1777.5 / 1857.5 2740 / 2885 565 / 565
Output Total 550 / 550 2745 / 2745 290 / 290
Balance 1227.5 / 1307.5 -5 / 140 275 / 275
Review of Systems
-
History Source: Patient
All other systems: Reviewed and negative
[2025-03-02] MEDS: SENOKOT-S 1 TABLET TUBE ×2 (11:54→20:41)
--- NOTE | 2025-03-02 13:13 | PTCARENOTE ---
speech therapy bedside, pt remains in recliner, repositioned.
--- NOTE | 2025-03-02 15:08 | CM ---
CT head/neck negative for bleed. Discharge POC: Acute Rehab. Referral to [facility] previously forwarded. Awaiting medical stability for determination.
--- NOTE | 2025-03-02 16:38 | PTCARENOTE ---
back in bed, visitors bedside, turned for comfort. oral care. resting unless disturbed.
[2025-03-02] MEDS: LIPITOR 80 MG TUBE (17:22)
[2025-03-02] MEDS: LOVENOX 40 MG SC (17:22)
[2025-03-02 17:37] LABS: Glucose - Point of Care 192 mg/dl (70-99)
--- NOTE | 2025-03-02 18:25 | TRANSFER ---
transfer [facility] bed [id number] completed with next RN. settled in room, friend notified of transfer, all belongings accompanied patient.
--- NOTE | 2025-03-02 19:25 | PTCARENOTE ---
Pt arrived to [facility] with POWER DIGGER OPERATOR, Jennifer, at bedside. NIH performed with KALA Rodriguez and NIH score unchanged from RN Jennifer's score. NIH score 12. Pt with slurred speech, and left lateral gaze deficit. NSR with PVC's on the monitor. R neck with +1
edema and surgical glue NON CDL DRIVER. Diminished at the bases. 95% on RA. Suction set up at bedside. Tube feed at 70 mL/hr through R nare. NIH performed with oncoming nightshift RNKsenia. Care ongoing.
[2025-03-02] MEDS: ZESTRIL 20 MG TUBE (21:19)
[2025-03-02] MEDS: LOW STRENGTH ASPIRIN 81 MG TUBE (21:19)
[2025-03-02] MEDS: DECADRON 10 MG IV (22:09)
[2025-03-02 23:30] LABS: Glucose - Point of Care 207 mg/dl (70-99)
[2025-03-03] VITALS (8 sets, daily range): BP systolic 143–193; BP diastolic 66–96; PULSE 91–92; O2SAT 94–98
[2025-03-03] MEDS: NOVOLOG FLEXPEN-LOW RESISTANCE 2 UNITS SC ×2 (00:20→12:54)
[2025-03-03 05:50] LABS: Glucose - Point of Care 315 mg/dl (70-99)
[2025-03-03] MEDS: NOVOLOG FLEXPEN-LOW RESISTANCE 4 UNITS SC (05:51)
--- NOTE | 2025-03-03 06:11 | PTCARENOTE ---
21:30 SBAR: pt has swollen right neck and he is now c/o neck throat feeling more swollen and tight . Just FYI I can not see down his throat he has swelling and thrush, breathing ok for right now he is NPO failed speech swallow and has dobhoff
offered suction/pain meds he said that's not what he needs, stating he does not need either it's just his throat would he benefit from IV Decadron...n/o IV Decadron per Dr. Gregg
--- NOTE | 2025-03-03 06:14 | PTCARENOTE ---
23:00 pt rec'vd bell care turned and repositioned. R lateral neck swelling was observed noticeably less swollen, pt verbalized his throat felt less pressure or closing. No respiratory distress noted.
[2025-03-03 06:55] LABS: Hematocrit 43.9 % (39.0-52.0); Hemoglobin 14.6 g/dL (13.0-18.0); Mean Corp Hgb Conc. 33.3 g/dL (33.0-37.0); Mean Corpuscular Volume 90.3 fL (80.0-94.0); Platelet Count 139 10^3/uL (130-400); Red Cell Dist. Width 12.1 % (11.5-14.5)
[2025-03-03 07:17] LABS: Blood Urea Nitrogen 17 mg/dl (9-20); Calcium 9.3 mg/dl (8.4-10.2); Carbon Dioxide 26 mmol/L (22-30); Chloride 106 mmol/L (98-107); Estimated Creatinine Clearance > 125 ml/min; Glucose 339 mg/dl (70-99); Magnesium 2.3 mg/dl (1.6-2.3); Potassium 4.6 mmol/L (3.5-5.1); Sodium 138 mmol/L (135-145); eGFR > 60.00
[2025-03-03 08:01] LABS: Glucose - Point of Care 248 mg/dl (70-99)
--- NOTE | 2025-03-03 08:33 | W.PN.HOSP.TC ---
Today's Communication/Plan
-
Add Lantus, NovoLog
Continue tube feeds
Continue PT/OT
Add MiraLAX
Assessment / Plan
Assessment / Plan
Gen-AAOx3, NAD, dysarthric
HEENT-NC, AT, anicteric, clear oral mm
Neck-supple, right neck surgical wound intact, right-sided neck swelling noted
CV-reg, no M, +S1/S2
Lungs-clear B/L
Abd-soft, NT, ND
Ext-no edema
Musculoskeletal-no cyanosis, clubbing
Skin-warm and dry
Neuro-dense left hemiplegia, left facial droop
Psych-calm, cooperative
Acute right hemispheric stroke -dense left hemiplegia. Left facial droop. Dysarthria. Significant postoperative dysphagia.
- CTA head: Atherosclerotic calcifications of the bilateral cavernous/paraclinoid ICAs with resultant mild stenosis, more pronounced on the left. No aneurysm.
- CTA neck: Mixed density atherosclerotic plaque of the right carotid bifurcation/proximal ICA with resultant 75% stenosis. Codominant vertebral arteries with atherosclerotic calcifications of the bilateral V4 segments of the vertebral arteries with
resultant focal moderate stenosis of the right vertebral artery.
- MRI: Acute infarct in the right periventricular stearns radiata.
- continue ASA/Plavix/Statin
- LDL: 165
- continue neuro-checks
- PT/OT - PMR recommends acute rehab.
- Neuro following
- CVA alert 02/25 AM for increasing NIH score and worsening Left sided weakness; CT head negative for bleed. Worsening symptoms could represent blossoming infarct
- may need Cards eval outpatient for heart monitor as prior records suggest A. Fib but patient states no objective evidence was ever found. Was prescribed Eliquis but he decided to stop taking it after 1 month.
Right carotid stenosis -greater than 70% stenosis of right proximal ICA on CTA. Underwent successful right carotid endarterectomy 02/28.
Acute dysphagia -continue tube feeds via Dobbhoff tube, tube feeds at goal currently.
Etiology of dysphagia is multifactorial including acute stroke, neck swelling related to CEA, intubation, etc.
Appreciate ENT input. Larynx appears grossly normal per ENT.
Patient states right sided neck swelling is improving compared to yesterday.
Add MiraLAX, continue Senokot, Colace.
Essential HTN
- continue lisinopril 20 mg at bedtime
DM2 with hyperglycemia -patient aware of diagnosis of diabetes, was managing with diet alone prior to admission. Hemoglobin A1c 6.9%. Not on diabetes meds prior to admission. Currently on NovoLog low resistance scale. Glucose 315 this morning.
Daytime glucoses now rising on tube feeds. Also received a dose of 10 mg IV dexamethasone 03/02.
Add basal/bolus insulin.
DVT ppx: Lovenox
Full code
Dispo -eventual discharge to acute rehab when medically stable.
Anticipated Discharge: > 48 hours
Subjective/Interval History
-
Date of Service: March 03, 2025
Patient seen and examined. No new complaints.
Objective Data
-
Labs:
Laboratory Results
03/03/25
06:03
WBC 7.1
Hgb 14.6
Hct 43.9
Plt Count 139
Sodium 138
Potassium 4.6
Chloride 106
Carbon Dioxide 26
BUN 17
Creatinine 0.5 L
Glucose 339 H
Calcium 9.3
Vital Signs:
Vital Signs
Temp Pulse Resp BP Pulse Ox
98.3 F 78 14 149/85 95
03/03/25 07:20 03/03/25 07:20 03/03/25 07:20 03/03/25 07:20 03/03/25 07:20
I&O
03/02/25 03/03/25 03/04/25
06:59 06:59 06:59
Intake Total 2740 / 2885 1210 / 1210
Output Total 2745 / 2585 2665 / 2665
Balance -5 / 140 -1455 / -1455
Review of Systems
-
History Source: Patient
All other systems: Reviewed and negative
--- NOTE | 2025-03-03 08:42 | W.PN.VS ---
Today's Communication / Plan
-
Plan reviewed with attending Miguel Vides III, MD.
Assessment/Plan
-
Assessment: 69-year-old male presented to ED on 02/23/2025 with reports of generalized weakness and dysarthria concerning for stroke, evidence of right ICA stenosis at 75% by CT angio of head and neck, underwent MRI on 02/24/2025 which confirmed acute
infarct in the right periventricular stearns radiata, patient had progression of left-sided weakness acutely after assessed by our team on 02/25/2025 , now with left-sided hemiplegia. POD #3 right carotid endarterectomy
Plan:
Continue PT/OT
Encourage incentive spirometry
Follow up appointment placed in dc instructions
We will sign off, please call with questions concerns
Subjective Data
-
Date of Service: March 03, 2025
Patient reports improved pain at right neck surgical site, and overall has no complaints form a surgical perspective.
Objective Data
-
Vital Signs
Temp Pulse Resp BP Pulse Ox
98.3 F 78 14 149/85 95
03/03/25 07:20 03/03/25 07:20 03/03/25 07:20 03/03/25 07:20 03/03/25 07:20
Intake and Output
03/02/25 03/03/25 03/04/25
06:59 06:59 06:59
Intake Total 2740 / 2885 1210 / 1210
Output Total 2745 / 2745 2665 / 2665
Balance -5 / 140 -1455 / -1455
Intake:
Oral fluids 50 / 50 30 / 30
IV fluids (Total) 1919 160 / 160
Nss 1,000 ml @ 80 mls/hr IV . 1919 160 / 160
[id number] [id number] Rx#:[id number]
cardene 0 / 0
Tube feeding 420 / 460 720 / 720
Feeding tube flush amount 350 / 375 300 / 300
Output:
Urine, Vides 1445 / 1445 2665 / 2665
Straight cath output 1300 / 1300
Lab Results
03/03/25 06:03
03/03/25 06:03
Calcium 9.3 mg/dl (8.4-10.2) 03/03/25 06:03
Phosphorus 3.1 mg/dl (2.5-4.5) 03/03/25 06:03
Magnesium 2.3 mg/dl (1.6-2.3) 03/03/25 06:03
Physical Exam
-
No apparent distress, resting comfortably in bed
Right neck surgical incision clean, dry, and intact, moderate area of edema/hematoma, remains soft, suture line well intact, Exofin intact
No tachycardia
Left sided facial droop
Left-sided hemiplegia
[2025-03-03] MEDS: PLAVIX 75 MG TUBE (09:13)
[2025-03-03] MEDS: PERIDEX 0.12% ORAL RINSE 15 ML PO ×2 (09:14→20:17)
[2025-03-03] MEDS: LANTUS 0.07 UNITS SC (09:14)
[2025-03-03] MEDS: SENOKOT-S 1 TABLET TUBE ×2 (09:14→20:17)
[2025-03-03] MEDS: MIRALAX 17 GRAMS TUBE (09:16)
--- NOTE | 2025-03-03 11:45 | PTOTSP ---
Speech Language Pathology
Pt seen for therapeutic reassessment of cognitive abilities. Blain Cognitive Assessment (MOCA, version 7.1) administered 02/24 prior to overall decline in status with score of 24/30. This date, administered different version (8.3). Pt with an
overall score of 26/30 where normal range is 26-30. While pt within normal range, suspect this is a mild impairment as pt high functioning at baseline.
Pt also seen for dysphagia tx. Discussed plan for NPO status with DHT and repeat instrumental swallowing assessment when appropriate, no earlier than 03/06. Discussed potential paths after repeat instrumental completed (P.O. intake vs consideration
for PEG). Completed swallowing exercises. Discussed ice chips throughout day with completion of effortful swallows with taking breaks when fatigue noted.
Recommendations:
1. Continue NPO
2. Oral care 4x/day with suctioning
3. Aspiration Risk Hydration Protocol - unlimited ice chips after oral care with supervision, place on right side of oral cavity
4. Continued dysphagia tx for education, pharyngeal exercises. Repeat instrumental swallowing testing 03/06 at the earliest.
5. Motor speech and cognitive therapy
[2025-03-03 12:27] LABS: Glucose - Point of Care 231 mg/dl (70-99)
[2025-03-03] MEDS: NOVOLOG FLEXPEN 2 UNITS SC ×2 (12:57→18:17)
--- NOTE | 2025-03-03 13:16 | CM ---
Reviewed the chart notes. Per ST, NPO status with DHT and repeat instrumentation swallowing no earlier than 03/06. PT and OT recommendation remains acute rehab. CM continues to be available to patient/family and is monitoring medical plan for
needs at discharge.
Plan: Discharge plans will depend on the patient's progress. Decision on feeding will need to be address prior to discharge. Facilities unable to accept a patient with a DHT.
[2025-03-03 17:57] LABS: Glucose - Point of Care 198 mg/dl (70-99)
[2025-03-03] MEDS: LOVENOX 40 MG SC (18:16)
[2025-03-03] MEDS: LIPITOR 80 MG TUBE (18:16)
[2025-03-03] MEDS: NOVOLOG FLEXPEN-LOW RESISTANCE 1 UNITS SC (18:16)
[2025-03-03] MEDS: ZESTRIL 20 MG TUBE (21:58)
[2025-03-03] MEDS: LOW STRENGTH ASPIRIN 81 MG TUBE (21:59)
[2025-03-04 00:26] LABS: Glucose - Point of Care 246 mg/dl (70-99)
[2025-03-04] MEDS: NOVOLOG FLEXPEN-LOW RESISTANCE 2 UNITS SC ×2 (00:43→06:28)
[2025-03-04] MEDS: NOVOLOG FLEXPEN 2 UNITS SC ×4 (00:46→17:54)
[2025-03-04 02:40] VITALS: BP 177/84
[2025-03-04 06:28] LABS: Glucose - Point of Care 225 mg/dl (70-99)
[2025-03-04 07:00] VITALS: BP 174/83
--- NOTE | 2025-03-04 08:31 | CON.CAR ---
Addendum entered and electronically signed by Sarika Palmer MD 03/04/25 10:00:
Patient was seen and evaluated personally. I agree with the note, documentation, plan of care as discussed with nurse practitioner below.
69-year-old gentleman with a history of paroxysmal atrial fibrillation, severe AAS status post AVR, CAD status post CABG, pulmonary hypertension, DM type II, HTN, hyperlipidemia, with history of CVA and new stroke with acute infarct in right
periventricular stearns radiata with right carotid artery stenosis status post CEA on 02/28/2025 right carotid endarterectomy by Dr. Vides.
Patient was previously on Eliquis and amiodarone but had self discontinued. Patient's CHADVASC score is elevated (6) and needs chronic anticoagulation. Patient has some new changes and old infarct as well. Recommend restarting Eliquis 5 mg twice a
day.
Original Note:
Consultation
Consultation Request
Date/Time Consultation Requested: 03/04/2025 07:45
Date/Time Consultation Performed: 03/04/2025 08:30
Requesting Provider: Dr. Joy
Performing Provider: FRIDA Ramirez for Dr. Palmer
Reason for Consultation: Paroxysmal atrial fibrillation
Medical History
-
Chief Complaint: Right-sided weakness
History of Present Illness:
Niall Farris is a 69-year-old male (known to Dr. Larsen, his primary fiscal economist), with coronary artery disease (CABG 11/2023), severe stenosis s/p AVR (11/2023), paroxysmal atrial fibrillation, CVA, pulmonary hypertension, type 2 diabetes
mellitus, carotid artery stenosis, hypertension, and dyslipidemia who presented to the emergency department on 02/23/2025 with right-sided weakness. MRI 02/24/2025 confirmed acute infarct in the right periventricular stearns radiata. On 02/28/2025 he
had a right carotid endarterectomy with Dr. Vides. Cardiology was consulted for paroxysmal atrial fibrillation. The patient self discontinued his apixaban. He denies chest pain, dizziness, and shortness of breath. He is endorsing some surgical
site tenderness.
Past Medical History
Past Medical History: Arrhythmias (Paroxysmal atrial fibrillation), CAD (CABG 11/2023), CVA, HTN, Hypercholesterolemia, NIDDM, Valvular Disease (Severe aortic stenosis s/p AVR 2023) and Other (Pulmonary hypertension, carotid artery stenosis)
Past Surgical History: Cardiac (CABG/AVR 2023)
Social History
Tobacco: Former Smoker
Alcohol: None (Since 2020)
Personal:
Employment: Retired
Family History
Family History: Reviewed & Not Pertinent
Allergies / Home Medications
Allergy/AdvReac Type Severity Reaction Status Date / Time
bee venom protein (honey bee) Allergy Anaphylaxis Verified 02/23/25 16:16
�Medication �Instructions �Recorded �Confirmed �Type
lisinopril 10 mg tablet 15 mg PO HS Blood Pressure 12/10/23 02/23/25 History
aspirin 81 mg tablet,delayed 81 mg PO HS Blood Clot 02/23/25 02/23/25 History
release Prevention/Tx
Review of Systems
-
All other systems: Negative unless noted
Constitutional: Fatigue
EENT: No Symptoms
Respiratory: No Symptoms
Cardiac: No Symptoms
Abdomen/GI: No Symptoms
: No Symptoms
Musculoskeletal: No Symptoms
Skin: No Symptoms
Neurological: Weakness
Endocrine: No Symptoms
Hematologic/Lymphatic: No Symptoms
Physical Exam
Vital Signs
Temp Pulse Resp BP Pulse Ox
97.0 F 75 20 174/83 94
03/04/25 07:00 03/04/25 07:00 03/04/25 07:00 03/04/25 07:00 03/04/25 07:00
Lab Results
03/03/25 06:03
03/03/25 06:03
Physical Exam
General: Well Developed, Well Nourished, No Apparent Distress and Comfortable
HEENT: Moist Mucous Membranes
Respiratory: Clear and Non Labored Respirations
Cardiac: S1/S2, Regular Rhythm and Peripheral Edema (+1 LE)
Breast: Deferred by me
GI: Soft, Non Tender, Non Distended and Normal Bowel Sounds
Rectal: Deferred by Provider
Genito-urinary: No Costovertebral Tender
Musculoskeletal: No Clubbing and No Cyanosis
Skin: Warm and Dry
Neuro: Awake and Alert
Hematologic/Lymphatic: No Lymphadenopathy
Psych: Calm
Impression / Plan
-
I/P: 69M with coronary artery disease (CABG 11/2023), severe stenosis s/p AVR (11/2023), paroxysmal atrial fibrillation, CVA, pulmonary hypertension, type 2 diabetes mellitus, carotid artery stenosis, hypertension, and dyslipidemia who presented to
the emergency department on 02/23/2025 with right-sided weakness. He was found to have a stroke and required CEA. Cardiology was consulted for paroxysmal atrial fibrillation
Primary fiscal economist: Dr. Larsen
Hemispheric stroke, acute
- PMR is recommending acute rehab, the plan is for most
- With CAD and CVA LDL should be <70, ideally is close to 55 as we can get, presented with LDL of 165
Carotid artery stenosis s/p right CEA 02/28/[address] Vides
Paroxysmal atrial fibrillation
- He was on metoprolol succinate, now requires crushed medications, metoprolol tartrate 25 mg twice daily
- Oral Anticoagulation: He self discontinued his apixaban, resume apixaban 5 mg twice daily, stop ASA and Lovenox
- [id number]: Score at least 6 (HTN, Diabetes Mellitus, prior Stroke/TIA, Vascular disease, age 65-74)
Coronary artery disease
- Stable without chest pain, plan is for apixaban, now clopidogrel with recent CEA
- Resume atorvastatin 80 as above
Severe aortic stenosis s/p AVR
- Bio AVR at the time of CABG, peak/mean gradients 20/10 mmHg without AR
- He is aware of antibiotic prophylaxis
Hypertension
- Goal of normotension
- BP not at goal, he was on metoprolol in the past, resume, follow BP, he may require carvedilol
Type 2 diabetes mellitus, with hyperglycemia, HbA1c 6.9%, per primary service
Data Reviewed
-
EKG: Report Reviewed by me (Sinus rhythm, LAFB, iRBBB, rate 77)
CT Scan: Report Reviewed by me
MRI: Report Reviewed by me
Medical Tests (Nuc Med, Echo etc): Report Reviewed by me
Labs: Labs Reviewed by me
Old Records: Reviewed
[2025-03-04] MEDS: MIRALAX 17 GRAMS TUBE (08:46)
[2025-03-04] MEDS: PERIDEX 0.12% ORAL RINSE 15 ML PO ×2 (08:46→20:43)
[2025-03-04] MEDS: PLAVIX 75 MG TUBE (08:46)
[2025-03-04] MEDS: SENOKOT-S 1 TABLET TUBE (08:46)
[2025-03-04] MEDS: LANTUS 0.07 UNITS SC (08:52)
[2025-03-04 08:53] LABS: Glucose - Point of Care 192 mg/dl (70-99)
[2025-03-04] MEDS: LOPRESSOR 25 MG TUBE ×2 (10:07→20:43)
[2025-03-04 11:45] VITALS: BP 109/58
[2025-03-04 12:50] LABS: Glucose - Point of Care 261 mg/dl (70-99)
[2025-03-04] MEDS: NOVOLOG FLEXPEN-LOW RESISTANCE 3 UNITS SC (12:56)
--- NOTE | 2025-03-04 13:28 | PTOTSP ---
ST Follow-Up
Pt continues to present with clinical signs of suspected pharyngeal dysphagia. Instrumental swallow study is warranted to gather more information regarding airway protection and strategies that may facilitate better airway protection with PO intake.
Recommendations:
- NPO with entec for nutrition, hydration, and meds.
- ARHP - ice chips with supervision from RN only after oral care.
- Aspiration precautions: encourage pt to cough hard + swallow when pt presenting with a wet vocal quality; HOB upright as often as possible; oral care QID; turn off TF when lying pt laterally.
- TELEPHONE ADVICE NURSE to f/u Thursday to re-assess and likely complete instrumental swallow study.
- Consider bed/room switch so that pt is forced to look left where people are entering/exiting the room.
--- NOTE | 2025-03-04 13:33 | W.PN.HOSP.TC ---
Today's Communication/Plan
-
Continue Dobbhoff feeds until cleared by speech therapist
Eliquis started
Aspirin discontinued
Continue Plavix and statin
Continue physical therapy occupational therapy
Encourage patient to look and turn the head towards the left to prevent contracture
Assessment / Plan
Assessment / Plan
69-year-old with acute right hemispheric stroke with left hemiparesis with left facial droop, dysarthria and dysphagia. CEA done on 02/28/2025 significant postoperative swelling of the right side of the neck.
CTA head: Atherosclerotic calcifications of the bilateral cavernous/paraclinoid ICAs with resultant mild stenosis, more pronounced on the left. No aneurysm.
CTA neck: Mixed density atherosclerotic plaque of the right carotid bifurcation/proximal ICA with resultant 75% stenosis. Codominant vertebral arteries with atherosclerotic calcifications of the bilateral V4 segments of the vertebral arteries with
resultant focal moderate stenosis of the right vertebral artery.
MRI: Acute infarct in the right periventricular stearns radiata.
Echo 02/24/2025-normal LV size and hyperdynamic systolic function. EF 65 to 70%. Well-seated aortic valve replacement. Mild to moderate eccentric TR. Normal PASP.
Awake and alert
Patient could not tell me why he discontinued Eliquis or his other medications
Patient has a head tilt towards the right
Edema around neck incision, fluctuance, no active bleeding
Left neglect noted
Left hemiparesis noted
Cardiovascular system S1-S2 appreciated, systolic murmur right heart border
Chest clear to auscultation
# Acute right hemispheric stroke with dense left hemiplegia, facial droop, dysarthria, dysphagia
Continue Plavix and statin
Aspirin discontinued on 03/04/2025 and Eliquis started on 03/04/2025 along with Plavix and statin
LDL: 165
Continue neuro-checks
PT/OT - PMR recommends acute rehab.
CVA alert 7/19 AM for increasing NIH score and worsening Left sided weakness; CT head negative for bleed. Worsening symptoms could represent blossoming infarct
Was prescribed Eliquis but he decided to stop taking it .
Dysphagia-continue tube feeds via Dobbhoff tube-tube feeds at goal currently(etiology likely multifactorial acute stroke, edema of the neck, intubation etc.)
Appreciate ENT input larynx appears grossly normal per ENT.
# Paroxysmal atrial fibrillation-documented per cardiology note from Dr. Rodríguez on 02/22/2024.
Seems like he was on amiodarone 200 mg daily at that time with a plan to stop it next visit
(Patient was supposed to continue metoprolol XL 25 mg daily.Medications listed that time also included Eliquis 5 mg daily, aspirin 81 mg daily)
Dr. Larsen - last visit 08/22/2024
Eliquis restarted on 03/04/2025,
Metoprolol restarted on 03/04/2025
# Right carotid stenosis -greater than 70% stenosis of right proximal ICA on CTA. Underwent successful right carotid endarterectomy 02/28. Continue Plavix and statin along with Eliquis
# Hypertension-continue lisinopril, metoprolol
# Hyperlipidemia/atherosclerosis-patient was on statin at 1 point not on medicines listed on admission. Statin restarted here
# History of coronary artery disease-history of CABG 11/25/2023. Per cardiology notes patient needed to reopen incision in the OR with repair of left chest wall vein bleeding external sutures placed.
Surgical site bleeding at site of vein harvest left lower extremity with Left lower extremity cellulitis at that time.
# Aortic valve replacement November 2023
# Mitral regurgitation
# Diabetes hemoglobin A1c 6.9
Patient was aware about diabetes but was managing with diet alone
Received 10 mg of IV Decadron on 03/02/2025
Sugars are slightly elevated
Basal and bolus insulin
Was on metformin and Jardiance in 2023 as outpatient
Check pricing for Jardiance before restarting. He does not need metformin
# Constipation-continue bowel regimen
# History of prior CVA in 2009, 2020 and 2023-small acute ischemic infarcts in the subcortical white matter of the right frontal lobe, periventricular right temporal lobe, both cerebellar hemispheres. Prior right lower extremity weakness from CVA
# Hypodense left thyroid lesion likely a benign nodule.
# Fatty liver
# Ex-smoker
# DVT prophylaxis-Eliquis
# Full code
Cardiology notes from 02/22/2024-patient was on amiodarone 200 mg daily, Eliquis 5 mg daily, aspirin 81 mg daily, atorvastatin 80 mg daily, Jardiance 10 mg daily, lisinopril 15 mg daily, metformin 500 mg twice daily, metoprolol 50 mg daily (was
advised to reduce to 25 mg daily)
D/W Cardiology and Neurology.
Discussed with therapy at bedside regarding neck position
Discussed with patient also to avoid tilting his neck to the right side
Discussed with patient's son and updated in detail
Chances of a PEG tube was discussed with son if he fails swallow study on Thursday
Total time spent today more than 50 minutes
Part of this note was created using voice recognition system. Occasional wrong word or��sound alike� substitutions may have inadvertently occurred due to the inherent limitations of voice recognition software. If noted kindly bring it to my
attention for correction.
Anticipated Discharge: 24 - 48 hours
Subjective/Interval History
-
Date of Service: March 04, 2025
Objective Data
-
Vital Signs:
Vital Signs
Temp Pulse Resp BP Pulse Ox
98.3 F 84 18 109/58 98
03/04/25 11:45 03/04/25 11:45 03/04/25 11:45 03/04/25 11:45 03/04/25 11:45
I&O
03/03/25 03/04/25 03/05/25
06:59 06:59 06:59
Intake Total 1210 / 1210 1140 / 1140
Output Total 2665 / 2665 1175 / 1175 550 / 550
Balance -1455 / -1455 -35 / -35 -550 / -550
[2025-03-04 15:05] VITALS: BP 149/74
[2025-03-04 17:21] LABS: Glucose - Point of Care 160 mg/dl (70-99)
[2025-03-04] MEDS: LIPITOR 80 MG TUBE (17:54)
[2025-03-04] MEDS: NOVOLOG FLEXPEN-LOW RESISTANCE 1 UNITS SC (17:54)
[2025-03-04 19:00] VITALS: BP 155/84
[2025-03-04] MEDS: SENOKOT-S TUBE (20:41)
[2025-03-04] MEDS: ELIQUIS 5 MG PO (20:43)
[2025-03-04] MEDS: ZESTRIL 20 MG TUBE (20:48)
[2025-03-04 23:00] VITALS: BP 168/83
[2025-03-04 23:53] LABS: Glucose - Point of Care 200 mg/dl (70-99)
[2025-03-05] VITALS (7 sets, daily range): BP systolic 145–179; BP diastolic 79–91; PULSE 81; O2SAT 94; BMI 22.9
[2025-03-05] MEDS: NOVOLOG FLEXPEN 2 UNITS SC ×3 (00:43→18:01)
[2025-03-05] MEDS: NOVOLOG FLEXPEN-LOW RESISTANCE 2 UNITS SC ×2 (00:43→18:00)
--- NOTE | 2025-03-05 04:08 | PTCARENOTE ---
Assessed pt at 0340 d/t tube feed alarming. Pt was found to have removed his tube feed while asleep. Pt did not recall pulling out tube feed. SANTI Brizuela made aware. Tube feed shut off at this time, per SPOT SPRAYER - GI will need to relace during the day.
--- NOTE | 2025-03-05 06:09 | PTCARENOTE ---
Vides catheter removed at 0600 per orders without difficulty. Urinal at bedside. Pt given time and amount.
[2025-03-05 06:31] LABS: Glucose - Point of Care 171 mg/dl (70-99)
[2025-03-05] MEDS: NOVOLOG FLEXPEN-LOW RESISTANCE SC (06:36)
[2025-03-05 08:01] LABS: Hematocrit 45.8 % (39.0-52.0); Hemoglobin 15.5 g/dL (13.0-18.0); Mean Corp Hgb Conc. 33.8 g/dL (33.0-37.0); Mean Corpuscular Volume 90.0 fL (80.0-94.0); Platelet Count 184 10^3/uL (130-400); Red Cell Dist. Width 12.0 % (11.5-14.5)
[2025-03-05 08:16] LABS: Blood Urea Nitrogen 19 mg/dl (9-20); Calcium 9.5 mg/dl (8.4-10.2); Carbon Dioxide 29 mmol/L (22-30); Chloride 104 mmol/L (98-107); Estimated Creatinine Clearance > 125 ml/min; Glucose 182 mg/dl (70-99); Magnesium 2.2 mg/dl (1.6-2.3); Potassium 4.4 mmol/L (3.5-5.1); Sodium 140 mmol/L (135-145); eGFR > 60.00
[2025-03-05] MEDS: PERIDEX 0.12% ORAL RINSE 15 ML PO ×2 (09:07→20:15)
[2025-03-05 09:08] LABS: Glucose - Point of Care 191 mg/dl (70-99)
[2025-03-05] MEDS: LANTUS 0.07 UNITS SC (09:08)
--- NOTE | 2025-03-05 10:56 | W.PN.HOSP.TC ---
Addendum entered and electronically signed by Gilbert Joy MD 03/05/25 13:46:
X ray noted. Dobhoff pulled back to 70 cm from 80 cm stefani ( previous Dobhoff was at 65 cm per RN).
OK to use
Original Note:
Today's Communication/Plan
-
X ray
PT OT
Speech eval to decide re swallow function.
Assessment / Plan
Assessment / Plan
69-year-old with acute right hemispheric stroke with left hemiparesis with left facial droop, dysarthria and dysphagia. CEA done on 02/28/2025 significant postoperative swelling of the right side of the neck.
CTA head: Atherosclerotic calcifications of the bilateral cavernous/paraclinoid ICAs with resultant mild stenosis, more pronounced on the left. No aneurysm.
CTA neck: Mixed density atherosclerotic plaque of the right carotid bifurcation/proximal ICA with resultant 75% stenosis. Codominant vertebral arteries with atherosclerotic calcifications of the bilateral V4 segments of the vertebral arteries with
resultant focal moderate stenosis of the right vertebral artery.
MRI: Acute infarct in the right periventricular stearns radiata.
Echo 02/24/2025-normal LV size and hyperdynamic systolic function. EF 65 to 70%. Well-seated aortic valve replacement. Mild to moderate eccentric TR. Normal PASP.
Awake and alert
Patient has a head tilt towards the right
Edema around neck incision, fluctuance, no active bleeding
Left neglect noted
Left hemiparesis noted
Cardiovascular system S1-S2 appreciated, systolic murmur right heart border
Chest clear to auscultation
# Acute right hemispheric stroke with dense left hemiplegia, facial droop, dysarthria, dysphagia
Continue Plavix and statin
Aspirin discontinued on 03/04/2025 and Eliquis started on 03/04/2025 along with Plavix and statin
LDL: 165
Continue neuro-checks
PT/OT - PMR recommends acute rehab.
CVA alert 7/19 AM for increasing NIH score and worsening Left sided weakness; CT head negative for bleed. Worsening symptoms could represent blossoming infarct
Was prescribed Eliquis but he decided to stop taking it .
Dysphagia-continue tube feeds via Dobbhoff tube-tube feeds at goal currently(etiology likely multifactorial acute stroke, edema of the neck, intubation etc.)
Appreciate ENT input larynx appears grossly normal per ENT.
Multi-Podus boot for left foot to prevent developing foot drop
# Paroxysmal atrial fibrillation-documented per cardiology note from Dr. Rodríguez on 02/22/2024.
Seems like he was on amiodarone 200 mg daily at that time with a plan to stop it next visit
(Patient was supposed to continue metoprolol XL 25 mg daily.Medications listed that time also included Eliquis 5 mg daily, aspirin 81 mg daily)
Dr. Larsen - last visit 08/22/2024
Eliquis restarted on 03/04/2025,
Metoprolol restarted on 03/04/2025
# Right carotid stenosis -greater than 70% stenosis of right proximal ICA on CTA. Underwent successful right carotid endarterectomy 02/28. Continue Plavix and statin along with Eliquis
# Hypertension-continue lisinopril, metoprolol
# Hyperlipidemia/atherosclerosis-patient was on statin at 1 point not on medicines listed on admission. Statin restarted here
# History of coronary artery disease-history of CABG 11/25/2023. Per cardiology notes patient needed to reopen incision in the OR with repair of left chest wall vein bleeding external sutures placed.
Surgical site bleeding at site of vein harvest left lower extremity with Left lower extremity cellulitis at that time.
# Aortic valve replacement November 2023
# Mitral regurgitation
# Diabetes hemoglobin A1c 6.9
Patient was aware about diabetes but was managing with diet alone
Received 10 mg of IV Decadron on 03/02/2025
Sugars are slightly elevated
Basal and bolus insulin
Was on metformin and Jardiance in 2023 as outpatient
Check pricing for Jardiance before restarting. He may not need metformin
# Constipation-continue bowel regimen
# History of prior CVA in 2009, 2020 and 2023-small acute ischemic infarcts in the subcortical white matter of the right frontal lobe, periventricular right temporal lobe, both cerebellar hemispheres. Prior right lower extremity weakness from CVA
# Hypodense left thyroid lesion likely a benign nodule.
# Fatty liver
# Ex-smoker
# DVT prophylaxis-Eliquis
# Full code
Cardiology notes from 02/22/2024-patient was on amiodarone 200 mg daily, Eliquis 5 mg daily, aspirin 81 mg daily, atorvastatin 80 mg daily, Jardiance 10 mg daily, lisinopril 15 mg daily, metformin 500 mg twice daily, metoprolol 50 mg daily (was
advised to reduce to 25 mg daily)
Discussed with patient's son and updated in detail 03/04/25
Total time spent today more than 50 minutes
DHT placed as it got dislodged. Xray reviewed by me, looks like in position. Wait for official read.
Part of this note was created using voice recognition system. Occasional wrong word or��sound alike� substitutions may have inadvertently occurred due to the inherent limitations of voice recognition software. If noted kindly bring it to my
attention for correction.
Anticipated Discharge: 24 - 48 hours
Subjective/Interval History
-
Date of Service: March 05, 2025
Objective Data
-
Labs:
Laboratory Results
03/05/25
06:59
WBC 9.2
Hgb 15.5
Hct 45.8
Plt Count 184 D
Sodium 140
Potassium 4.4
Chloride 104
Carbon Dioxide 29
BUN 19
Creatinine 0.6 L
Glucose 182 H
Calcium 9.5
Vital Signs:
Vital Signs
Temp Pulse Resp BP Pulse Ox
97.7 F 81 14 145/79 94
03/05/25 07:40 03/05/25 07:40 03/05/25 07:40 03/05/25 07:40 03/05/25 07:40
I&O
03/04/25 03/05/25 03/06/25
06:59 06:59 06:59
Intake Total 1140 / 1140 2034
Output Total 1175 / 1175 700 / 700 1650 / 1650
Balance -35 / -35 1335 / 1335 -1650 / -1650
[2025-03-05 11:35] LABS: Glucose - Point of Care 177 mg/dl (70-99)
[2025-03-05] MEDS: NOVOLOG FLEXPEN SC (12:19)
[2025-03-05] MEDS: NOVOLOG FLEXPEN-LOW RESISTANCE 1 UNITS SC (12:19)
[2025-03-05] MEDS: ELIQUIS PO (14:06)
[2025-03-05] MEDS: SENOKOT-S 1 TABLET TUBE ×2 (14:16→20:15)
[2025-03-05] MEDS: MIRALAX 17 GRAMS TUBE (14:16)
[2025-03-05] MEDS: LOPRESSOR 25 MG TUBE ×2 (14:16→20:15)
[2025-03-05] MEDS: PLAVIX 75 MG TUBE (14:16)
[2025-03-05 17:59] LABS: Glucose - Point of Care 215 mg/dl (70-99)
[2025-03-05] MEDS: LIPITOR 80 MG TUBE (18:00)
[2025-03-05] MEDS: ELIQUIS 5 MG PO (20:15)
[2025-03-05] MEDS: ZESTRIL 20 MG TUBE (22:00)
[2025-03-06] VITALS (8 sets, daily range): BP systolic 110–148; BP diastolic 67–84; PULSE 66; O2SAT 94; BMI 23.2
[2025-03-06 00:19] LABS: Glucose - Point of Care 226 mg/dl (70-99)
[2025-03-06] MEDS: NOVOLOG FLEXPEN 2 UNITS SC ×2 (00:20→05:47)
[2025-03-06] MEDS: NOVOLOG FLEXPEN-LOW RESISTANCE 2 UNITS SC (00:20)
[2025-03-06 05:39] LABS: Glucose - Point of Care 250 mg/dl (70-99)
[2025-03-06] MEDS: NOVOLOG FLEXPEN-LOW RESISTANCE 3 UNITS SC ×2 (05:47→13:47)
--- NOTE | 2025-03-06 09:07 | W.PN.CD ---
Addendum entered and electronically signed by Neal Nur MD 03/06/25 11:21:
We will sign off pls call with questions/concerns.
Addendum entered and electronically signed by Neal Nur MD 03/06/25 09:33:
I saw and examined the patient.
The STEEL ERECTOR APPRENTICE's note was reviewed and I agree with the note.
Comment: for AF apixaban, clopidogrel per VS
Original Note:
Today's Communication / Plan
-
Continue current medical therapy:
Paroxysmal atrial fibrillation: Apixaban 5 mg twice daily & metoprolol tartrate 25 mg twice daily
HTN: Lisinopril 20 mg daily
CAD: Atorvastatin 80 mg daily. No ASA as he is on apixaban and clopidogrel.
Impression / Plan
-
I/P: 69M with coronary artery disease (CABG 11/2023), severe stenosis s/p AVR (11/2023), paroxysmal atrial fibrillation, CVA, pulmonary hypertension, type 2 diabetes mellitus, carotid artery stenosis, hypertension, and dyslipidemia who presented to
the emergency department on 02/23/2025 with right-sided weakness. He was found to have a stroke and required CEA. Cardiology was consulted for paroxysmal atrial fibrillation
Primary strategic partner development manager: Dr. Larsen
Hemispheric stroke, acute
- PMR is recommending acute rehab, the plan is for Lr
- With CAD and CVA LDL should be <70, ideally is close to 55 as we can get, presented with LDL of 165
Carotid artery stenosis s/p right CEA 02/28/[address] Vides
- Length of duration of clopidogrel per vascular surgery
Paroxysmal atrial fibrillation
- He was on metoprolol succinate as an outpatient, now requires crushed medications, metoprolol tartrate 25 mg twice daily
- Oral Anticoagulation: He self discontinued his apixaban, resumed apixaban 5 mg twice daily replacing ASA and Lovenox - 03/04/25
- [id number]: Score at least 6 (HTN, Diabetes Mellitus, prior Stroke/TIA, Vascular disease, age 65-74)
Coronary artery disease s/p CABG (11/2023)
- Stable without chest pain, plan is for apixaban and clopidogrel with recent CEA
- Resumed atorvastatin 80 as above
Severe aortic stenosis s/p AVR
- Bio AVR at the time of CABG, peak/mean gradients 20/10 mmHg without AR
- He is aware of antibiotic prophylaxis
Hypertension
- Goal of normotension
- BP not at goal, he was on metoprolol in the past, resumed
Type 2 diabetes mellitus, with hyperglycemia, HbA1c 6.9%, per primary service
SUBJECTIVE:
He denies chest pain, dizziness, and shortness of breath
Physical Exam
Vital Signs/Labs
Vital Signs
Temp Pulse Resp BP Pulse Ox
98.3 F 82 17 110/73 96
03/06/25 03:00 03/06/25 03:00 03/06/25 03:00 03/06/25 03:00 03/06/25 03:00
03/05/25 03/06/25 03/07/25
06:59 06:59 06:59
Actual Weight 83.007 kg
03/05/25 06:59
03/05/25 06:59
PT 13.8 Sec (11.4-14.6) 03/01/25 03:39
INR 1.03 03/01/25 03:39
APTT 27.8 Sec (23.4-35.0) 03/01/25 03:39
Magnesium 2.2 mg/dl (1.6-2.3) 03/05/25 06:59
Triglycerides 169 mg/dl (10-149) H 02/24/25 05:49
LDL Cholesterol, Calc 165 mg/dl 02/24/25 05:49
VLDL Cholesterol, Calc 33 mg/dl (0-30) H 02/24/25 05:49
HDL Cholesterol 48 mg/dl 02/24/25 05:49
Physical Exam
Constitutional: No acute distress and Comfortable
EENT: Anicteric and Moist mucous membranes
Cardiovascular: Rhythm & rate is regular and S1S2 is normal
Respiratory: Respiratory effort normal and Lungs clear to auscul.
GI: Soft, Distention absent, Flat and Non tender
Neuro/Psych: Alert and Oriented
Other: Skin (Warm and dry)
Data Reviewed
-
Date of Service: March 06, 2025
Labs: Labs Reviewed by me
Old Records: Reviewed
[2025-03-06 09:14] LABS: Glucose - Point of Care 218 mg/dl (70-99)
[2025-03-06] MEDS: LANTUS 0.1 UNITS SC (09:14)
[2025-03-06] MEDS: LOPRESSOR 25 MG TUBE ×2 (09:16→20:00)
[2025-03-06] MEDS: PERIDEX 0.12% ORAL RINSE 15 ML PO ×2 (09:16→20:00)
[2025-03-06] MEDS: PLAVIX 75 MG TUBE (09:16)
[2025-03-06] MEDS: ELIQUIS 5 MG PO ×2 (09:16→20:00)
[2025-03-06] MEDS: MIRALAX 17 GRAMS TUBE (09:16)
[2025-03-06] MEDS: SENOKOT-S TUBE (09:17)
--- NOTE | 2025-03-06 11:45 | W.PN.HOSP.TC ---
Addendum entered and electronically signed by Gilbert Joy MD 03/06/25 14:09:
Passed VSE.
Started Pureed
Hold TF
Left message for son
Original Note:
Today's Communication/Plan
-
FEES
Discharge planning.
Discussed with case management that if patient passes swallow test and is able to eat he can be discharged to rehab
Assessment / Plan
Assessment / Plan
69-year-old with acute right hemispheric stroke with left hemiparesis with left facial droop, dysarthria and dysphagia. CEA done on 02/28/2025 significant postoperative swelling of the right side of the neck.
CTA head: Atherosclerotic calcifications of the bilateral cavernous/paraclinoid ICAs with resultant mild stenosis, more pronounced on the left. No aneurysm.
CTA neck: Mixed density atherosclerotic plaque of the right carotid bifurcation/proximal ICA with resultant 75% stenosis. Codominant vertebral arteries with atherosclerotic calcifications of the bilateral V4 segments of the vertebral arteries with
resultant focal moderate stenosis of the right vertebral artery.
MRI: Acute infarct in the right periventricular stearns radiata.
Echo 02/24/2025-normal LV size and hyperdynamic systolic function. EF 65 to 70%. Well-seated aortic valve replacement. Mild to moderate eccentric TR. Normal PASP.
Awake and alert
Patient has a head tilt towards the right
Edema around neck incision, fluctuance, no active bleeding
Left neglect noted
Left hemiparesis noted
Cardiovascular system S1-S2 appreciated, systolic murmur right heart border
Chest clear to auscultation
# Acute right hemispheric stroke with dense left hemiplegia, facial droop, dysarthria, dysphagia
Continue Plavix and statin
Aspirin discontinued on 03/04/2025 and Eliquis started on 03/04/2025 along with Plavix and statin
LDL: 165
Continue neuro-checks
PT/OT - PMR recommends acute rehab.
CVA alert 7/19 AM for increasing NIH score and worsening Left sided weakness; CT head negative for bleed. Worsening symptoms could represent blossoming infarct
Was prescribed Eliquis but he decided to stop taking it .
Dysphagia-continue tube feeds via Dobbhoff tube-tube feeds at goal currently(etiology likely multifactorial acute stroke, edema of the neck, intubation etc.)
Appreciate ENT input larynx appears grossly normal per ENT.
Multi-Podus boot for left foot to prevent developing foot drop
# Paroxysmal atrial fibrillation-documented per cardiology note from Dr. Rodríguez on 02/22/2024.
Seems like he was on amiodarone 200 mg daily at that time with a plan to stop it next visit
(Patient was supposed to continue metoprolol XL 25 mg daily.Medications listed that time also included Eliquis 5 mg daily, aspirin 81 mg daily)
Dr. Larsen - last visit 08/22/2024
Eliquis restarted on 03/04/2025,
Metoprolol restarted on 03/04/2025
# Right carotid stenosis -greater than 70% stenosis of right proximal ICA on CTA. Underwent successful right carotid endarterectomy 02/28. Continue Plavix and statin along with Eliquis
# Hypertension-continue lisinopril, metoprolol
# Hyperlipidemia/atherosclerosis-patient was on statin at 1 point not on medicines listed on admission. Statin restarted here
# History of coronary artery disease-history of CABG 11/25/2023. Per cardiology notes patient needed to reopen incision in the OR with repair of left chest wall vein bleeding external sutures placed.
Surgical site bleeding at site of vein harvest left lower extremity with Left lower extremity cellulitis at that time.
# Aortic valve replacement November 2023
# Mitral regurgitation
# Diabetes hemoglobin A1c 6.9
Patient was aware about diabetes but was managing with diet alone
Received 10 mg of IV Decadron on 03/02/2025
Sugars are slightly elevated
Basal and bolus insulin
Was on metformin and Jardiance in 2023 as outpatient
Check pricing for Jardiance before restarting. He may not need metformin
# Constipation-continue bowel regimen
# History of prior CVA in 2009, 2020 and 2023-small acute ischemic infarcts in the subcortical white matter of the right frontal lobe, periventricular right temporal lobe, both cerebellar hemispheres. Prior right lower extremity weakness from CVA
# Hypodense left thyroid lesion likely a benign nodule.
# Fatty liver
# Ex-smoker
# DVT prophylaxis-Eliquis
# Full code
Cardiology notes from 02/22/2024-patient was on amiodarone 200 mg daily, Eliquis 5 mg daily, aspirin 81 mg daily, atorvastatin 80 mg daily, Jardiance 10 mg daily, lisinopril 15 mg daily, metformin 500 mg twice daily, metoprolol 50 mg daily (was
advised to reduce to 25 mg daily)
Discussed with patient's son and updated in detail 03/04/25
FEES today
Part of this note was created using voice recognition system. Occasional wrong word or��sound alike� substitutions may have inadvertently occurred due to the inherent limitations of voice recognition software. If noted kindly bring it to my
attention for correction.
Anticipated Discharge: 24 - 48 hours
Subjective/Interval History
-
Date of Service: March 06, 2025
Objective Data
-
Vital Signs:
Vital Signs
Temp Pulse Resp BP Pulse Ox
97.9 F 66 16 142/67 94
03/06/25 11:20 03/06/25 11:20 03/06/25 11:20 03/06/25 11:20 03/06/25 11:20
I&O
03/05/25 03/06/25 03/07/25
06:59 06:59 06:59
Intake Total 2034 595 / 595
Output Total 700 / 700 1650 / 1650
Balance 1335 / 1335 -1055 / -1055
[2025-03-06 12:10] LABS: Glucose - Point of Care 264 mg/dl (70-99)
[2025-03-06] MEDS: GLUCOPHAGE 500 MG TUBE ×2 (13:46→19:23)
[2025-03-06] MEDS: NOVOLOG FLEXPEN 3 UNITS SC ×3 (13:48→23:49)
--- NOTE | 2025-03-06 14:34 | CM ---
Addendum entered by Opal Rodriguez RN 03/06/25 14:42:
Received consult for stanley check on Jardiance. Per pharmacy, no prescription insurance. CM spoke with son, who confirmed no pharmacy benefit.
Original Note:
Reviewed the chart notes and spoke with the patient at the bedside. ST recommending pureed diet today. Updated referral to [facility] sent via [facility]. CM continues to be available to patient/family and is monitoring medical plan for needs at
discharge.
Plan: Discharge to acute rehab once bed secured and medically stable. No precert required.
[2025-03-06 17:51] LABS: Glucose - Point of Care 125 mg/dl (70-99)
[2025-03-06] MEDS: LIPITOR 80 MG TUBE (19:22)
[2025-03-06] MEDS: NOVOLOG FLEXPEN-LOW RESISTANCE SC ×2 (19:23→23:51)
[2025-03-06] MEDS: SENOKOT-S 1 TABLET TUBE (20:00)
[2025-03-06] MEDS: ZESTRIL 20 MG TUBE (21:14)
[2025-03-06 23:51] LABS: Glucose - Point of Care 145 mg/dl (70-99)
[2025-03-07] VITALS (7 sets, daily range): BP systolic 117–139; BP diastolic 58–81; PULSE 74–79; O2SAT 93–94
--- NOTE | 2025-03-07 06:31 | PTCARENOTE ---
pt's dubhoff noted not in place, when water instilled pt coughed , dubhoff was observed at 25 on the nose, ANGIOGRAPHY NURSE notified chest xray ordered
[2025-03-07 06:33] LABS: Glucose - Point of Care 148 mg/dl (70-99)
[2025-03-07] MEDS: NOVOLOG FLEXPEN 3 UNITS SC ×3 (06:35→16:44)
[2025-03-07] MEDS: NOVOLOG FLEXPEN-LOW RESISTANCE SC ×3 (06:37→23:53)
--- NOTE | 2025-03-07 07:22 | W.PN.UPDATE ---
Update Note
Progress Note Update
RN reports patient dobhoff may not be in place, stable VS, not in apparent distress. Will do chest xray to confirm.
RN now reports RN pulled it out the the tip of the tube was almost out.
[2025-03-07] MEDS: PLAVIX 75 MG TUBE (08:55)
[2025-03-07] MEDS: SENOKOT-S 1 TABLET TUBE (08:55)
[2025-03-07] MEDS: PERIDEX 0.12% ORAL RINSE 15 ML PO ×2 (08:55→21:05)
[2025-03-07] MEDS: ELIQUIS 5 MG PO ×2 (08:55→21:05)
[2025-03-07] MEDS: GLUCOPHAGE 500 MG TUBE ×2 (08:55→16:43)
[2025-03-07] MEDS: LANTUS 0.1 UNITS SC (08:56)
[2025-03-07] MEDS: MIRALAX 17 GRAMS TUBE (08:56)
[2025-03-07] MEDS: LOPRESSOR 25 MG TUBE (08:57)
[2025-03-07 12:45] LABS: Glucose - Point of Care 155 mg/dl (70-99)
[2025-03-07] MEDS: NOVOLOG FLEXPEN-LOW RESISTANCE 1 UNITS SC (12:55)
--- NOTE | 2025-03-07 14:12 | CM ---
Reviewed the chart notes and spoke with Luis Admissions Liaison with [facility]. [facility] anticipates a bed available tomorrow. No precert required. TRACE[facility] spoke with the patient's son Sulaiman via telephone. Updated on [facility] and reviewed IMM. [facility] continues to
be available to patient/family and is monitoring medical plan for needs at discharge.
Plan: Discharge to [facility] when bed available.
--- NOTE | 2025-03-07 15:07 | W.PN.HOSP.TC ---
Today's Communication/Plan
-
Start Farxiga
Discharge planning
Assessment / Plan
Assessment / Plan
69-year-old with acute right hemispheric stroke with left hemiparesis with left facial droop, dysarthria and dysphagia. CEA done on 02/28/2025 significant postoperative swelling of the right side of the neck.
CTA head: Atherosclerotic calcifications of the bilateral cavernous/paraclinoid ICAs with resultant mild stenosis, more pronounced on the left. No aneurysm.
CTA neck: Mixed density atherosclerotic plaque of the right carotid bifurcation/proximal ICA with resultant 75% stenosis. Codominant vertebral arteries with atherosclerotic calcifications of the bilateral V4 segments of the vertebral arteries with
resultant focal moderate stenosis of the right vertebral artery.
MRI: Acute infarct in the right periventricular stearns radiata.
Echo 02/24/2025-normal LV size and hyperdynamic systolic function. EF 65 to 70%. Well-seated aortic valve replacement. Mild to moderate eccentric TR. Normal PASP.
Awake and alert
Less left neglect now
Edema around neck incision, fluctuance, no active bleeding
Left hemiplegia noted
Cardiovascular system S1-S2 appreciated, systolic murmur right heart border
Chest clear to auscultation
# Acute right hemispheric stroke with dense left hemiplegia, facial droop, dysarthria, dysphagia
Continue Plavix and statin
Aspirin discontinued on 03/04/2025 and Eliquis started on 03/04/2025 along with Plavix and statin
LDL: 165
PT/OT - PMR recommends acute rehab.
CVA alert 7/19 AM for increasing NIH score and worsening Left sided weakness; CT head negative for bleed. Worsening symptoms could represent blossoming infarct
Was prescribed Eliquis but he decided to stop taking it .
Dysphagia-had FEES on 03/06/2025. Started on pur�ed diet with mildly thick liquids. Dobbhoff off.
Appreciate ENT input larynx appears grossly normal per ENT.
Multi-Podus boot for left foot to prevent developing foot drop
# Paroxysmal atrial fibrillation-documented per cardiology note from Dr. Rodríguez on 02/22/2024.
Seems like he was on amiodarone 200 mg daily at that time with a plan to stop it next visit
(Patient was supposed to continue metoprolol XL 25 mg daily.Medications listed that time also included Eliquis 5 mg daily, aspirin 81 mg daily)
Dr. Larsen - last visit 08/22/2024
Eliquis restarted on 03/04/2025,
Metoprolol restarted on 03/04/2025
# Right carotid stenosis -greater than 70% stenosis of right proximal ICA on CTA. Underwent successful right carotid endarterectomy 02/28. Continue Plavix and statin along with Eliquis
# Hypertension-continue lisinopril, metoprolol
# Hyperlipidemia/atherosclerosis-patient was on statin at 1 point not on medicines listed on admission. Statin restarted here
# History of coronary artery disease-history of CABG 11/25/2023. Per cardiology notes patient needed to reopen incision in the OR with repair of left chest wall vein bleeding external sutures placed.
Surgical site bleeding at site of vein harvest left lower extremity with Left lower extremity cellulitis at that time.
# Aortic valve replacement November 2023
# Mitral regurgitation
# Diabetes hemoglobin A1c 6.9
Patient was aware about diabetes but was managing with diet alone
Received 10 mg of IV Decadron on 03/02/2025
Sugars are slightly elevated
Basal and bolus insulin
Was on metformin and Jardiance in 2023 as outpatient
# Constipation-continue bowel regimen
# History of prior CVA in 2009, 2020 and 2023-small acute ischemic infarcts in the subcortical white matter of the right frontal lobe, periventricular right temporal lobe, both cerebellar hemispheres. Prior right lower extremity weakness from CVA
# Hypodense left thyroid lesion likely a benign nodule.
# Fatty liver
# Ex-smoker
# DVT prophylaxis-Eliquis
# Full code
Cardiology notes from 02/22/2024-patient was on amiodarone 200 mg daily, Eliquis 5 mg daily, aspirin 81 mg daily, atorvastatin 80 mg daily, Jardiance 10 mg daily, lisinopril 15 mg daily, metformin 500 mg twice daily, metoprolol 50 mg daily (was
advised to reduce to 25 mg daily)
Discussed with patient's son and updated in detail 03/07/25
Discussed about signing up for prescription plan.
He had several questions all were answered to by best of my ability.
Discussed with nursing
Discussed with case management
Part of this note was created using voice recognition system. Occasional wrong word or��sound alike� substitutions may have inadvertently occurred due to the inherent limitations of voice recognition software. If noted kindly bring it to my
attention for correction.
Anticipated Discharge: Within 24 hours
Subjective/Interval History
-
Date of Service: March 07, 2025
Objective Data
-
Labs:
Laboratory Results
03/07/25
14:55
WBC Pending
Hgb Pending
Hct Pending
Plt Count Pending
Sodium Pending
Potassium Pending
Chloride Pending
Carbon Dioxide Pending
BUN Pending
Creatinine Pending
Glucose Pending
Calcium Pending
Vital Signs:
Vital Signs
Temp Pulse Resp BP Pulse Ox
98.1 F 67 18 124/61 94
03/07/25 11:35 03/07/25 11:35 03/07/25 11:35 03/07/25 11:35 03/07/25 11:35
I&O
03/06/25 03/07/25 03/08/25
06:59 06:59 06:59
Intake Total 595 / 595 880 / 880 480 / 480
Output Total 1650 / 1650
Balance -1055 / -1055 880 / 880 480 / 480
[2025-03-07 15:36] LABS: Hematocrit 46.4 % (39.0-52.0); Hemoglobin 15.3 g/dL (13.0-18.0); Mean Corp Hgb Conc. 33.0 g/dL (33.0-37.0); Mean Corpuscular Volume 90.8 fL (80.0-94.0); Platelet Count 249 10^3/uL (130-400); Red Cell Dist. Width 12.3 % (11.5-14.5)
[2025-03-07 15:43] LABS: Blood Urea Nitrogen 35 mg/dl (9-20); Calcium 10.1 mg/dl (8.4-10.2); Carbon Dioxide 29 mmol/L (22-30); Chloride 102 mmol/L (98-107); Estimated Creatinine Clearance 101 ml/min; Glucose 225 mg/dl (70-99); Potassium 4.6 mmol/L (3.5-5.1); Sodium 139 mmol/L (135-145); eGFR > 60.00
[2025-03-07 16:42] LABS: Glucose - Point of Care 148 mg/dl (70-99)
[2025-03-07] MEDS: LIPITOR 80 MG TUBE (16:43)
[2025-03-07] MEDS: LOPRESSOR TUBE (20:39)
[2025-03-07] MEDS: ZESTRIL 20 MG PO (21:05)
[2025-03-07 21:20] LABS: Glucose - Point of Care 133 mg/dl (70-99)
[2025-03-07 23:53] LABS: Glucose - Point of Care 141 mg/dl (70-99)
[2025-03-08 03:03] LABS: Glucose - Point of Care 150 mg/dl (70-99)
[2025-03-08 03:06] VITALS: BP 152/89
[2025-03-08 05:53] VITALS: BMI 23.9
[2025-03-08 06:36] LABS: Glucose - Point of Care 156 mg/dl (70-99)
[2025-03-08] MEDS: NOVOLOG FLEXPEN-LOW RESISTANCE 1 UNITS SC ×2 (06:36→12:36)
[2025-03-08 07:40] VITALS: BP 135/67
[2025-03-08 08:20] LABS: Glucose - Point of Care 147 mg/dl (70-99)
[2025-03-08] MEDS: NOVOLOG FLEXPEN 3 UNITS SC ×2 (09:29→12:36)
[2025-03-08] MEDS: GLUCOPHAGE 500 MG PO (09:30)
[2025-03-08] MEDS: PERIDEX 0.12% ORAL RINSE 15 ML PO (09:30)
[2025-03-08] MEDS: ELIQUIS 5 MG PO (09:30)
[2025-03-08] MEDS: PLAVIX 75 MG PO (09:30)
[2025-03-08] MEDS: LOPRESSOR 25 MG PO (09:30)
[2025-03-08] MEDS: FARXIGA 10 MG PO (09:30)
[2025-03-08] MEDS: LANTUS 0.1 UNITS SC (09:30)
[2025-03-08] MEDS: MIRALAX 17 GRAMS PO (09:31)
[2025-03-08 11:15] VITALS: BP 124/69
--- NOTE | 2025-03-08 11:25 | W.PN.HOSP.TC ---
Today's Communication/Plan
-
Discharge to [facility]
Assessment / Plan
Assessment / Plan
69-year-old with acute right hemispheric stroke with left hemiparesis with left facial droop, dysarthria and dysphagia. CEA done on 02/28/2025 significant postoperative swelling of the right side of the neck.
CTA head: Atherosclerotic calcifications of the bilateral cavernous/paraclinoid ICAs with resultant mild stenosis, more pronounced on the left. No aneurysm.
CTA neck: Mixed density atherosclerotic plaque of the right carotid bifurcation/proximal ICA with resultant 75% stenosis. Codominant vertebral arteries with atherosclerotic calcifications of the bilateral V4 segments of the vertebral arteries with
resultant focal moderate stenosis of the right vertebral artery.
MRI: Acute infarct in the right periventricular stearns radiata.
Echo 02/24/2025-normal LV size and hyperdynamic systolic function. EF 65 to 70%. Well-seated aortic valve replacement. Mild to moderate eccentric TR. Normal PASP.
Awake and alert
Less left neglect now
Left hemiplegia noted
Cardiovascular system S1-S2 appreciated, systolic murmur right heart border
Chest clear to auscultation
# Acute right hemispheric stroke with dense left hemiplegia, facial droop, dysarthria, dysphagia
Continue Plavix and statin
Aspirin discontinued on 03/04/2025 and Eliquis started on 03/04/2025 along with Plavix and statin
LDL: 165
PT/OT - PMR recommends acute rehab.
CVA alert 02/25 AM for increasing NIH score and worsening Left sided weakness; CT head negative for bleed. Worsening symptoms could represent blossoming infarct
Was prescribed Eliquis but he decided to stop taking it .
Dysphagia-had FEES on 03/06/2025. Started on pur�ed diet with mildly thick liquids. Dobbhoff off.
Appreciate ENT input larynx appears grossly normal per ENT.
Multi-Podus boot for left foot to prevent developing foot drop
# Paroxysmal atrial fibrillation-documented per cardiology note from Dr. Rodríguez on 02/22/2024.
Seems like he was on amiodarone 200 mg daily at that time with a plan to stop it next visit
(Patient was supposed to continue metoprolol XL 25 mg daily.Medications listed that time also included Eliquis 5 mg daily, aspirin 81 mg daily)
Dr. Larsen - last visit 08/22/2024
Eliquis restarted on 03/04/2025,
Metoprolol restarted on 03/04/2025
# Right carotid stenosis -greater than 70% stenosis of right proximal ICA on CTA. Underwent successful right carotid endarterectomy 02/28. Continue Plavix and statin along with Eliquis
# Hypertension-continue lisinopril, metoprolol
# Hyperlipidemia/atherosclerosis-patient was on statin at 1 point not on medicines listed on admission. Statin restarted here
# History of coronary artery disease-history of CABG 11/25/2023. Per cardiology notes patient needed to reopen incision in the OR with repair of left chest wall vein bleeding external sutures placed.
Surgical site bleeding at site of vein harvest left lower extremity with Left lower extremity cellulitis at that time.
# Aortic valve replacement November 2023
# Mitral regurgitation
# Diabetes hemoglobin A1c 6.9
Patient was aware about diabetes but was managing with diet alone
Received 10 mg of IV Decadron on 03/02/2025
Sugars are slightly elevated
Basal and bolus insulin
Was on metformin and Jardiance in 2023 as outpatient- Restarted
# Constipation-continue bowel regimen
# History of prior CVA in 2009, 2020 and 2023-small acute ischemic infarcts in the subcortical white matter of the right frontal lobe, periventricular right temporal lobe, both cerebellar hemispheres. Prior right lower extremity weakness from CVA
# Hypodense left thyroid lesion likely a benign nodule.
# Fatty liver
# Ex-smoker
# DVT prophylaxis-Eliquis
# Full code
Cardiology notes from 02/22/2024-patient was on amiodarone 200 mg daily, Eliquis 5 mg daily, aspirin 81 mg daily, atorvastatin 80 mg daily, Jardiance 10 mg daily, lisinopril 15 mg daily, metformin 500 mg twice daily, metoprolol 50 mg daily (was
advised to reduce to 25 mg daily)
Discussed with nursing
Discussed with case management
D/W Son re discharge
More than 30 minutes spent in discharge including
Final examination of the patient
Summarizing hospital stay
Instructions for continuing care to all relevant caregivers
Preparation of discharge records, prescriptions, and referral forms
Total time spent (in minutes): 39 min
Part of this note was created using voice recognition system. Occasional wrong word or��sound alike� substitutions may have inadvertently occurred due to the inherent limitations of voice recognition software. If noted kindly bring it to my
attention for correction.
Anticipated Discharge: Today
Subjective/Interval History
-
Date of Service: March 08, 2025
Objective Data
-
Vital Signs:
Vital Signs
Temp Pulse Resp BP Pulse Ox
97.9 F 74 16 124/69 96
03/08/25 11:15 03/08/25 11:15 03/08/25 11:15 03/08/25 11:15 03/08/25 11:15
I&O
03/07/25 03/08/25 03/09/25
06:59 06:59 06:59
Intake Total 880 / 880 720 / 720 480 / 480
Output Total 250 / 250
Balance 880 / 880 720 / 720 230 / 230
--- NOTE | 2025-03-08 11:32 | CM ---
Reviewed the chart notes and spoke with the patient and his friend at the bedside. Patient's friend brought clothing for the patient. CM continues to be available to patient/family and is monitoring medical plan for needs at discharge.
Plan: Discharge to [facility] today.
Call report to: [phone]
Fax report to: [phone]
--- NOTE | 2025-03-08 11:34 | W.DS.TRANS ---
Addendum entered and electronically signed by Gilbert Joy MD 03/08/25 14:32:
Dictation- [id number]
Original Note:
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
-
Discharge Instructions:
Discharge Diagnosis/Procedures acute right hemispheric stroke with left
hemiplegia, dysarthria, dysphagia
Proximal atrial fibrillation
Right carotid stenosis status post right CEA
Hypertension
Hyperlipidemia/atherosclerosis
Coronary artery disease with history of CABG
Aortic valve replacement November 2023
Mitral regurgitation
Diabetes
History of prior CVA
Fatty liver
Hypodense left thyroid lesion
Diet Other diet
Additional Diets IDDSI 4 diet with mildly thick liquids
Driving Restrictions No driving
Bathing Restrictions OK to Shower
Other Services PT,OT,ST
Instructions:
Stand-Alone Forms: Vascular Surg Discharge Instr
Changes to Home Medications: Yes
Discharge Medications:
DC Medications w/original date entered in [employer]
Insulin Glargine Lantus [Lantus] 10 units As Directed mls/hr SC DAILY Diabetes 03/08/25
acetaminophen 650 mg/20.3 mL oral solution 650 mg (20.3 mL) PO Q4HPRN PRN MAGDALENO, mild pain #0 mL 03/08/25
apixaban 5 mg tablet (Eliquis) 5 mg PO BID Blood clot prevention/tx #0 tabs 03/08/25
atorvastatin 80 mg tablet 80 mg PO QPM High cholesterol #0 tabs 03/08/25
clopidogrel 75 mg tablet 75 mg PO DAILY Blood clot prevention/tx #0 tabs 03/08/25
dapagliflozin propanediol 10 mg tablet 10 mg PO DAILY Diabetes #0 tabs 03/08/25
insulin aspart U-100 100 unit/mL (3 mL) subcutaneous pen 3 unit (0.03 mL) SC AC Diabetes #0 mL 03/08/25
lisinopril 20 mg tablet 20 mg PO HS Blood pressure #0 tabs 03/08/25
metformin 500 mg tablet 500 mg PO BID@0800,1700 Diabetes #0 tabs 03/08/25
metoprolol tartrate 25 mg tablet 25 mg PO BID Blood pressure #0 tabs 03/08/25
polyethylene glycol 3350 17 gram oral powder packet 17 g PO DAILY Constipation #0 ea 03/08/25
Home Medication Changes
new
Insulin Glargine Lantus [Lantus] 10 units As Directed mls/hr SC DAILY Diabetes 03/08/25
acetaminophen 650 mg/20.3 mL oral solution 650 mg (20.3 mL) PO Q4HPRN PRN MAGDALENO, mild pain #0 mL 03/08/25
apixaban 5 mg tablet (Eliquis) 5 mg PO BID Blood clot prevention/tx #0 tabs 03/08/25
atorvastatin 80 mg tablet 80 mg PO QPM High cholesterol #0 tabs 03/08/25
clopidogrel 75 mg tablet 75 mg PO DAILY Blood clot prevention/tx #0 tabs 03/08/25
dapagliflozin propanediol 10 mg tablet 10 mg PO DAILY Diabetes #0 tabs 03/08/25
insulin aspart U-100 100 unit/mL (3 mL) subcutaneous pen 3 unit (0.03 mL) SC AC Diabetes #0 mL 03/08/25
metformin 500 mg tablet 500 mg PO BID@0800,1700 Diabetes #0 tabs 03/08/25
metoprolol tartrate 25 mg tablet 25 mg PO BID Blood pressure #0 tabs 03/08/25
polyethylene glycol 3350 17 gram oral powder packet 17 g PO DAILY Constipation #0 ea 03/08/25
dose change
lisinopril 20 mg tablet 20 mg PO HS Blood pressure #0 tabs 03/08/25
Pending Results: No
[2025-03-08 11:39] LABS: Glucose - Point of Care 150 mg/dl (70-99)
--- NOTE | 2025-03-08 12:05 | PTCARENOTE ---
pt wakes to name. nihss done with material handler 2nd shift. can move fingers on left hand and move left leg. left facial droop. speech garbled. able to feed self. condom cath on pt.
[2025-03-08 15:00] VITALS: BP 123/79
== END 2025-03-08 15:32 | DRG 38 ==
LOC: 2 SOUTH 18:17
PROVIDERS: Internal Medicine; Nurse Practitioner; Nurse Practitioner Primary Care; ADMITTING PHYSICIAN Internal Medicine; ATTENDING PHYSICIAN Hospitalist; CONSULT PHYSICIAN Internal Medicine Cardiovascular Disease; CONSULT PHYSICIAN Internal Medicine Critical Care Medicine; CONSULT PHYSICIAN Otolaryngology; CONSULT PHYSICIAN Physical Medicine & Rehabilitation; EMERGENCY PHYSICIAN Emergency Medicine; FAMILY PHYSICIAN Family Medicine; OTHER PHYSICIAN Psychiatry & Neurology Clinical Neurophysiology; OTHER PHYSICIAN Surgery Vascular Surgery
PROC: 03UH0KZ Supplement Right Common Carotid Artery with Nonautologous Tissue Substitute, Open Approach (ICD-10-PCS; 2025-02-28)
PROC: 03CH0ZZ Extirpation of Matter from Right Common Carotid Artery, Open Approach (ICD-10-PCS; 2025-02-28)
PROC: 0CJS8ZZ Inspection of Larynx, Via Natural or Artificial Opening Endoscopic (ICD-10-PCS; 2025-03-01)
DX: I63.231 Cerebral infarction due to unspecified occlusion or stenosis of right carotid arteries (principal); D68.32 Hemorrhagic disorder due to extrinsic circulating anticoagulants; G81.94 Hemiplegia, unspecified affecting left nondominant side; R04.2 Hemoptysis; R41.4 Neurologic neglect syndrome; R13.10 Dysphagia, unspecified; R47.1 Dysarthria and anarthria; I48.0 Paroxysmal atrial fibrillation; I10 Essential (primary) hypertension; E78.00 Pure hypercholesterolemia, unspecified; I25.10 Atherosclerotic heart disease of native coronary artery without angina pectoris; I08.3 Combined rheumatic disorders of mitral, aortic and tricuspid valves; E11.40 Type 2 diabetes mellitus with diabetic neuropathy, unspecified; K76.0 Fatty (change of) liver, not elsewhere classified; E07.89 Other specified disorders of thyroid; R29.810 Facial weakness; I27.20 Pulmonary hypertension, unspecified; D72.829 Elevated white blood cell count, unspecified; T88.4XXA Failed or difficult intubation, initial encounter; Y83.8 Other surgical procedures as the cause of abnormal reaction of the patient, or of later complication, without mention of misadventure at the time of the procedure; T45.525A Adverse effect of antithrombotic drugs, initial encounter; T39.015A Adverse effect of aspirin, initial encounter; R60.0 Localized edema; K59.00 Constipation, unspecified; E11.65 Type 2 diabetes mellitus with hyperglycemia; D64.9 Anemia, unspecified; Z86.73 Personal history of transient ischemic attack (TIA), and cerebral infarction without residual deficits; Z95.1 Presence of aortocoronary bypass graft; Z95.3 Presence of xenogenic heart valve; Z91.81 History of falling; Z79.82 Long term (current) use of aspirin; Z87.891 Personal history of nicotine dependence
CPT/HCPCS: 35301; 70450; 70496; 70498; 70551; 71045; 74018; 80048; 80061; 82962; 83036; 83605; 83735; 84100; 85025; 85027; 85576; 85610; 85730; 88304; 88311; 92507; 92523; 92526; 92610; 92612; 93005; 93306; 95938; 95941; 95955; 97110; 97112; 97163; 97164; 97167; 97168; 97530; 97535; 99291; Q9950; Q9967

== ENCOUNTER 2025-03-09 12:33 | Emergency (ER) | payer MEDICARE, SELFPAY ==
[2025-03-09 12:37] VITALS: BP 119/61; BMI 25.4
[2025-03-09 12:55] LABS: Hematocrit 49.5 % (39.0-52.0); Hemoglobin 16.4 g/dL (13.0-18.0); Mean Corp Hgb Conc. 33.1 g/dL (33.0-37.0); Mean Corpuscular Volume 90.0 fL (80.0-94.0); Nucleated Red Blood Cells % 0 % (-); Platelet Count 291 10^3/uL (130-400); Red Cell Dist. Width 12.4 % (11.5-14.5)
--- NOTE | 2025-03-09 13:00 | ED.GENMED ---
History of Present Illness
General
Chief Complaint: Change in Mental Status
Source: patient, records, physician, witness and previous radiology exam
Exam Limitations: non verbal-adult
Time Seen by Provider: 03/09/25 12:47
Nursing documentation reviewed up to this point in time: agreed with
History of Present Illness
History of Present Illness:
69-year-old male transferred from [facility] last evening after stroke with left-sided plegia dysarthria underwent a carotid endarterectomy recently from Dr. Vides was undergoing rehab, had some pooling of food in his mouth and had a 2-minute
period of confusion diaphoresis while in a chair now is at his baseline mental status per witness no seizure activity, no fevers placed on oxygen empirically no documented hypoxia
Past History
Past History
ED Past Medical History: Arrthythmia, CAD, CVA (Right MCA February 2025), HTN, Hypercholesterolemia, NIDDM and Valvular disease
ED Past Surgical History: Cardiac (CABG/aortic valve replacement November 25, 2023) and Other (Carotid)
Social History
Tobacco: Non-smoker
Alcohol: None
Drug: None
Personal:
Living: alone
Employment: Retired
Family History
Family History: Other (Noncontributory)
Review of Systems
Review of Systems
Unable to obtain full review of systems at this time due to: non-verbal
Other source history: transfer record and physician
All Other Systems: Not applicable
Phy Exam
Physical Exam
Physical Exam:
Physical Exam
General: Chronically ill-appearing male cooperative dysarthric
Neck: Swelling over the right carotid scar no tongue
Heart: Regular
Lungs: no acute respiratory distress.
Abdomen nontender
Neuro: alert and oriented. Left-sided plegia
Skin: no rash
Psychiatric:cooperative
Extremities: no edema.
Course
Orders/Labs/Results
Orders:
Orders
03/09/25 12:40
Electrocardiogram (*1) Stat
Comment: ALREADY DONE IN ER
03/09/25 12:47
CMP [Comprehensive Metabolic Panel] Urgent
Complete Blood Count/With Diff Urgent
Troponin I Urgent
03/09/25 12:48
CT Head & Neck Angio W/wo IV Urgent
Comment:
Reason For Exam: confusion right neck swelling R CEA
Bedside Glucose- Treatment ONCE
Cardiac Monitoring- Treatment ONCE
CR Chest - 2 Views Urgent
Comment:
Reason For Exam: confusion
03/09/25 12:49
Orthostatic VS- Treatment ONCE
03/09/25 13:44
0.9% Sodium Chloride 1000 ml [Nss] 1,000 ml IV BOLUS
Abnormal Lab Results
03/09/25 03/09/25
12:47 13:03
WBC 13.5 H 10^3/uL
(4.8-10.8)
MPV 12.1 H fL
(7.4-10.4)
Abs Immat Gran (auto) 0.1 H 10^3/uL
(0-0.05)
Absolute Neuts (auto) 8.4 H 10^3/uL
(1.4-6.5)
Absolute Monos (auto) 1.5 H 10^3/uL
(0.1-0.6)
Immature Gran % 0.6 H %
(0-0.5)
Monocytes % 11.2 H %
(1.7-9.3)
BUN 39 H mg/dl
(9-20)
Glucose 173 H mg/dl
(70-99)
POC Glucose 149 H mg/dl
(70-99)
03/09/25 12:47
03/09/25 12:47
Vital Signs
Initial and Last Documented VS:
Initial Vital Signs
Pulse Resp BP Pulse Ox
67 18 119/61 94
03/09/25 12:37 03/09/25 12:37 03/09/25 12:37 03/09/25 12:37
Last Documented Vital Signs
Temp Pulse Resp BP Pulse Ox
97.7 F 77 18 129/64 99
03/09/25 12:53 03/09/25 15:06 03/09/25 15:06 03/09/25 15:27 03/09/25 15:06
MDM/Problems Addressed
Differential Diagnosis Includes:
Electrolyte abnormality arrhythmia vasovagal intracerebral hemorrhage seizure conceivably
MDM/Problems Addressed:
2-minute period of confusion
Chronic conditions affecting care: Neurological disorder
Acute Exacerbation and/or Progression of Chronic Illness: Neurological disorder
*Radiology
Radiology exam reviewed: radiology read reviewed
*Pulse Oximetry
SaO2: 94
Nasal Cannula flow liters per minute: 2
Oxygen Mode of Delivery: Room air
Patient hypoxic: no
*EKG
Interpreted by ED Provider?: Yes
Interpretation: abnormal
Comparison EKG: no comparison EKG present
Heart Rate: 78
Rate: normal
Rhythm: sinus
Ischemia: non-specific ST changes
*Enrollment Management Vice President Interpretation
Rate: normal
Interpretation: normal
Heart Rate: 78
Rhythm: sinus
*Critical Care Note
Total Time (30-74mins, 75-104mins- exclusive of procedures): Not Applicable
Data Reviewed
Review of Other/Old Records Reveals: Labs, Radiology Studies, Operative Reports and Discharge Summary
Source: patient, physician, witness, previous radiology exam and previous hospital records
Further Testing Considered But Not Given:
EEG
Update Note
Update Note:
1 PM update patient is at his baseline mental status per nurse and [facility] for aspiration question versus other will cast a wide net check CT CT angio labs Trop chest x-ray
1:45 PM update labs noted hemoglobin up BUN up suspect is probably dry will start saline
CT report noted, chest x-ray pending
4:15 PM update patient smiling in no acute distress discussed with patient and his family member they are anxious to go back to [facility] to continue his rehab message sent to referring stocking inspector
ED Attending Note
-
Portions of this chart may have been created with voice recognition software.� Occasional wrong word or��sound alike� substitutions may have occurred due to the inherent limitations of voice recognition software.
Discharge Plan
Departure
Patient Disposition: Acute Rehab Facility
Date of Disposition: 03/09/25
Time of Disposition: 16:21
Patient with high blood pressure during this ER visit?: No
Condition: Good
Covid-19: Not Applicable
Discharge Problem:
Dehydration
Instructions: Altered Mental Status (DC)
Prescriptions:
No Action
metformin 500 mg Tablet
500 mg PO BID@0800,1700 Qty: 0 0RF
atorvastatin 80 mg Tablet
80 mg PO QPM Qty: 0 0RF
polyethylene glycol 3350 17 gram Powder In Packet
17 g PO DAILY Qty: 0 0RF
clopidogrel 75 mg Tablet
75 mg PO DAILY Qty: 0 0RF
insulin aspart U-100 100 unit/mL (3 mL) Insulin Pen
3 unit SC AC Qty: 0 0RF
metoprolol tartrate 25 mg Tablet
25 mg PO BID Qty: 0 0RF
acetaminophen 650 mg/20.3 mL Solution
650 mg PO Q4HPRN PRN (Reason: MAGDALENO, mild pain) Qty: 0 0RF
Eliquis 5 mg Tablet
5 mg PO BID Qty: 0 0RF
dapagliflozin propanediol 10 mg Tablet
10 mg PO DAILY Qty: 0 0RF
insulin glargine [Lantus Solostar U-100 Insulin] 100 unit/mL (3 mL) Insulin Pen
5 unit SC DAILY
lisinopril 20 mg tablet
10 mg PO HS
Referrals:
NONE,* [Family Provider, Internal Medicine]
Activity Restrictions/Additional Instructions:
Drink plenty of fluids you are stable for return back to [place] rehab
Interventions
Interventions:
*Risk Screen - Suicide Last Done: 03/09/25 12:37
*General Assessment Last Done: 03/09/25 12:37
*Neglect/Abuse Screening Last Done: 03/09/25 12:37
*ED- Fall Risk Assessment Last Done: 03/09/25 12:50
*ED COVID-19 Vaccine History Last Done: 03/09/25 12:50
ED- Neurological Assessment Last Done: 03/09/25 12:37
Discharge Date and Time
Print Language: BAHAMIAN
[2025-03-09 13:06] LABS: Glucose - Point of Care 149 mg/dl (70-99)
[2025-03-09 13:16] LABS: Carbon Dioxide 23 mmol/L (22-30)
[2025-03-09 13:19] LABS: Troponin I < 0.012 ng/ml
[2025-03-09 13:26] LABS: ALT (SGPT) 43 U/L (0-50); AST (SGOT) 34 U/L (17-59); Albumin 4.4 g/dl (3.5-5.0); Alkaline Phosphatase 101 U/L (38-126); Blood Urea Nitrogen 39 mg/dl (9-20); Calcium 9.8 mg/dl (8.4-10.2); Chloride 107 mmol/L (98-107); Estimated Creatinine Clearance 79 ml/min; Glucose 173 mg/dl (70-99); Potassium 5.0 mmol/L (3.5-5.1); Sodium 141 mmol/L (135-145); Total Protein 7.5 g/dl (6.3-8.2); eGFR > 60.00
[2025-03-09] MEDS: NSS 1000 IV (13:50)
[2025-03-09 14:10] VITALS: BP 122/60
[2025-03-09 15:27] VITALS: BP 129/64
[2025-03-09 16:51] LABS: Glucose - Point of Care 125 mg/dl (70-99)
== END 2025-03-09 16:41 ==
LOC: EMR 12:33
PROVIDERS: EMERGENCY PHYSICIAN Emergency Medicine
DX: E86.0 Dehydration (principal); E11.9 Type 2 diabetes mellitus without complications; E78.00 Pure hypercholesterolemia, unspecified; I10 Essential (primary) hypertension; I25.10 Atherosclerotic heart disease of native coronary artery without angina pectoris; Z86.73 Personal history of transient ischemic attack (TIA), and cerebral infarction without residual deficits; Z95.1 Presence of aortocoronary bypass graft; Z95.2 Presence of prosthetic heart valve; I38 Endocarditis, valve unspecified
CPT/HCPCS: 99284; 96360; 70496; 70498; 71046; 80053; 82962; 84484; 85025; 93005; Q9967

== ENCOUNTER → 2025-04-20 11:19 | Outpatient (REF) | payer MEDICARE, SELFPAY | LOC: DHVS 11:19 | PROVIDERS: ATTENDING PHYSICIAN Surgery Vascular Surgery; FAMILY PHYSICIAN Student in an Organized Health Care Education/Training Program | DX: I65.21 Occlusion and stenosis of right carotid artery (principal) | CPT/HCPCS: 93880 ==

== ENCOUNTER 2025-05-16 12:25 | Emergency (ER) | payer MEDICARE, SELFPAY ==
[2025-05-16 12:30] VITALS: BP 145/77
[2025-05-16 12:33] LABS: Glucose - Point of Care 107 mg/dl (70-99)
[2025-05-16 12:38] VITALS: BMI 20.1
[2025-05-16 12:59] LABS: Hematocrit 45.9 % (39.0-52.0); Hemoglobin 15.0 g/dL (13.0-18.0); Mean Corp Hgb Conc. 32.7 g/dL (33.0-37.0); Mean Corpuscular Volume 91.3 fL (80.0-94.0); Nucleated Red Blood Cells % 0 % (-); Platelet Count 214 10^3/uL (130-400); Red Cell Dist. Width 13.8 % (11.5-14.5)
[2025-05-16 13:00] VITALS: BP 126/84
[2025-05-16 13:12] LABS: ALT (SGPT) 16 U/L (0-50); AST (SGOT) 20 U/L (17-59); Albumin 4.7 g/dl (3.5-5.0); Alkaline Phosphatase 87 U/L (38-126); Blood Urea Nitrogen 15 mg/dl (9-20); Calcium 9.9 mg/dl (8.4-10.2); Carbon Dioxide 27 mmol/L (22-30); Chloride 104 mmol/L (98-107); Estimated Creatinine Clearance 115 ml/min; Glucose 120 mg/dl (70-99); Potassium 4.3 mmol/L (3.5-5.1); Sodium 142 mmol/L (135-145); Total Protein 7.5 g/dl (6.3-8.2); eGFR > 60.00
[2025-05-16] MEDS: NSS 1000 IV (13:24)
--- NOTE | 2025-05-16 13:47 | ED.GENMED ---
History of Present Illness
General
Chief Complaint: Abdominal Symptoms
Time Seen by Provider: 05/16/25 12:32
History of Present Illness
History of Present Illness:
70-year-old male with history of A-fib on Eliquis, CAD status post CABG, mitral regurgitation status post valve replacement, hypertension, diabetes, recent CVA with aphasia and left-sided hemiplegia presenting for episode of nauseousness with
diaphoresis. Patient was at rehab prior to arrival, was in his wheelchair when symptoms started. Denies associated chest pain or difficulty breathing. Denies abdominal pain or vomiting. Notes that his symptoms have since resolved. He reports
that this has happened to him in the past, unclear etiology. Currently denies acute medical complaints
Past History
Past History
ED Past Medical History: Arrthythmia, CAD, CVA (Right MCA February 2025), HTN, Hypercholesterolemia, NIDDM and Valvular disease
ED Past Surgical History: Cardiac (CABG/aortic valve replacement November 25, 2023) and Other (Carotid)
Social History
Tobacco: Non-smoker
Alcohol: None
Drug: None
Personal:
Living: alone
Employment: Retired
Family History
Family History: Other (Noncontributory)
Phy Exam
Physical Exam
Physical Exam:
General: Well-appearing, no clinical signs of dehydration, nontoxic and in no acute distress
HEENT: protecting airway, pupils equal and reactive
Neck: appears supple
CV: Normal heart rate, regular rhythm
Resp: No accessory muscle use, no increased work of breathing, lungs clear to auscultation bilaterally
Abd: Soft and non-distended, no tenderness to palpation
Extremities: No deformities, no swelling
Neuro: alert, oriented. Aphasia, chronic, left upper and lower extremity weakness, chronic
: deferred
Rectal: deferred
Psych: Normal affect
Skin: Intact
Course
Orders/Labs/Results
Orders:
Orders
05/16/25 12:29
EKG [Electrocardiogram (*1)] Urgent
Reason for Study: Fatigue / Weakness
05/16/25 12:30
EKG- Treatment ONCE
05/16/25 12:42
Complete Blood Count/With Diff Urgent
Comprehensive Metabolic Panel Urgent
05/16/25 13:16
0.9% Sodium Chloride 1000 ml [Nss] 1,000 ml IV BOLUS
05/16/25 13:21
Troponin I Urgent
Abnormal Lab Results
05/16/25 05/16/25
12:32 12:42
MCHC 32.7 L g/dL
(33.0-37.0)
MPV 12.0 H fL
(7.4-10.4)
Absolute Neuts (auto) 7.2 H 10^3/uL
(1.4-6.5)
Absolute Lymphs (auto) 1.1 L 10^3/uL
(1.2-3.4)
Neutrophils % 81.1 H %
(42.2-75.2)
Lymphocytes % 12.9 L %
(20.5-51.1)
Creatinine 0.6 L mg/dL
(0.7-1.3)
Glucose 120 H mg/dl
(70-99)
POC Glucose 107 H mg/dl
(70-99)
05/16/25 12:42
05/16/25 12:42
Vital Signs
Initial and Last Documented VS:
Initial Vital Signs
Temp Pulse Resp BP Pulse Ox
98.3 F 83 16 145/77 99
05/16/25 12:30 05/16/25 12:30 05/16/25 12:30 05/16/25 12:30 05/16/25 12:30
Last Documented Vital Signs
Temp Pulse Resp BP Pulse Ox
98.3 F 98 18 128/68 98
05/16/25 12:30 05/16/25 14:18 05/16/25 14:00 05/16/25 14:00 05/16/25 14:00
MDM/Problems Addressed
MDM/Problems Addressed:
70-year-old male with history of A-fib on Eliquis, CAD status post CABG, mitral regurgitation status post valve replacement, hypertension, diabetes, recent CVA with aphasia and left-sided hemiplegia presenting to the emergency department for episode
of being nauseous and diaphoretic prior to arrival. Vitals are normal.
On exam, patient currently without any acute complaints. No hemodynamic instability. Denies any abdominal pain or any residual nausea. Unclear etiology preceding symptoms. EKG obtained prior to my assessment, unchanged from prior. No concerning
arrhythmia. Possible transient episode of hypotension prior to arrival, versus vasovagal etiology. Will screen with laboratory analysis and continue to closely monitor
15:00- Patient's labs are unremarkable. Patient is eating a turkey sandwich, without any issues. He remains asymptomatic. He remains hemodynamically stable. At this time feel that he is stable for discharge. Will provide transportation back to
his facility. Return precautions discussed
*Pulse Oximetry
SaO2: 98
Oxygen Mode of Delivery: Room air
Patient hypoxic: no
*EKG
Interpreted by ED Provider?: Yes
EKG Intrepretation Date: 05/16/25
EKG Intrepretation Time: 13:53
Interpretation: abnormal
Comparison EKG: no changes (03/09/25)
Heart Rate: 82
Rate: normal
Rhythm: sinus
[place]: normal axis
QRS Pattern: right bundle branch block
Ischemia: no ischemia
*Critical Care Note
Total Time (30-74mins, 75-104mins- exclusive of procedures): Not Applicable
ED Attending Note
-
Portions of this chart may have been created with voice recognition software.� Occasional wrong word or��sound alike� substitutions may have occurred due to the inherent limitations of voice recognition software.
Discharge Plan
Departure
Patient Disposition: Home (Routine Discharge)
Date of Disposition: 05/16/25
Time of Disposition: 15:08
Patient with high blood pressure during this ER visit?: No
Condition: Good
Discharge Problem:
Near syncope
Instructions: Near Fainting (DC)
Prescriptions:
No Action
metformin 500 mg Tablet
500 mg PO BID@0800,1700 Qty: 0 0RF
atorvastatin 80 mg Tablet
80 mg PO QPM Qty: 0 0RF
polyethylene glycol 3350 17 gram Powder In Packet
17 g PO DAILY Qty: 0 0RF
metoprolol tartrate 25 mg Tablet
25 mg PO BID Qty: 0 0RF
acetaminophen 650 mg/20.3 mL Solution
650 mg PO Q4HPRN PRN (Reason: MAGDALENO, mild pain) Qty: 0 0RF
dapagliflozin propanediol 10 mg Tablet
10 mg PO DAILY Qty: 0 0RF
lisinopril 20 mg tablet
10 mg PO HS
docusate sodium 50 mg/5 mL Liquid
100 mg PO BID 30 Days Qty: 600 0RF
sennosides [Becky-christina] 8.6 mg Tablet
17.2 mg PO NOON 30 Days Qty: 30 0RF
trazodone 50 mg Tablet
25 mg PO HS PRN (Reason: sleep) 30 Days Qty: 30 0RF
ondansetron HCl 4 mg Tablet
4 mg PO Q6HPRN PRN (Reason: nausea,vomiting) 30 Days Qty: 30 0RF
bisacodyl 10 mg Suppository
10 mg MA DAILYPRN PRN (Reason: Constipation constipation) 30 Days Qty: 30 0RF
bisacodyl 5 mg Tablet,Delayed Release (Dr/Ec)
10 mg PO DAILYPRN PRN (Reason: constipation) 30 Days Qty: 30 0RF
finasteride 5 mg Tablet
5 mg PO DAILY@1999 30 Days Qty: 30 0RF
lansoprazole 15 mg Tablet,Disintegrat, Delay Rel
15 mg PO DAILY 30 Days Qty: 30 0RF
[place] Saline Gel
1 applic intranasal Q2HPRN PRN (Reason: dry nose, nose bleed) 30 Days Qty: 10 0RF
clopidogrel 75 mg Tablet
75 mg PO DAILY Qty: 0 0RF
Eliquis 5 mg Tablet
5 mg PO BID Qty: 0 0RF
Referrals:
Leon Ha MD [Family Provider]
Activity Restrictions/Additional Instructions:
You were seen in the emergency department for episode of nausea and sweating
You were found to have reassuring laboratory analysis, vital signs, EKG
Please follow-up closely with your primary care physician.
Return to the emergency department for any worsening of your symptoms, or any development of chest pain, difficulty breathing, abdominal pain with persistent vomiting and inability to tolerate food or liquid by mouth (concern for dehydration),
weakness, headache or confusion, fever greater than 100.4, or any additional symptoms that are concerning to you.
Thank you for choosing [facility].
Interventions
Interventions:
*Risk Screen - Suicide Last Done: 05/16/25 12:39
*General Assessment Last Done: 05/16/25 12:39
*Neglect/Abuse Screening Last Done: 05/16/25 12:39
*ED COVID-19 Vaccine History Last Done: 05/16/25 12:37
*ED Influenza Vaccine History Last Done: 05/16/25 12:37
Discharge Date and Time
Print Language: TAIWANESE
[2025-05-16 14:00] VITALS: BP 128/68
[2025-05-16 14:07] LABS: Troponin I < 0.012 ng/ml
[2025-05-16 15:00] VITALS: BP 160/71
== END 2025-05-16 18:31 | disposition home or self-care (01) ==
LOC: EMR 12:25
PROVIDERS: EMERGENCY PHYSICIAN Student in an Organized Health Care Education/Training Program; FAMILY PHYSICIAN Internal Medicine
DX: R55 Syncope and collapse (principal); I25.10 Atherosclerotic heart disease of native coronary artery without angina pectoris; I48.91 Unspecified atrial fibrillation; I69.920 Aphasia following unspecified cerebrovascular disease; I69.954 Hemiplegia and hemiparesis following unspecified cerebrovascular disease affecting left non-dominant side; E11.9 Type 2 diabetes mellitus without complications; E78.00 Pure hypercholesterolemia, unspecified; I10 Essential (primary) hypertension; I34.0 Nonrheumatic mitral (valve) insufficiency; Z79.01 Long term (current) use of anticoagulants; Z95.1 Presence of aortocoronary bypass graft; Z95.2 Presence of prosthetic heart valve
CPT/HCPCS: 99284; 96360; 80053; 82962; 84484; 85025; 93005